=== PATIENT | male | born 1965 | race Caucasian/White ===

== ENCOUNTER → 2019-01-28 | Outpatient (CLI) | payer BC ==
--- NOTE | 2019-01-28 17:38 | FL ---
Fluoroscopy INDICATION: Pain FINDINGS: Fluoroscopy time: 44 seconds. Images obtained: 1. Diaphragms are symmetrical. Real-time observation there is symmetrical movement with quiet breathing. With rapid sniff motions diaphragms distend symmetrically. No peritonsillar motion is identified. IMPRESSIONS: 1. Normal bilateral diaphragms.
== END | disposition home or self-care (01) ==
LOC: RADFLMAIN 12:38
PROVIDERS: ATTEND Internal Medicine
DX: J98.6 Disorders of diaphragm (principal)
CPT/HCPCS: 76000

== ENCOUNTER 2019-02-17 15:26 | Inpatient (IN) | payer BC ==
[2019-02-17 20:14] VITALS: BMI 27.7
[2019-02-17 20:34] LABS: Glucose,Whole Blood 204 mg/dL (75-99)
[2019-02-17] MEDS ORDERED: INSULIN ASPART (NovoLOG) 100 UNIT/ML VIAL SQ PRN (20:35)
[2019-02-17] MEDS ORDERED: ONDANSETRON 4 MG/2 ML VIAL IVP PRN (20:43)
[2019-02-17] MEDS ORDERED: IPRATROPIUM-ALBUTEROL 3 ML NEB INHALATION PRN (20:45)
[2019-02-17] MEDS: guaiFENesin 600 MG TABLET.ER PO SCH (21:20)
[2019-02-17] MEDS: GABAPENTIN 100 MG CAP PO SCH (21:27)
[2019-02-17] MEDS: AZITHROMYCIN 500 MG TAB PO SCH (21:27)
[2019-02-17] MEDS: APIXABAN 5 MG TAB PO SCH (21:27)
--- NOTE | 2019-02-17 21:50 | P.HPIM ---
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 While [place] the patient was treated with systemic steroids IV Solu-Medrol and empiric IV antibiotics with Rocephin and azithromycin, apparently the patient initially showed some improvement but then deteriorated becoming increasingly more dyspneic with ambulation and having persistent wheezes and shortness of breath. He was transferred here to see pulmonology is followed in clinic by Dr. Goldstein. Review of records indicates the patient has had a leukocytosis of 16 after presenting with a white count of around 10, recent serum bicarb today was 33. The patient apparently had a chest x-ray that showed no infiltrates suggestive of any acute infectious process. Review of Systems Pertinent positives per HPI all other review of systems otherwise negative Past Medical History Past Medical History: No Reported History, Hypertension, Pneumonia, Pulmonary Embolus (PE), Respiratory Disorder Smoking Status: Never smoker Past Alcohol Use History: Rare Past Drug Use History: None Reported - Past Family History Mother History Unknown: Yes (pancreatic cancer) Medications and Allergies Home Medications Medication Instructions Recorded Confirmed Type Albuterol Nebulized [Ventolin 2.5 mg INHALATION RT-Q6H PRN 02/17/19 02/17/19 History Nebulized] Albuterol Sulfate [Proair Hfa] 2 puff INHALATION RT-Q6H PRN 02/17/19 02/17/19 History Apixaban [Eliquis] 5 mg PO BID 02/17/19 02/17/19 History Bisoprolol-Hctz 10-6.25 mg [Ziac 10 gm PO DAILY 02/17/19 02/17/19 History 10-6.25 MG] Escitalopram [Lexapro] 20 mg PO HS 02/17/19 02/17/19 History Gabapentin [Neurontin] 100 mg PO BID 02/17/19 02/17/19 History Allergies Allergy/AdvReac Type Severity Reaction Status Date / Time meclizine [From Antivert] Allergy Unknown Unknown Verified 02/17/19 21:21 amlodipine [From Norvasc] Allergy Unknown Verified 02/17/19 21:21 lisinopril [From Zestril] Allergy Unknown Verified 02/17/19 21:21 NSAIDS (Non-Steroidal Allergy Unknown Verified 02/17/19 21:21 Anti-Inflamma omeprazole Allergy Unknown Verified 02/17/19 21:21 Physical Exam Vitals: Vital Signs Temp Pulse Resp BP Pulse Ox 02/17/19 18:25 98.1 F 78 18 162/76 96 02/17/19 18:18 98.1 F 80 20 150/70 95 Intake and Output 02/17/19 02/17/19 02/17/19 06:59 14:59 22:59 Other: Weight 66.6 kg Constitutional: Mild to moderate respiratory distress, conversant, pleasant Eyes: Anicteric sclerae, moist conjunctiva, no lid-lag, PERRLA ENMT: NC/AT,Oropharynx clear, no erythema, exudates Neck:Supple, FROM, no masses, or JVD, No carotid bruits; No thyromegaly Lungs: Coarse adventitious sounds with noted wheezes, speaking in incomplete sentences noted mild to moderate distress Cardiovascular: Heart regular in rate and rhythm, No murmurs, gallops, or rubs no peripheral edema Abdominal: Soft Nontender, nom distended, no guarding, no rebound or rigidity, Normoactive bowel sounds No hepatomegaly, No splenomegaly, No palpable mass No abdominal wall hernia noted Skin: Normal temperature, tone, texture, turgor, No induration No subcutaneous nodules, No rash, lesions, No ulcers Extremities:No digital cyanosis No clubbing, Pedal pulses intact and symmetrical Radial pulses intact and symmetrical Normal gait and station, No calf tenderness Psychiatric: Alert and oriented to person, place and time, Appropriate affect Intact judgement Neuro: Muscles Strength 5/5 in all 4 extremities, Sensation to light touch grossly present throughout, Cranial nerves II-XII grossly intact. No focal sensory deficits Assessment and Plan (1) Severe persistent asthma with acute exacerbation Current Visit: Yes Status: Acute Code(s): J45.51 - SEVERE PERSISTENT ASTHMA WITH (ACUTE) EXACERBATION SNOMED Code(s): 631792363 (2) Essential hypertension Current Visit: Yes Status: Acute Code(s): I10 - ESSENTIAL (PRIMARY) HYPERTEN ROSMERY SNOMED Code(s): 80831174 (3) History of pulmonary embolism Current Visit: Yes Status: Acute Code(s): Z86.711 - PERSONAL HISTORY OF PULMONARY EMBOLISM SNOMED Code(s): 257294317 (4) Restrictive lung disease Current Visit: Yes Status: Acute Code(s): J98.4 - OTHER DISORDERS OF LUNG SNOMED Code(s): 96962371 Plan: The patient is admitted anticipated greater than 2 midnight stay with severe persistent asthma exacerbation versus possible status asthmaticus after being transferred here from [place] with plans for pulmonary consultation. Dr. Goldstein has been consulted. We'll continue treatment with systemic steroids Solu-Medrol 60 mg IV QID, azithromycin orally, scheduled and Prn DUOneb b ronchodilator breathing treatments, Perforomist and Symbicort. We'll continue his home hypertensive regimen, resume anticoagulation for his previous PE. Implement correctional scale coverage for hyperglycemia since he is on steroids and continue Protonix for GI prophylaxis CODE STATUS: Full code Anticipated discharge 3-5 days Discussed plan of care with the patient
[2019-02-17] MEDS: methylPREDNISolone SOD SUCCI 125 MG/2 ML VIAL IV SCH (23:39)
[2019-02-18] MEDS: methylPREDNISolone SOD SUCCI 125 MG/2 ML VIAL IV SCH ×4 (05:21→23:45)
[2019-02-18 05:56] LABS: Glucose,Whole Blood 137 mg/dL (75-99)
[2019-02-18 07:05] LABS: Basophils % (A) 0 %; Eosinophils # (A) 0.1 k/uL (0-0.7); Eosinophils % (A) 1 %; HCT 45.3 % (39.0-53.0); HGB 14.4 gm/dL (13.0-17.5); Lymphocytes # (A) 0.6 k/uL (1.0-4.8); Lymphocytes % (A) 3 %; MCH 30.1 pg (25.0-35.0); MCHC 31.8 g/dL (31.0-37.0); MCV 94.6 fL (80.0-100.0); Mean Platelet Volume 6.3; Monocytes # (A) 0.8 k/uL (0-1.0); Monocytes % (A) 5 %; Neutrophils # (A) 15.6 k/uL (1.3-7.7); Neutrophils % (A) 91 %; Platelet Count 192 k/uL (150-450); RBC 4.79 m/uL (4.30-5.90); RDW 13.8 % (11.5-15.5); WBC 17.2 k/uL (3.8-10.6)
[2019-02-18 07:22] LABS: ALT 76 U/L (21-72); AST 42 U/L (17-59); Albumin 3.4 g/dL (3.5-5.0); Alkaline Phosphatase 75 U/L (38-126); Anion Gap 4 mmol/L; Blood Urea Nitrogen 29 mg/dL (9-20); Carbon Dioxide 34 mmol/L (22-30); Chloride 100 mmol/L (98-107); Glucose 134 mg/dL (74-99); Sodium 138 mmol/L (137-145); Total Bilirubin 0.9 mg/dL (0.2-1.3); Total Protein 5.8 g/dL (6.3-8.2)
[2019-02-18] MEDS: IPRATROPIUM-ALBUTEROL 3 ML NEB INHALATION SCH ×4 (07:42→20:18)
[2019-02-18] MEDS: FORMOTEROL FUMARATE 20 MCG/2 ML NEBU INHALATION SCH ×2 (07:42→20:18)
[2019-02-18] MEDS: SYMBICORT 160-4.5 MCG INHALER INHALATION SCH ×2 (07:44→20:18)
[2019-02-18] MEDS ORDERED: SYMBICORT 80-4.5 MCG INHALER INHALATION SCH (08:00)
--- NOTE | 2019-02-18 08:16 | XR ---
EXAMINATION TYPE: XR chest 2V DATE OF EXAM: 02/18/2019 COMPARISON: Prior chest x-ray 01/28/2019 HISTORY: Asthma exacerbation TECHNIQUE: Frontal and lateral views of the chest are obtained. FINDINGS: There is no focal air space opacity, pleural effusion, or pneumothorax seen. The cardiac silhouette size is stable accounting for rotation. Pulmonary artery appears prominently. There is an underlying scoliosis. There are cardiac leads. The left ribs show stable congenital appearance. IMPRESSION: No acute cardiopulmonary process. Prominence of the pulmonary artery could be indicative of underlying pulmonary artery hypertension. Scoliosis.
[2019-02-18] MEDS: FAMOTIDINE 20 MG TAB PO SCH (08:35)
[2019-02-18] MEDS: APIXABAN 5 MG TAB PO SCH ×2 (08:35→20:46)
[2019-02-18] MEDS: BISOPROLOL-HCTZ 10-6.25 MG 1 EACH TAB PO SCH (08:35)
[2019-02-18] MEDS: GABAPENTIN 100 MG CAP PO SCH ×2 (08:35→20:46)
[2019-02-18] MEDS: ESCITALOPRAM 20 MG TAB PO SCH (08:35)
[2019-02-18] MEDS: guaiFENesin 600 MG TABLET.ER PO SCH ×2 (08:35→20:46)
[2019-02-18 11:35] LABS: Glucose,Whole Blood 95 mg/dL (75-99)
--- NOTE | 2019-02-18 14:46 | P.PN ---
Subjective Progress Note Date: 02/18/19 Patient was seen and examined at the bedside. The patient notes that he continues to have wheezing, though now also reports sore throat with swollen glands in the neck since last night. He otherwise denied dysphagia, shortness of breath, chest pain, fever, chills, nausea, vomiting, or voice changes. Objective - Vital Signs Vital signs: Vital Signs Temp 97.0 F L 02/18/19 07:45 Pulse 88 02/18/19 12:16 Resp 18 02/18/19 07:45 BP 147/78 02/18/19 07:45 Pulse Ox 99 02/18/19 07:45 Intake & Output 02/17/19 02/18/19 02/18/19 18:59 06:59 18:59 Intake Total 720 Balance 720 Weight 66.6 kg 66.7 kg Intake: Oral 720 Other: # Voids 1 1 - Exam General: Non-toxic, in no acute distress, appears stated age, normal weight HEENT: NC/AT, anicteric sclerae, moist conjunctiva, no lid-lag, PERRLA, no pharyngeal erythema, no tonsillar exudates, submandibular bilateral adenopathy appreciated, mildly tender to palpation Cardiovascular: S1/S2 wnl, no murmurs, rubs, or gallops Lungs: Diffuse wheezing appreciated, normal respiratory effort, no accessory muscle use Abdominal: Soft, non-tender, non-distended, no guarding, rebound, or rigidity Skin: Warm, dry Extremities: No edema or contractures Psychiatric: Alert and oriented to person, place and time, appropriate affect Neuro: CN II-XII grossly intact, Strength 5/5 in all 4 extremities, Speech intact, Sensation to light touch grossly intact throughout - Labs CBC & Chem 7: 02/18/19 06:33 02/18/19 06:33 Labs: Abnormal Lab Results - Last 24 Hours (Table) 02/17/19 02/18/19 02/18/19 Range/Units 20:31 05:54 06:33 WBC 17.2 H (3.8-10.6) k/uL Neutrophils # 15.6 H (1.3-7.7) k/uL Lymphocytes # 0.6 L (1.0-4.8) k/uL Carbon Dioxide (22-30) mmol/L BUN (9-20) mg/dL Creatinine (0.66-1.25) mg/dL Glucose (74-99) mg/dL POC Glucose (mg/dL) 204 H 137 H (75-99) mg/dL ALT (21-72) U/L Total Protein (6.3-8.2) g/dL Albumin (3.5-5.0) g/dL 02/18/19 Range/Units 06:33 WBC (3.8-10.6) k/uL Neutrophils # (1.3-7.7) k/uL Lymphocytes # (1.0-4.8) k/uL Carbon Dioxide 34 H (22-30) mmol/L BUN 29 H (9-20) mg/dL Creatinine 0.51 L (0.66-1.25) mg/dL Glucose 134 H (74-99) mg/dL POC Glucose (mg/dL) (75-99) mg/dL ALT 76 H (21-72) U/L Total Protein 5.8 L (6.3-8.2) g/dL Albumin 3.4 L (3.5-5.0) g/dL Assessment and Plan Plan: Acute asthma exacerbation -Continue with Solu-Medrol -Continue with DuoNeb's -Pulmonary consult pending Bilateral submandibular lymphadenopathy, no pharyngeal erythema or exudates -Will test for strep, EBV, and mumps -ID consult History of PE's -Continue with Eliquis Hypertension -Continue with home medications DM -CHRISSY with FS DVT//GI prophylaxis -Eliquis -Pepcid Anticipated discharge date: 02/20/[address]: Home A total of 35 minutes was spent on the care of this complex patient more than 50% of the time was spent in counseling and care coordination.
[2019-02-18] MEDS: ACETAMINOPHEN TAB 325 MG TAB PO PRN ×2 (15:10→23:44)
[2019-02-18] MEDS ORDERED: RX INFO: IV CONTRAST WAS GIVEN 1 EACH MISC MISCELLANE PRN (15:19)
--- NOTE | 2019-02-18 16:37 | CT ---
EXAMINATION TYPE: CT neck chest w con DATE OF EXAM: 02/18/2019 COMPARISON: None HISTORY: Neck swelling and shortness of breath CT DLP: 511.1 mGycm CONTRAST: CT scan of the neck is performed with IV Contrast, patient injected with 100 mL of Isovue 300. Contrast enhanced CT of the neck was performed from the skull base through the lung apices. AIRWAY: The supraglottic, glottic, and subglottic portions of the airway appear patent and free of mass. SALIVARY GLANDS: There is fullness of the bilateral submandibular glands wo intraglandular lesion. Co rrelate for possible bilateral sialoadenitis. Parotid glands are symmetric and unremarkable. THYROID GLAND: No nodules or masses seen. LYMPH NODES: No adenopathy seen greater than 1cm. LUNG APICES: No nodule or mass is seen. OTHER: Vascular structures are patent. No significant degenerative change of the cervical spine. N o abscess seen. IMPRESSION: 1.There is fullness of the bilateral submandibular glands wo intraglandular lesion. Correlate for pos sible bilateral sialoadenitis. EXAMINATION TYPE: CT neck chest w con DATE OF EXAM: 02/18/2019 COMPARISON: None HISTORY: Neck swelling and shortness of breath CT DLP: 511.1 mGycm Automated exposure control for dose reduction was used. CONTRAST: CT scan of the chest is performed with IV Contrast, patient injected with 100 mL of Isovue 300. FINDINGS: LUNGS: The lungs are grossly clear, there is no concerning parenchymal mass or nodule identified. T here is no pleural effusion or pneumothorax seen. The tracheobronchial tree is patent. MEDIASTINUM: There are no greater than 1 cm hilar or mediastinal lymph nodes. No pericardial effusi on is seen. Thoracic aorta is of normal caliber. The heart is not enlarged. UPPER ABDOMEN: Splenic cyst or hemangioma. OTHER: Scoliosis of thoracic spine convex to the right. IMPRESSION: No significant abnormality to account for the patient's symptoms.
[2019-02-18 16:43] LABS: Glucose,Whole Blood 140 mg/dL (75-99)
--- NOTE | 2019-02-18 17:31 | P.CNPUL ---
History of Present Illness Consult date: 02/18/19 Reason for consult: dyspnea, asthma History of present illness: This is a 53-year-old male patient, born premature, works in a [employer] y, has history of congenital heart disease and the patient has undergone cardiac surgery for patent ductus arteriosus and chronic patient of the wart at the age of 4. The patient also has history of bronchial asthma and chronic pulmonary insufficiency with a component of restrictive lung disease due to his severe scoliosis of thoracic spine. He also has previous history of pulmonary embolism. The patient was in a good state of health. He was diagnosed having a acute bronchitis/asthma exacerbation which was hospitalized in the hospital for almost a week. During this time the patient was given a combination of bronchodilators and steroids and antibiotics. Based on the absent improvement the patient got transferred to [facility]. During this time, the patient developed also enlargement of the submandibular glands/lymph nodes without having any difficulties with stridor, swallowing or airway compromise. He is still short of breath, dyspnea, cough and wheezing and his chest remains tired. I reviewed the chest x-ray there is no acute abnormalities. There is some scattered changes along the left side chest wall probably to the previous cardiac surgery. No fever. No chills. No abnormalities in LFTs. No skin rashes. No travel history. He is hemodynamically stable at this point in time. No reported sore throat. No difficulty in swallowing. No odynophagia.the p atient is afebrile. Pulse ox 96% on room air.she was a screening that was done and the [facility] was negative. Rapid strep screen was also negative. Review of Systems Constitutional: Reports fatigue, Reports weakness Eyes: denies as per HPI, denies blurred vision, denies bulging eye, denies decreased vision, denies diplopia, denies discharge, denies dry eye, denies irritation, denies itching, denies pain, denies photophobia, denies loss of peripheral vision, denies loss of vision, denies tunnel vision/blind spots Ears: deny: decreased hearing, ear discharge, earache, tinnitus Ears, nose, mouth and throat: Reports neck fullness/pressure, Reports neck lump, Reports swelling in throat Cardiovascular: Reports decreased exercise tolerance, Reports dyspnea on exertion, Reports shortness of breath Respiratory: Reports cough, Reports dyspnea, Reports snoring, Reports wheezing Gastrointestinal: Denies abdominal pain, Denies diarrhea, Denies nausea, Denies vomiting Genitourinary: Reports as per HPI Musculoskeletal: Reports as per HPI Musculoskeletal: absent: ankle pain, ankle stiffness, ankle swelling, as per HPI, elbow pain, elbow stiffness, elbow swelling, foot pain, foot stiffness, foot swelling, hand pain, hand stiffness, hand swelling, hip pain, hip stiffness, hip swelling, knee pain, knee stiffness, knee swelling, shoulder pain, shoulder stiffness, shoulder swelling, wrist pain, wrist stiffness, wrist swelling Integumentary: Reports as per HPI Neurological: Reports as per HPI Psychiatric: Reports as per HPI Endocrine: Reports as per HPI Hematologic/Lymphatic: Reports as per HPI Allergic/Immunologic: Reports as per HPI Past Medical History Past Medical History: No Reported History, Hypertension, Pneumonia, Pulmonary Embolus (PE), Respiratory Disorder Additional Past Medical History / Comment(s): multiple pneumothorax left lung, colon polyps removed 2018, congenital heart disease, asthma, restrictive heart disease, pulmonary embolism and HTN History of Any Multi-Drug Resistant Organisms: None Reported Past Surgical History: Back Surgery, Cholecystectomy, Coronary Bypass/CABG, Hernia Repair, Prostate Surgery Additional Past Surgical History / Comment(s): B/L carpal tunnel release,open heart at age 4, B/L inguinal hernia repair, TURP, Orchiectomy of Left testicle. EDG and colonoscopy in 2018. Past Anesthesia/Blood Transfusion Reactions: No Reported Reaction Smoking Status: Never smoker Past Alcohol Use History: Rare Past Drug Use History: None Reported - Past Family History Mother History Unknown: Yes (pancreatic cancer) Medications and Allergies Home Medications Medication Instructions Recorded Confirmed Type Albuterol Nebulized [Ventolin 2.5 mg INHALATION RT-Q6H PRN 02/17/19 02/17/19 H istory Nebulized] Albuterol Sulfate [Proair Hfa] 2 puff INHALATION RT-Q6H PRN 02/17/19 02/17/19 History Apixaban [Eliquis] 5 mg PO BID 02/17/19 02/17/19 History Bisoprolol-Hctz 10-6.25 mg [Ziac 10 gm PO DAILY 02/17/19 02/17/19 History 10-6.25 MG] Escitalopram [Lexapro] 20 mg PO HS 02/17/19 02/17/19 History Gabapentin [Neurontin] 100 mg PO BID 02/17/19 02/17/19 History Allergies Allergy/AdvReac Type Severity Reaction Status Date / Time meclizine [From Antivert] Allergy Unknown Unknown Verified 02/17/19 21:21 amlodipine [From Norvasc] Allergy Unknown Verified 02/17/19 21:21 lisinopril [From Zestril] Allergy Unknown Verified 02/17/19 21:21 NSAIDS (Non-Steroidal Allergy Unknown Verified 02/17/19 21:21 Anti-Inflamma omeprazole Allergy Unknown Verified 02/17/19 21:21 Physical Exam Vitals: Vital Signs Temp Pulse Pulse Resp BP Pulse Ox 02/18/19 12:16 88 02/18/19 12:07 84 02/18/19 11:20 97.7 F 62 18 147/83 96 02/18/19 08:08 84 02/18/19 07:56 80 02/18/19 07:55 80 02/18/19 07:45 97.0 F L 79 18 147/78 99 02/18/19 07:44 80 02/18/19 04:42 76 02/18/19 04:28 84 02/18/19 04:00 97.8 F 88 21 150/80 95 02/18/19 00:00 98.4 F 81 19 145/74 94 L 02/17/19 20:00 78 20 02/17/19 18:25 98.1 F 78 18 162/76 96 02/17/19 18:18 98.1 F 80 20 150/70 95 Intake and Output 02/18/19 02/18/19 02/18/19 06:59 14:59 22:59 Intake Total 720 Balance 720 Intake: Oral 720 Other: # Voids 1 1 Weight 66.7 kg Gen. appearance the patient is a short statured currently was not an acute respiratory distress. His communicating and nontoxic looking. His own acute respiratory distress. Head exam was generally normal. There was no scleral icterus or corneal arcus. Mucous membranes were moist. Neck was supple and without jugular venous distension, thyromegaly, or carotid bruits. Carotids were easily palpable bilaterally. There was reason adenopathy bilaterally in the submandibular area and the lymph nodes are quite rubbery enlarged. Nonpainful. No stridor. Posterior oropharynx is essentially clear and the patient has a bifid uvula. Lungs sounds are diminished bilaterally and the patient has diffuse expiratory wheezes throughout the lung melchor and prolongation of expiratory phase of breat chasity. Cardiac exam revealed the PMI to be normally situated and sized. The rhythm was regular and no extrasystoles were noted during several minutes of auscultation. The first and second heart sounds were normal and physiologic splitting of the second heart sound was noted. There were no murmurs, rubs, clicks, or gallops.scar of previous cardiac surgery is present over the left back posteriorly along the scapula. Abdominal exam revealed normal bowel sounds. The abdomen was soft, non-tender, and without masses, organomegaly, or appreciable enlargement of the abdominal aorta. Examination of the extremities revealed easily palpable radial, femoral and pedal pulses. There was no cyanosis, clubbing or edema. Examination of the skin revealed no evidence of significant rashes, suspicious appearing nevi or other concerning lesions. Neurologically awake and alert and there is no focal neurology deficits. Results - Laboratory Findings CBC and BMP: 02/18/19 06:33 02/18/19 06:33 Abnormal lab findings: Abnormal Labs 02/17/19 02/18/19 02/18/19 20:31 05:54 06:33 WBC 17.2 H Neutrophils # 15.6 H Lymphocytes # 0.6 L Carbon Dioxide BUN Creatinine Glucose POC Glucose (mg/dL) 204 H 137 H ALT Total Protein Albumin 02/18/19 06:33 WBC Neutrophils # Lymphocytes # Carbon Dioxide 34 H BUN 29 H Creatinine 0.51 L Glucose 134 H POC Glucose (mg/dL) ALT 76 H Total Protein 5.8 L Albumin 3.4 L - Diagnostic Findings Chest x-ray: image reviewed Assessment and Plan Plan: assessment 1 acute asthma exacerbation 2 shortness of breath secondary to above 3 bilateral submandibular lymphadenopathy versus sialadenitis. Rule out infection with EBV, CMV, toxoplasma. Less likely possibilities are syphilis/acute HIV. unlikely to be related to any form of malignancy such as lymphoma or any other connective tissue disease related problem. This is a rapid onset enlargement of the submandibular glands/lymph nodes is most likely postinfectious/inflammatory in nature. Further investigation with a CAT scan of the neck and the chest will be needed 4 history of congenital heart disease with previous history of surgery for c oarctation of the aorta and patent ductus arteriosus 5 previous history of pulmonary embolism currently on Eliquis 6 hypertension 7 diabetes mellitus 8 premature and the patient has short stature Plan Will proceed with an ID consult. Check titers for EBV, CMV, toxoplasma and VDRL. influenza screen was negative. Rapid strep screen was negative. Check CAT scan of the neck and the chest. Proceed with a combination of bronchodilators and systemic steroids.dhis continue the Symbicortt and put the patient on a combination of Pulmicort and Perforomist the last 2 minutes twice a day. We'll continue to follow.
[2019-02-18 20:31] LABS: EBV-VCA (IgG) >8.0 AI
[2019-02-18 20:44] LABS: Glucose,Whole Blood 168 mg/dL (75-99)
[2019-02-18] MEDS: AZITHROMYCIN 500 MG TAB PO SCH (20:46)
[2019-02-18] MEDS: INSULIN ASPART (NovoLOG) 100 UNIT/ML VIAL SQ SCH (20:57)
[2019-02-19 05:56] LABS: Glucose,Whole Blood 151 mg/dL (75-99)
[2019-02-19] MEDS: INSULIN ASPART (NovoLOG) 100 UNIT/ML VIAL SQ SCH ×4 (06:20→21:29)
[2019-02-19] MEDS: methylPREDNISolone SOD SUCCI 125 MG/2 ML VIAL IV SCH ×4 (06:20→23:39)
[2019-02-19] MEDS: IPRATROPIUM-ALBUTEROL 3 ML NEB INHALATION SCH ×4 (08:41→19:50)
[2019-02-19] MEDS: FORMOTEROL FUMARATE 20 MCG/2 ML NEBU INHALATION SCH ×2 (08:41→19:50)
[2019-02-19] MEDS: SYMBICORT 160-4.5 MCG INHALER INHALATION SCH ×2 (08:41→19:50)
[2019-02-19] MEDS: ESCITALOPRAM 20 MG TAB PO SCH (09:15)
[2019-02-19] MEDS: FAMOTIDINE 20 MG TAB PO SCH (09:15)
[2019-02-19] MEDS: guaiFENesin 600 MG TABLET.ER PO SCH ×2 (09:15→19:52)
[2019-02-19] MEDS: APIXABAN 5 MG TAB PO SCH ×2 (09:15→19:52)
[2019-02-19] MEDS: GABAPENTIN 100 MG CAP PO SCH ×2 (09:15→19:52)
[2019-02-19] MEDS: BISOPROLOL-HCTZ 10-6.25 MG 1 EACH TAB PO SCH (09:16)
[2019-02-19 11:16] LABS: Glucose,Whole Blood 137 mg/dL (75-99)
--- NOTE | 2019-02-19 13:57 | P.PN ---
Subjective Progress Note Date: 02/19/19 Principal diagnosis: Acute exacerbation of chronic bronchial asthma. 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 The patient also has history of bronchial asthma and chronic p ulmonary insufficiency with a component of restrictive lung disease due to his severe scoliosis of thoracic spine. He also has previous history of pulmonary embolism. The patient was in a good state of health. He was diagnosed having a acute bronchitis/asthma exacerbation which was hospitalized in the hospital for almost a week. During this time the patient was given a combination of bronchodilators and steroids and antibiotics. Based on the absent improvement the patient got transferred to [facility]. During this time, the patient developed also enlargement of the submandibular glands/lymph nodes without having any difficulties with stridor, swallowing or airway compromise. He is still short of breath, dyspnea, cough and wheezing and his chest remains tired. I reviewed the chest x-ray there is no acute abnormalities. There is some scattered changes along the left side chest wall probably to the previous cardiac surgery. No fever. No chills. No abnormalities in LFTs. No skin rashes. No travel history. He is hemodynamically stable at this point in time. No reported sore throat. No difficulty in swallowing. No odynophagia.the patient is afebrile. Pulse ox 96% on room air.she was a screening that was done and the [facility] was negative. Rapid strep screen was also negative. Patient is seen today 02/19/2018 in follow-up on the selective care unit. He remains awake and alert in no acute distress. He is breathing a bit better today as compared to yesterday. Not quite back to his baseline. Still wheezing. Still has some submandibular pain of the salivary glands. Computed tomography scan of the neck revealed noted fullness in the bilateral submandibular glands without intraoperative glandular lesion. Possible bilateral sialoadenitis. Strep throat culture pending. Treponema pallidum antibodies were nonreactive. CMV nonreactive. White count 17.2. Hemoglobin 14.4. Creatinine 0.51. He remains on azithromycin Objective - Vital Signs Vital signs: Vital Signs Temp 97.8 F 03/23/19 08:00 Pulse 84 02/19/19 12:43 Resp 20 02/19/19 11:09 BP 142/70 02/19/19 08:00 Pulse Ox 95 02/19/19 08:00 Intake & Output 02/18/19 02/19/19 02/19/19 18:59 06:59 18:59 Intake Total 1080 30 260 Output Total 100 Balance 1080 -70 260 Weight 66.5 kg Intake: IV 30 20 Invasive Line 1 30 20 Oral 1080 240 Output: Urine 100 Other: Voiding Method Toilet Toilet # Voids 1 1 2 - Exam Gen. appearance the patient is a short statured currently was not in any acute respiratory distress. On room air. Head exam was generally normal. There was no scleral icterus or corneal arcus. Mucous membranes were moist. Neck was supple and without jugular venous distension, thyromegaly, or carotid bruits. Carotids were easily palpable bilaterally. There was reason adenopathy bilaterally in the submandibular area and the lymph nodes are quite rubbery enlarged. Nonpainful. No stridor. Posterior oropharynx is essentially clear and the patient has a bifid uvula. Lungs sounds are diminished bilaterally and the patient has diffuse expiratory wheezes throughout the lung melchor and prolongation of expiratory phase of breathing. Cardiac exam revealed the PMI to be normally situated and sized. The rhythm was regular and no extrasystoles were noted during several minutes of auscultation. The first and second heart sounds were normal and physiologic splitting of the second heart sound was noted. There were no murmurs, rubs, clicks, or gallops.scar of previous cardiac surgery is present over the left back posteriorly along the scapula. Abdominal exam revealed normal bowel sounds. The abdomen was soft, non-tender, and without masses, organomegaly, or appreciable enlargement of the abdominal aorta. Examination of the extremities revealed easily palpable radial, femoral and pedal pulses. There was no cyanosis, clubbing or edema. Examination of the skin revealed no evidence of significant rashes, suspicious appearing nevi or other concerning lesions. Neurologically awake and alert and there is no focal neurology deficits. - Labs CBC & Chem 7: 02/18/19 06:33 02/18/19 06:33 Labs: Abnormal Lab Results - Last 24 Hours (Table) 02/18/19 02/18/19 02/18/19 Range/Units 06:33 16:40 20:43 POC Glucose (mg/dL) 140 H 168 H (75-99) mg/dL EBV Capsid Ag IgG Intrp POSITIVE H (NEGATIVE) EBV Nuc Ag IgG Interp POSITIVE H (NEGATIVE) 02/19/19 02/19/19 Range/Units 05:55 11:15 POC Glucose (mg/dL) 151 H 137 H (75-99) mg/dL EBV Capsid Ag IgG Intrp (NEGATIVE) EBV Nuc Ag IgG Interp (NEGATIVE) Microbiology - Last 24 Hours (Table) 02/18/19 15:20 Group A Strep Throat Culture - Preliminary Throat Assessment and Plan Assessment: Impression: 1 acute asthma exacerbation 2 shortness of breath secondary to above 3 bilateral submandibular lymphadenopathy versus sialadenitis. Rule out infection with EBV, CMV, toxoplasma. Less likely possibilities are syphilis/acute HIV. unlikely to be related to any form of malignancy such as lymphoma or any other connective tissue disease related problem. This is a rapid onset enlargement of the submandibular glands/lymph nodes is most likely postinfectious/inflammatory in nature. Computed tomography scan of the neck suggests possible sialoadenitis bilaterally 4 history of congenital heart disease with previous history of surgery for coarctation of the aorta and patent ductus arteriosus 5 previous history of pulmonary embolism currently on Eliquis 6 hypertension 7 diabetes mellitus 8 premature and the patient has short stature Plan The patient was seen and evaluated by Dr. Wilson. CT so were reviewed. Pro bable bilateral sialoadenitis. Titers are negative thus far. He remains on azithromycin. He is improved today as compared to yesterday. We'll continue with the Symbicort and DuoNeb inhalations. He remains on IV Solu-Medrol. We will continue to follow and make further recommendations based on his clinical status. I, the cosigning physician, performed a history & physical examination of the patient. Lungs sounds bilateral wheezing, few scattered rhonchi Maintaining good O2 saturations in the 90s on room air. I discussed the assessment and plan of care with my nurse practitioner, Ella Murphy. I attest to the above note as dictated by her.
--- NOTE | 2019-02-19 15:13 | P.PN ---
Subjective Progress Note Date: 02/19/19 The patient is a 53-year-old male with a PMH of congenital heart disease (underwent cardiac surgery for PDA and coarctation of the aorta), asthma, history of PE (on Eliquis) and restrictive lung disease in the setting of severe scoliosis and thoracic spine was transferred to [facility] where he was admitted for nearly a week for acute asthma exacerbation. During the prior hospitalization, the patient received IV steroids along with bronchodilators and antibiotics. He however showed minimal improvement and was subsequently transferred. On 02/18/2009, the patient reported noticing swelling of his neck bilaterally with swollen glands along with sore throat and odynophagia. Pulmonary medicine was consulted and recommended a CT of chest and neck to evaluate the submandibular lymphadenopathy. The CAT scan revealed fullness of the bilateral submandibular glands without intraglandular lesions and raised the possibility of bilateral sialoadenitis. The patient was seen and examined at the bedside on 02/19/2019. The patient notes that his breathing is improved somewhat though he continues to have wheezing. He also reported improvement in his neck swelling and denied any difficulty swallowing. He further denied fever, chills, chest pain, nausea, vo miting, or abdominal pain. Objective - Vital Signs Vital signs: Vital Signs Temp 97.8 F 02/19/19 08:00 Pulse 84 02/19/19 12:43 Resp 20 02/19/19 11:09 BP 142/70 02/19/19 08:00 Pulse Ox 95 02/19/19 08:00 Intake & Output 02/18/19 02/19/19 02/19/19 18:59 06:59 18:59 Intake Total 1080 30 520 Output Total 100 Balance 1080 -70 520 Weight 66.5 kg Intake: IV 30 20 Invasive Line 1 30 20 Oral 1080 500 Output: Urine 100 Other: Voiding Method Toilet Toilet # Voids 1 1 2 - Exam General: Non-toxic, in no acute distress, appears stated age, normal weight HEENT: NC/AT, anicteric sclerae, moist conjunctiva, no lid-lag, PERRLA, no pharyngeal erythema, no tonsillar exudates, submandibular bilateral adenopathy appreciated, mildly tender to palpation, improved Cardiovascular: S1/S2 wnl, no murmurs, rubs, or gallops Lungs: Expiratory wheezing appreciated, normal respiratory effort, no accessory muscle use Abdominal: Soft, non-tender, non-distended, no guarding, rebound, or rigidity Skin: Warm, dry Extremities: No edema or contractures Psychiatric: Alert and oriented to person, place and time, appropriate affect Neuro: CN II-XII grossly intact, Strength 5/5 in all 4 extremities, Speech inta ct, Sensation to light touch grossly intact throughout - Labs CBC & Chem 7: 02/18/19 06:33 02/18/19 06:33 Labs: Abnormal Lab Results - Last 24 Hours (Table) 02/18/19 02/18/19 02/18/19 Range/Units 06:33 16:40 20:43 POC Glucose (mg/dL) 140 H 168 H (75-99) mg/dL EBV Capsid Ag IgG Intrp POSITIVE H (NEGATIVE) EBV Nuc Ag IgG Interp POSITIVE H (NEGATIVE) 02/19/19 02/19/19 Range/Units 05:55 11:15 POC Glucose (mg/dL) 151 H 137 H (75-99) mg/dL EBV Capsid Ag IgG Intrp (NEGATIVE) EBV Nuc Ag IgG Interp (NEGATIVE) Microbiology - Last 24 Hours (Table) 02/18/19 15:20 Group A Strep Throat Culture - Preliminary Throat Assessment and Plan Plan: Acute asthma exacerbation -Continue with Solu-Medrol -Continue with DuoNeb's -Pulmonary recommendations appreciated Bilateral submandibular lymphadenopathy, no pharyngeal erythema or exudates -CMV and toxoplasma pending, Mumps titers pending -ID consult pending -Strep and EBV negative -C/w Azithromycin for now Leukocytosis -Likely reactive -Will monitor History of PE's -Continue with Eliquis Hypertension -Continue with home medications DM -CHRISSY with FS DVT//GI prophylaxis -Eliquis -Pepcid Anticipated discharge date: 02/22/[address]: Home A total of 35 minutes was spent on the care of this complex patient more than 50% of the time was spent in counseling and care coordination.
[2019-02-19 16:31] LABS: Glucose,Whole Blood 232 mg/dL (75-99)
[2019-02-19] MEDS: AZITHROMYCIN 500 MG TAB PO SCH (19:52)
[2019-02-19 20:32] LABS: Glucose,Whole Blood 139 mg/dL (75-99)
[2019-02-19] MEDS: ACETAMINOPHEN TAB 325 MG TAB PO PRN (23:39)
[2019-02-19] MEDS: AMPICILLIN-SULBACTAM 3 GM in SODIUM CHLORIDE 0.9% 100 ML IVPB SCH (23:40)
[2019-02-20 06:16] LABS: Glucose,Whole Blood 141 mg/dL (75-99)
[2019-02-20] MEDS: methylPREDNISolone SOD SUCCI 125 MG/2 ML VIAL IV SCH ×4 (06:27→23:32)
[2019-02-20] MEDS: AMPICILLIN-SULBACTAM 3 GM in SODIUM CHLORIDE 0.9% 100 ML IVPB SCH ×4 (06:27→23:37)
[2019-02-20] MEDS: INSULIN ASPART (NovoLOG) 100 UNIT/ML VIAL SQ SCH ×4 (06:27→21:33)
[2019-02-20 06:46] LABS: HCT 47.5 % (39.0-53.0); HGB 15.1 gm/dL (13.0-17.5); MCH 29.8 pg (25.0-35.0); MCHC 31.7 g/dL (31.0-37.0); Mean Platelet Volume 6.7; Platelet Count 196 k/uL (150-450); RBC 5.05 m/uL (4.30-5.90); RDW 13.8 % (11.5-15.5)
[2019-02-20 07:18] LABS: Anion Gap 5 mmol/L; Blood Urea Nitrogen 28 mg/dL (9-20); Calcium 8.9 mg/dL (8.4-10.2); Carbon Dioxide 31 mmol/L (22-30); Chloride 100 mmol/L (98-107); Glucose 151 mg/dL (74-99); Potassium 4.2 mmol/L (3.5-5.1); Sodium 136 mmol/L (137-145)
[2019-02-20] MEDS: SYMBICORT 160-4.5 MCG INHALER INHALATION SCH ×2 (07:34→20:25)
[2019-02-20] MEDS: IPRATROPIUM-ALBUTEROL 3 ML NEB INHALATION SCH ×4 (07:34→20:24)
[2019-02-20] MEDS: FORMOTEROL FUMARATE 20 MCG/2 ML NEBU INHALATION SCH ×2 (07:34→20:25)
--- NOTE | 2019-02-20 08:06 | CONS ---
CONSULTATION DATE OF SERVICE: 02/19/2019. REASON FOR CONSULTATION: Submandibular gland enlargement infection. HISTORY OF PRESENT ILLNESS: The patient is a 53-year-old male who initially presented to the off site facility with increasing shortness of breath and cough which the patient was treated at that facility for almost a week with antibiotics and steroids. However, the patient did not have any improvement. Subsequently the patient has been transferred to the [facility] on 02/17/2019 for persistent symptoms and nonimprovement. On presentation, the patient did have a chest x-ray reported negative for any acute cardiopulmonary process. The patient did not have any fever on presentation and his white count was elevated at 17.2. However, the patient facility. The patient has been evaluated by Pulmonary service with the patient being started on Zithromax, Symbicort, Solu-Medrol and bronchodilator. The patient also noticed to have a bilateral submandibular gland enlargement on the right side. The patient has been complaining of some dull aching pain on the right side, intensity 3 to 4 out of 10. Did have some difficulty swallowing, but no nausea, no vomiting. No abdominal pain or any diarrhea. The patient did have a CT of the chest and neck completed yesterday which did show evidence of fullness of bilateral submandibular glands with , for possible bilateral sialoadenitis. Infectious disease was consulted for further recommendations of antibiotic therapy. No mention of any parotid swelling or any lymph nodes in any part of the body. REVIEW OF SYSTEMS: Positive points have been mentioned in HPI. Rest of the review of systems are negative. PAST MEDICAL HISTORY: Hypertension, pneumonia, pulmonary embolism, pneumothorax, colon polyps, congenital heart disease. History of lung disease. PAST SURGICAL HISTORY: Back surgery, cholecystectomy, coronary artery bypass grafting, surgery, inguinal hernia repair. SOCIAL HISTORY: No history of smoking, occasionally drinks. No drug use. FAMILY HISTORY: Mother with history of pancreatic cancer. ALLERGIES: TO MECLIZINE, . MEDICATION: The patient is currently on Tylenol, DuoNeb, Eliquis, Zithromax, Ziac; Symbicort, Lexapro, Pepcid, Neurontin, Mucinex, NovoLog, Solu-Medrol, Zofran. PHYSICAL EXAMINATION: Blood pressure 149/77, pulse of 57, temperature 98.8. He is 95% on room air. General description is a middle-aged male up in the room in no distress. No tachypnea or accessory muscles of respiration use. HEENT: Shows no pallor or scleral icterus. Oral mucosal membranes are moist. The patient did have poor dentition, especially no significant inflammation was noted. Neck did have a right submandibular gland enlargement more prominent than the left side with no evidence of any parotid swelling. Lungs unlabored breathing. With decreased intensity of breath sounds bilaterally, wheeze. Heart S1, S2. Regular rate and rhythm. ABDOMEN: Soft, no tenderness. EXTREMITIES: No edema of the feet. Skin examination: No rash or mass palpable. NEUROLOGICAL: The patient is awake, alert, oriented x3. Mood and affect normal. LABS: Hemoglobin is 14.4, white count 17.2. BUN of 29, creatinine 0.51. Electrolytes have been normal. Liver enzymes normal. CME Serology was negative. HPV was positive. Group B strep negative. nonreactive. DIAGNOSTIC IMPRESSION: 1. The patient with bilateral submandibular gland enlargement mostly marked on the right side with evidence of bilateral cellulitis. Clinically doubt mumps which typically involves the parotid gland in this patient whose lacking other symptoms that have been responsible for the disease with the submandibular lymph gland enlargement more likely related to infection of his oral cavity to be the likely etiology as the patient did have evidence of bad dentition, I will need to cover for the oral georgina. 2. The patient with symptoms of difficulty breathing more likely related to with tracheobronchitis. No evidence of any pneumonia. PLAN: 1. We will start the patient on Unasyn 3 g every 6 hours. 2. IV fluids. 3. Await serology. 4. We will follow on his clinical condition and further adjust medication if needed. Thank you for this consultation. Will follow this patient along with you. MMODL / IJN: [id number] /
[2019-02-20] MEDS: ESCITALOPRAM 20 MG TAB PO SCH (08:37)
[2019-02-20] MEDS: FAMOTIDINE 20 MG TAB PO SCH (08:37)
[2019-02-20] MEDS: GABAPENTIN 100 MG CAP PO SCH ×2 (08:37→21:34)
[2019-02-20] MEDS: BISOPROLOL-HCTZ 10-6.25 MG 1 EACH TAB PO SCH (08:37)
[2019-02-20] MEDS: guaiFENesin 600 MG TABLET.ER PO SCH ×2 (08:37→21:34)
[2019-02-20] MEDS: APIXABAN 5 MG TAB PO SCH ×2 (08:37→21:34)
[2019-02-20 10:53] LABS: Glucose,Whole Blood 171 mg/dL (75-99)
--- NOTE | 2019-02-20 12:03 | P.PN ---
Subjective Progress Note Date: 02/20/19 The patient is a 53-year-old male with a PMH of congenital heart disease (underwent cardiac surgery for PDA and coarctation of the aorta), asthma, history of PE (on Eliquis) and restrictive lung disease in the setting of severe scoliosis and thoracic spine was transferred to [facility] where he was admitted for nearly a week for acute asthma exacerbation. During the prior hospitalization, the patient received IV steroids along with bronchodilators and antibiotics. He however showed minimal improvement and was subsequently transferred. On 02/18/2009, the patient reported noticing swelling of his neck bilaterally with swollen glands along with sore throat and odynophagia. Pulmonary medicine was consulted and recommended a CT of chest and neck to evaluate the submandibular lymphadenopathy. The CAT scan revealed fullness of the bilateral submandibular glands without intraglandular lesions and raised the possibility of bilateral sialoadenitis. Infectious disease was consulted and the patient was started on IV Unasyn for suspected oral pathogen as a cause of the lymphadenopathy. The patient was seen and examined at the bedside on 02/20/2019. The patient's breathing continues to improve and he notes significantly decreased swelling of the neck. He has had no episodes of fever, chills, chest pain, nausea, or vomiting. Objective - Vital Signs Vital signs: Vital Signs Temp 97.6 F 02/20/19 08:00 Pulse 81 02/20/19 08:00 Resp 16 02/20/19 08:00 BP 147/78 02/20/19 08:00 Pulse Ox 96 02/20/19 08:00 Intake & Output 02/19/19 02/20/19 02/20/19 18:59 06:59 18:59 Intake Total 790 130 470 Output Total 1000 Balance -210 130 470 Weight 66.6 kg Intake: IV 30 130 10 Ampicillin-Sulbactam 3 gm 100 In Sodium Chloride 0.9% 100 ml @ 200 mls/hr IVPB Q6HR [facility] Rx#:[id number] Invasive Line 1 30 30 10 Oral [id number] Output: Urine 1000 Other: Voiding Method Toilet Toilet Toilet # Voids 2 2 - Exam General: Non-toxic, in no acute distress, appears stated age, normal weight HEENT: NC/AT, anicteric sclerae, moist conjunctiva, no lid-lag, PERRLA, no pharyngeal erythema, no tonsillar exudates, submandibular bilateral adenopathy appreciated, non-tender to palpation, improved Cardiovascular: S1/S2 wnl, no murmurs, rubs, or gallops Lungs: Clear to auscultation, normal respiratory effort, no accessory muscle use Abdominal: Soft, non-tender, non-distended, no guarding, rebound, or rigidity Skin: Warm, dry Extremities: No edema or contractures Psychiatric: Alert and oriented to person, place and time, appropriate affect Neuro: CN II-XII grossly intact, Strength 5/5 in all 4 extremities, Speech intact, Sensation to light touch grossly intact throughout - Labs CBC & Chem 7: 02/20/19 06:10 02/20/19 06:10 Labs: Abnormal Lab Results - Last 24 Hours (Table) 02/19/19 02/19/19 02/20/19 Range/Units 16:30 20:30 06:10 WBC 14.0 H (3.8-10.6) k/uL Sodium (137-145) mmol/L Carbon Dioxide (22-30) mmol/L BUN (9-20) mg/dL Creatinine (0.66-1.25) mg/dL Glucose (74-99) mg/dL POC Glucose (mg/dL) 232 H 139 H (75-99) mg/dL 02/20/19 02/20/19 02/20/19 Range/Units 06:10 06:16 10:52 WBC (3.8-10.6) k/uL Sodium 136 L (137-145) mmol/L Carbon Dioxide 31 H (22-30) mmol/L BUN 28 H (9-20) mg/dL Creatinine 0.55 L (0.66-1.25) mg/dL Glucose 151 H (74-99) mg/dL POC Glucose (mg/dL) 141 H 171 H (75-99) mg/dL Assessment and Plan Plan: Acute asthma exacerbation -Continue with Solu-Medrol -Continue with DuoNeb's -Pulmonary recommendations appreciated Bilateral submandibular lymphadenopathy, no pharyngeal erythema or exudates -CMV negative, toxoplasma and mumps titers pending -ID consult appreciated -Strep and EBV negative -C/w Azithromycin for now -Started on Unasyn by ID Leukocytosis -Likely reactive -Will monitor History of PE's -Continue with Eliquis Hypertension -Continue with home medications DM -CHRISSY with FS DVT//GI prophylaxis -Eliquis -Pepcid Anticipated discharge date: 02/22/[address]: Home A total of 35 minutes was spent on the care of this complex patient more than 5 0% of the time was spent in counseling and care coordination.
--- NOTE | 2019-02-20 14:30 | P.PN ---
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 The patient also has history of bronchial asthma and chronic pulmonary insufficiency with a component of restrictive lung disease due to his severe scoliosis of thoracic spine. He also has previous history of pulmonary embolism. The patient was in a good state of health. He was diagnosed having a acute bronchitis/asthma exacerbation which was hospitalized in the hospital for almost a week. During this time the patient was given a combination of bro nchodilators and steroids and antibiotics. Based on the absent improvement the patient got transferred to [facility]. During this time, the patient developed also enlargement of the submandibular glands/lymph nodes without having any difficulties with stridor, swallowing or airway compromise. He is still short of breath, dyspnea, cough and wheezing and his chest remains tired. I reviewed the chest x-ray there is no acute abnormalities. There is some scattered changes along the left side chest wall probably to the previous cardiac surgery. No fever. No chills. No abnormalities in LFTs. No skin rashes. No travel history. He is hemodynamically stable at this point in time. No reported sore throat. No difficulty in swallowing. No odynophagia.the patient is afebrile. Pulse ox 96% on room air.she was a screening that was done and the [facility] was negative. Rapid strep screen was also negative. Patient is seen today 02/19/2018 in follow-up on the selective care unit. He remains awake and alert in no acute distress. He is breathing a bit better today as compared to yesterday. Not quite back to his baseline. Still wheezing. Still has some submandibular pain of the salivary glands. Computed tomography scan of the neck revealed noted fullness in the bilateral submandibular glands without intraoperative glandular lesion. Possible bilateral sialoadenitis. Strep throat culture pending. Treponema pallidum antibodies were nonreactive. CMV nonreactive. White count 17.2. Hemoglobin 14.4. Creatinine 0.51. He remains on azithromycin On today's evaluation of 02/20/2019 I'm seeing this patient for a follow-up. Much improved compared to yesterday. The submandibular glands have dropped in size and the patient has no pain in the submandibular area. He is also less short of breath is ambulating. Last bronchus spastic and wheezy compared to yesterday. No cough sputum production. No chest pain. No fever or chills. No other complaints otherwise for now. He remains on systemic steroids. The workup has been essentially negative for now Objective - Vital Signs Vital signs: Vital Signs Temp 97.8 F 02/20/19 12:00 Pulse 69 02/20/19 12:00 Resp 16 02/20/19 12:00 BP 136/77 02/20/19 12:00 Pulse Ox 95 02/20/19 12:00 Intake & Output 02/19/19 02/20/19 02/20/19 18:59 06:59 18:59 Intake Total 702 661 3621 Output Total 1000 Balance -851 863 2762 Weight 66.6 kg Intake: IV 30 130 20 Ampicillin-Sulbactam 3 gm 100 In Sodium Chloride 0.9% 100 ml @ 200 mls/hr IVPB Q6HR [facility] Rx#:[id number] Invasive Line 1 30 30 20 Oral 760 1060 Output: Urine 1000 Other: Voiding Method Toilet Toilet Toilet # Voids 2 2 - Exam Gen. appearance the patient is a short statured currently was not in any acute respiratory distress. On room air. Head exam was generally normal. There was no scleral icterus or corneal arcus. Mucous membranes were moist. Neck was supple and without jugular venous distension, thyromegaly, or carotid bruits. Carotids were easily palpable bilaterally. There was reason adenopathy bilaterally in the submandibular area and the lymph nodes are quite rubbery enlarged. Nonpainful. The submandibular glands are dropped in size significantly compared to yesterday. No stridor. Posterior oropharynx is essentially clear and the patient has a bifid uvula. Lungs sounds are diminished bilaterally and the patient has diffuse expiratory wheezes throughout the lung melchor and prolongation of expiratory phase of breathing. The overall bronchospasm wheezing is also improved compared to yesterday. Cardiac exam revealed the PMI to be normally situated and sized. The rhythm was regular and no extrasystoles were noted during several minutes of auscultation. The first and second heart sounds were normal and physiologic splitting of the second heart sound was noted. There were no murmurs, rubs, clicks, or gallops.scar of previous cardiac surgery is present over the left back posteriorly along the scapula. Abdominal exam revealed normal bowel sounds. The abdomen was soft, non-tender, and without masses, organomegaly, or appreciable enlargement of the abdominal aorta. Examination of the extremities revealed easily palpable radial, femoral and pedal pulses. There was no cyanosis, clubbing or edema. Examination of the skin revealed no evidence of significant rashes, suspicious appearing nevi or other concerning lesions. Neurologically awake and alert and there is no focal neurology deficits. - Labs CBC & Chem 7: 02/20/19 06:10 02/20/19 06:10 Labs: Abnormal Lab Results - Last 24 Hours (Table) 02/19/19 02/19/19 02/20/19 Range/Units 16:30 20:30 06:10 WBC 14.0 H (3.8-10.6) k/uL Sodium (137-145) mmol/L Carbon Dioxide (22-30) mmol/L BUN (9-20) mg/dL Creatinine (0.66-1.25) mg/dL Glucose (74-99) mg/dL POC Glucose (mg/dL) 232 H 139 H (75-99) mg/dL 02/20/19 02/20/19 02/20/19 Range/Units 06:10 06:16 10:52 WBC (3.8-10.6) k/uL Sodium 136 L (137-145) mmol/L Carbon Dioxide 31 H (22-30) mmol/L BUN 28 H (9-20) mg/dL Creatinine 0.55 L (0.66-1.25) mg/dL Glucose 151 H (74-99) mg/dL POC Glucose (mg/dL) 141 H 171 H (75-99) mg/dL Microbiology - Last 24 Hours (Table) 02/18/19 15:20 Group A Strep Throat Culture - Final Throat Assessment and Plan Plan: assessment 1 acute asthma exacerbation 2 shortness of breath secondary to above 3 bilateral submandibular lymphadenopathy versus sialadenitis. Rule out infection with EBV, CMV, toxoplasma. Less likely possibilities are syphilis/acute HIV. unlikely to be related to any form of malignancy such as lymphoma or any other connective tissue disease related problem. This is a rapid onset enlargement of the submandibular glands/lymph nodes is most likely postinfectious/inflammatory in nature. 4 history of congenital heart disease with previous history of surgery for coarctation of the aorta and patent ductus arteriosus 5 previous history of pulmonary embolism currently on Eliquis 6 hypertension 7 diabetes mellitus 8 premature and the patient has short stature Plan The workup is negative. The patient is improving. The submandibular glands have shrunk in size compared to yesterday. Less short of breath is emanating on room air oxygen. CAT scan of the neck and the chest was noted. All of the blood work is negative. Possible discharge in next 24-48 hours depending on his overall progress.
[2019-02-20 16:58] LABS: Glucose,Whole Blood 220 mg/dL (75-99)
[2019-02-20] MEDS: ACETAMINOPHEN TAB 325 MG TAB PO PRN ×2 (17:10→23:33)
[2019-02-20 20:49] LABS: Glucose,Whole Blood 187 mg/dL (75-99)
[2019-02-20] MEDS: AZITHROMYCIN 500 MG TAB PO SCH (21:34)
--- NOTE | 2019-02-20 22:31 | PN ---
PROGRESS NOTE DATE OF SERVICE: 02/20/2019. REASON FOR FOLLOWUP: Submandibular gland enlargement with bilateral cellulitis. INTERVAL HISTORY: The patient is currently afebrile. The patient's neck area swelling has improved. The patient denies having any difficulty swallowing. Breathing has improved as well. Continues to have some cough ( ) sputum. No nausea, no vomiting and no diarrhea. PHYSICAL EXAMINATION: Blood pressure 146/79 with a pulse of 81, temperature 98.2. He is 96% on room air. General description is a middle-aged male up in the room in no distress. HEENT examination: Neck area swelling has decreased. Lungs: Unlabored breathing with bilateral expiratory wheeze. Heart: S1, S2. Regular rate and rhythm. LABS: Hemoglobin is 15.1, white count 14,000, BUN of 28, creatinine 0.55. DIAGNOSTIC IMPRESSION AND PLAN: Patient with bilateral submandibular gland enlargement, most marked on the right side with evidence of bilateral cellulitis, more likely due to oral infection. The patient responded to Unasyn, to continue for now. If the patient continues to improve can change to therapy with Augmentin with close outpatient followup. Continue supportive care. MMODL / IJN: [id number] /
[2019-02-21] MEDS: AMPICILLIN-SULBACTAM 3 GM in SODIUM CHLORIDE 0.9% 100 ML IVPB SCH ×3 (05:44→17:30)
[2019-02-21] MEDS: methylPREDNISolone SOD SUCCI 125 MG/2 ML VIAL IV SCH ×3 (05:44→17:30)
[2019-02-21 06:02] LABS: Glucose,Whole Blood 141 mg/dL (75-99)
[2019-02-21] MEDS: INSULIN ASPART (NovoLOG) 100 UNIT/ML VIAL SQ SCH ×4 (06:25→21:13)
[2019-02-21 06:52] LABS: HCT 46.6 % (39.0-53.0); HGB 14.8 gm/dL (13.0-17.5); MCH 30.3 pg (25.0-35.0); MCHC 31.9 g/dL (31.0-37.0); MCV 94.9 fL (80.0-100.0); Mean Platelet Volume 6.9; Platelet Count 188 k/uL (150-450); RDW 13.7 % (11.5-15.5); WBC 14.1 k/uL (3.8-10.6)
[2019-02-21 06:59] LABS: Anion Gap 7 mmol/L; Blood Urea Nitrogen 23 mg/dL (9-20); Calcium 8.7 mg/dL (8.4-10.2); Carbon Dioxide 31 mmol/L (22-30); Chloride 99 mmol/L (98-107); Glucose 155 mg/dL (74-99); Potassium 3.8 mmol/L (3.5-5.1); Sodium 137 mmol/L (137-145)
[2019-02-21] MEDS: IPRATROPIUM-ALBUTEROL 3 ML NEB INHALATION SCH ×4 (07:41→20:28)
[2019-02-21] MEDS: SYMBICORT 160-4.5 MCG INHALER INHALATION SCH ×2 (07:41→20:27)
[2019-02-21] MEDS: FORMOTEROL FUMARATE 20 MCG/2 ML NEBU INHALATION SCH ×2 (07:41→20:28)
[2019-02-21] MEDS: guaiFENesin 600 MG TABLET.ER PO SCH ×2 (09:42→21:12)
[2019-02-21] MEDS: GABAPENTIN 100 MG CAP PO SCH ×2 (09:42→21:12)
[2019-02-21] MEDS: ESCITALOPRAM 20 MG TAB PO SCH (09:43)
[2019-02-21] MEDS: APIXABAN 5 MG TAB PO SCH ×2 (09:43→21:12)
[2019-02-21] MEDS: FAMOTIDINE 20 MG TAB PO SCH (09:43)
[2019-02-21] MEDS: BISOPROLOL-HCTZ 10-6.25 MG 1 EACH TAB PO SCH (09:43)
[2019-02-21 11:56] LABS: Glucose,Whole Blood 170 mg/dL (75-99)
--- NOTE | 2019-02-21 13:17 | P.PN ---
Subjective Progress Note Date: 02/21/19 Principal diagnosis: Acute exacerbation of chronic bronchial asthma. 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 The patient also has history of bronchial asthma and chronic p ulmonary insufficiency with a component of restrictive lung disease due to his severe scoliosis of thoracic spine. He also has previous history of pulmonary embolism. The patient was in a good state of health. He was diagnosed having a acute bronchitis/asthma exacerbation which was hospitalized in the hospital for almost a week. During this time the patient was given a combination of bronchodilators and steroids and antibiotics. Based on the absent improvement the patient got transferred to [facility]. During this time, the patient developed also enlargement of the submandibular glands/lymph nodes without having any difficulties with stridor, swallowing or airway compromise. He is still short of breath, dyspnea, cough and wheezing and his chest remains tired. I reviewed the chest x-ray there is no acute abnormalities. There is some scattered changes along the left side chest wall probably to the previous cardiac surgery. No fever. No chills. No abnormalities in LFTs. No skin rashes. No travel history. He is hemodynamically stable at this point in time. No reported sore throat. No difficulty in swallowing. No odynophagia.the patient is afebrile. Pulse ox 96% on room air.she was a screening that was done and the [facility] was negative. Rapid strep screen was also negative. Patient is seen today 02/19/2019 in follow-up on the selective care unit. He remains awake and alert in no acute distress. He is breathing a bit better today as compared to yesterday. Not quite back to his baseline. Still wheezing. Still has some submandibular pain of the salivary glands. Computed tomography scan of the neck revealed noted fullness in the bilateral submandibular glands without intraoperative glandular lesion. Possible bilateral sialoadenitis. Strep throat culture pending. Treponema pallidum antibodies were nonreactive. CMV nonreactive. White count 17.2. Hemoglobin 14.4. Creatinine 0.51. He remains on azithromycin. On today's evaluation of 02/20/2019 I'm seeing this patient for a follow-up. Much improved compared to yesterday. The submandibular glands have dropped in size and the patient has no pain in the submandibular area. He is also less short of breath is ambulating. Last bronchus spastic and wheezy compared to yesterday. No cough sputum production. No chest pain. No fever or chills. No other complaints otherwise for now. He remains on systemic steroids. The workup has been essentially negative for now The patient is seen today 02/21/2019 in follow-up on the regular medical floor. He is currently awake and alert in no acute distress. His sore throat has improved. His submandibular tenderness is improved as well as swelling has improved. He is currently maintaining good O2 saturations in the 90s on room air. Afebrile. Hemodynamically stable. White count 14.1. Hemoglobin 14.8. Creatinine 0.49. Remains on Unasyn and azithromycin. Objective - Vital Signs Vital signs: Vital Signs Temp 97.0 F L 02/21/19 11:46 Pulse 80 02/21/19 12:10 Resp 16 02/21/19 11:46 BP 145/72 02/21/19 11:46 Pulse Ox 94 L 02/21/19 11:46 Intake & Output 02/20/19 02/21/19 02/21/19 18:59 06:59 18:59 Intake Total 1534 30 250 Output Total 1000 600 550 Balance 534 -570 -300 Weight 67 kg Intake: IV 30 30 10 Invasive Line 1 30 30 10 Oral 1504 240 Output: Urine 1000 600 550 Other: Voiding Method Toilet Toilet # Voids 2 - Exam Gen. appearance the patient is a short statured currently was not in any acute respiratory distress. On room air. Head exam was generally normal. There was no scleral icterus or corneal arcus. Mucous membranes were moist. Neck was supple and without jugular venous distension, thyromegaly, or carotid bruits. Carotids were easily palpable bilaterally. There was reason adenopathy bilaterally in the submandibular area and the lymph nodes are quite rubbery enlarged. Nonpainful. No stridor. Posterior oropharynx is essentially clear and the patient has a bifid uvula. Lungs sounds are diminished bilaterally and the patient has diffuse expiratory wheezes throughout the lung melchor and prolongation of expiratory phase of breathing. Cardiac exam revealed the PMI to be normally situated and sized. The rhythm was regular and no extrasystoles were noted during several minutes of auscultation. The first and second heart sounds were normal and physiologic splitting of the second heart sound was noted. There were no murmurs, rubs, clicks, or gallops.scar of previous cardiac surgery is present over the left back posteriorly along the scapula. Abdominal exam revealed normal bowel sounds. The abdomen was soft, non-tender, and without masses, organomegaly, or appreciable enlargement of the abdominal aorta. Examination of the extremities revealed easily palpable radial, femoral and pedal pulses. There was no cyanosis, clubbing or edema. Examination of the skin revealed no evidence of significant rashes, suspicious appearing nevi or other concerning lesions. Neurologically awake and alert and there is no focal neurology deficits. - Labs CBC & Chem 7: 02/21/19 05:46 02/21/19 05:46 Labs: Abnormal Lab Results - Last 24 Hours (Table) 02/20/19 02/20/19 02/21/19 Range/Units 16:57 20:47 05:46 WBC 14.1 H (3.8-10.6) k/uL Carbon Dioxide (22-30) mmol/L BUN (9-20) mg/dL Creatinine (0.66-1.25) mg/dL Glucose (74-99) mg/dL POC Glucose (mg/dL) 220 H 187 H (75-99) mg/dL 02/21/19 02/21/19 02/21/19 Range/Units 05:46 06:00 11:54 WBC (3.8-10.6) k/uL Carbon Dioxide 31 H (22-30) mmol/L BUN 23 H (9-20) mg/dL Creatinine 0.49 L (0.66-1.25) mg/dL Glucose 155 H (74-99) mg/dL POC Glucose (mg/dL) 141 H 170 H (75-99) mg/dL Microbiology - Last 24 Hours (Table) 02/18/19 15:20 Group A Strep Throat Culture - Final Throat Assessment and Plan Assessment: Impression: 1 acute asthma exacerbation 2 shortness of breath secondary to above 3 bilateral submandibular lymphadenopathy versus sialadenitis. Rule out infection with EBV, CMV, toxoplasma. Less likely possibilities are syphilis/acute HIV. unlikely to be related to any form of malignancy such as lymphoma or any other connective tissue disease related problem. This is a rapid onset enlargement of the submandibular glands/lymph nodes is most likely postinfectious/inflammatory in nature. Computed tomography scan of the neck suggests possible sialoadenitis bilaterally 4 history of congenital heart disease with previous history of surgery for coarctation of the aorta and patent ductus arteriosus 5 previous history of pulmonary embolism currently on Eliquis 6 hypertension 7 diabetes mellitus 8 premature and the patient has short stature Plan The patient was seen and evaluated by Dr. Goldstein. He is improved today but still somewhat bronchospastic and wheezy. We'll continue with his current treatment plan. We will increase his activity as tolerated. We'll continue to follow. I, the cosigning physician, performed a history & physical examination of the patient. Lungs sounds bilateral wheezing, few scattered rhonchi Maintaining good O2 saturations in the 90s on room air. I discussed the assessment and plan of care with my nurse practitioner, Ella Murphy. I attest to the above note as dictated by her.
[2019-02-21 17:03] LABS: Glucose,Whole Blood 230 mg/dL (75-99)
--- NOTE | 2019-02-21 17:21 | P.PN ---
Subjective Progress Note Date: 02/21/19 The patient is a 53-year-old male with a PMH of congenital heart disease (underwent cardiac surgery for PDA and coarctation of the aorta), asthma, history of PE (on Eliquis) and restrictive lung disease in the setting of severe scoliosis and thoracic spine was transferred to [facility] where he was admitted for nearly a week for acute asthma exacerbation. During the prior hospitalization, the patient received IV steroids along with bronchodilators and antibiotics. He however showed minimal improvement and was subsequently transferred. On 02/18/2009, the patient reported noticing swelling of his neck bilaterally with swollen glands along with sore throat and odynophagia. Pulmonary medicine was consulted and recommended a CT of chest and neck to evaluate the submandibular lymphadenopathy. The CAT scan revealed fullness of the bilateral submandibular glands without intraglandular lesions and raised the possibility of bilateral sialoadenitis. Infectious disease was consulted and the patient was started on IV Unasyn for suspected oral pathogen as a cause of the lymphadenopathy. The patient was seen and examined at the bedside on 02/21/2019. The patient reports that his breathing had improved though he continues to have wheezing. He otherwise denied chest pain, fever, chills, nausea, vomiting, or abdominal pain. Objective - Vital Signs Vital signs: Vital Signs Temp 97.8 F 02/21/19 15:26 Pulse 72 02/21/19 16:16 Resp 16 02/21/19 15:26 BP 147/81 02/21/19 15:26 Pulse Ox 92 L 02/21/19 15:26 Intake & Output 02/20/19 02/21/19 02/21/19 18:59 06:59 18:59 Intake Total 1534 30 250 Output Total 1000 600 550 Balance 534 -570 -300 Weight 67 kg Intake: IV 30 30 10 Invasive Line 1 30 30 10 Oral 1504 240 Output: Urine 1000 600 550 Other: Voiding Method Toilet Toilet # Voids 2 - Exam General: Non-toxic, in no acute distress, appears stated age, normal weight HEENT: NC/AT, anicteric sclerae, moist conjunctiva, no lid-lag, PERRLA, no pharyngeal erythema, no tonsillar exudates, submandibular bilateral adenopathy appreciated, non-tender to palpation, improved Cardiovascular: S1/S2 wnl, no murmurs, rubs, or gallops Lungs: Bilateral expiratory wheezing, normal respiratory effort, no accessory muscle use Abdominal: Soft, non-tender, non-distended, no guarding, rebound, or rigidity Skin: Warm, dry Extremities: No edema or contractures Psychiatric: Alert and oriented to person, place and time, appropriate affect Neuro: CN II-XII grossly intact, Strength 5/5 in all 4 extremities, Speech intact, Sensation to light touch grossly intact throughout - Labs CBC & Chem 7: 02/21/19 05:46 02/21/19 05:46 Labs: Abnormal Lab Results - Last 24 Hours (Table) 02/20/19 02/21/19 02/21/19 Range/Units 20:47 05:46 05:46 WBC 14.1 H (3.8-10.6) k/uL Carbon Dioxide 31 H (22-30) mmol/L BUN 23 H (9-20) mg/dL Creatinine 0.49 L (0.66-1.25) mg/dL Glucose 155 H (74-99) mg/dL POC Glucose (mg/dL) 187 H (75-99) mg/dL 02/21/19 02/21/19 02/21/19 Range/Units 06:00 11:54 17:01 WBC (3.8-10.6) k/uL Carbon Dioxide (22-30) mmol/L BUN (9-20) mg/dL Creatinine (0.66-1.25) mg/dL Glucose (74-99) mg/dL POC Glucose (mg/dL) 141 H 170 H 230 H (75-99) mg/dL Microbiology - Last 24 Hours (Table) 02/18/19 15:20 Group A Strep Throat Culture - Final Throat Assessment and Plan Plan: Acute asthma exacerbation -Continue with Solu-Medrol -Continue with DuoNeb's -Pulmonary recommendations appreciated Bilateral submandibular lymphadenopathy, no pharyngeal erythema or exudates -CMV negative, toxoplasma and mumps titers pending -ID consult appreciated -Strep and EBV negative -Discontinue azithromycin -Continue with Unasyn for now, plan to switch to Augmentin on discharge Leukocytosis -Likely reactive -Will monitor History of PE's -Continue with Eliquis Hypertension -Continue with home medications DM -CHRISSY with FS DVT//GI prophylaxis -Eliquis -Pepcid Anticipated discharge date: 3/26/[address]: Home A total of 35 minutes was spent on the care of this complex patient more than 50% of the time was spent in counseling and care coordination.
[2019-02-21 20:56] LABS: Glucose,Whole Blood 196 mg/dL (75-99)
[2019-02-22] MEDS: AMPICILLIN-SULBACTAM 3 GM in SODIUM CHLORIDE 0.9% 100 ML IVPB SCH ×3 (00:12→11:36)
[2019-02-22] MEDS: methylPREDNISolone SOD SUCCI 125 MG/2 ML VIAL IV SCH ×3 (00:12→11:36)
--- NOTE | 2019-02-22 00:28 | PN ---
PROGRESS NOTE DATE OF SERVICE: 02/21/2019. REASON FOR FOLLOW UP: Bilateral swelling and redness. INTERVAL HISTORY: The patient is currently afebrile. The patient neck swelling has much improved. Denies significant swelling still from cough. No nausea, no vomiting. No abdominal pain. No diarrhea. PHYSICAL EXAMINATION: Blood pressure 166/87 with a pulse of 96, temperature 97.1. He is 98% on room air. General description is a middle aged male up in the room in no distress. HEENT examination right neck swelling has significantly decreased. LUNGS: Unlabored breathing. Occasional wheeze. Heart S1, S2. Regular rate and rhythm. Abdomen soft, no tenderness. LABS: No new labs have been obtained today. DIAGNOSTIC IMPRESSION AND PLAN: Patient with some mild nausea and pain with , more likely due to oral georgina. Clinically doubt mumps. The patient responded to Unasyn, finishing therapy with a 7 day course of oral Augmentin. Continue supportive care. MMODL / IJN: [id number] /
[2019-02-22 05:58] VITALS: BP 147/72; RESP 16; TEMP 97.7
[2019-02-22] MEDS: FORMOTEROL FUMARATE 20 MCG/2 ML NEBU INHALATION SCH (07:09)
[2019-02-22] MEDS: IPRATROPIUM-ALBUTEROL 3 ML NEB INHALATION SCH ×2 (07:09→11:22)
[2019-02-22] MEDS: SYMBICORT 160-4.5 MCG INHALER INHALATION SCH (07:09)
[2019-02-22 07:26] LABS: Glucose,Whole Blood 159 mg/dL (75-99)
[2019-02-22] MEDS: INSULIN ASPART (NovoLOG) 100 UNIT/ML VIAL SQ SCH ×2 (07:28→11:36)
[2019-02-22] MEDS: GABAPENTIN 100 MG CAP PO SCH (07:29)
[2019-02-22] MEDS: BISOPROLOL-HCTZ 10-6.25 MG 1 EACH TAB PO SCH (07:29)
[2019-02-22] MEDS: guaiFENesin 600 MG TABLET.ER PO SCH (07:29)
[2019-02-22] MEDS: FAMOTIDINE 20 MG TAB PO SCH (07:29)
[2019-02-22] MEDS: ESCITALOPRAM 20 MG TAB PO SCH (07:29)
[2019-02-22] MEDS: APIXABAN 5 MG TAB PO SCH (07:29)
[2019-02-22 11:23] LABS: Glucose,Whole Blood 129 mg/dL (75-99)
[2019-02-22 11:35] VITALS: PULSE 65
--- NOTE | 2019-02-22 11:45 | P.PN ---
Subjective Progress Note Date: 02/22/19 Principal diagnosis: Acute exacerbation of chronic bronchial asthma. 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 The patient also has history of bronchial asthma and chronic p ulmonary insufficiency with a component of restrictive lung disease due to his severe scoliosis of thoracic spine. He also has previous history of pulmonary embolism. The patient was in a good state of health. He was diagnosed having a acute bronchitis/asthma exacerbation which was hospitalized in the hospital for almost a week. During this time the patient was given a combination of bronchodilators and steroids and antibiotics. Based on the absent improvement the patient got transferred to [facility]. During this time, the patient developed also enlargement of the submandibular glands/lymph nodes without having any difficulties with stridor, swallowing or airway compromise. He is still short of breath, dyspnea, cough and wheezing and his chest remains tired. I reviewed the chest x-ray there is no acute abnormalities. There is some scattered changes along the left side chest wall probably to the previous cardiac surgery. No fever. No chills. No abnormalities in LFTs. No skin rashes. No travel history. He is hemodynamically stable at this point in time. No reported sore throat. No difficulty in swallowing. No odynophagia.the patient is afebrile. Pulse ox 96% on room air.she was a screening that was done and the [facility] was negative. Rapid strep screen was also negative. Patient is seen today 02/19/2019 in follow-up on the selective care unit. He remains awake and alert in no acute distress. He is breathing a bit better today as compared to yesterday. Not quite back to his baseline. Still wheezing. Still has some submandibular pain of the salivary glands. Computed tomography scan of the neck revealed noted fullness in the bilateral submandibular glands without intraoperative glandular lesion. Possible bilateral sialoadenitis. Strep throat culture pending. Treponema pallidum antibodies were nonreactive. CMV nonreactive. White count 17.2. Hemoglobin 14.4. Creatinine 0.51. He remains on azithromycin. On today's evaluation of 02/20/2019 I'm seeing this patient for a follow-up. Much improved compared to yesterday. The submandibular glands have dropped in size and the patient has no pain in the submandibular area. He is also less short of breath is ambulating. Last bronchus spastic and wheezy compared to yesterday. No cough sputum production. No chest pain. No fever or chills. No other complaints otherwise for now. He remains on systemic steroids. The workup has been essentially negative for now The patient is seen today 02/21/2019 in follow-up on the regular medical floor. He is currently awake and alert in no acute distress. His sore throat has improved. His submandibular tenderness is improved as well as swelling has improved. He is currently maintaining good O2 saturations in the 90s on room air. Afebrile. Hemodynamically stable. White count 14.1. Hemoglobin 14.8. Creatinine 0.49. Remains on Unasyn and azithromycin. The patient is seen today 02/22/2018 in follow-up on the regular medical floor. He's been up ambulating in the room. Awake and alert in no acute distress. His breathing is much better today and back to his baseline. Less bronchospastic and wheezing. He is maintaining good O2 saturations in the upper 90s on room air. He's afebrile. Hemodynamically stable. He is anxious to go home. Objective - Vital Signs Vital signs: Vital Signs Temp 97.7 F 02/22/19 05:40 Pulse 65 02/22/19 11:35 Resp 16 02/22/19 05:40 BP 147/72 02/22/19 05:40 Pulse Ox 97 02/22/19 05:40 Intake & Output 02/21/19 02/22/19 02/22/19 18:59 06:59 18:59 Intake Total 250 Output Total 550 Balance -300 Weight 66 kg Intake: IV 10 Invasive Line 1 10 Oral 240 Output: Urine 550 Other: # Voids 2 3 - Exam Gen. appearance the patient is a short statured currently was not in any acute respiratory distress. On room air. Head exam was generally normal. There was no scleral icterus or corneal arcus. Mucous membranes were moist. Neck was supple and without jugular venous distension, thyromegaly, or carotid bruits. Carotids were easily palpable bilaterally. There was reason adenopathy bilaterally in the submandibular area and the lymph nodes are quite rubbery enlarged. Nonpainful. No stridor. Posterior oropharynx is essentially clear and the patient has a bifid uvula. Lungs sounds are diminished bilaterally, faint end expiratory wheeze. Cardiac exam revealed the PMI to be normally situated and sized. The rhythm was regular and no extrasystoles were noted during several minutes of auscultation. The first and second heart sounds were normal and physiologic splitting of the second heart sound was noted. There were no murmurs, rubs, clicks, or gallops.scar of previous cardiac surgery is present over the left back posteriorly along the scapula. Abdominal exam revealed normal bowel sounds. The abdomen was soft, non-tender, and without masses, organomegaly, or appreciable enlargement of the abdominal aorta. Examination of the extremities revealed easily palpable radial, femoral and pedal pulses. There was no cyanosis, clubbing or edema. Examination of the skin revealed no evidence of significant rashes, suspicious appearing nevi or other concerning lesions. Neurologically awake and alert and there is no focal neurology deficits. - Labs CBC & Chem 7: 02/21/19 05:46 02/21/19 05:46 Labs: Abnormal Lab Results - Last 24 Hours (Table) 02/21/19 02/21/19 02/21/19 Range/Units 11:54 17:01 20:46 POC Glucose (mg/dL) 170 H 230 H 196 H (75-99) mg/dL 02/22/19 02/22/19 Range/Units 07:14 11:22 POC Glucose (mg/dL) 159 H 129 H (75-99) mg/dL Assessment and Plan Assessment: Impression: 1 acute asthma exacerbation and recovered 2 shortness of breath secondary to above 3 bilateral submandibular lymphadenopathy versus sialadenitis. Rule out infection with EBV, CMV, toxoplasma. Less likely possibilities are syphilis/acute HIV. unlikely to be related to any form of malignancy such as lymphoma or any other connective tissue disease related problem. This is a rapid onset enlargement of the submandibular glands/lymph nodes is most likely postinfectious/inflammatory in nature. Computed tomography scan of the neck suggests possible sialoadenitis bilaterally 4 history of congenital heart disease with previous history of surgery for coarctation of the aorta and patent ductus arteriosus 5 previous history of pulmonary embolism currently on Eliquis 6 hypertension 7 diabetes mellitus 8 premature and the patient has short stature Plan The patient was seen and evaluated by Dr. Goldstein. He is back to his baseline. On room air. He'll be discharged home today. Complete her course of antibiotics. Complete a prednisone burst and taper starting at 40 mg for 4 days. Keep his appointment with Dr. Goldstein in our office next week. He and his father are both encouraged to call sooner with any recurrence of symptoms or o ther questions or concerns. I, the cosigning physician, performed a history & physical examination of the patient. Lungs sounds with faint end expiratory wheeze. Maintaining good O2 saturations in the 90s on room air. I discussed the assessment and plan of care with my nurse practitioner, Ella Murphy. I attest to the above note as dictated by her.
--- NOTE | 2019-02-22 15:41 | PN ---
PROGRESS NOTE DATE OF SERVICE: 02/22/2019 REASON FOR FOLLOWUP: Some minimal lymph node gland enlargement with bilateral cellulitis. INTERVAL HISTORY: The patient was seen on the rounds this morning. The patient has been afebrile. The right side minimal swelling has improved. The patient denies having any chest pain or shortness, no breath,.cough. No abdominal pain no diarrhea. PHYSICAL EXAMINATION: Blood pressure 147/72 with a pulse of 7, temperature 97.7 he is 97% we description is a middle-aged male lying in bed in no distress HEENT examination right some minimal swelling no masses lungs unlabored breathing occasional wheeze. Heart S1, S2. Regular rate. Abdomen. LABS: No new labs have been obtained today. DIAGNOSTIC IMPRESSION AND PLAN: Patient with some minimal gland enlragement with evidence of bilateral cellulitis likely due to oral georgina. The patient has shown overall clinical improvement to finish therapy with oral Augmentin. Continue with supportive care. MMODL / IJN: [id number] /
--- NOTE | 2019-02-22 17:57 | P.DS ---
Providers Date of admission: 02/17/19 18:08 Expected date of discharge: 02/22/19 Attending physician: Georgina Faulkner MD Consults: 02/17/19 20:35 Consult Physician Routine Consulting Provider: Nigel Goldstein Consult Reason/Comments: Asthma exacerbation Do you want consulting provider notified?: Yes Placement Type Exists?: Yes 02/18/19 14:39 Consult Physician Urgent Consulting Provider: Brina Pineda Consult Reason/Comments: Submandibular LAD w/ sore throat and cough Do you want consulting provider notified?: Yes Primary care physician: [facility] Course: The patient is a 53-year-old male with a PMH of congenital heart disease (underwent cardiac surgery for PDA and coarctation of the aorta), asthma, history of PE (on Eliquis) and restrictive lung disease in the setting of severe scoliosis and thoracic spine was transferred to [facility], from [facility] where he was admitted for nearly a week for acute asthma exacerbation. During the prior hospitalization, the patient received IV steroids along with bronchodilators and antibiotics. He however showed minimal improvement and was subsequently transferred. On 02/18/2009, the patient reported noticing swelling of his neck bilaterally with swollen glands along with sore throat and odynophagia. Pulmonary medicine was consulted and recommended a CT of chest and neck to evaluate the submandibular lymphadenopathy. The patient was also continued on his IV steroids along with bronchodilators. The CAT scan revealed fullness of the bilateral submandibular glands without intraglandular lesions and raised the possibility of bilateral sialoadenitis. Infectious disease was consulted and the patient was started on IV Unasyn for suspected oral pathogen as a cause of the lymphadenopathy. The patient's asthma gradually improved and he was cleared by pulmonary. The patient is cleared for discharge and will complete a 7 day course or oral augmentin. Physical Examination General: Non-toxic, in no acute distress, appears stated age, normal weight HEENT: NC/AT, anicteric sclerae, moist conjunctiva, no lid-lag, PERRLA, submandibular bilateral adenopathy, improved, non-tender Cardiovascular: S1/S2 wnl, no murmurs, rubs, or gallops Lungs: Clear to auscultation, normal respiratory effort, no accessory muscle use Abdominal: Soft, non-tender, non-distended, no guarding, rebound, or rigidity Skin: Warm, dry Extremities: No edema or contractures Psychiatric: Alert and oriented to person, place and time, appropriate affect Neuro: CN II-XII grossly intact, Strength 5/5 in all 4 extremities, Speech intact, Sensation to light touch grossly intact throughout Discharge diagnosis: Acute asthma exacerbation, Bilateral submandibular LAD, leukocytosis, history of PEs, HTN, DM A total of 35 minutes of time were spent preparing this complex discharge summary. Patient Condition at Discharge: Stable Plan - Discharge Summary Discharge Rx Participant: No New Discharge Prescriptions: New Amoxic-Pot Clav 875-125Mg [Augmentin 875-125] 1 tab PO Q12HR #14 tablet predniSONE 0 mg PO DIRECTED #30 tab Budesonide-Formot 160-4.5 Mcg [Symbicort 160-4.5 Mcg Inhaler] 2 puff INHALATION RT-BID #1 inhaler Continue Gabapentin [Neurontin] 100 mg PO BID Escitalopram [Lexapro] 20 mg PO HS Apixaban [Eliquis] 5 mg PO BID Bisoprolol-Hctz 10-6.25 mg [Ziac 10-6.25 MG] 10 gm PO DAILY Albuterol Sulfate [Proair Hfa] 2 puff INHALATION RT-Q6H PRN PRN Reason: Shortness Of Breath Albuterol Nebulized [Ventolin Nebulized] 2.5 mg INHALATION RT-Q6H PRN PRN Reason: Shortness Of Breath Discharge Medication List Albuterol Nebulized [Ventolin Nebulized] 2.5 mg INHALATION RT-Q6H PRN 02/17/19 [History] Albuterol Sulfate [Proair Hfa] 2 puff INHALATION RT-Q6H PRN 02/17/19 [History] Apixaban [Eliquis] 5 mg PO BID 02/17/19 [History] Bisoprolol-Hctz 10-6.25 mg [Ziac 10-6.25 MG] 10 gm PO DAILY 02/17/19 [History] Escitalopram [Lexapro] 20 mg PO HS 02/17/19 [History] Gabapentin [Neurontin] 100 mg PO BID 02/17/19 [History] Amoxic-Pot Clav 875-125Mg [Augmentin 875-125] 1 tab PO Q12HR #14 tablet 02/22/19 [Rx] Budesonide-Formot 160-4.5 Mcg [Symbicort 160-4.5 Mcg Inhaler] 2 puff INHALATION RT-BID #1 inhaler 02/22/19 [Rx] predniSONE 0 mg PO DIRECTED #30 tab 02/22/19 [Rx] Follow up Appointment(s)/Referral(s): Nigel Goldstein MD [STAFF PHYSICIAN] - 1 Week (please call office to schedule appointment) Jim Dutta MD [Primary Care Provider] - 03/01/19 11:15 am (Thursday) Brina Pineda MD [STAFF PHYSICIAN] - 02/28/19 9:30 am (Thursday) Patient Instructions/Handouts: Asthma (DC) Discharge Disposition: HOME SELF-CARE
== END 2019-02-22 13:37 | disposition home or self-care (01) | DRG 202 ==
LOC: 3SCARD 18:08 → 4MS4W 02-21 11:34
PROVIDERS: ADMIT Family Medicine; ATTEND Family Medicine
DX: J45.51 Severe persistent asthma with (acute) exacerbation (principal); K12.2 Cellulitis and abscess of mouth; J20.9 Acute bronchitis, unspecified; E11.9 Type 2 diabetes mellitus without complications; I10 Essential (primary) hypertension; J98.4 Other disorders of lung; M41.9 Scoliosis, unspecified; R11.0 Nausea; R59.1 Generalized enlarged lymph nodes; R62.52 Short stature (child); Z79.01 Long term (current) use of anticoagulants; Z79.899 Other long term (current) drug therapy; Z86.711 Personal history of pulmonary embolism; Z86.010 Personal history of colon polyps; Z90.49 Acquired absence of other specified parts of digestive tract; Z87.01 Personal history of pneumonia (recurrent); Z88.6 Allergy status to analgesic agent; Z88.8 Allergy status to other drugs, medicaments and biological substances; Z80.0 Family history of malignant neoplasm of digestive organs
CPT/HCPCS: 70491; 71046; 71260; 80048; 80053; 85025; 85027; 86645; 86663; 86664; 86665; 86735; 86778; 86780; 87081; 87430; 94640

== ENCOUNTER 2019-03-02 12:03 | Inpatient (IN) | payer BC ==
[2019-03-02] MEDS ORDERED: methylPREDNISolone SOD SUCCI 125 MG/2 ML VIAL IV STA (12:15)
[2019-03-02] MEDS ORDERED: IPRATROPIUM-ALBUTEROL 3 ML NEB INHALATION STA (12:15)
--- NOTE | 2019-03-02 12:31 | ED ---
SOB HPI <Bhavin Red - Last Filed: 03/02/19 14:03> - General Source: patient Mode of arrival: ambulatory Limitations: no limitations <AlLorna rosales - Last Filed: 03/02/19 15:17> - General Chief Complaint: Shortness of Breath Stated Complaint: SOB Time Seen by Provider: 03/02/19 12:15 - History of Present Illness Initial Comments: 53-year-old male with past medical history of COPD/emphysema, hypertension, previous PE on eliquis compliant presents today as sent for admission by Dr. Conde, nnp. Patient states that he was just discharged from the hospital one week prior, he states he had an 11 day admission for COPD exacerbation. Patient states he had his first follow-up yesterday with primary care provider who stated his lungs did not sound good. He states that he presented for evaluation today with follow-up at pulmonology where he was told he needed to come to the emergency department for COPD exacerbation admission. He was told he may have a bronchoscopy. Patient denies any fever, increased phlegm, he states he has been short of breath but not as severe as when he was admitted one week prior. Patient states he performed a chest x-ray and office she states that this did not show any significant findings according to patient. Patient denies swelling of lower extremities, calf pain, chest pain, back pain, nausea or vomiting, abdominal pain. Patient does admit to dyspnea on exertion however states he is short of breath at all times. Remaining review of systems negative. Upon arrival patient is a blading and talking without difficulty. Respirations are nonlabored. Patient appears well. Patient saturating well on room air. Heart rate within normal limits. (Lorna Bolton) - Related Data Home Medications Medication Instructions Recorded Confirmed Albuterol Nebulized [Ventolin 2.5 mg INHALATION RT-Q6H PRN 02/17/19 03/02/19 Nebulized] Albuterol Sulfate [Proair Hfa] 2 puff INHALATION RT-Q6H PRN 02/17/19 03/02/19 Apixaban [Eliquis] 5 mg PO BID 02/17/19 03/02/19 Bisoprolol-Hctz 10-6.25 mg [Ziac 10 gm PO DAILY 02/17/19 03/02/19 10-6.25 MG] Escitalopram [Lexapro] 20 mg PO HS 02/17/19 03/02/19 Gabapentin [Neurontin] 100 mg PO BID 02/17/19 03/02/19 Previous Rx's Medication Instructions Recorded Budesonide-Formot 160-4.5 Mcg 2 puff INHALATION RT-BID #1 inhaler 02/22/19 [Symbicort 160-4.5 Mcg Inhaler] predniSONE 0 mg PO DIRECTED #30 tab 02/22/19 Allergies Allergy/AdvReac Type Severity Reaction Status Date / Time meclizine [From Antivert] Allergy Unknown Unknown Verified 03/02/19 13:16 amlodipine [From Norvasc] Allergy Unknown Verified 03/02/19 13:16 lisinopril [From Zestril] Allergy Unknown Verified 03/02/19 13:16 NSAIDS (Non-Steroidal Allergy Unknown Verified 03/02/19 13:16 Anti-Inflamma omeprazole Allergy Unknown Verified 03/02/19 13:16 Review of Systems ROS Other: All systems not noted in ROS Statement are negative. <Bhavin Red - Last Filed: 03/02/19 14:03> ROS Other: All systems not noted in ROS Statement are negative. <Lorna Bolton - Last Filed: 03/02/19 15:17> ROS Statement: Those systems with pertinent positive or pertinent negative responses have been documented in the HPI. Past Medical History Past Medical History: COPD, Hypertension, Pneumonia, Pulmonary Embolus (PE), Respiratory Disorder Additional Past Medical History / Comment(s): multiple pneumothorax left lung, colon polyps removed 2018, congenital heart disease, asthma, restrictive heart disease, pulmonary embolism and HTN History of Any Multi-Drug Resistant Organisms: None Reported Past Surgical History: Back Surgery, Cholecystectomy, Coronary Bypass/CABG, Hernia Repair, Prostate Surgery Additional Past Surgical History / Comment(s): B/L carpal tunnel release,open heart at age 4, B/L inguinal hernia repair, TURP, Orchiectomy of Left testicle. EDG and colonoscopy in 2018. Past Anesthesia/Blood Transfusion Reactions: No Reported Reaction Smoking Status: Never smoker Past Alcohol Use History: Rare Past Drug Use History: None Reported - Past Family History Mother History Unknown: Yes (pancreatic cancer) <Lorna Bolton - Last Filed: 03/02/19 15:17> General Exam Limitations: no limitations <Lorna Bolton - Last Filed: 03/02/19 15:17> - General Exam Comments Initial Comments: General: The patient is awake and alert, in no distress, and does not appear acutely ill. Eye: +3 mm pupils are equal, round and reactive to light, extra-ocular movements are intact. No nystagmus. There is normal conjunctiva bilaterally. No signs of icterus. Ears, nose, mouth and throat: There are moist mucous membranes and no oral lesions. Neck: The neck is supple, there is no tenderness or JVD. Cardiovascular: There is a regular rate and rhythm. No murmur, rub or gallop is appreciated. Respiratory: Respirations are non-labored, breath sounds are equal. No wheeze. No stridor. There is significant diffuse rales and rhonchi. Gastrointestinal: Soft, non-distended, non-tender abdomen without masses or organomegaly noted. There is no rebound or guarding present. No CVA tenderness. Bowel sounds are unremarkable. Musculoskeletal: Normal ROM, no tenderness. Strength 5/5. Sensation intact. Pulses equal bilaterally 2+. Neurological: A&O x 3. CN II-XII intact, There are no obvious motor or sensory deficits. Coordination appears grossly intact. Speech is normal. Skin: Skin is warm and dry and no rashes or lesions are noted. Negative Homans. No pain O patient of the calfs or deep venous system of the lower extremities bilaterally. No lower extremity edema. Psychiatric: Cooperative, appropriate mood & affect, normal judgment. (Lorna Bolton) Course <Bhavin Red - Last Filed: 03/02/19 14:03> Vital Signs 03/02/19 03/02/19 03/02/19 12:11 12:30 12:44 Temperature 97.6 F Pulse Rate 82 81 77 Respiratory 18 Rate Blood Pressure 139/68 O2 Sat by Pulse 97 Oximetry 03/02/19 12:49 Temperature Pulse Rate Respiratory 23 Rate Blood Pressure O2 Sat by Pulse Oximetry - Reevaluation(s) Reevaluation #1: 03/02/19 14:03 PA supervision: I proceeded a [id number] evaluation the patient he presents from Dr. Goldstein's office with complaints of shortness of breath and feeling ou tpatient treatment. Patient does demonstrate evidence of markedly diminished breath sounds with diffuse wheezing. He is very refractory to outpatient therapy he will be admitted for inpatient treatment. I did discuss the case with Dr. Hardin. I do agree with the assessment and plan. (Bhavin Red) Medical Decision Making - Lab Data Result diagrams: 03/02/19 12:45 03/02/19 12:45 <Bhavin Red - Last Filed: 03/02/19 14:03> - Lab Data Result diagrams: 03/02/19 12:45 03/02/19 12:45 <Lorna Bolton - Last Filed: 03/02/19 15:17> - Medical Decision Making 53-year-old male presenting today for admission for COPD exacerbation sent by nnp Dr. Goldstein. Chest x-ray revealed congenital anomalies. No acute process defined. Patient's have significant crackles and rhonchi on lung examination. Patient given DuoNeb treatment. Patient had steroids provided at the pulmonology office. Will hold until next dose tomorrow morning. Patient was started on azithromycin. Troponin negative. EKG no ST elevation depression or findings consistent with acute coronary syndrome. Patient denies chest pain. I discussed the case with attending provider Dr. Red at this time we'll admit patient under medicine with Dr. Goldstein on consult. Patient is agreeable to admission at this time. When necessary DuoNeb orders in place as well as scheduled steroid, and oxygen therapy. Patient is saturating well on 2 L oxygen, vital signs have remained stable. Patient does not appear in acute distress. Influenza testing negative. Patient be transferred to floor for further evaluation and treatment by pulmonology and internal medicine. (Lorna Bolton) - Lab Data Lab Results 03/02/19 03/02/19 03/02/19 Range/Units 12:45 12:45 12:45 WBC 13.4 H (3.8-10.6) k/uL RBC 5.45 (4.30-5.90) m/uL Hgb 16.5 (13.0-17.5) gm/dL Hct 50.3 (39.0-53.0) % MCV 92.3 (80.0-100.0) fL MCH 30.3 (25.0-35.0) pg MCHC 32.8 (31.0-37.0) g/dL RDW 14.8 (11.5-15.5) % Plt Count 183 (150-450) k/uL Neutrophils % 85 % Lymphocytes % 9 % Monocytes % 5 % Eosinophils % 1 % Basophils % 0 % Neutrophils # 11.4 H (1.3-7.7) k/uL Lymphocytes # 1.2 (1.0-4.8) k/uL Monocytes # 0.6 (0-1.0) k/uL Eosinophils # 0.1 (0-0.7) k/uL Basophils # 0.0 (0-0.2) k/uL PT 10.2 (9.0-12.0) sec INR 0.9 (<1.2) APTT 22.0 (22.0-30.0) sec Sodium 139 (137-145) mmol/L Potassium 4.1 (3.5-5.1) mmol/L Chloride 100 (98-107) mmol/L Carbon Dioxide 32 H (22-30) mmol/L Anion Gap 7 mmol/L BUN 22 H (9-20) mg/dL Creatinine 0.70 (0.66-1.25) mg/dL Est GFR (CKD-EPI)AfAm >90 (>60 ml/min/1.73 sqM) Est GFR (CKD-EPI)NonAf >90 (>60 ml/min/1.73 sqM) Glucose 124 H (74-99) mg/dL Calcium 9.6 (8.4-10.2) mg/dL Total Bilirubin 1.2 (0.2-1.3) mg/dL AST 32 (17-59) U/L ALT 113 H (21-72) U/L Alkaline Phosphatase 74 (38-126) U/L Troponin I (0.000-0.034) ng/mL Total Protein 6.8 (6.3-8.2) g/dL Albumin 4.1 (3.5-5.0) g/dL Influenza Type A RNA (Not Detectd) Influenza Type B (PCR) (Not Detectd) 03/02/19 03/02/19 Range/Units 12:45 14:21 WBC (3.8-10.6) k/uL RBC (4.30-5.90) m/uL Hgb (13.0-17.5) gm/dL Hct (39.0-53.0) % MCV (80.0-100.0) fL MCH (25.0-35.0) pg MCHC (31.0-37.0) g/dL RDW (11.5-15.5) % Plt Count (150-450) k/uL Neutrophils % % Lymphocytes % % Monocytes % % Eosinophils % % Basophils % % Neutrophils # (1.3-7.7) k/uL Lymphocytes # (1.0-4.8) k/uL Monocytes # (0-1.0) k/uL Eosinophils # (0-0.7) k/uL Basophils # (0-0.2) k/uL PT (9.0-12.0) sec INR (<1.2) APTT (22.0-30.0) sec Sodium (137-145) mmol/L Potassium (3.5-5.1) mmol/L Chloride (98-107) mmol/L Carbon Dioxide (22-30) mmol/L Anion Gap mmol/L BUN (9-20) mg/dL Creatinine (0.66-1.25) mg/dL Est GFR (CKD-EPI)AfAm (>60 ml/min/1.73 sqM) Est GFR (CKD-EPI)NonAf (>60 ml/min/1.73 sqM) Glucose (74-99) mg/dL Calcium (8.4-10.2) mg/dL Total Bilirubin (0.2-1.3) mg/dL AST (17-59) U/L ALT (21-72) U/L Alkaline Phosphatase (38-126) U/L Troponin I <0.012 (0.000-0.034) ng/mL Total Protein (6.3-8.2) g/dL Albumin (3.5-5.0) g/dL Influenza Type A RNA Not Detected (Not Detectd) Influenza Type B (PCR) Not Detected (Not Detectd) - EKG Data EKG Comments: Ventricular rate 74 bpm, HI interval 182 ms, QRS or administration 90 ms, QT/QTC 382/420 formal seconds. Normal sinus rhythm, evidence of biatrial enlargement. No ST elevation or depression. No T-wave inversion. CT interpreted by myself as well as attending provider Dr. Bhavin Red. (Lorna Bolton) Disposition <Bhavin Red - Last Filed: 03/02/19 14:03> Time of Disposition: 13:56 Decision to Admit Reason: Admit from EC Decision Date: 03/02/19 Decision Time: 13:56 <Lorna Bolton - Last Filed: 03/02/19 15:17> Clinical Impression: Dyspnea, COPD exacerbation Disposition: ADMITTED IP TO THIS [facility] Condition: Stable Referrals: Jim Dutta MD [Primary Care Provider] - 1-2 days
[2019-03-02 12:57] LABS: Basophils % (A) 0 %; Eosinophils # (A) 0.1 k/uL (0-0.7); Eosinophils % (A) 1 %; HCT 50.3 % (39.0-53.0); HGB 16.5 gm/dL (13.0-17.5); Lymphocytes # (A) 1.2 k/uL (1.0-4.8); Lymphocytes % (A) 9 %; MCH 30.3 pg (25.0-35.0); MCHC 32.8 g/dL (31.0-37.0); MCV 92.3 fL (80.0-100.0); Mean Platelet Volume 6.9; Monocytes # (A) 0.6 k/uL (0-1.0); Monocytes % (A) 5 %; Neutrophils # (A) 11.4 k/uL (1.3-7.7); Neutrophils % (A) 85 %; Platelet Count 183 k/uL (150-450); RBC 5.45 m/uL (4.30-5.90); RDW 14.8 % (11.5-15.5); WBC 13.4 k/uL (3.8-10.6)
[2019-03-02 13:05] LABS: ALT 113 U/L (21-72); AST 32 U/L (17-59); Albumin 4.1 g/dL (3.5-5.0); Alkaline Phosphatase 74 U/L (38-126); Anion Gap 7 mmol/L; Blood Urea Nitrogen 22 mg/dL (9-20); Calcium 9.6 mg/dL (8.4-10.2); Carbon Dioxide 32 mmol/L (22-30); Chloride 100 mmol/L (98-107); Glucose 124 mg/dL (74-99); Potassium 4.1 mmol/L (3.5-5.1); Sodium 139 mmol/L (137-145); Total Bilirubin 1.2 mg/dL (0.2-1.3); Total Protein 6.8 g/dL (6.3-8.2)
[2019-03-02 13:11] LABS: INR 0.9 (<1.2); Prothrombin Time 10.2 sec (9.0-12.0)
--- NOTE | 2019-03-02 13:42 | XR ---
EXAMINATION TYPE: XR chest 2V DATE OF EXAM: 03/02/2019 COMPARISON: Prior chest x-ray 02/18/2019, 03/02/[address] 02/18/2019 HISTORY: Shortness of breath TECHNIQUE: Frontal and lateral views of the chest are obtained. FINDINGS: There is no focal air space opacity, pleural effusion, or pneumothorax seen. The cardiac silhouette size is within normal limits. The osseous structures are stable, congenital anomalies as sociated with the left ribs, there is a spinal curvature as on prior. 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 IMPRESSION: Possible congenital anomalies as described.
[2019-03-02] MEDS ORDERED: IPRATROPIUM-ALBUTEROL 3 ML NEB INHALATION PRN (13:53)
[2019-03-02] MEDS ORDERED: AZITHROMYCIN 500 MG in SODIUM CHLORIDE 0.9% 250 ML IVPB STA (13:57)
[2019-03-02] MEDS ORDERED: TEMAZEPAM 15 MG CAP PO PRN (18:32)
[2019-03-02] MEDS ORDERED: ALPRAZolam 0.25 MG TAB PO PRN (18:32)
[2019-03-02] MEDS ORDERED: VANCOMYCIN IV PER PHARMACY 1 EACH MISC MISCELLANE PRN (18:33)
[2019-03-02] MEDS ORDERED: VANCOMYCIN IVPB ONE (18:33)
[2019-03-02] MEDS ORDERED: SODIUM CHLORIDE 0.9% IVPB ONE (18:33)
[2019-03-02] MEDS: VANCOMYCIN 1,250 MG in SODIUM CHLORIDE 0.9% 250 ML IVPB SCH (20:27)
--- NOTE | 2019-03-02 20:38 | HP ---
HISTORY AND PHYSICAL DATE OF SERVICE: 03/02/2019 CHIEF COMPLAINT: Shortness of breath. HISTORY OF PRESENT ILLNESS: This 53-year-old gentleman with a past medical history of COPD, hypertension, pulmonary embolism, history of multiple pneumothoraces in the left lung, colon polyps, history of surgery for coarctation of aorta and PDA in childhood, being followed by Dr. Jim Dutta in the outpatient setting, was recently admitted with acute asthma exacerbation and multiple other complications. Patient was seen by Dr. Wilson. Patient improved significantly apparently. Patient went home. Subsequently his father, who is living with the patient, reported that the patient was having persistent wheezing, and because of increased symptoms, the patient went to Dr. Dutta and was subsequently evaluated by Dr. Goldstein. The patient was asked to come to [facility] Emergency Room. He was admitted for further evaluation and treatment. There is no history of any fever, rigor or chills. No history of headache, loss of consciousness, seizures. No history of chest pain or palpitations at this time. PAST MEDICAL HISTORY: 1. History of COPD. 2. Hypertension. 3. Pulmonary embolism. 4. History of multiple pneumothoraces. 5. History of congenital heart disease. HOME MEDICATIONS: 1. Lexapro 20 mg at bedtime. 2. Symbicort 160/4.5 two puffs b.i.d. 3. Ziac 10 mg p.o. daily. 4. Prednisone 10 mg daily. 5. Neurontin 100 mg p.o. b.i.d. 6. Eliquis 5 mg p.o. b.i.d. 7. ProAir 2 puffs q.6 p.r.n. 8. Albuterol 2.5 q.6 p.r.n. ALLERGIES: 1. ANTIVERT. 2. NORVASC. 3. ZESTRIL. 4. OMEPRAZOLE. 5. NSAIDS. FAMILY HISTORY: History of cancer, pancreatic cancer in the family. SOCIAL HISTORY: No history of smoking. No history of alcohol intake. REVIEW OF SYSTEMS: ENT: No diminished hearing. No diminished vision. CARDIOVASCULAR SYSTEM: As mentioned earlier. RESPIRATORY SYSTEM: As mentioned earlier. GI: No nausea, vomiting. : No dysuria or retention. NERVOUS SYSTEM: No numbness, weakness. ALLERGY/IMMUNOLOGY: No asthma, hayfever. MUSCULOSKELETAL: As mentioned earlier. HEMATOLOGY/ONCOLOGY: No history of anemia. ENDOCRINE: No history of diabetes, hypothyroidism. CONSTITUTIONAL: As mentioned earlier. DERMATOLOGY: Negative. RHEUMATOLOGY: Negative. PSYCHIATRY: As mentioned earlier. PHYSICAL EXAMINATION: Patient is alert, oriented x3. Pulse is 72, blood pressure 126/75, respirations 16, temperature 98.1, pulse ox 99% on 2 L. HEENT: Conjunctivae normal. NECK: No jugular venous distention. CARDIOVASCULAR SYSTEM: S1, S2 muffled. RESPIRATORY SYSTEM: Breath sounds diminished at the bases. Bilateral scattered rhonchi and crackles. ABDOMEN: Soft, obese, non-tender. No mass palpable. LEGS: No edema. No swelling. NERVOUS SYSTEM: Higher functions as mentioned earlier. Moves all 4 limbs. No focal motor or sensory deficit. LYMPHATICS: No lymph node palpable in neck, axillae or groin. SKIN: No ulcer, rash, bleeding. JOINTS: No active deforming arthropathy. LABS: WBC 13.2, hemoglobin 16.5. Sodium 139, potassium 4.1, glucose 124. ASSESSMENT: 1. Acute bronchial asthma, acute exacerbation with acute purulent tracheobronchitis. Rule out bibasilar pneumonia with failure of outpatient treatment. 2. History of submandibular lymphadenopathy. 3. History of congenital heart disease, surgery for coarctation of aorta as well as patent ductus arteriosus. 4. History of pulmonary embolism, on Eliquis. 5. Increased white count. 6. Hypertension. 7. History of chronic obstructive pulmonary disease. 8. History of multiple pneumothoraces in the left lung. 9. Colonic polyps. 10.Restrictive heart disease. 11.History of prostate surgery. 12.History of carpal tunnel syndrome. 13.History of bilateral inguinal hernia repair. 14.Congenital abnormalities of the left ribs in the chest x-ray. RECOMMENDATIONS AND DISCUSSION: In this 53-year-old gentleman who presented with multiple complex medical issues, we will monitor the patient closely, continue the current management, continue with symptomatic treatment. Will initiate intensive bronchodilator treatment, broad-spectrum IV antibiotics to cover for the hospital-acquired pneumonia as well because of the recent hospital admission. Otherwise, I would recommend consulting Dr. Morrison. Steroids. Guarded prognosis because of multiple complex medical issues. Further recommendations to follow. A copy of this dictation is being forwarded to Dr. Dutta, who is the primary physician. MMODL / IJN: [id number] /
[2019-03-02] MEDS: FORMOTEROL FUMARATE 20 MCG/2 ML NEBU INHALATION SCH (20:44)
[2019-03-02] MEDS: BUDESONIDE 1 MG/2 ML NEBU INHALATION SCH (20:44)
[2019-03-02] MEDS: IPRATROPIUM-ALBUTEROL 3 ML NEB INHALATION SCH (20:44)
[2019-03-02] MEDS: APIXABAN 5 MG TAB PO SCH (22:36)
[2019-03-02] MEDS: GABAPENTIN 100 MG CAP PO SCH (22:36)
[2019-03-02] MEDS: MONTELUKAST 10 MG TAB PO SCH (22:36)
[2019-03-02] MEDS: ESCITALOPRAM 20 MG TAB PO SCH (22:36)
[2019-03-02 22:46] LABS: Glucose,Whole Blood 177 mg/dL (75-99)
[2019-03-02] MEDS: PIPERACILLIN-TAZOBACTAM 3.375 GM in SODIUM CHLORIDE 0.9% 100 ML IVPB SCH (23:32)
[2019-03-02] MEDS: INSULIN ASPART (NovoLOG) 100 UNIT/ML VIAL SQ SCH (23:33)
[2019-03-03] MEDS: methylPREDNISolone SOD SUCCI 125 MG/2 ML VIAL IV SCH ×5 (00:46→23:23)
[2019-03-03] MEDS: PIPERACILLIN-TAZOBACTAM 3.375 GM in SODIUM CHLORIDE 0.9% 100 ML IVPB SCH ×4 (00:47→23:22)
[2019-03-03] MEDS: VANCOMYCIN 1,250 MG in SODIUM CHLORIDE 0.9% 250 ML IVPB SCH ×2 (06:23→21:01)
[2019-03-03] MEDS: BUDESONIDE 1 MG/2 ML NEBU INHALATION SCH ×2 (06:59→19:19)
[2019-03-03] MEDS: FORMOTEROL FUMARATE 20 MCG/2 ML NEBU INHALATION SCH ×2 (06:59→19:19)
[2019-03-03] MEDS: IPRATROPIUM-ALBUTEROL 3 ML NEB INHALATION SCH ×4 (06:59→19:19)
[2019-03-03 07:30] LABS: Glucose,Whole Blood 162 mg/dL (75-99)
[2019-03-03] MEDS: GABAPENTIN 100 MG CAP PO SCH ×2 (08:37→21:01)
[2019-03-03] MEDS: APIXABAN 5 MG TAB PO SCH ×2 (08:37→21:01)
[2019-03-03] MEDS: INSULIN ASPART (NovoLOG) 100 UNIT/ML VIAL SQ SCH ×4 (08:38→21:10)
[2019-03-03] MEDS: BISOPROLOL-HCTZ 10-6.25 MG 1 EACH TAB PO SCH (08:42)
[2019-03-03] MEDS ORDERED: predniSONE 20 MG TAB PO SCH (09:00)
[2019-03-03 10:27] LABS: Basophils % (A) 0 %; Eosinophils % (A) 0 %; HCT 46.9 % (39.0-53.0); HGB 15.3 gm/dL (13.0-17.5); Lymphocytes # (A) 0.2 k/uL (1.0-4.8); Lymphocytes % (A) 2 %; MCH 30.9 pg (25.0-35.0); MCHC 32.7 g/dL (31.0-37.0); MCV 94.6 fL (80.0-100.0); Mean Platelet Volume 7.3; Monocytes # (A) 0.2 k/uL (0-1.0); Monocytes % (A) 1 %; Neutrophils # (A) 11.3 k/uL (1.3-7.7); Neutrophils % (A) 97 %; Platelet Count 161 k/uL (150-450); RBC 4.96 m/uL (4.30-5.90); RDW 14.2 % (11.5-15.5); WBC 11.8 k/uL (3.8-10.6)
[2019-03-03 11:01] LABS: Anion Gap 7 mmol/L; Blood Urea Nitrogen 19 mg/dL (9-20); Calcium 8.8 mg/dL (8.4-10.2); Carbon Dioxide 30 mmol/L (22-30); Chloride 101 mmol/L (98-107); Glucose 264 mg/dL (74-99); Potassium 4.7 mmol/L (3.5-5.1); Sodium 138 mmol/L (137-145)
[2019-03-03] MEDS: MULTIVITAMINS, THERA 1 EACH TAB PO SCH (12:47)
[2019-03-03 12:57] LABS: Glucose,Whole Blood 175 mg/dL (75-99)
--- NOTE | 2019-03-03 13:52 | P.CNPUL ---
History of Present Illness Consult date: 03/03/19 Requesting physician: Latha Gallardo Reason for consult: dyspnea, cough, COPD Chief complaint: Cough, wheezing, dyspnea History of present illness: This 53-year-old white male patient with recent history of hospitalization for acute asthma exacerbation with bronchitis, discharged home a week ago. During previous visit patient presented with significant submandibular pain and swelling of the salivary glands. Computed tomography scan of the neck revealed noted fullness in the bilateral submandibular glands without intraoperative glandular lesion. Possibility of sialoadenitis was considered, workup for CMV was non-reactive, Treponema pallidum antibodies were nonreactive. Group A strep throat culture was negative. Toxoplasma IgM AB was negative. Patient was treated with empiric antibiotics, clinically improved, and swelling of bilateral salivary glands had improved. Patient was discharged home, and was seen in follow-up by Dr. Gallardo in the office yesterday however he was still si gnificantly bronchospastic, was coughing however not clearing any phlegm. Denied any fever or chills denied any worsening swelling of his salivary glands. Chest x-ray was completed and showed no focal airspace opacity, no pleural effusion or pneumothorax. Lab work was reviewed, and showed white blood cell count of 13.4, hemoglobin of 16.5, sodium is 139, potassium is 4.1, chloride was 100, CO2 is 32, BUN is 22 creatinine 0.70. Troponin was negative. In view of significant broncho-spasticity, dyspnea, chest congestion patient was sent to the hospital for inpatient admission. Antibiotic coverage in the form of Zosyn and vancomycin, IV steroids, nebulized bronchodilators were started, influenza screen was negative. Patient is on chronic anticoagulation for history of pulmonary embolism. Other medical history includes congenital heart disease with previous history of surgery for coarctation of the aorta and patent ductus arteriosus at an early age, premature , hypertension, diabetes mellitus, and a component of restrictive lung disorder is suspected related to patient's history of scoliosis. Review of Systems All systems: negative Constitutional: Denies chills, Denies fever Eyes: denies blurred vision, denies pain Ears, nose, mouth and throat: Denies headache, Denies sore throat Cardiovascular: Denies chest pain, Denies shortness of breath Respiratory: Reports dyspnea, Reports respiratory infections, Reports wheezing, Denies cough Gastrointestinal: Denies abdominal pain, Denies diarrhea, Denies nausea, Denies vomiting Musculoskeletal: Denies myalgias Integumentary: Denies pruritus, Denies rash Neurological: Denies numbness, Denies weakness Psychiatric: Denies anxiety, Denies depression Endocrine: Denies fatigue, Denies weight change Past Medical History Past Medical History: COPD, Hypertension, Pneumonia, Pulmonary Embolus (PE), Respiratory Disorder Additional Past Medical History / Comment(s): multiple pneumothorax left lung, colon polyps removed 2018, congenital heart disease, asthma, restrictive heart disease, pulmonary embolism and HTN History of Any Multi-Drug Resistant Organisms: None Reported Past Surgical History: Back Surgery, Cholecystectomy, Coronary Bypass/CABG, Hernia Repair, Prostate Surgery Additional Past Surgical History / Comment(s): B/L carpal tunnel release,open heart at age 4, B/L inguinal hernia repair, TURP, Orchiectomy of Left testicle. EDG and colonoscopy in 2018. Past Anesthesia/Blood Transfusion Reactions: No Reported Reaction Past Psychological History: No Psychological Hx Reported Smoking Status: Never smoker Past Alcohol Use History: Rare Past Drug Use History: None Reported - Past Family History Mother History Unknown: Yes (pancreatic cancer) Family Medical History: Cancer Additional Family Medical History / Comment(s): from Pancreatic cancer Medications and Allergies Home Medications Medication Instructions Recorded Confirmed Type Albuterol Nebulized [Ventolin 2.5 mg INHALATION RT-Q6H PRN 02/17/19 03/02/19 History Nebulized] Albuterol Sulfate [Proair Hfa] 2 puff INHALATION RT-Q6H PRN 02/17/19 03/02/19 History Apixaban [Eliquis] 5 mg PO BID 02/17/19 03/02/19 History Bisoprolol-Hctz 10-6.25 mg [Ziac 10 gm PO DAILY 02/17/19 03/02/19 History 10-6.25 MG] Escitalopram [Lexapro] 20 mg PO HS 02/17/19 03/02/19 History Gabapentin [Neurontin] 100 mg PO BID 02/17/19 03/02/19 History Budesonide-Formot 160-4.5 Mcg 2 puff INHALATION RT-BID #1 inhaler 02/22/19 03/02/19 Rx [Symbicort 160-4.5 Mcg Inhaler] predniSONE 0 mg PO DIRECTED #30 tab 02/22/19 03/02/19 Rx Allergies Allergy/AdvReac Type Severity Reaction Status Date / Time meclizine [From Antivert] Allergy Unknown Unknown Verified 03/02/19 13:16 amlodipine [From Norvasc] Allergy Unknown Verified 03/02/19 13:16 lisinopril [From Zestril] Allergy Unknown Verified 03/02/19 13:16 NSAIDS (Non-Steroidal Allergy Unknown Verified 03/02/19 13:16 Anti-Inflamma omeprazole Allergy Unknown Verified 03/02/19 13:16 Physical Exam Vitals: Vital Signs Temp Pulse Pulse Resp BP BP Pulse Ox 03/03/19 11:41 80 03/03/19 11:31 84 03/03/19 08:00 16 03/03/19 07:21 80 03/03/19 07:10 78 03/03/19 07:00 96.9 F L 67 16 134/80 97 03/03/19 06:59 74 03/02/19 22:28 97.9 F 78 22 135/66 97 03/02/19 21:07 80 03/02/19 20:56 84 03/02/19 20:46 84 99 03/02/19 16:07 98.1 F 72 16 126/75 99 03/02/19 16:00 18 03/02/19 15:26 97.9 F 03/02/19 15:00 76 18 143/68 98 03/02/19 14:30 72 21 126/77 98 03/02/19 14:00 75 16 148/61 99 Intake and Output 03/02/19 03/03/19 03/03/19 22:59 06:59 14:59 Intake Total 25 200 Balance 25 200 Intake: Amount of Fluid Infused ( 25 ml) Oral 200 Other: Voiding Method Toilet Toilet # Voids 2 2 GENERAL EXAM: Alert, pleasant, short statured 53-year-old white male comfortable in no apparent distress. HEAD: Normocephalic/atraumatic. EYES: Normal reaction of pupils, equal size. Conjunctiva pink, sclera white. NOSE: Clear with pink turbinates. THROAT: No erythema or exudates. NECK: No masses, no JVD, no thyroid enlargement, no adenopathy. CHEST: No chest wall deformity. Symmetrical expansion. LUNGS: Equal air entry with diffuse wheezes and rhonchi CVS: Regular rate and rhythm, normal S1 and S2, no gallops, no murmurs, no rubs ABDOMEN: Soft, nontender. No hepatosplenomegaly, normal bowel sounds, no guarding or rigidity. EXTREMITIES: No clubbing, no edema, no cyanosis, 2+ pulses and upper and lower extremities. MUSCULOSKELETAL: Muscle strength and tone normal. SPINE: No scoliosis or deformity SKIN: No rashes CENTRAL NERVOUS SYSTEM: Alert and oriented -3. No focal deficits, tone is normal in all 4 extremities. PSYCHIATRIC: Alert and oriented -3. Appropriate affect. Intact judgment and insight. Results - Laboratory Findings CBC and BMP: 03/03/19 09:43 03/03/19 09:43 PT/INR, D-dimer PT 10.2 sec (9.0-12.0) 03/02/19 12:45 INR 0.9 (<1.2) 03/02/19 12:45 Abnormal lab findings: Abnormal Labs 03/02/19 03/02/19 03/02/19 12:45 12:45 22:45 WBC 13.4 H Neutrophils # 11.4 H Lymphocytes # Carbon Dioxide 32 H BUN 22 H Creatinine Glucose 124 H POC Glucose (mg/dL) 177 H ALT 113 H 03/03/19 03/03/19 03/03/19 07:19 09:43 09:43 WBC 11.8 H Neutrophils # 11.3 H Lymphocytes # 0.2 L Carbon Dioxide BUN Creatinine 0.61 L Glucose 264 H POC Glucose (mg/dL) 162 H ALT 03/03/19 12:32 WBC Neutrophils # Lymphocytes # Carbon Dioxide BUN Creatinine Glucose POC Glucose (mg/dL) 175 H ALT - Diagnostic Findings Chest x-ray: report reviewed, image reviewed Assessment and Plan Plan: Assessment: #1. Acute exacerbation of chronic bronchial asthma, with purulent trache obronchitis. #2. Recent hospitalization for the same, patient had enlargement of the bilateral submandibular glands likely related to sialadenitis. Infection with EBV, CMV, toxoplasma were ruled out. Syphilis was ruled out. It is likely related to infectious/inflammatory etiology. Strep A throat culture was negative #3. History of congenital heart disease with previous history of surgery for quantitation of the aorta with patent ductus arteriosus #4. Previous history of pulmonary embolism currently on Eliquis #5. Hypertension #6. Diabetes mellitus #7. Suspected restrictive lung disease related to history of scoliosis #8. Premature history Plan: Continue current antibiotic treatment, patient is significantly congested and bronchospastic, not able to clear any secretions, we will board to patient for bronchoscopy with BAL tomorrow on 03/04/2019. Nothing by mouth after midnight, continue IV steroids nebulized bronchodilators, Singulair, Pulmicort and Perforomist. We'll continue to follow I performed a history & physical examination of the patient and discussed their management with my nurse practitioner, Luz Maria Maria. I reviewed the nurse practitioner's note and agree with the documented findings and plan of care. Lung sounds are positive for diffuse wheezes throughout the lung melchor. The findings and the impression was discussed with the patient. I attest to the documentation by the nurse practitioner. Time with Patient: Greater than 30
[2019-03-03 17:38] LABS: Glucose,Whole Blood 172 mg/dL (75-99)
--- NOTE | 2019-03-03 20:38 | PN ---
PROGRESS NOTE DATE OF SERVICE: 03/03/2019 This 53-year-old gentleman who was admitted with COPD, acute exacerbation, as well as acute bronchial asthma, acute exacerbation, is being closely monitored at this time. The patient was evaluated by Dr. Morrison. The patient was sent from Dr. Goldstein's office for possible bronchoscopy. The patient had also submandibular lymphadenopathy, possibly secondary to sialadenitis. Bronchoscopy is planned for tomorrow by Dr. Morrison. Past medical reviewed. PHYSICAL EXAMINATION: Patient is alert, oriented x3. Pulse is 90, blood pressure 141/76, respirations 16, temperature 97 degrees, pulse ox 94% on room air. HEENT: Conjunctivae normal. NECK: No jugular venous distention. CARDIOVASCULAR SYSTEM: S1, S2 muffled. RESPIRATORY SYSTEM: Breath sounds diminished at the bases. Scattered rhonchi and crackles. Expiratory wheezing also present. ABDOMEN: Soft, non-tender. LEGS: No edema. No swelling. NERVOUS SYSTEM: No focal deficit. LABS: WBC 11.8, hemoglobin 15.3, sodium 138, potassium 4.0. Flu is negative. ASSESSMENT: 1. Acute bronchial asthma, acute exacerbation, with acute purulent tracheobronchitis with failure of outpatient treatment. Rule out bibasilar pneumonia, possibly gram- negative. 2. History of submandibular lymphadenopathy, possibly secondary to sialadenitis. 3. 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 4. History of pulmonary embolism, on Eliquis. 5. Increased white count. 6. Hypertension. 7. History of chronic obstructive pulmonary disease. 8. History of multiple pneumothoraces in the left lung. 9. History of colonic polyps. 10.Restrictive heart disease. 11.History of prostate surgery. 12.History of carpal tunnel syndrome. 13.History of bilateral inguinal hernia repair. 14.Congenital abnormalities of the left ribs in the chest x-ray. RECOMMENDATIONS AND DISCUSSION: I recommend to continue current medications, continue with the monitoring, symptomatic treatment. Otherwise at this time bronchodilators, empiric antibiotics. Bronchoscopy by Dr. Morrison. Guarded prognosis because of multiple complex medical issues. Further recommendations to follow. Patient is improving at this time. Await bronchoscopy by Dr. Morrison. MMODL / IJN: [id number] /
[2019-03-03] MEDS: ESCITALOPRAM 20 MG TAB PO SCH (21:01)
[2019-03-03] MEDS: MONTELUKAST 10 MG TAB PO SCH (21:01)
[2019-03-03 21:08] LABS: Glucose,Whole Blood 227 mg/dL (75-99)
[2019-03-04] MEDS ORDERED: VANCOMYCIN TROUGH DUE 1 EACH MISC MISCELLANE ONE (06:00)
[2019-03-04] MEDS: VANCOMYCIN 1,250 MG in SODIUM CHLORIDE 0.9% 250 ML IVPB SCH (06:24)
[2019-03-04] MEDS: methylPREDNISolone SOD SUCCI 125 MG/2 ML VIAL IV SCH ×3 (06:24→17:25)
[2019-03-04 06:31] LABS: Basophils % (A) 0 %; Eosinophils # (A) 0.2 k/uL (0-0.7); Eosinophils % (A) 1 %; HCT 45.6 % (39.0-53.0); HGB 14.8 gm/dL (13.0-17.5); Lymphocytes # (A) 0.3 k/uL (1.0-4.8); Lymphocytes % (A) 2 %; MCH 30.1 pg (25.0-35.0); MCHC 32.5 g/dL (31.0-37.0); MCV 92.7 fL (80.0-100.0); Mean Platelet Volume 8.2; Monocytes # (A) 0.3 k/uL (0-1.0); Monocytes % (A) 2 %; Neutrophils # (A) 14.7 k/uL (1.3-7.7); Neutrophils % (A) 95 %; Platelet Count 141 k/uL (150-450); RBC 4.93 m/uL (4.30-5.90); RDW 14.8 % (11.5-15.5); WBC 15.5 k/uL (3.8-10.6)
[2019-03-04] MEDS: FORMOTEROL FUMARATE 20 MCG/2 ML NEBU INHALATION SCH ×2 (06:49→19:40)
[2019-03-04] MEDS: BUDESONIDE 1 MG/2 ML NEBU INHALATION SCH ×2 (06:49→19:40)
[2019-03-04] MEDS: IPRATROPIUM-ALBUTEROL 3 ML NEB INHALATION SCH ×4 (06:49→19:40)
[2019-03-04 07:01] LABS: Glucose,Whole Blood 187 mg/dL (75-99)
[2019-03-04 07:25] LABS: Anion Gap 6 mmol/L; Blood Urea Nitrogen 21 mg/dL (9-20); Calcium 8.9 mg/dL (8.4-10.2); Carbon Dioxide 30 mmol/L (22-30); Chloride 102 mmol/L (98-107); Glucose 194 mg/dL (74-99); Potassium 4.4 mmol/L (3.5-5.1); Sodium 138 mmol/L (137-145)
[2019-03-04] MEDS: PIPERACILLIN-TAZOBACTAM 3.375 GM in SODIUM CHLORIDE 0.9% 100 ML IVPB SCH ×2 (08:22→15:10)
[2019-03-04] MEDS: INSULIN ASPART (NovoLOG) 100 UNIT/ML VIAL SQ SCH ×4 (08:22→22:17)
[2019-03-04] MEDS: MULTIVITAMINS, THERA 1 EACH TAB PO SCH (08:22)
[2019-03-04] MEDS: APIXABAN 5 MG TAB PO SCH ×2 (08:23→22:02)
[2019-03-04] MEDS: BISOPROLOL-HCTZ 10-6.25 MG 1 EACH TAB PO SCH (08:23)
[2019-03-04] MEDS: GABAPENTIN 100 MG CAP PO SCH ×2 (08:23→22:02)
[2019-03-04] MEDS ORDERED: IV FLUID CONTINUATION 800 ML IV ONE (11:01)
[2019-03-04] MEDS ORDERED: PROPOFOL 10 MG/ML 20 ML VIAL IV ONE (11:01)
[2019-03-04] MEDS ORDERED: MIDAZOLAM 2 MG/2 ML VIAL ONE (11:01)
[2019-03-04] MEDS ORDERED: fentaNYL (PF) 50 MCG/ML 2 ML AMP ONE (11:01)
--- NOTE | 2019-03-04 11:26 | P.PN ---
Subjective Progress Note Date: 03/04/19 Principal diagnosis: Acute exacerbation of chronic bronchial asthma, with purulent tracheobronchitis This 53-year-old white male patient with recent history of hospitalization for acute asthma exacerbation with bronchitis, discharged home a week ago. During previous visit patient presented with significant submandibular pain and swelling of the salivary glands. Computed tomography scan of the neck revealed noted fullness in the bilateral submandibular glands without intraoperative glandular lesion. Possibility of sialoadenitis was considered, workup for CMV was non-reactive, Treponema pallidum antibodies were nonreactive. Group A strep throat culture was negative. Toxoplasma IgM AB was negative. Patient was treated with empiric antibiotics, clinically improved, and swelling of bilateral salivary glands had improved. Patient was discharged home, and was seen in follow-up by Dr. Gallardo in the office yesterday however he was still significantly bronchospastic, was coughing however not clearing any phlegm. Denied any fever or chills denied any worsening swelling of his salivary glands. Chest x-ray was completed and showed no focal airspace opacity, no pleural effusion or pneumothorax. Lab work was reviewed, and showed white blood cell count of 13.4, hemoglobin of 16.5, sodium is 139, potassium is 4.1, chloride was 100, CO2 is 32, BUN is 22 creatinine 0.70. Troponin was negative. In view of significant broncho-spasticity, dyspnea, chest congestion patient was sent to the hospital for inpatient admission. Antibiotic coverage in the form of Zosyn and vancomycin, IV steroids, nebulized bronchodilators were started, influenza screen was negative. Patient is on chronic anticoagulation for history of pulmonary embolism. Other medical history includes congenital heart disease with previous history of surgery for coarctation of the aorta and patent ductus arteriosus at an early age, premature , hypertension, diabetes mellitus, and a component of restrictive lung disorder is suspected related to patient's history of scoliosis. On 03/04/2019 patient seen in follow-up on medical surgical floor. Remains quite bronchospastic and congested, not able to bring up much phlegm. He sits up in the chair, no worsening dyspnea, chest pain, room air pulse ox is 98%, afebrile, hemodynamically stable, lung sounds reveal diffuse rhonchi and wheez es. Patient is scheduled for bronchoscopy and BAL today. Patient is on IV steroids, nebulized with evidence, Pulmicort and Perforomist and empiric antibiotics. Objective - Vital Signs Vital signs: Vital Signs Temp 97.4 F L 03/04/19 10:11 Pulse 78 03/04/19 10:11 Resp 17 03/04/19 10:11 BP 151/81 03/04/19 10:11 Pulse Ox 98 03/04/19 10:11 Intake & Output 03/03/19 03/04/19 03/04/19 18:59 06:59 18:59 Intake Total 440 Balance 440 Intake: Oral 440 Other: Voiding Method Toilet Toilet # Voids 3 1 - Exam GENERAL EXAM: Alert, pleasant, short statured 53-year-old white male comfortable in no apparent distress. HEAD: Normocephalic/atraumatic. EYES: Normal reaction of pupils, equal size. Conjunctiva pink, sclera white. NOSE: Clear with pink turbinates. THROAT: No erythema or exudates. NECK: No masses, no JVD, no thyroid enlargement, no adenopathy. CHEST: No chest wall deformity. Symmetrical expansion. LUNGS: Equal air entry with diffuse wheezes and rhonchi CVS: Regular rate and rhythm, normal S1 and S2, no gallops, no murmurs, no rubs ABDOMEN: Soft, nontender. No hepatosplenomegaly, normal bowel sounds, no guarding or rigidity. EXTREMITIES: No clubbing, no edema, no cyanosis, 2+ pulses and upper and lower extremities. MUSCULOSKELETAL: Muscle strength and tone normal. SPINE: No scoliosis or deformity SKIN: No rashes CENTRAL NERVOUS SYSTEM: Alert and oriented -3. No focal deficits, tone is normal in all 4 extremities. PSYCHIATRIC: Alert and oriented -3. Appropriate affect. Intact judgment and insight. - Labs CBC & Chem 7: 03/04/19 06:18 03/04/19 06:18 Labs: Abnormal Lab Results - Last 24 Hours (Table) 03/03/19 03/03/19 03/03/19 Range/Units 12:32 17:29 21:08 WBC (3.8-10.6) k/uL Plt Count (150-450) k/uL Neutrophils # (1.3-7.7) k/uL Lymphocytes # (1.0-4.8) k/uL BUN (9-20) mg/dL Glucose (74-99) mg/dL POC Glucose (mg/dL) 175 H 172 H 227 H (75-99) mg/dL 03/04/19 03/04/19 03/04/19 Range/Units 06:18 06:18 06:59 WBC 15.5 H (3.8-10.6) k/uL Plt Count 141 L (150-450) k/uL Neutrophils # 14.7 H (1.3-7.7) k/uL Lymphocytes # 0.3 L (1.0-4.8) k/uL BUN 21 H (9-20) mg/dL Glucose 194 H (74-99) mg/dL POC Glucose (mg/dL) 187 H (75-99) mg/dL Microbiology - Last 24 Hours (Table) 03/02/19 19:19 Blood Culture - Preliminary Blood No Growth after 24 hours 03/03/19 08:53 Urine Culture - Preliminary Urine,Voided Assessment and Plan Plan: Assessment: #1. Acute exacerbation of chronic bronchial asthma, with purulent tracheobronchitis. #2. Recent hospitalization for the same, patient had enlargement of the bilateral submandibular glands likely related to sialadenitis. Infection with EBV, CMV, toxoplasma were ruled out. Syphilis was ruled out. It is likely related to infectious/inflammatory etiology. Strep A throat culture was negative #3. History of congenital heart disease with previous history of surgery for quantitation of the aorta with patent ductus arteriosus #4. Previous history of pulmonary embolism currently on Eliquis #5. Hypertension #6. Diabetes mellitus #7. Suspected restrictive lung disease related to history of scoliosis #8. Premature history Plan: Continue current antibiotic coverage, IV steroids, nebulized bronchodilators, Pulmicort and Perforomist, we'll proceed with bronchoscopy with BAL today, continue to follow. I performed a history & physical examination of the patient and discussed their management with my nurse practitioner, Luz Maria Maria. I reviewed the nurse practitioner's note and agree with the documented findings and plan of care. Lung sounds are positive for diffuse wheezes throughout the lung melchor. The findings and the impression was discussed with the patient. I attest to the documentation by the nurse practitioner. Time with Patient: Less than 30
--- NOTE | 2019-03-04 11:49 | PCN ---
PROCEDURE NOTE PROCEDURE: Bronchoscopy, airway examination and lavage, BAL. The BAL was in the right middle lobe. PREOPERATIVE DIAGNOSIS: Severe bronchitis and COPD exacerbation with retained secretions. POSTOPERATIVE DIAGNOSIS: Severe bronchitis and COPD exacerbation with retained secretions. OPERATORS: Dr. Morrison and Dr. Murphy. The patient's procedure was done in the endoscopy area. There was informed consent and universal timeout. Dr. Rodriguez and Andrew Joseph, CESAR provided general anesthesia and unconscious sedation. After the patient was adequately sedated and being fully monitored, the bronchoscope was inserted without difficulty through the right nostril. It passed through the right nasopharynx into the oropharynx. The hypopharynx was identified and topicalized. The hypopharyngeal structures including anterior commissure, true cords, false cords, arytenoids, piriform sinuses, right and left vallecula. Everything appeared normal. After topicalization, the bronchoscope was pushed through the glottic opening into the trachea. Trachea appeared normal. Tracheal steffi was sharp. There was a thorough inspection of both lungs including the right upper lobe and its 3 segments, right middle lobe and its 2 segments, right lower lobe and its 5 segments. On the left side, we really could not evaluate the lungs adequately because there was significant obstruction in the mid to distal left mainstem. This is probably extrinsic in nature. We did brush this area. The mucosa looked relatively normal although it was mildly inflamed. Throughout the lung, though, the mucosa was erythematous and hyperemic. There was some secretions noted. There were not particularly purulent. There was no dominant mass or lesion other than the obstruction that we saw in the left mainstem. There was no bleeding. The bronchoscope was wedged into the right middle lobe. The BAL took place. The patient tolerated the procedure well and the bronchoscope was withdrawn. Pictures were taken of the mid to distal left mainstem. The patient will be recovered. He will have follow up in the office after discharge. MMODL / IJN: [id number] /
[2019-03-04 12:04] LABS: Glucose,Whole Blood 122 mg/dL (75-99)
[2019-03-04 16:50] LABS: Glucose,Whole Blood 180 mg/dL (75-99)
[2019-03-04] MEDS: VANCOMYCIN 1,500 MG in SODIUM CHLORIDE 0.9% 250 ML IVPB SCH (17:25)
[2019-03-04 20:34] LABS: Appearance,BF Bloody; Nucleated Cells, Body Fluid 67 /uL; RBC, Body Fluid 22500 /uL
[2019-03-04 20:38] LABS: Mononuclear WBC,Body Fluid 91 %; Polynuclear WBC,Body Fluid 9 %; Total Cells Counted,Body Fluid 100
[2019-03-04 20:56] LABS: Glucose,Whole Blood 296 mg/dL (75-99)
[2019-03-04] MEDS: ESCITALOPRAM 20 MG TAB PO SCH (22:02)
[2019-03-04] MEDS: MONTELUKAST 10 MG TAB PO SCH (22:03)
[2019-03-05] MEDS: methylPREDNISolone SOD SUCCI 125 MG/2 ML VIAL IV SCH ×5 (00:16→23:29)
[2019-03-05] MEDS: PIPERACILLIN-TAZOBACTAM 3.375 GM in SODIUM CHLORIDE 0.9% 100 ML IVPB SCH ×4 (00:16→23:29)
[2019-03-05] MEDS: ACETAMINOPHEN TAB 500 MG TAB PO PRN ×3 (00:19→23:34)
[2019-03-05] MEDS: VANCOMYCIN 1,500 MG in SODIUM CHLORIDE 0.9% 250 ML IVPB SCH ×2 (05:23→19:05)
[2019-03-05 07:38] LABS: Glucose,Whole Blood 159 mg/dL (75-99)
[2019-03-05] MEDS: BUDESONIDE 1 MG/2 ML NEBU INHALATION SCH ×2 (07:58→21:23)
[2019-03-05] MEDS: FORMOTEROL FUMARATE 20 MCG/2 ML NEBU INHALATION SCH ×2 (07:58→21:23)
[2019-03-05] MEDS: IPRATROPIUM-ALBUTEROL 3 ML NEB INHALATION SCH ×4 (07:58→21:23)
[2019-03-05] MEDS: GABAPENTIN 100 MG CAP PO SCH ×2 (08:29→21:02)
[2019-03-05] MEDS: INSULIN ASPART (NovoLOG) 100 UNIT/ML VIAL SQ SCH ×4 (08:29→21:02)
[2019-03-05] MEDS: MULTIVITAMINS, THERA 1 EACH TAB PO SCH (08:31)
[2019-03-05] MEDS: BISOPROLOL-HCTZ 10-6.25 MG 1 EACH TAB PO SCH (08:31)
[2019-03-05] MEDS: APIXABAN 5 MG TAB PO SCH ×2 (08:31→21:02)
--- NOTE | 2019-03-05 08:41 | PN ---
PROGRESS NOTE DATE OF SERVICE: 03/05/2019 This 53-year-old gentleman who was admitted with significant bronchial asthma acute exacerbation, underwent bronchoscopy today by Dr. Morrison. The patient underwent significant observation of the mid and left mainstem was noted and brushings were done. The patient is being closely monitored at this time. PAST MEDICAL HISTORY: Reviewed. PHYSICAL EXAM: Patient is alert, oriented x3. Pulse is 91, blood pressure 140/56, respiration 18, temperature 97.2, pulse ox 94% on room air. HEENT: Conjunctivae normal. Oral mucosa moist. NECK: No jugular venous distention. No lymph node enlargement. CARDIOVASCULAR: S1, S2. RESPIRATORY: Diminished breath sounds at the bases. Bilateral scattered rhonchi and crackles. ABDOMEN: Soft, nontender. LEGS: No swelling. NERVOUS SYSTEM: No focal deficits. LABS: WBC 15.4, platelets 141. Other labs are noted. ASSESSMENT: 1. Acute bronchial asthma, acute exacerbation. Acute purulent tracheobronchitis with failure of outpatient treatment. Rule out bibasilar pneumonia or bronchopneumonia, possibly gram-negative. 2. History of submandibular lymphadenopathy, possibly secondary to peritonitis. 3. 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 4. History of pulmonary embolism on Eliquis. 5. Increased WBC. 6. Hypertension. 7. History of chronic obstructive pulmonary disease. 8. History of multiple pneumothoraces of the left lung. 9. History of colonic polyps. 10.History of restrictive heart disease. 11.History of prostate surgery. 12.History of carpal tunnel syndrome. 13.History of bilateral inguinal hernia repair. 14.Congenital abnormalities the left ribs on the chest x-ray. RECOMMENDATIONS AND DISCUSSION: Recommend to continue current management, continue to monitor, continue symptomatic treatment. Continue the antibiotics. Continue the rest of the medications. The patient had a CT scan last month which showed no significant abnormalities. The patient most likely had multiple after the heart disease. The prognosis guarded. Further recommendations to follow. MMODL / IJN: [id number] / MTDD
[2019-03-05 12:02] LABS: Basophils % (A) 0 %; Eosinophils # (A) 0.1 k/uL (0-0.7); Eosinophils % (A) 0 %; HCT 43.8 % (39.0-53.0); HGB 14.5 gm/dL (13.0-17.5); Lymphocytes # (A) 0.2 k/uL (1.0-4.8); Lymphocytes % (A) 1 %; MCHC 33.2 g/dL (31.0-37.0); MCV 93.2 fL (80.0-100.0); Mean Platelet Volume 6.9; Monocytes # (A) 0.5 k/uL (0-1.0); Monocytes % (A) 3 %; Neutrophils # (A) 17.9 k/uL (1.3-7.7); Neutrophils % (A) 96 %; Platelet Count 157 k/uL (150-450); RDW 14.6 % (11.5-15.5); WBC 18.7 k/uL (3.8-10.6)
[2019-03-05 12:14] LABS: Glucose,Whole Blood 141 mg/dL (75-99)
[2019-03-05 12:21] LABS: Anion Gap 10 mmol/L; Blood Urea Nitrogen 21 mg/dL (9-20); Calcium 9.1 mg/dL (8.4-10.2); Carbon Dioxide 28 mmol/L (22-30); Chloride 102 mmol/L (98-107); Glucose 182 mg/dL (74-99); Potassium 3.8 mmol/L (3.5-5.1); Sodium 140 mmol/L (137-145)
--- NOTE | 2019-03-05 14:12 | P.PN ---
Subjective Progress Note Date: 03/05/19 Principal diagnosis: Acute exacerbation of moderate persistent chronic bronchial asthma, CAD) tracheobronchitis. Now found to have influenza A infection This 53-year-old white male patient with recent history of hospitalization for acute asthma exacerbation with bronchitis, discharged home a week ago. During previous visit patient presented with significant submandibular pain and swelling of the salivary glands. Computed tomography scan of the neck revealed noted fullness in the bilateral submandibular glands without intraoperative glandular lesion. Possibility of sialoadenitis was considered, workup for CMV was non-reactive, Treponema pallidum antibodies were nonreactive. Group A strep throat culture was negative. Toxoplasma IgM AB was negative. Patient was tony ated with empiric antibiotics, clinically improved, and swelling of bilateral salivary glands had improved. Patient was discharged home, and was seen in follow-up by Dr. Gallardo in the office yesterday however he was still significantly bronchospastic, was coughing however not clearing any phlegm. Denied any fever or chills denied any worsening swelling of his salivary glands. Chest x-ray was completed and showed no focal airspace opacity, no pleural effusion or pneumothorax. Lab work was reviewed, and showed white blood cell count of 13.4, hemoglobin of 16.5, sodium is 139, potassium is 4.1, chloride was 100, CO2 is 32, BUN is 22 creatinine 0.70. Troponin was negative. In view of significant broncho-spasticity, dyspnea, chest congestion patient was sent to the hospital for inpatient admission. Antibiotic coverage in the form of Zosyn and vancomycin, IV steroids, nebulized bronchodilators were started, influenza screen was negative. Patient is on chronic anticoagulation for history of pulmonary embolism. Other medical history includes congenital heart disease with previous history of surgery for coarctation of the aorta and patent ductus arteriosus at an early age, premature , hypertension, diabetes mellitus, and a component of restrictive lung disorder is suspected related to patient's history of scoliosis. On 03/04/2019 patient seen in follow-up on medical surgical floor. Remains quite bronchospastic and congested, not able to bring up much phlegm. He sits u p in the chair, no worsening dyspnea, chest pain, room air pulse ox is 98%, afebrile, hemodynamically stable, lung sounds reveal diffuse rhonchi and wheezes. Patient is scheduled for bronchoscopy and BAL today. Patient is on IV steroids, nebulized with evidence, Pulmicort and Perforomist and empiric antibiotics. The patient is seen today 03/05/2019 in follow-up on the regular medical floor. He is currently sitting up at the bedside. Awake and alert in no acute distress. He is maintaining good O2 saturations in the 90s on room air. She's afebrile. Hemodynamically stable. Bronchial wash findings thus far show influenza A. This was not detected by PCR. We will contact isolation and start Tamiflu. White count 18.7. Hemoglobin 14.5. Creatinine 0.64. He remains on DuoNeb inhalations, Pulmicort and Perforomist inhalations, IV Solu-Medrol. Objective - Vital Signs Vital signs: Vital Signs Temp 97.9 F 03/05/19 05:30 Pulse 72 03/05/19 12:12 Resp 18 03/05/19 05:30 BP 162/79 03/05/19 05:30 Pulse Ox 96 03/05/19 05:30 Intake & Output 03/04/19 03/05/19 03/05/19 18:59 06:59 18:59 Intake Total 200 825 Balance 200 825 Intake: IV 200 Oral 825 Other: Voiding Method Toilet Toilet # Voids 2 2 # Bowel Movements 0 - Exam GENERAL EXAM: Alert, active 3-year-old gentleman, comfortable in no apparent distress. On room air. HEAD: Normocephalic. EYES: Normal reaction of pupils, equal size. NOSE: Clear with pink turbinates. THROAT: No erythema or exudates. NECK: No masses, no JVD. CHEST: No chest wall deformity. LUNGS: Equal air entry with bilateral rhonchi left greater than right. CVS: S1 and S2 normal with no audible murmur, regular rhythm. ABDOMEN: No hepatosplenomegaly, normal bowel sounds, no guarding or rigidity. SPINE: No scoliosis or deformity SKIN: No rashes CENTRAL NERVOUS SYSTEM: No focal deficits, tone is normal in all 4 extremities. EXTREMITIES: There is no peripheral edema. No clubbing, no cyanosis. Peripheral pulses are intact. - Labs CBC & Chem 7: 03/05/19 11:03 03/05/19 11:03 Labs: Abnormal Lab Results - Last 24 Hours (Table) 03/04/19 03/04/19 03/04/19 Range/Units 11:00 16:46 20:53 WBC (3.8-10.6) k/uL Neutrophils # (1.3-7.7) k/uL Lymphocytes # (1.0-4.8) k/uL BUN (9-20) mg/dL Creatinine (0.66-1.25) mg/dL Glucose (74-99) mg/dL POC Glucose (mg/dL) 180 H 296 H (75-99) mg/dL Viral Test See Below H 03/05/19 03/05/19 03/05/19 Range/Units 07:26 11:03 11:03 WBC 18.7 H (3.8-10.6) k/uL Neutrophils # 17.9 H (1.3-7.7) k/uL Lymphocytes # 0.2 L (1.0-4.8) k/uL BUN 21 H (9-20) mg/dL Creatinine 0.64 L (0.66-1.25) mg/dL Glucose 182 H (74-99) mg/dL POC Glucose (mg/dL) 159 H (75-99) mg/dL Viral Test 03/05/19 Range/Units 12:03 WBC (3.8-10.6) k/uL Neutrophils # (1.3-7.7) k/uL Lymphocytes # (1.0-4.8) k/uL BUN (9-20) mg/dL Creatinine (0.66-1.25) mg/dL Glucose (74-99) mg/dL POC Glucose (mg/dL) 141 H (75-99) mg/dL Viral Test Microbiology - Last 24 Hours (Table) 03/04/19 15:50 Gram Stain - Preliminary Sputum Sputum Culture - Preliminary 03/04/19 11:00 Gram Stain - Preliminary Bronchoalviolar Lavage - Left Bronchial Washings Culture - Preliminary 03/04/19 11:00 Acid Fast Bacilli Culture - Preliminary Bronchial Washings - Left 03/04/19 11:00 Fungal Culture - Preliminary Bronchial Washings - Left 03/02/19 19:19 Blood Culture - Preliminary Blood No Growth after 48 hours 03/03/19 08:53 Urine Culture - Final Urine,Voided Assessment and Plan Assessment: Impression: #1. Acute exacerbation of chronic bronchial asthma, with purulent tracheobronchitis. Status post bronchoscopy with BAL. Influenza A positive thus far. Initiated on Tamiflu. #2. Recent hospitalization for the same, patient had enlargement of the bilateral submandibular glands likely related to sialadenitis. Infection with EBV, CMV, toxoplasma were ruled out. Syphilis was ruled out. It is likely related to infectious/inflammatory etiology. Strep A throat culture was negative #3. History of congenital heart disease with previous history of surgery for quantitation of the aorta with patent ductus arteriosus #4. Previous history of pulmonary embolism currently on Eliquis #5. Hypertension #6. Diabetes mellitus #7. Suspected restrictive lung disease related to history of scoliosis #8. Premature history Plan: The patient was seen and evaluated by Dr. Morrison. He is improved today compared to yesterday. Bronchial wash does detect influenza A. We will move the patient to isolation. We will initiate Tamiflu. Bronchoscopy did reveal a very narrowed left main stem bronchus with suspected retained secretions. May need to be considered for stent in the future. Tinnitus his current pulmonary medications. We will continue to follow make further recommendations based on his clinical status. I, the cosigning physician, performed a history & physical examination of the patient. Lungs sounds bilateral scattered rhonchi left greater than right. Maintaining good O2 saturations in the 90s on room air. I discussed the assessment and plan of care with my nurse practitioner, Ella Murphy. I attest to the above note as dictated by her.
[2019-03-05 17:16] LABS: Glucose,Whole Blood 256 mg/dL (75-99)
[2019-03-05 20:16] LABS: Glucose,Whole Blood 243 mg/dL (75-99)
[2019-03-05] MEDS: MONTELUKAST 10 MG TAB PO SCH (21:02)
[2019-03-05] MEDS: ESCITALOPRAM 20 MG TAB PO SCH (21:02)
[2019-03-05] MEDS: OSELTAMIVIR 75 MG CAP PO SCH (21:10)
[2019-03-06] MEDS: VANCOMYCIN 1,500 MG in SODIUM CHLORIDE 0.9% 250 ML IVPB SCH ×2 (05:08→17:17)
[2019-03-06] MEDS: methylPREDNISolone SOD SUCCI 125 MG/2 ML VIAL IV SCH ×4 (05:11→23:24)
[2019-03-06 07:30] LABS: Glucose,Whole Blood 194 mg/dL (75-99)
--- NOTE | 2019-03-06 07:36 | PN ---
PROGRESS NOTE DATE OF SERVICE: 03/05/2019 This 53-year-old gentleman who was admitted with acute bronchial asthma acute exacerbation had bronchoscopy. Influenza is also being diagnosed. No chest pain, no palpitation, no fever. EXAM: Alert and oriented x3. Pulse is 78, blood pressure 143/69, respirations 26, temperature 98, pulse ox 94% on room air. HEENT: Conjunctivae normal. Oral mucosa moist. NECK: No jugular venous distention. No lymph node enlargement. CARDIOVASCULAR: S1, S2. RESPIRATORY: Diminished breath sounds at the bases. Scattered rhonchi and crackles. ABDOMEN: Soft, nontender. LEGS: No swelling. NERVOUS SYSTEM: No focal deficits. LABS: WBC 18.7. Otherwise, glucose noted and influenza is positive. ASSESSMENT: 1. Acute bronchial asthma acute exacerbation with acute purulent tracheobronchitis with failure of outpatient treatment, possibly bibasilar pneumonia or bronchopneumonia, possibly gram-negative. 2. Status post bronchoscopy influenza A. 3. History of submental lymphadenopathy, possibly secondary to sialadenitis previously. 4. History of congestive heart disease secondary to coarctation of the aorta as well as patent ductus arteriosus surgery. 5. History of pulmonary embolism on Eliquis. 6. Increased WBC. 7. Hypertension. 8. History of chronic obstructive pulmonary disease. 9. History of multiple pneumothoraces on the left lung. 10.History of colon polyps. 11.History of restrictive heart disease. 12.History of prostate surgery. 13.History of carpal tunnel syndrome. 14.History of bilateral inguinal hernia repair. 15.Congenital abnormalities of the left ribs on the chest x-ray. RECOMMENDATIONS AND DISCUSSION: Recommend to continue current medications, continue to monitor, continue symptomatic treatment. At this time I would recommend continue with the antibiotics and bronchodilators, closely for antivirals. Closely follow with pulmonary. Guarded prognosis. Further recommendations to follow. MMODL / IJN: [id number] /
[2019-03-06] MEDS: OSELTAMIVIR 75 MG CAP PO SCH ×2 (07:43→20:56)
[2019-03-06] MEDS: INSULIN ASPART (NovoLOG) 100 UNIT/ML VIAL SQ SCH ×4 (07:43→21:00)
[2019-03-06] MEDS: MULTIVITAMINS, THERA 1 EACH TAB PO SCH (07:43)
[2019-03-06] MEDS: APIXABAN 5 MG TAB PO SCH ×2 (07:43→20:56)
[2019-03-06] MEDS: GABAPENTIN 100 MG CAP PO SCH ×2 (07:43→20:56)
[2019-03-06] MEDS: BISOPROLOL-HCTZ 10-6.25 MG 1 EACH TAB PO SCH (07:43)
[2019-03-06] MEDS: PIPERACILLIN-TAZOBACTAM 3.375 GM in SODIUM CHLORIDE 0.9% 100 ML IVPB SCH ×3 (07:44→23:24)
[2019-03-06] MEDS: IPRATROPIUM-ALBUTEROL 3 ML NEB INHALATION SCH ×4 (08:39→20:19)
[2019-03-06] MEDS: BUDESONIDE 1 MG/2 ML NEBU INHALATION SCH ×2 (08:39→20:19)
[2019-03-06] MEDS: FORMOTEROL FUMARATE 20 MCG/2 ML NEBU INHALATION SCH ×2 (08:39→20:19)
[2019-03-06] MEDS: HYDROcodone/APAP 5-325MG 1 EACH TAB PO PRN (09:06)
[2019-03-06 11:47] LABS: Basophils % (A) 0 %; Eosinophils # (A) 0.2 k/uL (0-0.7); Eosinophils % (A) 2 %; HGB 13.4 gm/dL (13.0-17.5); Lymphocytes # (A) 0.2 k/uL (1.0-4.8); Lymphocytes % (A) 1 %; MCH 29.8 pg (25.0-35.0); MCHC 31.9 g/dL (31.0-37.0); MCV 93.3 fL (80.0-100.0); Mean Platelet Volume 6.8; Monocytes # (A) 0.7 k/uL (0-1.0); Monocytes % (A) 5 %; Neutrophils # (A) 12.9 k/uL (1.3-7.7); Neutrophils % (A) 93 %; Platelet Count 146 k/uL (150-450); RBC 4.51 m/uL (4.30-5.90); RDW 14.5 % (11.5-15.5); WBC 13.9 k/uL (3.8-10.6)
--- NOTE | 2019-03-06 11:51 | P.PN ---
Subjective Progress Note Date: 03/06/19 Principal diagnosis: Acute exacerbation of chronic bronchial asthma, with purulent tracheobronchitis This 53-year-old white male patient with recent history of hospitalization for acute asthma exacerbation with bronchitis, discharged home a week ago. During previous visit patient presented with significant submandibular pain and swelling of the salivary glands. Computed tomography scan of the neck revealed noted fullness in the bilateral submandibular glands without intraoperative glandular lesion. Possibility of sialoadenitis was considered, workup for CMV was non-reactive, Treponema pallidum antibodies were nonreactive. Group A strep throat culture was negative. Toxoplasma IgM AB was negative. Patient was treated with empiric antibiotics, clinically improved, and swelling of bilateral salivary glands had improved. Patient was discharged home, and was seen in follow-up by Dr. Gallardo in the office yesterday however he was still significantly bronchospastic, was coughing however not clearing any phlegm. Denied any fever or chills denied any worsening swelling of his salivary glands. Chest x-ray was completed and showed no focal airspace opacity, no pleural effusion or pneumothorax. Lab work was reviewed, and showed white blood cell count of 13.4, hemoglobin of 16.5, sodium is 139, potassium is 4.1, chloride was 100, CO2 is 32, BUN is 22 creatinine 0.70. Troponin was negative. In view of significant broncho-spasticity, dyspnea, chest congestion patient was sent to the hospital for inpatient admission. Antibiotic coverage in the form of Zosyn and vancomycin, IV steroids, nebulized bronchodilators were started, influenza screen was negative. Patient is on chronic anticoagulation for history of pulmonary embolism. Other medical history includes congenital heart disease with previous history of surgery for coarctation of the aorta and patent ductus arteriosus at an early age, premature , hypertension, diabetes mellitus, and a component of restrictive lung disorder is suspected related to patient's history of scoliosis. On 03/04/2019 patient seen in follow-up on medical surgical floor. Remains quite bronchospastic and congested, not able to bring up much phlegm. He sits up in the chair, no worsening dyspnea, chest pain, room air pulse ox is 98%, afebrile, hemodynamically stable, lung sounds reveal diffuse rhonchi and wheez es. Patient is scheduled for bronchoscopy and BAL today. Patient is on IV steroids, nebulized with evidence, Pulmicort and Perforomist and empiric antibiotics. On 03/06/2019 patient seen in follow-up on medical surgical floor. Doing better, breathing easier, still has some scattered wheezes, but overall left bronchospastic and congested. Room air pulse ox is 96%, no fever or chills, vital signs are stable. Bronchial wash cultures were positive for influenza A, patient was started on Tamiflu, he remains on Zosyn and vancomycin. Nebulized bronchodilators, Pulmicort performance, and IV steroids Objective - Vital Signs Vital signs: Vital Signs Temp 97.7 F 03/06/19 05:32 Pulse 80 03/06/19 08:59 Resp 20 03/06/19 05:32 BP 154/77 03/06/19 05:32 Pulse Ox 96 03/06/19 08:39 Intake & Output 03/05/19 03/06/19 03/06/19 18:59 06:59 18:59 Intake Total 200 1000 200 Balance 200 1000 200 Intake: Oral 200 1000 200 Other: Voiding Method Toilet Toilet # Voids 2 2 3 - Exam GENERAL EXAM: Alert, pleasant, short statured 53-year-old white male comfortable in no apparent distress. HEAD: Normocephalic/atraumatic. EYES: Normal reaction of pupils, equal size. Conjunctiva pink, sclera white. NOSE: Clear with pink turbinates. THROAT: No erythema or exudates. NECK: No masses, no JVD, no thyroid enlargement, no adenopathy. CHEST: No chest wall deformity. Symmetrical expansion. LUNGS: Equal air entry with diffuse wheezes CVS: Regular rate and rhythm, normal S1 and S2, no gallops, no murmurs, no rubs ABDOMEN: Soft, nontender. No hepatosplenomegaly, normal bowel sounds, no guarding or rigidity. EXTREMITIES: No clubbing, no edema, no cyanosis, 2+ pulses and upper and lower extremities. MUSCULOSKELETAL: Muscle strength and tone normal. SPINE: No scoliosis or deformity SKIN: No rashes CENTRAL NERVOUS SYSTEM: Alert and oriented -3. No focal deficits, tone is normal in all 4 extremities. PSYCHIATRIC: Alert and oriented -3. Appropriate affect. Intact judgment and insight. - Labs CBC & Chem 7: 03/05/19 11:03 03/05/19 11:03 Labs: Abnormal Lab Results - Last 24 Hours (Table) 03/05/19 03/05/19 03/05/19 Range/Units 11:03 11:03 12:03 WBC 18.7 H (3.8-10.6) k/uL Neutrophils # 17.9 H (1.3-7.7) k/uL Lymphocytes # 0.2 L (1.0-4.8) k/uL BUN 21 H (9-20) mg/dL Creatinine 0.64 L (0.66-1.25) mg/dL Glucose 182 H (74-99) mg/dL POC Glucose (mg/dL) 141 H (75-99) mg/dL 03/05/19 03/05/19 03/06/19 Range/Units 17:10 20:12 07:16 WBC (3.8-10.6) k/uL Neutrophils # (1.3-7.7) k/uL Lymphocytes # (1.0-4.8) k/uL BUN (9-20) mg/dL Creatinine (0.66-1.25) mg/dL Glucose (74-99) mg/dL POC Glucose (mg/dL) 256 H 243 H 194 H (75-99) mg/dL Microbiology - Last 24 Hours (Table) 03/04/19 15:50 Gram Stain - Final Sputum Sputum Culture - Final 03/04/19 11:00 Gram Stain - Final Bronchoalviolar Lavage - Left Bronchial Washings Culture - Final 03/02/19 19:19 Blood Culture - Preliminary Blood No Growth after 72 hours 03/04/19 11:00 Acid Fast Bacilli Smear - Final Bronchial Washings - Left Acid Fast Bacilli Culture - Preliminary Assessment and Plan Plan: Assessment: #1. Acute exacerbation of chronic bronchial asthma, with purulent tracheobronchitis, related to influenza A infection. Bronch cultures were positive for influenza A #2. 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 Recent hospitalization for the same, patient had enlargement of the bilateral submandibular glands likely related to sialadenitis. Infection with EBV, CMV, toxoplasma were ruled out. Syphilis was ruled out. It is likely related to infectious/inflammatory etiology. Strep A throat culture was negative #4. History of congenital heart disease with previous history of surgery for quantitation of the aorta with patent ductus arteriosus #5. Previous history of pulmonary embolism currently on Eliquis #6. Hypertension #7. Diabetes mellitus #8. Suspected restrictive lung disease related to history of scoliosis #9. Premature history Plan: Continue current medical treatment, current dose IV steroids, nebulized bronchodilators, Pulmicort, Perforomist, patient is in the combination of Tamiflu, Zosyn and vancomycin, still dyspneic and bronchospastic, although i mproving. No fever or chills. Not quite ready for discharge. Patient benefit from his placement of a endobronchial stent for mid and distal left mainstem bronchus obstruction from extrinsic sources. We will leave it up to Dr. Wilson to decide who will be taking over tomorrow. I performed a history & physical examination of the patient and discussed their management with my nurse practitioner, Luz Maria Maria. I reviewed the nurse practitioner's note and agree with the documented findings and plan of care. Lung sounds are positive for diffuse wheezes throughout the lung melchor. The fi ndings and the impression was discussed with the patient. I attest to the documentation by the nurse practitioner. Time with Patient: Less than 30
[2019-03-06 11:59] LABS: Anion Gap 7 mmol/L; Blood Urea Nitrogen 21 mg/dL (9-20); Carbon Dioxide 31 mmol/L (22-30); Chloride 101 mmol/L (98-107); Glucose 246 mg/dL (74-99); Potassium 3.7 mmol/L (3.5-5.1); Sodium 139 mmol/L (137-145)
[2019-03-06 12:16] LABS: Glucose,Whole Blood 216 mg/dL (75-99)
[2019-03-06] MEDS: ACETAMINOPHEN TAB 500 MG TAB PO PRN (16:38)
[2019-03-06] MEDS ORDERED: VANCOMYCIN TROUGH DUE 1 EACH MISC MISCELLANE ONE (17:00)
[2019-03-06 17:36] LABS: Glucose,Whole Blood 202 mg/dL (75-99)
--- NOTE | 2019-03-06 19:00 | PN ---
PROGRESS NOTE DATE OF SERVICE: 03/06/2019 This 53-year-old gentleman who was admitted with acute bronchial asthma acute exacerbation with acute purulent tracheobronchitis with failure of outpatient treatment, also had influenza. The patient also has significant cardiac surgery with possibly defects and fibrotic changes on the left lung. No chest pain. No palpitations. Dr. Morrison is following the patient closely. EXAM: Alert and oriented x3. Pulse is 80, blood pressure 160/72, respirations 16, temperature 98.2, pulse ox 94% on room air. HEENT: Conjunctivae normal. NECK: No jugular venous distention. CARDIOVASCULAR: S1, S2. RESPIRATORY: Breath sounds diminished in the bases. A few scattered rhonchi and crackles. Expiratory wheezing also heard. ABDOMEN: Soft, nontender. NERVOUS SYSTEM: No focal deficits. LABS: WBC 13, hemoglobin 6.4, sodium 130, potassium 3.7. Accu-Cheks noted. ASSESSMENT: 1. Acute bronchial asthma acute exacerbation with acute purulent tracheobronchitis with failure of outpatient treatment, possibly bibasilar pneumonia or bronchopneumonia possibly gram-negative. 2. Status post bronchoscopy showing influenza A. 3. History of submental lymphadenopathy, possibly secondary to previously. 4. History of congestive heart failure. 5. History of congenital heart disease secondary to coaptation of the aorta as well as patent ductus arteriosus and surgery during childhood. 6. History of pulmonary embolism, on Eliquis. 7. Increased WBC. 8. Hypertension. 9. History of chronic obstructive pulmonary disease. 10.History of multiple pneumothoraces in the left lung. 11.History of colon polyps. 12.History of restrictive lung disease. 13.History of prostate disease. 14.History of carpal tunnel syndrome. 15.History of bilateral indirect inguinal hernia repair. 16.Congenital abnormalities of the left ribs on the chest x-ray. RECOMMENDATIONS AND DISCUSSION: Continue current medications, continue monitoring and symptomatic treatment. Continue the bronchodilators, antibiotics and steroids. Guarded prognosis because of multiple complex medical issues. Continue the antibiotics. Further recommendations to follow. MMODL / KARINN: [id number] / MTDD
[2019-03-06 20:56] LABS: Glucose,Whole Blood 269 mg/dL (75-99)
[2019-03-06] MEDS: ESCITALOPRAM 20 MG TAB PO SCH (20:56)
[2019-03-06] MEDS: MONTELUKAST 10 MG TAB PO SCH (20:56)
[2019-03-07] MEDS: VANCOMYCIN 1,500 MG in SODIUM CHLORIDE 0.9% 250 ML IVPB SCH ×3 (01:52→17:01)
[2019-03-07] MEDS: ACETAMINOPHEN TAB 500 MG TAB PO PRN (01:55)
[2019-03-07] MEDS: methylPREDNISolone SOD SUCCI 125 MG/2 ML VIAL IV SCH ×4 (05:13→23:27)
[2019-03-07] MEDS: IPRATROPIUM-ALBUTEROL 3 ML NEB INHALATION SCH ×4 (06:58→20:08)
[2019-03-07] MEDS: BUDESONIDE 1 MG/2 ML NEBU INHALATION SCH ×2 (06:58→20:08)
[2019-03-07] MEDS: FORMOTEROL FUMARATE 20 MCG/2 ML NEBU INHALATION SCH ×2 (06:58→20:08)
[2019-03-07 07:20] LABS: Glucose,Whole Blood 201 mg/dL (75-99)
[2019-03-07] MEDS: GABAPENTIN 100 MG CAP PO SCH ×2 (07:38→21:31)
[2019-03-07] MEDS: PIPERACILLIN-TAZOBACTAM 3.375 GM in SODIUM CHLORIDE 0.9% 100 ML IVPB SCH ×3 (07:38→23:28)
[2019-03-07] MEDS: OSELTAMIVIR 75 MG CAP PO SCH ×2 (07:38→21:31)
[2019-03-07] MEDS: APIXABAN 5 MG TAB PO SCH ×2 (07:38→21:31)
[2019-03-07] MEDS: MULTIVITAMINS, THERA 1 EACH TAB PO SCH (07:38)
[2019-03-07] MEDS: BISOPROLOL-HCTZ 10-6.25 MG 1 EACH TAB PO SCH (07:38)
[2019-03-07] MEDS: INSULIN ASPART (NovoLOG) 100 UNIT/ML VIAL SQ SCH ×4 (07:39→21:31)
[2019-03-07 09:01] LABS: Basophils % (A) 0 %; Eosinophils % (A) 0 %; HCT 42.6 % (39.0-53.0); HGB 13.5 gm/dL (13.0-17.5); Lymphocytes # (A) 0.1 k/uL (1.0-4.8); Lymphocytes % (A) 1 %; MCHC 31.7 g/dL (31.0-37.0); MCV 94.5 fL (80.0-100.0); Mean Platelet Volume 6.6; Monocytes # (A) 0.3 k/uL (0-1.0); Monocytes % (A) 3 %; Neutrophils # (A) 8.5 k/uL (1.3-7.7); Neutrophils % (A) 95 %; Platelet Count 107 k/uL (150-450); RBC 4.51 m/uL (4.30-5.90); WBC 8.9 k/uL (3.8-10.6)
[2019-03-07 09:18] LABS: Anion Gap 9 mmol/L; Blood Urea Nitrogen 19 mg/dL (9-20); Calcium 8.8 mg/dL (8.4-10.2); Carbon Dioxide 29 mmol/L (22-30); Chloride 101 mmol/L (98-107); Glucose 241 mg/dL (74-99); Potassium 3.7 mmol/L (3.5-5.1); Sodium 139 mmol/L (137-145)
[2019-03-07] MEDS: HYDROcodone/APAP 5-325MG 1 EACH TAB PO PRN (11:11)
[2019-03-07 11:57] LABS: Glucose,Whole Blood 114 mg/dL (75-99)
--- NOTE | 2019-03-07 14:43 | P.PN ---
Subjective Progress Note Date: 03/07/19 Principal diagnosis: Acute exacerbation of chronic bronchial asthma, with purulent tracheobronchitis This 53-year-old white male patient with recent history of hospitalization for acute asthma exacerbation with bronchitis, discharged home a week ago. During previous visit patient presented with significant submandibular pain and swelling of the salivary glands. Computed tomography scan of the neck revealed noted fullness in the bilateral submandibular glands without intraoperative glandular lesion. Possibility of sialoadenitis was considered, workup for CMV was non-reactive, Treponema pallidum antibodies were nonreactive. Group A strep throat culture was negative. Toxoplasma IgM AB was negative. Patient was treated with empiric antibiotics, clinically improved, and swelling of bilateral salivary glands had improved. Patient was discharged home, and was seen in follow-up by Dr. Gallardo in the office yesterday however he was still significantly bronchospastic, was coughing however not clearing any phlegm. Denied any fever or chills denied any worsening swelling of his salivary glands. Chest x-ray was completed and showed no focal airspace opacity, no pleural effusion or pneumothorax. Lab work was reviewed, and showed white blood cell count of 13.4, hemoglobin of 16.5, sodium is 139, potassium is 4.1, chloride was 100, CO2 is 32, BUN is 22 creatinine 0.70. Troponin was negative. In view of significant broncho-spasticity, dyspnea, chest congestion patient was sent to the hospital for inpatient admission. Antibiotic coverage in the form of Zosyn and vancomycin, IV steroids, nebulized bronchodilators were started, influenza screen was negative. Patient is on chronic anticoagulation for history of pulmonary embolism. Other medical history includes congenital heart disease with previous history of surgery for coarctation of the aorta and patent ductus arteriosus at an early age, premature , hypertension, diabetes mellitus, and a component of restrictive lung disorder is suspected related to patient's history of scoliosis. On 03/04/2019 patient seen in follow-up on medical surgical floor. Remains quite bronchospastic and congested, not able to bring up much phlegm. He sits up in the chair, no worsening dyspnea, chest pain, room air pulse ox is 98%, afebrile, hemodynamically stable, lung sounds reveal diffuse rhonchi and wheez es. Patient is scheduled for bronchoscopy and BAL today. Patient is on IV steroids, nebulized with evidence, Pulmicort and Perforomist and empiric antibiotics. On 03/06/2019 patient seen in follow-up on medical surgical floor. Doing better, breathing easier, still has some scattered wheezes, but overall left bronchospastic and congested. Room air pulse ox is 96%, no fever or chills, vital signs are stable. Bronchial wash cultures were positive for influenza A, patient was started on Tamiflu, he remains on Zosyn and vancomycin. Nebulized bronchodilators, Pulmicort performance, and IV steroids On 03/07/2090 patient seen in follow-up on medical surgical floor. He sitting up in the chair, per nursing report patient is a more wheezy compared to yesterday. Physical exam reveals diffuse wheezes, the patient is in no acute distress, she is on room air, maintaining good oxygenation and the pulse ox of 93%, no fever no chills, today's labs have been reviewed, white blood cell, is 8.9, hemoglobin is 13.5, electrolytes and renal profile are unremarkable. Patient was found to have influenza A bronchial wash viral cultures, no other growth was noted. Patient is on combination of Tamiflu, Zosyn and vancomycin. She is stable, although he is still bronchospastic, no comparative chest pain. On appropriate medications, he is on IV Solu-Medrol, nebulized bronchodilators, Pulmicort and Perforomist. Objective - Vital Signs Vital signs: Vital Signs Temp 97.0 F L 03/07/19 13:49 Pulse 78 03/07/19 13:49 Resp 16 03/07/19 13:49 BP 136/69 03/07/19 13:49 Pulse Ox 93 L 03/07/19 13:49 Intake & Output 03/06/19 03/07/19 03/07/19 18:59 06:59 18:59 Intake Total 200 Balance 200 Intake: Oral 200 Other: Voiding Method Toilet Toilet # Voids 3 2 2 - Exam GENERAL EXAM: Alert, pleasant, short statured 53-year-old white male comfortable in no apparent distress. HEAD: Normocephalic/atraumatic. EYES: Normal reaction of pupils, equal size. Conjunctiva pink, sclera white. NOSE: Clear with pink turbinates. THROAT: No erythema or exudates. NECK: No masses, no JVD, no thyroid enlargement, no adenopathy. CHEST: No chest wall deformity. Symmetrical expansion. LUNGS: Equal air entry with diffuse wheezes CVS: Regular rate and rhythm, normal S1 and S2, no gallops, no murmurs, no rubs ABDOMEN: Soft, nontender. No hepatosplenomegaly, normal bowel sounds, no guarding or rigidity. EXTREMITIES: No clubbing, no edema, no cyanosis, 2+ pulses and upper and lower extremities. MUSCULOSKELETAL: Muscle strength and tone normal. SPINE: No scoliosis or deformity SKIN: No rashes CENTRAL NERVOUS SYSTEM: Alert and oriented -3. No focal deficits, tone is normal in all 4 extremities. PSYCHIATRIC: Alert and oriented -3. Appropriate affect. Intact judgment and insight. - Labs CBC & Chem 7: 03/07/19 08:08 03/07/19 08:08 Labs: Abnormal Lab Results - Last 24 Hours (Table) 03/06/19 03/06/19 03/07/19 Range/Units 17:12 20:55 07:15 Plt Count (150-450) k/uL Neutrophils # (1.3-7.7) k/uL Lymphocytes # (1.0-4.8) k/uL Creatinine (0.66-1.25) mg/dL Glucose (74-99) mg/dL POC Glucose (mg/dL) 202 H 269 H 201 H (75-99) mg/dL 03/07/19 03/07/19 03/07/19 Range/Units 08:08 08:08 11:53 Plt Count 107 L (150-450) k/uL Neutrophils # 8.5 H (1.3-7.7) k/uL Lymphocytes # 0.1 L (1.0-4.8) k/uL Creatinine 0.50 L (0.66-1.25) mg/dL Glucose 241 H (74-99) mg/dL POC Glucose (mg/dL) 114 H (75-99) mg/dL 03/07/19 03/07/19 03/07/19 Range/Units 11:53 11:53 11:53 Plt Count (150-450) k/uL Neutrophils # (1.3-7.7) k/uL Lymphocytes # (1.0-4.8) k/uL Creatinine (0.66-1.25) mg/dL Glucose (74-99) mg/dL POC Glucose (mg/dL) 114 H 114 H 114 H (75-99) mg/dL Microbiology - Last 24 Hours (Table) 03/02/19 19:19 Blood Culture - Preliminary Blood No Growth after 96 hours Assessment and Plan Plan: Assessment: #1. Acute exacerbation of chronic bronchial asthma, with purulent tracheobronchitis, related to influenza A infection. Bronch cultures were positive for influenza A #2. 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 Recent hospitalization for the same, patient had enlargement of the bilateral submandibular glands likely related to sialadenitis. Infection with EBV, CMV, toxoplasma were ruled out. Syphilis was ruled out. It is likely related to infectious/inflammatory etiology. Strep A throat culture was negative #4. History of congenital heart disease with previous history of surgery for quantitation of the aorta with patent ductus arteriosus #5. Previous history of pulmonary embolism currently on Eliquis #6. Hypertension #7. Diabetes mellitus #8. Suspected restrictive lung disease related to history of scoliosis #9. Premature history Plan: Continue current medical treatment, current abiotic coverage, Tamiflu, IV steroids, nebulized bronchodilators, patient is stable, although remains quite bronchospastic, no complaints of chest pain, no fever or chills. he was evaluated by Dr. Wilson, and no plans for endobronchial stent placement at this time in the view of active infection. Continue current medical treatment. I performed a history & physical examination of the patient and discussed their management with my nurse practitioner, Luz Maria Maria. I reviewed the nurse practitioner's note and agree with the documented findings and plan of care. Lung sounds are positive for diffuse wheezes throughout the lung melchor. The findings and the impression was discussed with the patient. I attest to the documentation by the nurse practitioner. Time with Patient: Less than 30
[2019-03-07 17:03] LABS: Glucose,Whole Blood 267 mg/dL (75-99)
[2019-03-07 20:44] LABS: Glucose,Whole Blood 166 mg/dL (75-99)
--- NOTE | 2019-03-07 21:16 | PN ---
PROGRESS NOTE DATE OF SERVICE: 03/07/2019 This 53-year-old gentleman who was admitted with acute bronchial asthma, acute exacerbation, acute purulent tracheobronchitis. The patient also had influenza A from the bronchoscopy. The patient also had some significant respiratory obstruction at this time. Pulmonary Dr. Wilson is evaluating the patient for possibility of stenting because of active infection, the stenting is being withheld at this time otherwise. PAST MEDICAL HISTORY: Reviewed. REVIEW OF SYSTEMS: CARDIOVASCULAR: No angina or palpitations. RESPIRATION: As mentioned earlier. GI no nausea or vomiting. : No dysuria. CENTRAL NERVOUS SYSTEM: No numbness, weakness. MEDICATIONS: Reviewed and include 1. Tylenol p.r.n. 2. [place] 5 mg. 3. DuoNeb q.i.d. and p.r.n. 4. Eliquis 5 mg p.o. b.i.d. 6. Pulmicort b.i.d. 7. Perforomist b.i.d. 8. Neurontin 100 mg p.o. b.i.d. 9. NovoLog scale. 10.Solu-Medrol 60 IV q.6h. 11.Vancomycin. 12.Multivitamins. 13.Tamiflu. PHYSICAL EXAM: Patient is alert, oriented times three. Pulse 90. Blood pressure 120/63. Respiratory rate 16, temperature 97 degrees. Pulse ox 92% on room air. HEENT: Conjunctivae normal. NECK: No jugular venous distention. CARDIOVASCULAR: S1, S2 muffled. RESPIRATORY: Breath sounds diminished in the bases. Bilateral scattered rhonchi and crackles. Expiratory wheezing and crackles. ABDOMEN: Soft, nontender. No mass palpable. Legs no edema. No swelling. NERVOUS SYSTEM: Higher functions as mentioned earlier. Moves all four extremities. No focal deficits. Lymphatics: No lymph nodes palpable in the neck, axillae or groin. Skin: No ulcer. No rash. No bleeding. JOINTS: No active deforming arthropathy. LABS: At this time shows WBC 8.2, hemoglobin 13.5. Sodium 139, potassium 3.7. Accu- Cheks 114/267. ASSESSMENT: 1. Acute bronchial asthma acute exacerbation with acute purulent tracheobronchitis with failure of outpatient treatment, possible bibasilar pneumonia or bronchopneumonia, possibly gram-negative. 2. Status post bronchoscopy showing influenza A. 3. History of the lymphadenopathy, possibly secondary to sialadenitis previously. 4. History of congestive heart failure. 5. History of congenital heart disease secondary to coaptation of the aorta as well as patent artery since surgery during childhood. 6. History of pulmonary embolism on Eliquis. 7. Increased WBC. 8. Hypertension. 9. History of chronic obstructive pulmonary disease. 10.History of multiple pneumothoraces on the left lung. 11.History of colon polyps. 12.History of restrictive lung disease. 13.History of prostate disorder. 14.History of carpal tunnel syndrome. 15.History of bilateral indirect inguinal hernia repair. 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 RECOMMENDATIONS AND DISCUSSION: Recommend to continue current medications. Continue symptomatic treatment. Otherwise, at this time, I would recommend continue antibiotics and continue steroids. Currently the patient is not a candidate for stenting because of active infection per Dr. Wilson. Guarded prognosis because of multiple complex medical issues. Further recommendations to follow. MMODL / IJN: [id number] / MELISSA
[2019-03-07] MEDS: ESCITALOPRAM 20 MG TAB PO SCH (21:31)
[2019-03-07] MEDS: MONTELUKAST 10 MG TAB PO SCH (21:31)
[2019-03-08] MEDS: VANCOMYCIN 1,500 MG in SODIUM CHLORIDE 0.9% 250 ML IVPB SCH ×3 (02:21→18:34)
[2019-03-08] MEDS: methylPREDNISolone SOD SUCCI 125 MG/2 ML VIAL IV SCH ×4 (05:57→23:38)
[2019-03-08 07:12] LABS: Glucose,Whole Blood 201 mg/dL (75-99)
[2019-03-08] MEDS: FORMOTEROL FUMARATE 20 MCG/2 ML NEBU INHALATION SCH ×2 (07:25→20:23)
[2019-03-08] MEDS: BUDESONIDE 1 MG/2 ML NEBU INHALATION SCH ×2 (07:25→20:23)
[2019-03-08] MEDS: IPRATROPIUM-ALBUTEROL 3 ML NEB INHALATION SCH ×4 (07:25→20:23)
[2019-03-08] MEDS ORDERED: VANCOMYCIN TROUGH DUE 1 EACH MISC MISCELLANE ONE (09:00)
[2019-03-08] MEDS: INSULIN ASPART (NovoLOG) 100 UNIT/ML VIAL SQ SCH ×4 (10:33→23:45)
[2019-03-08] MEDS: BISOPROLOL-HCTZ 10-6.25 MG 1 EACH TAB PO SCH (10:34)
[2019-03-08] MEDS: PIPERACILLIN-TAZOBACTAM 3.375 GM in SODIUM CHLORIDE 0.9% 100 ML IVPB SCH ×3 (10:34→23:41)
[2019-03-08] MEDS: OSELTAMIVIR 75 MG CAP PO SCH ×2 (10:34→23:37)
[2019-03-08] MEDS: APIXABAN 5 MG TAB PO SCH ×2 (10:34→23:38)
[2019-03-08] MEDS: GABAPENTIN 100 MG CAP PO SCH ×2 (10:45→23:38)
[2019-03-08 11:42] LABS: Glucose,Whole Blood 117 mg/dL (75-99)
--- NOTE | 2019-03-08 13:34 | P.PN ---
Subjective Progress Note Date: 03/08/19 Principal diagnosis: Acute exacerbation of chronic bronchial asthma, with purulent tracheobronchitis This 53-year-old white male patient with recent history of hospitalization for acute asthma exacerbation with bronchitis, discharged home a week ago. During previous visit patient presented with significant submandibular pain and swelling of the salivary glands. Computed tomography scan of the neck revealed noted fullness in the bilateral submandibular glands without intraoperative glandular lesion. Possibility of sialoadenitis was considered, workup for CMV was non-reactive, Treponema pallidum antibodies were nonreactive. Group A strep throat culture was negative. Toxoplasma IgM AB was negative. Patient was treated with empiric antibiotics, clinically improved, and swelling of bilateral salivary glands had improved. Patient was discharged home, and was seen in follow-up by Dr. Gallardo in the office yesterday however he was still significantly bronchospastic, was coughing however not clearing any phlegm. Denied any fever or chills denied any worsening swelling of his salivary glands. Chest x-ray was completed and showed no focal airspace opacity, no pleural effusion or pneumothorax. Lab work was reviewed, and showed white blood cell count of 13.4, hemoglobin of 16.5, sodium is 139, potassium is 4.1, chloride was 100, CO2 is 32, BUN is 22 creatinine 0.70. Troponin was negative. In view of significant broncho-spasticity, dyspnea, chest congestion patient was sent to the hospital for inpatient admission. Antibiotic coverage in the form of Zosyn and vancomycin, IV steroids, nebulized bronchodilators were started, influenza screen was negative. Patient is on chronic anticoagulation for history of pulmonary embolism. Other medical history includes congenital heart disease with previous history of surgery for coarctation of the aorta and patent ductus arteriosus at an early age, premature , hypertension, diabetes mellitus, and a component of restrictive lung disorder is suspected related to patient's history of scoliosis. On 03/04/2019 patient seen in follow-up on medical surgical floor. Remains quite bronchospastic and congested, not able to bring up much phlegm. He sits up in the chair, no worsening dyspnea, chest pain, room air pulse ox is 98%, afebrile, hemodynamically stable, lung sounds reveal diffuse rhonchi and wheez es. Patient is scheduled for bronchoscopy and BAL today. Patient is on IV steroids, nebulized with evidence, Pulmicort and Perforomist and empiric antibiotics. On 03/06/2019 patient seen in follow-up on medical surgical floor. Doing better, breathing easier, still has some scattered wheezes, but overall left bronchospastic and congested. Room air pulse ox is 96%, no fever or chills, vital signs are stable. Bronchial wash cultures were positive for influenza A, patient was started on Tamiflu, he remains on Zosyn and vancomycin. Nebulized bronchodilators, Pulmicort performance, and IV steroids On 03/07/2090 patient seen in follow-up on medical surgical floor. He sitting up in the chair, per nursing report patient is a more wheezy compared to yesterday. Physical exam reveals diffuse wheezes, the patient is in no acute distress, she is on room air, maintaining good oxygenation and the pulse ox of 93%, no fever no chills, today's labs have been reviewed, white blood cell, is 8.9, hemoglobin is 13.5, electrolytes and renal profile are unremarkable. Patient was found to have influenza A bronchial wash viral cultures, no other growth was noted. Patient is on combination of Tamiflu, Zosyn and vancomycin. She is stable, although he is still bronchospastic, no comparative chest pain. On appropriate medications, he is on IV Solu-Medrol, nebulized bronchodilators, Pulmicort and Perforomist. On 03/08/2019 patient seen in follow-up, on medical surgical floor. He is awake and alert, he is accompanied the chair, his lung sounds are markedly improved on today's exam, hardly any wheezing, no congestion, room air pulse ox is 94%, afebrile, hemodynamically stable, bronchial wash cultures revealed no growth so far, viral culture showed influenza A, patient continues on Tamiflu, Zosyn and vancomycin. Clinically significantly improved, he is ambulating in the room, he was able to get up and take a shower today. Objective - Vital Signs Vital signs: Vital Signs Temp 96.5 F L 03/08/19 05:00 Pulse 86 03/08/19 13:10 Resp 18 03/08/19 05:00 BP 143/73 03/08/19 05:00 Pulse Ox 94 L 03/08/19 05:00 Intake & Output 03/07/19 03/08/19 03/08/19 18:59 06:59 18:59 Intake Total 600 Balance 600 Intake: Oral 600 Other: Voiding Method Toilet # Voids 3 2 - Exam GENERAL EXAM: Alert, pleasant, short statured 53-year-old white male comfortable in no apparent distress. HEAD: Normocephalic/atraumatic. EYES: Normal reaction of pupils, equal size. Conjunctiva pink, sclera white. NOSE: Clear with pink turbinates. THROAT: No erythema or exudates. NECK: No masses, no JVD, no thyroid enlargement, no adenopathy. CHEST: No chest wall deformity. Symmetrical expansion. LUNGS: Equal air entry with hardly any wheezes, significantly improved in the last 24 hours CVS: Regular rate and rhythm, normal S1 and S2, no gallops, no murmurs, no rubs ABDOMEN: Soft, nontender. No hepatosplenomegaly, normal bowel sounds, no guarding or rigidity. EXTREMITIES: No clubbing, no edema, no cyanosis, 2+ pulses and upper and lower extremities. MUSCULOSKELETAL: Muscle strength and tone normal. SPINE: No scoliosis or deformity SKIN: No rashes CENTRAL NERVOUS SYSTEM: Alert and oriented -3. No focal deficits, tone is normal in all 4 extremities. PSYCHIATRIC: Alert and oriented -3. Appropriate affect. Intact judgment and insight. - Labs CBC & Chem 7: 03/07/19 08:08 03/07/19 08:08 Labs: Abnormal Lab Results - Last 24 Hours (Table) 03/07/19 03/07/19 03/08/19 Range/Units 16:50 20:43 07:02 POC Glucose (mg/dL) 267 H 166 H 201 H (75-99) mg/dL 03/08/19 Range/Units 11:39 POC Glucose (mg/dL) 117 H (75-99) mg/dL Microbiology - Last 24 Hours (Table) 03/02/19 19:19 Blood Culture - Preliminary Blood No Growth after 120 hours Assessment and Plan Plan: Assessment: #1. Acute exacerbation of chronic bronchial asthma, with purulent tracheobronchitis, related to influenza A infection. Bronch cultures were positive for influenza A #2. 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 Recent hospitalization for the same, patient had enlargement of the bilateral submandibular glands likely related to sialadenitis. Infection with EBV, CMV, toxoplasma were ruled out. Syphilis was ruled out. It is likely related to infectious/inflammatory etiology. Strep A throat culture was negative #4. History of congenital heart disease with previous history of surgery for quantitation of the aorta with patent ductus arteriosus #5. Previous history of pulmonary embolism currently on Eliquis #6. Hypertension #7. Diabetes mellitus #8. Suspected restrictive lung disease related to history of scoliosis #9. Premature history Plan: Continue current medical treatment antibiotics, and Tamiflu. Continue IV steroids, patient has made significant improvements in the last 24 hours, hardly any wheezing, he is up ambulating in the room, he was able to shower. Not quite ready for discharge, possible discharge in next 24 hours if patient continues to improve. I performed a history & physical examination of the patient and discussed their management with my nurse practitioner, Luz Maria Maria. I reviewed the nurse practitioner's note and agree with the documented findings and plan of care. Lung sounds are positive for diffuse wheezes throughout the lung melchor. The findings and the impression was discussed with the patient. I attest to the documentation by the nurse practitioner. Time with Patient: Less than 30
[2019-03-08] MEDS: MULTIVITAMINS, THERA 1 EACH TAB PO SCH (16:24)
[2019-03-08 17:17] LABS: Glucose,Whole Blood 196 mg/dL (75-99)
--- NOTE | 2019-03-08 19:07 | PN ---
PROGRESS NOTE DATE OF SERVICE: 03/08/2019 This 53-year-old gentleman who was admitted with acute bronchial asthma, acute exacerbation, also had influenza A positive. The patient also has congenital abnormalities. Patient is still short of breath. No chest pain. No palpitations. No fever. On exam, alert and oriented x3. Pulse 67, blood pressure 140/74, respiration 16, temperature 97.3, pulse ox 94% on room air. HEENT: Conjunctivae normal. NECK: No jugular venous distention. CARDIOVASCULAR SYSTEM: S1, S2 muffled. RESPIRATORY SYSTEM: Breath sounds diminished at the bases. Scattered rhonchi and crackles. ABDOMEN: Soft. NERVOUS SYSTEM: No focal deficit. LABS: WBC 8.9, hemoglobin 13.5. ASSESSMENT: 1. Acute bronchial asthma, acute exacerbation, with acute purulent tracheobronchitis with failure of outpatient treatment with possible bibasilar pneumonia or bronchopneumonia, possibly gram-negative. 2. Status post bronchoscopy showing influenza A. 3. History of cervical lymphadenopathy, possibly secondary to sialadenitis previously. 4. History of congestive heart failure. 5. History of congenital heart disease secondary to coarctation of aorta as well as patent ductus arteriosus, status post surgery during childhood. 6. History of pulmonary embolism, on Eliquis. 7. Increased white count. 8. Hypertension. 9. History of chronic obstructive pulmonary disease. 10.History of multiple pneumothoraces in the left lung. 11.History of colon polyps. 12.History of restrictive lung disease. 13.History of prostate disorder. 14.History of carpal tunnel syndrome. 15.History of bilateral indirect inguinal hernia repair. 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 RECOMMENDATIONS AND DISCUSSION: I recommend to continue current medications, continue with the monitoring, symptomatic treatment. Continue bronchodilators. Continue steroids. Continue Continue with antibiotics. Closely follow with Dr. Wilson. The patient is not a candidate for stent at this time. The patient is still per Dr. Wilson because of infection. Further recommendations to follow. MMODL / IJN: [id number] / MTDD
[2019-03-08 20:17] LABS: Glucose,Whole Blood 158 mg/dL (75-99)
[2019-03-08] MEDS: ESCITALOPRAM 20 MG TAB PO SCH (23:37)
[2019-03-08] MEDS: MONTELUKAST 10 MG TAB PO SCH (23:37)
[2019-03-09] MEDS: VANCOMYCIN 1,500 MG in SODIUM CHLORIDE 0.9% 250 ML IVPB SCH ×2 (03:17→10:48)
[2019-03-09] MEDS: methylPREDNISolone SOD SUCCI 125 MG/2 ML VIAL IV SCH (05:37)
[2019-03-09 07:12] LABS: Glucose,Whole Blood 187 mg/dL (75-99)
[2019-03-09] MEDS: APIXABAN 5 MG TAB PO SCH ×2 (08:24→20:30)
[2019-03-09] MEDS: GABAPENTIN 100 MG CAP PO SCH ×2 (08:24→20:30)
[2019-03-09] MEDS: BISOPROLOL-HCTZ 10-6.25 MG 1 EACH TAB PO SCH (08:24)
[2019-03-09] MEDS: MULTIVITAMINS, THERA 1 EACH TAB PO SCH (08:24)
[2019-03-09] MEDS: OSELTAMIVIR 75 MG CAP PO SCH ×2 (08:24→20:30)
[2019-03-09] MEDS: INSULIN ASPART (NovoLOG) 100 UNIT/ML VIAL SQ SCH ×4 (08:24→21:57)
[2019-03-09] MEDS: PIPERACILLIN-TAZOBACTAM 3.375 GM in SODIUM CHLORIDE 0.9% 100 ML IVPB SCH (08:25)
[2019-03-09] MEDS: BUDESONIDE 1 MG/2 ML NEBU INHALATION SCH ×2 (09:00→22:42)
[2019-03-09] MEDS: FORMOTEROL FUMARATE 20 MCG/2 ML NEBU INHALATION SCH ×2 (09:00→22:42)
[2019-03-09] MEDS: IPRATROPIUM-ALBUTEROL 3 ML NEB INHALATION SCH ×4 (09:00→22:42)
[2019-03-09 12:46] LABS: Glucose,Whole Blood 238 mg/dL (75-99)
--- NOTE | 2019-03-09 14:40 | P.PN ---
Subjective Progress Note Date: 03/09/19 Principal diagnosis: Acute exacerbation of chronic bronchial asthma, with purulent tracheobronchitis This 53-year-old white male patient with recent history of hospitalization for acute asthma exacerbation with bronchitis, discharged home a week ago. During previous visit patient presented with significant submandibular pain and swelling of the salivary glands. Computed tomography scan of the neck revealed noted fullness in the bilateral submandibular glands without intraoperative glandular lesion. Possibility of sialoadenitis was considered, workup for CMV was non-reactive, Treponema pallidum antibodies were nonreactive. Group A strep throat culture was negative. Toxoplasma IgM AB was negative. Patient was treated with empiric antibiotics, clinically improved, and swelling of bilateral salivary glands had improved. Patient was discharged home, and was seen in follow-up by Dr. Gallardo in the office yesterday however he was still significantly bronchospastic, was coughing however not clearing any phlegm. Denied any fever or chills denied any worsening swelling of his salivary glands. Chest x-ray was completed and showed no focal airspace opacity, no pleural effusion or pneumothorax. Lab work was reviewed, and showed white blood cell count of 13.4, hemoglobin of 16.5, sodium is 139, potassium is 4.1, chloride was 100, CO2 is 32, BUN is 22 creatinine 0.70. Troponin was negative. In view of significant broncho-spasticity, dyspnea, chest congestion patient was sent to the hospital for inpatient admission. Antibiotic coverage in the form of Zosyn and vancomycin, IV steroids, nebulized bronchodilators were started, influenza screen was negative. Patient is on chronic anticoagulation for history of pulmonary embolism. Other medical history includes congenital heart disease with previous history of surgery for coarctation of the aorta and patent ductus arteriosus at an early age, premature , hypertension, diabetes mellitus, and a component of restrictive lung disorder is suspected related to patient's history of scoliosis. On 03/04/2019 patient seen in follow-up on medical surgical floor. Remains quite bronchospastic and congested, not able to bring up much phlegm. He sits up in the chair, no worsening dyspnea, chest pain, room air pulse ox is 98%, afebrile, hemodynamically stable, lung sounds reveal diffuse rhonchi and wheez es. Patient is scheduled for bronchoscopy and BAL today. Patient is on IV steroids, nebulized with evidence, Pulmicort and Perforomist and empiric antibiotics. On 03/06/2019 patient seen in follow-up on medical surgical floor. Doing better, breathing easier, still has some scattered wheezes, but overall left bronchospastic and congested. Room air pulse ox is 96%, no fever or chills, vital signs are stable. Bronchial wash cultures were positive for influenza A, patient was started on Tamiflu, he remains on Zosyn and vancomycin. Nebulized bronchodilators, Pulmicort performance, and IV steroids On 03/07/2090 patient seen in follow-up on medical surgical floor. He sitting up in the chair, per nursing report patient is a more wheezy compared to yesterday. Physical exam reveals diffuse wheezes, the patient is in no acute distress, she is on room air, maintaining good oxygenation and the pulse ox of 93%, no fever no chills, today's labs have been reviewed, white blood cell, is 8.9, hemoglobin is 13.5, electrolytes and renal profile are unremarkable. Patient was found to have influenza A bronchial wash viral cultures, no other growth was noted. Patient is on combination of Tamiflu, Zosyn and vancomycin. She is stable, although he is still bronchospastic, no comparative chest pain. On appropriate medications, he is on IV Solu-Medrol, nebulized bronchodilators, Pulmicort and Perforomist. On 03/08/2019 patient seen in follow-up, on medical surgical floor. He is awake and alert, he is accompanied the chair, his lung sounds are markedly improved on today's exam, hardly any wheezing, no congestion, room air pulse ox is 94%, afebrile, hemodynamically stable, bronchial wash cultures revealed no growth so far, viral culture showed influenza A, patient continues on Tamiflu, Zosyn and vancomycin. Clinically significantly improved, he is ambulating in the room, he was able to get up and take a shower today. On 03/09/2019 patient seen in follow-up on medical surgical floor. Lung Sounds reveal given wheezes, not significantly worsened since yesterday, room air pulse ox is 96%, patient is afebrile, hemodynamically stable. Patient is being treated for influenza for evidence of influenza A in his bronchial wash cultures. No other growth on the bronchial wash cultures. Fever or chills, patient has received several doses of Zosyn and vancomycin. Patient has been ambulating in the room, tolerating activity fairly well, he remains on Pulmicort and Perforomist, nebulized dilators, and IV steroids at 60 mg every 6 hours, we'll decrease the dose of IV steroids, we'll discontinue Zosyn and vancomycin, he will need another 24 hours of inpatient treatment. Objective - Vital Signs Vital signs: Vital Signs Temp 97.2 F L 03/09/19 12:45 Pulse 84 03/09/19 13:08 Resp 18 03/09/19 12:45 BP 142/75 03/09/19 12:45 Pulse Ox 96 03/09/19 12:45 Intake & Output 03/08/19 03/09/19 03/09/19 18:59 06:59 18:59 Intake Total 125 1180 240 Balance 125 1180 240 Intake: Intake, IV Titration 125 Amount Vancomycin 1,500 mg In 125 Sodium Chloride 0.9% 250 ml @ 125 mls/hr IVPB Q8H [facility] Rx#:[id number] Oral 1180 240 Other: Voiding Method Toilet # Voids 1 2 - Exam GENERAL EXAM: Alert, pleasant, short statured 53-year-old white male comfortable in no apparent distress. HEAD: Normocephalic/atraumatic. EYES: Normal reaction of pupils, equal size. Conjunctiva pink, sclera white. NOSE: Clear with pink turbinates. THROAT: No erythema or exudates. NECK: No masses, no JVD, no thyroid enlargement, no adenopathy. CHEST: No chest wall deformity. Symmetrical expansion. LUNGS: Equal air entry with hardly any wheezes, significantly improved in the last 24 hours CVS: Regular rate and rhythm, normal S1 and S2, no gallops, no murmurs, no rubs ABDOMEN: Soft, nontender. No hepatosplenomegaly, normal bowel sounds, no guarding or rigidity. EXTREMITIES: No clubbing, no edema, no cyanosis, 2+ pulses and upper and lower extremities. MUSCULOSKELETAL: Muscle strength and tone normal. SPINE: No scoliosis or deformity SKIN: No rashes CENTRAL NERVOUS SYSTEM: Alert and oriented -3. No focal deficits, tone is normal in all 4 extremities. PSYCHIATRIC: Alert and oriented -3. Appropriate affect. Intact judgment and insight. - Labs CBC & Chem 7: 04/08/19 08:08 03/07/19 08:08 Labs: Abnormal Lab Results - Last 24 Hours (Table) 03/08/19 03/08/19 03/09/19 Range/Units 17:11 20:15 07:03 POC Glucose (mg/dL) 196 H 158 H 187 H (75-99) mg/dL 03/09/19 Range/Units 12:42 POC Glucose (mg/dL) 238 H (75-99) mg/dL Microbiology - Last 24 Hours (Table) 03/02/19 19:19 Blood Culture - Final Blood No Growth after 144 hours Assessment and Plan Plan: Assessment: #1. Acute exacerbation of chronic bronchial asthma, with purulent tracheobronchitis, related to influenza A infection. Bronch cultures were positive for influenza A #2. 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 Recent hospitalization for the same, patient had enlargement of the bilateral submandibular glands likely related to sialadenitis. Infection with EBV, CMV, toxoplasma were ruled out. Syphilis was ruled out. It is likely related to infectious/inflammatory etiology. Strep A throat culture was negative #4. History of congenital heart disease with previous history of surgery for quantitation of the aorta with patent ductus arteriosus #5. Previous history of pulmonary embolism currently on Eliquis #6. Hypertension #7. Diabetes mellitus #8. Suspected restrictive lung disease related to history of scoliosis #9. Premature history Plan: We'll decrease the IV steroids to 40 mg every 8 hours, on a chair for worsening of his respiratory status, he remains stable, he is improving, will discontinue Zosyn and vancomycin, continue the Tamiflu. Continue nebulized dilators, Pulmicort and Perforomist, pneumonia and in 24 hours been patient treatment, and if he continues to improve possible discharge tomorrow I performed a history & physical examination of the patient and discussed their management with my nurse practitioner, Luz Maria Maria. I reviewed the nurse practitioner's note and agree with the documented findings and plan of care. Lung sounds are positive for diffuse wheezes throughout the lung melchor. The findings and the impression was discussed with the patient. I attest to the documentation by the nurse practitioner. Time with Patient: Less than 30
[2019-03-09] MEDS: methylPREDNISolone SOD SUCCI 40 MG/ML 1 ML VIAL IV SCH (15:55)
[2019-03-09 17:16] LABS: Glucose,Whole Blood 144 mg/dL (75-99)
--- NOTE | 2019-03-09 20:25 | PN ---
PROGRESS NOTE DATE OF SERVICE: 03/09/2019 This 53-year-old gentleman who was admitted with acute bronchial asthma, acute exacerbation, with acute purulent tracheobronchitis also has a history of influenza A which was revealed in the bronchoscopy. No chest pain. No palpitations. No fever. On exam, alert and oriented x3. Pulse is 60, blood pressure 142/74, respiration 18, temperature 97.2, pulse ox 96% on room air. HEENT: Conjunctivae normal. NECK: No jugular venous distention. CARDIOVASCULAR SYSTEM: S1, S2 muffled. RESPIRATORY SYSTEM: Breath sounds diminished at the bases. A few scattered rhonchi and crackles. ABDOMEN: Soft, non-tender. LEGS: No edema. No swelling. NERVOUS SYSTEM: No focal deficit. LABS: Accu-Cheks 166, 158, 144. ASSESSMENT: 1. Acute bronchial asthma, acute exacerbation, with acute purulent tracheobronchitis with failure of outpatient treatment with possible bibasilar pneumonia or bronchopneumonia, possibly gram-negative. 2. Status post bronchoscopy showing influenza A. 3. History of cervical lymphadenopathy, possibly secondary to sialadenitis previously. 4. History of congestive heart failure. 5. History of congenital heart disease secondary to coarctation of the aorta as well as patent ductus arteriosus, status post surgery during childhood. 6. History of pulmonary embolism, on Eliquis. 7. Increased white count. 8. Hypertension. 9. History of chronic obstructive pulmonary disease. 10.History of multiple pneumothoraces in the left lung. 11.History of colon polyps. 12.History of restrictive lung disease. 13.History of prostate disorder. 14.Carpal tunnel syndrome. 15.History of bilateral indirect inguinal hernia repair. 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 RECOMMENDATIONS AND DISCUSSION: I recommend to continue current medications, continue with the monitoring, symptomatic treatment. Otherwise at this time we will monitor the patient closely. Continue with the antibiotics. Guarded prognosis. Further recommendations to follow. MMODL / IJN: [id number] /
[2019-03-09] MEDS: MONTELUKAST 10 MG TAB PO SCH (20:30)
[2019-03-09] MEDS: ESCITALOPRAM 20 MG TAB PO SCH (20:30)
[2019-03-09 20:39] LABS: Glucose,Whole Blood 256 mg/dL (75-99)
[2019-03-10] MEDS: methylPREDNISolone SOD SUCCI 40 MG/ML 1 ML VIAL IV SCH ×2 (00:18→08:27)
[2019-03-10 07:10] LABS: Glucose,Whole Blood 154 mg/dL (75-99)
[2019-03-10] MEDS: FORMOTEROL FUMARATE 20 MCG/2 ML NEBU INHALATION SCH (08:10)
[2019-03-10] MEDS: BUDESONIDE 1 MG/2 ML NEBU INHALATION SCH (08:10)
[2019-03-10] MEDS: IPRATROPIUM-ALBUTEROL 3 ML NEB INHALATION SCH ×2 (08:10→11:51)
[2019-03-10] MEDS: INSULIN ASPART (NovoLOG) 100 UNIT/ML VIAL SQ SCH ×2 (08:27→12:54)
[2019-03-10] MEDS ORDERED: VANCOMYCIN TROUGH DUE 1 EACH MISC MISCELLANE ONE (09:00)
[2019-03-10] MEDS: APIXABAN 5 MG TAB PO SCH (09:49)
[2019-03-10] MEDS: OSELTAMIVIR 75 MG CAP PO SCH (09:50)
[2019-03-10] MEDS: BISOPROLOL-HCTZ 10-6.25 MG 1 EACH TAB PO SCH (09:50)
[2019-03-10] MEDS: GABAPENTIN 100 MG CAP PO SCH (09:51)
[2019-03-10] MEDS: MULTIVITAMINS, THERA 1 EACH TAB PO SCH (09:51)
[2019-03-10 12:39] LABS: Glucose,Whole Blood 126 mg/dL (75-99)
[2019-03-10 12:47] VITALS: BP 150/89; PULSE 60; RESP 20; TEMP 98.2
--- NOTE | 2019-03-10 13:40 | P.PN ---
Subjective Progress Note Date: 03/10/19 Principal diagnosis: Acute exacerbation of chronic bronchial asthma, with purulent tracheobronchitis This 53-year-old white male patient with recent history of hospitalization for acute asthma exacerbation with bronchitis, discharged home a week ago. During previous visit patient presented with significant submandibular pain and swelling of the salivary glands. Computed tomography scan of the neck revealed noted fullness in the bilateral submandibular glands without intraoperative glandular lesion. Possibility of sialoadenitis was considered, workup for CMV was non-reactive, Treponema pallidum antibodies were nonreactive. Group A strep throat culture was negative. Toxoplasma IgM AB was negative. Patient was treated with empiric antibiotics, clinically improved, and swelling of bilateral salivary glands had improved. Patient was discharged home, and was seen in follow-up by Dr. Gallardo in the office yesterday however he was still significantly bronchospastic, was coughing however not clearing any phlegm. Denied any fever or chills denied any worsening swelling of his salivary glands. Chest x-ray was completed and showed no focal airspace opacity, no pleural effusion or pneumothorax. Lab work was reviewed, and showed white blood cell count of 13.4, hemoglobin of 16.5, sodium is 139, potassium is 4.1, chloride was 100, CO2 is 32, BUN is 22 creatinine 0.70. Troponin was negative. In view of significant broncho-spasticity, dyspnea, chest congestion patient was sent to the hospital for inpatient admission. Antibiotic coverage in the form of Zosyn and vancomycin, IV steroids, nebulized bronchodilators were started, influenza screen was negative. Patient is on chronic anticoagulation for history of pulmonary embolism. Other medical history includes congenital heart disease with previous history of surgery for coarctation of the aorta and patent ductus arteriosus at an early age, premature , hypertension, diabetes mellitus, and a component of restrictive lung disorder is suspected related to patient's history of scoliosis. On 03/04/2019 patient seen in follow-up on medical surgical floor. Remains quite bronchospastic and congested, not able to bring up much phlegm. He sits up in the chair, no worsening dyspnea, chest pain, room air pulse ox is 98%, afebrile, hemodynamically stable, lung sounds reveal diffuse rhonchi and wheez es. Patient is scheduled for bronchoscopy and BAL today. Patient is on IV steroids, nebulized with evidence, Pulmicort and Perforomist and empiric antibiotics. On 03/06/2019 patient seen in follow-up on medical surgical floor. Doing better, breathing easier, still has some scattered wheezes, but overall left bronchospastic and congested. Room air pulse ox is 96%, no fever or chills, vital signs are stable. Bronchial wash cultures were positive for influenza A, patient was started on Tamiflu, he remains on Zosyn and vancomycin. Nebulized bronchodilators, Pulmicort performance, and IV steroids On 03/07/2090 patient seen in follow-up on medical surgical floor. He sitting up in the chair, per nursing report patient is a more wheezy compared to yesterday. Physical exam reveals diffuse wheezes, the patient is in no acute distress, she is on room air, maintaining good oxygenation and the pulse ox of 93%, no fever no chills, today's labs have been reviewed, white blood cell, is 8.9, hemoglobin is 13.5, electrolytes and renal profile are unremarkable. Patient was found to have influenza A bronchial wash viral cultures, no other growth was noted. Patient is on combination of Tamiflu, Zosyn and vancomycin. She is stable, although he is still bronchospastic, no comparative chest pain. On appropriate medications, he is on IV Solu-Medrol, nebulized bronchodilators, Pulmicort and Perforomist. On 03/08/2019 patient seen in follow-up, on medical surgical floor. He is awake and alert, he is accompanied the chair, his lung sounds are markedly improved on today's exam, hardly any wheezing, no congestion, room air pulse ox is 94%, afebrile, hemodynamically stable, bronchial wash cultures revealed no growth so far, viral culture showed influenza A, patient continues on Tamiflu, Zosyn and vancomycin. Clinically significantly improved, he is ambulating in the room, he was able to get up and take a shower today. On 03/09/2019 patient seen in follow-up on medical surgical floor. Lung Sounds reveal given wheezes, not significantly worsened since yesterday, room air pulse ox is 96%, patient is afebrile, hemodynamically stable. Patient is being treated for influenza for evidence of influenza A in his bronchial wash cultures. No other growth on the bronchial wash cultures. Fever or chills, patient has received several doses of Zosyn and vancomycin. Patient has been ambulating in the room, tolerating activity fairly well, he remains on Pulmicort and Perforomist, nebulized dilators, and IV steroids at 60 mg every 6 hours, we'll decrease the dose of IV steroids, we'll discontinue Zosyn and vancomycin, he will need another 24 hours of inpatient treatment. On 03/10/2019 patient seen in follow-up in medical surgical floor. Doing very well, continues to improve, almost back to baseline, room air pulse ox is 96%, afebrile, hemodynamically stable. Bronchial wash cultures have been reviewed, showed no growth other than influenza A infection in the viral cultures. Patient has been treated with the course of Zosyn and vancomycin, yesterday we discontinued the antibiotics, no fever or chills, patient has been ambulating tolerating activity well, no acute events overnight. Patient is stable for discharge home today from pulmonary perspective Objective - Vital Signs Vital signs: Vital Signs Temp 98.2 F 03/10/19 12:46 Pulse 60 03/10/19 12:46 Resp 20 03/10/19 12:46 BP 150/89 03/10/19 12:46 Pulse Ox 96 03/10/19 12:46 Intake & Output 03/09/19 03/10/19 03/10/19 18:59 06:59 18:59 Intake Total 240 1000 240 Balance 240 1000 240 Intake: Oral 240 1000 240 Other: Voiding Method Toilet # Voids 2 2 # Bowel Movements 0 - Exam GENERAL EXAM: Alert, pleasant, short statured 53-year-old white male comfortable in no apparent distress. HEAD: Normocephalic/atraumatic. EYES: Normal reaction of pupils, equal size. Conjunctiva pink, sclera white. NOSE: Clear with pink turbinates. THROAT: No erythema or exudates. NECK: No masses, no JVD, no thyroid enlargement, no adenopathy. CHEST: No chest wall deformity. Symmetrical expansion. LUNGS: Equal air entry with hardly any wheezes, significantly improved in the last 24 hours CVS: Regular rate and rhythm, normal S1 and S2, no gallops, no murmurs, no rubs ABDOMEN: Soft, nontender. No hepatosplenomegaly, normal bowel sounds, no guarding or rigidity. EXTREMITIES: No clubbing, no edema, no cyanosis, 2+ pulses and upper and lower extremities. MUSCULOSKELETAL: Muscle strength and tone normal. SPINE: No scoliosis or deformity SKIN: No rashes CENTRAL NERVOUS SYSTEM: Alert and oriented -3. No focal deficits, tone is normal in all 4 extremities. PSYCHIATRIC: Alert and oriented -3. Appropriate affect. Intact judgment and insight. - Labs CBC & Chem 7: 03/07/19 08:08 03/07/19 08:08 Labs: Abnormal Lab Results - Last 24 Hours (Table) 03/09/19 03/09/19 03/10/19 Range/Units 16:56 20:37 07:07 POC Glucose (mg/dL) 144 H 256 H 154 H (75-99) mg/dL 03/10/19 Range/Units 12:29 POC Glucose (mg/dL) 126 H (75-99) mg/dL Assessment and Plan Plan: Assessment: #1. Acute exacerbation of chronic bronchial asthma, with purulent tracheobronchitis, related to influenza A infection. Bronch cultures were positive for influenza A #2. Extrinsic obstruction of the mid to distal left mainstem bronchus seen durin g bronchoscopy, patient may benefit from a endobronchial stent placement #3. Recent hospitalization for the same, patient had enlargement of the bilateral submandibular glands likely related to sialadenitis. Infection with EBV, CMV, toxoplasma were ruled out. Syphilis was ruled out. It is likely related to infectious/inflammatory etiology. Strep A throat culture was negative #4. History of congenital heart disease with previous history of surgery for quantitation of the aorta with patent ductus arteriosus #5. Previous history of pulmonary embolism currently on Eliquis #6. Hypertension #7. Diabetes mellitus #8. Suspected restrictive lung disease related to history of scoliosis #9. Premature history Plan: Patient continues to improve, no events overnight, vital signs are stable, no fever chills, patient is stable for discharge home today from pulmonary perspective, yesterday we stopped antibiotics, patient is to complete a course of Tamiflu, he can go home on a prednisone taper, he has Symbicort at home, he can continue the Singulair, and nebulized treatments. We'll need follow-up with Dr. Wilson in the office in 7-10 days. I performed a history & physical examination of the patient and discussed their management with my nurse practitioner, Luz Maria Maria. I reviewed the nurse practitioner's note and agree with the documented findings and plan of care. Lung sounds are positive for diffuse wheezes throughout the lung melchor. The findings and the impression was discussed with the patient. I attest to the documentation by the nurse practitioner. Time with Patient: Less than 30
--- NOTE | 2019-03-10 22:34 | DS ---
DISCHARGE SUMMARY DATE OF SERVICE: 03/10/2019. FINAL DIAGNOSES: 1. Acute bronchial asthma acute exacerbation acute purulent tracheobronchitis with failure of outpatient treatment with possible bibasilar pneumonia or bronchopneumonia, possibly gram-negative. 2. Status post bronchoscopy showing influenza A. 3. History of cervical lymphadenopathy, possibly secondary to sialadenitis previously. 4. History of congestive heart failure. 5. History of coronary artery disease secondary to coaptation of aorta as well as patent ductus arteriosus, status post surgery during childhood. 6. History of pulmonary embolus on Eliquis. 7. Increased WBC. 8. Hypertension. 9. History of chronic obstructive pulmonary disease. 10.History of multiple pneumothoraces on the left lung. 11.History of chronic polyps. 12.History of disease. 13.History of prostate disorder. 14.Carpal tunnel syndrome. 15.History of bilateral inguinal hernia repair. 16.Congenital abnormalities left rib on chest x-ray. DISCHARGE DISPOSITION: The patient is being discharged in stable condition with guarded prognosis. HISTORY OF PRESENT ILLNESS: This 53-year-old gentleman with a past medical history of multiple medical problems admitted with acute bronchial asthma, acute exacerbation, multiple complex medical issues as mentioned earlier. Patient treated with antibiotics. The patient also had bronchoscopy. Influenza A was positive for the bronchoscopic specimen. The patient was treated with Tamiflu. The patient improved significantly. Dr. Wilson saw the patient and recommended outpatient followup and outpatient evaluation for possible stenting, but currently we will continue the antibiotics. On exam, vitals are stable. Cardiovascular System: S1, S2. Abdomen soft. Respiration: A few scattered rhonchi. Total time taken 35 minutes. Follow up with Dr. Nogueira in 2-3 days. Follow up with Dr. Goldstein as advised. DISCHARGE MEDICATIONS: 1. Eliquis 5 mg p.o. b.i.d. 2. Lexapro 20 mg q.h.s. 3. Neurontin 100 mg p.o. b.i.d. 4. Ziac 10 mg p.o. daily. 5. DuoNeb q.i.d. and p.r.n. 6. Multivitamins 1 p.o. daily. 7. Prednisone 40 mg daily for 3 days, 30 for 3 days, 20 for three days, 10 for 3 days. 8. Singular 10 mg q.h.s. 9. Symbicort 160/4.5 two puffs b.i.d. 10.Tylenol p.r.n.. Once again, the patient is being discharged in stable condition. Guarded prognosis. MMODL / IJN: [id number] / MTDD
== END 2019-03-10 13:21 | disposition home or self-care (01) | DRG 178 ==
LOC: EC 12:03 → 4MS4W 14:03 → OBSVTOIN 03-05 07:56 → 4MS4W 03-08 13:00
PROVIDERS: ADMIT Internal Medicine; ATTEND Internal Medicine
PROC: 0B9D8ZX Drainage of Right Middle Lung Lobe, Via Natural or Artificial Opening Endoscopic, Diagnostic (ICD-10-PCS; principal; 2019-03-04 11:00)
PROC: 0BD78ZX Extraction of Left Main Bronchus, Via Natural or Artificial Opening Endoscopic, Diagnostic (ICD-10-PCS; 2019-03-04 11:00)
DX: J10.08 Influenza due to other identified influenza virus with other specified pneumonia (principal); Q76.6 Other congenital malformations of ribs; J15.6 Pneumonia due to other Gram-negative bacteria; I50.9 Heart failure, unspecified; I11.0 Hypertensive heart disease with heart failure; J45.901 Unspecified asthma with (acute) exacerbation; J44.1 Chronic obstructive pulmonary disease with (acute) exacerbation; J44.0 Chronic obstructive pulmonary disease with (acute) lower respiratory infection; M41.9 Scoliosis, unspecified; J98.09 Other diseases of bronchus, not elsewhere classified; E11.9 Type 2 diabetes mellitus without complications; K11.20 Sialoadenitis, unspecified; J20.9 Acute bronchitis, unspecified; Z79.899 Other long term (current) drug therapy; Z79.51 Long term (current) use of inhaled steroids; Z79.01 Long term (current) use of anticoagulants; Z86.711 Personal history of pulmonary embolism; Z87.74 Personal history of (corrected) congenital malformations of heart and circulatory system; Z87.01 Personal history of pneumonia (recurrent); Z86.010 Personal history of colon polyps; Z95.1 Presence of aortocoronary bypass graft; Z90.49 Acquired absence of other specified parts of digestive tract; Z88.6 Allergy status to analgesic agent; Z88.8 Allergy status to other drugs, medicaments and biological substances; Z80.0 Family history of malignant neoplasm of digestive organs; I25.10 Atherosclerotic heart disease of native coronary artery without angina pectoris
CPT/HCPCS: 31623; 31624; 36415; 71046; 80048; 80053; 80202; 84484; 85025; 85610; 85730; 87040; 87070; 87086; 87102; 87116; 87205; 87206; 87252; 87496; 87498; 87502; 87529; 87634; 87798; 88104; 88108; 88305; 89050; 94640; 94760; 96365; 99285

== ENCOUNTER 2019-06-03 17:23 | Observation (INO) | payer BC ==
[2019-06-03] MEDS ORDERED: SODIUM CHLORIDE 0.9% 1,000 ML IV STA ×2 (17:37)
--- NOTE | 2019-06-03 18:06 | CT ---
EXAMINATION TYPE: CT brain wo con DATE OF EXAM: 06/03/2019 COMPARISON: None HISTORY: SYNCOPE CT DLP: 1052.4 mGycm Automated exposure control for dose reduction was used. FINDINGS: There is slight asymmetric enlargement frontal horn right lateral ventricle compared to the left that could relate to arachnoid cyst. This measures 12 x 6 mm. There is no evidence of cortical atrophy. T here is no sign of intracranial hemorrhage. The calvarium is intact. IMPRESSION: POSSIBLE ARACHNOID CYST IN THE FRONTAL HORN RIGHT LATERAL VENTRICLE. OTHERWISE NEGATIVE EXAM.
--- NOTE | 2019-06-03 18:08 | XR ---
EXAMINATION TYPE: XR chest 2V DATE OF EXAM: 06/03/2019 COMPARISON: 03/02/2019 HISTORY: TECHNIQUE: Frontal and lateral views of the chest are obtained. FINDINGS: There is thickening and rib deformity on the left side. Trachea is deviated slightly to th e left side consistent with some degree of volume loss in the left lung. The right lung is clear. The re is no pleural effusion. There is no heart failure. Heart size is normal. IMPRESSION: Multiple rib deformities could relate to old trauma. There is mild pleural thickening an d volume loss. This appears slightly more than old exam. No heart failure. No definite bronchopneumon ia.
--- NOTE | 2019-06-03 18:18 | ED ---
Syncope HPI - General Chief Complaint: Syncope Stated Complaint: Fall, hit head Time Seen by Provider: 06/03/19 17:37 Source: patient, RN notes reviewed, old records reviewed Mode of arrival: wheelchair Limitations: no limitations - History of Present Illness Initial Comments: This is a 33-year-old male the ER for evaluation patient resents today for ev aluation regards to syncopal event. Patient has recent history of head trauma with multiple CAT scan showing no acute disease patient is on blood thinners. Patient denies chest pain or shortness of breath. No recent travel history or sick contacts. No current chest pain shortness breath or abdominal pain. No recent change in medications denies drugs or alcohol MD Complaint: loss of consciousness, other (found down) -: minutes(s) (35) Prodromal Symptoms: headache (QUEEN times 3 weeks after fall) -: minutes(s) Witnessed: yes - by bystander (found by roommate) Injuries Sustained Associated with Event: None Current Symptoms: back to baseline History: previous syncopal episode Context: standing up Treatments Prior to Arrival: none - Related Data Home Medications Medication Instructions Recorded Confirmed Apixaban [Eliquis] 5 mg PO BID 02/17/19 06/03/19 Bisoprolol-Hctz 10-6.25 mg [Ziac 10 gm PO DAILY 02/17/19 06/03/19 10-6.25 MG] Escitalopram [Lexapro] 20 mg PO HS 02/17/19 06/03/19 Butalb/Asprin/Caff 50-325-40Mg 1 cap PO Q4HR PRN 06/03/19 06/03/19 [Fiorinal 50-325-40 MG] Multivitamins, Thera [Multivitamin 1 tab PO DAILY@1200 06/03/19 06/03/19 (formulary)] Previous Rx's Medication Instructions Recorded Budesonide-Formot 160-4.5 Mcg 2 puff INHALATION RT-BID #1 inhaler 02/22/19 [Symbicort 160-4.5 Mcg Inhaler] Acetaminophen Tab [Tylenol] 500 mg PO Q6HR PRN tab 03/10/19 Ipratropium-Albuterol Nebulize 3 ml INHALATION RT-QID #120 03/10/19 [Duoneb 0.5 mg-3 mg/3 ml Soln] ampul.neb Montelukast [Singulair] 10 mg PO HS #30 tab 03/10/19 Allergies Allergy/AdvReac Type Severity Reaction Status Date / Time meclizine [From Antivert] Allergy Unknown Unknown Verified 06/03/19 17:52 amlodipine [From Norvasc] Allergy Unknown Verified 06/03/19 17:52 lisinopril [From Zestril] Allergy Unknown Verified 06/03/19 17:52 NSAIDS (Non-Steroidal Allergy Unknown Verified 06/03/19 17:52 Anti-Inflamma omeprazole Allergy Unknown Verified 06/03/19 17:52 Review of Systems ROS Statement: Those systems with pertinent positive or pertinent negative responses have been documented in the HPI. ROS Other: All systems not noted in ROS Statement are negative. Past Medical History Past Medical History: COPD, Hypertension, Pneumonia, Pulmonary Embolus (PE), Respiratory Disorder Additional Past Medical History / Comment(s): multiple pneumothorax left lung, colon polyps removed 2018, congenital heart disease, asthma, restrictive heart disease, pulmonary embolism and HTN History of Any Multi-Drug Resistant Organisms: None Reported Past Surgical History: Back Surgery, Cholecystectomy, Coronary Bypass/CABG, Hernia Repair, Prostate Surgery Additional Past Surgical History / Comment(s): B/L carpal tunnel release,open heart at age 4, B/L inguinal hernia repair, TURP, Orchiectomy of Left testicle. EDG and colonoscopy in 2018. Past Anesthesia/Blood Transfusion Reactions: No Reported Reaction Past Psychological History: No Psychological Hx Reported Smoking Status: Never smoker Past Alcohol Use History: Rare Past Drug Use History: None Reported - Past Family History Mother History Unknown: Yes (pancreatic cancer) Family Medical History: Cancer Additional Family Medical History / Comment(s): from Pancreatic cancer General Exam Limitations: no limitations General appearance: alert, in no apparent distress Head exam: Present: atraumatic, normocephalic, normal inspection Eye exam: Present: normal appearance, PERRL, EOMI. Absent: scleral icterus, conjunctival injection, periorbital swelling ENT exam: Present: normal exam, mucous membranes moist Neck exam: Present: normal inspection. Absent: tenderness, meningismus, lymphadenopathy Respiratory exam: Present: normal lung sounds bilaterally. Absent: respiratory distress, wheezes, rales, rhonchi, stridor Cardiovascular Exam: Present: regular rate, normal rhythm, normal heart sounds. Absent: systolic murmur, diastolic murmur, rubs, gallop, clicks GI/Abdominal exam: Present: soft, normal bowel sounds. Absent: distended, tenderness, guarding, rebound, rigid Extremities exam: Present: normal inspection, full ROM, normal capillary refill. Absent: tenderness, pedal edema, joint swelling, calf tenderness Back exam: Present: normal inspection Neurological exam: Present: alert, oriented X3, CN II-XII intact Psychiatric exam: Present: normal affect, normal mood Skin exam: Present: warm, dry, intact, normal color. Absent: rash Course Vital Signs 06/03/19 06/03/19 06/03/19 17:32 18:13 18:30 Temperature 98.2 F Pulse Rate 62 72 Respiratory 18 31 H 18 Rate Blood Pressure 155/88 144/79 O2 Sat by Pulse 98 96 Oximetry 06/03/19 19:17 Temperature Pulse Rate 65 Respiratory 18 Rate Blood Pressure 145/82 O2 Sat by Pulse 97 Oximetry - Reevaluation(s) Reevaluation #1: 06/03/19 19:54 Clinical record is reviewed Reevaluation #2: 06/03/19 19:54 Patient has no recurrent syncope EKG Findings - EKG Comments: EKG Findings:: EKG shows sinus bradycardia rate of 58, OK 224, QRS 80, QTC 424 Medical Decision Making - Medical Decision Making 50 female the ER for evaluation of syncopal event patient was found down. Patient be admitted for observation, cardiac monitoring cause of syncope. Patient has no current chest pain shortness of breath or abdominal pain - Lab Data Result diagrams: 06/03/19 18:00 06/03/19 18:00 Lab Results 06/03/19 06/03/19 06/03/19 Range/Units 18:00 18:00 18:00 WBC 12.2 H (3.8-10.6) k/uL RBC 5.02 (4.30-5.90) m/uL Hgb 15.3 (13.0-17.5) gm/dL Hct 48.0 (39.0-53.0) % MCV 95.5 (80.0-100.0) fL MCH 30.5 (25.0-35.0) pg MCHC 32.0 (31.0-37.0) g/dL RDW 14.0 (11.5-15.5) % Plt Count 289 (150-450) k/uL Neutrophils % 65 % Lymphocytes % 24 % Monocytes % 7 % Eosinophils % 2 % Basophils % 1 % Neutrophils # 7.9 H (1.3-7.7) k/uL Lymphocytes # 2.9 (1.0-4.8) k/uL Monocytes # 0.9 (0-1.0) k/uL Eosinophils # 0.3 (0-0.7) k/uL Basophils # 0.1 (0-0.2) k/uL PT 10.1 (9.0-12.0) sec INR 0.9 (<1.2) APTT 20.8 L (22.0-30.0) sec D-Dimer 0.18 (<0.60) mg/L FEU Sodium 141 (137-145) mmol/L Potassium 4.8 (3.5-5.1) mmol/L Chloride 102 (98-107) mmol/L Carbon Dioxide 31 H (22-30) mmol/L Anion Gap 8 mmol/L BUN 20 (9-20) mg/dL Creatinine 0.76 (0.66-1.25) mg/dL Est GFR (CKD-EPI)AfAm >90 (>60 ml/min/1.73 sqM) Est GFR (CKD-EPI)NonAf >90 (>60 ml/min/1.73 sqM) Glucose 90 (74-99) mg/dL Calcium 9.7 (8.4-10.2) mg/dL Magnesium 1.9 (1.6-2.3) mg/dL Total Bilirubin 0.8 (0.2-1.3) mg/dL AST 48 (17-59) U/L ALT 35 (21-72) U/L Alkaline Phosphatase 85 (38-126) U/L Creatine Kinase 63 (55-170) U/L Troponin I (0.000-0.034) ng/mL Total Protein 7.5 (6.3-8.2) g/dL Albumin 4.7 (3.5-5.0) g/dL Urine Color Urine Appearance (Clear) Urine pH (5.0-8.0) Ur Specific [place] (1.001-1.035) Urine Protein (Negative) Urine Glucose (UA) (Negative) Urine Ketones (Negative) Urine Blood (Negative) Urine Nitrite (Negative) Urine Bilirubin (Negative) Urine Urobilinogen (<2.0) mg/dL Ur Leukocyte Esterase (Negative) 06/03/19 06/03/19 Range/Units 18:00 18:32 WBC (3.8-10.6) k/uL RBC (4.30-5.90) m/uL Hgb (13.0-17.5) gm/dL Hct (39.0-53.0) % MCV (80.0-100.0) fL MCH (25.0-35.0) pg MCHC (31.0-37.0) g/dL RDW (11.5-15.5) % Plt Count (150-450) k/uL Neutrophils % % Lymphocytes % % Monocytes % % Eosinophils % % Basophils % % Neutrophils # (1.3-7.7) k/uL Lymphocytes # (1.0-4.8) k/uL Monocytes # (0-1.0) k/uL Eosinophils # (0-0.7) k/uL Basophils # (0-0.2) k/uL PT (9.0-12.0) sec INR (<1.2) APTT (22.0-30.0) sec D-Dimer (<0.60) mg/L FEU Sodium (137-145) mmol/L Potassium (3.5-5.1) mmol/L Chloride (98-107) mmol/L Carbon Dioxide (22-30) mmol/L Anion Gap mmol/L BUN (9-20) mg/dL Creatinine (0.66-1.25) mg/dL Est GFR (CKD-EPI)AfAm (>60 ml/min/1.73 sqM) Est GFR (CKD-EPI)NonAf (>60 ml/min/1.73 sqM) Glucose (74-99) mg/dL Calcium (8.4-10.2) mg/dL Magnesium (1.6-2.3) mg/dL Total Bilirubin (0.2-1.3) mg/dL AST (17-59) U/L ALT (21-72) U/L Alkaline Phosphatase (38-126) U/L Creatine Kinase (55-170) U/L Troponin I <0.012 (0.000-0.034) ng/mL Total Protein (6.3-8.2) g/dL Albumin (3.5-5.0) g/dL Urine Color Yellow Urine Appearance Clear (Clear) Urine pH 6.0 (5.0-8.0) Ur Specific [place] 1.017 (1.001-1.035) Urine Protein Negative (Negative) Urine Glucose (UA) Negative (Negative) Urine Ketones Negative (Negative) Urine Blood Negative (Negative) Urine Nitrite Negative (Negative) Urine Bilirubin Negative (Negative) Urine Urobilinogen <2.0 (<2.0) mg/dL Ur Leukocyte Esterase Negative (Negative) - Radiology Data Radiology results: report reviewed (CT brain negative for acute disease chest x- rays negative for acute disease), image reviewed Disposition Clinical Impression: Syncope Disposition: ADMITTED IP TO THIS HOSP Condition: Fair Is patient prescribed a controlled substance at d/c from ED?: No Referrals: Jim Dutta MD [Primary Care Provider] - 1-2 days
[2019-06-03 18:34] LABS: Basophils # (A) 0.1 k/uL (0-0.2); Basophils % (A) 1 %; Eosinophils # (A) 0.3 k/uL (0-0.7); Eosinophils % (A) 2 %; HGB 15.3 gm/dL (13.0-17.5); Lymphocytes # (A) 2.9 k/uL (1.0-4.8); Lymphocytes % (A) 24 %; MCH 30.5 pg (25.0-35.0); MCV 95.5 fL (80.0-100.0); Mean Platelet Volume 6.5; Monocytes # (A) 0.9 k/uL (0-1.0); Monocytes % (A) 7 %; Neutrophils # (A) 7.9 k/uL (1.3-7.7); Neutrophils % (A) 65 %; Platelet Count 289 k/uL (150-450); RBC 5.02 m/uL (4.30-5.90); WBC 12.2 k/uL (3.8-10.6)
[2019-06-03 18:44] LABS: Appearance,Urine Clear (Clear); Bilirubin,Urine Negative (Negative); Blood,Urine Negative (Negative); Color,Urine Yellow; Glucose,Urine (UA) Negative (Negative); Ketones,Urine Negative (Negative); Leukocyte Esterase,Urine Negative (Negative); Nitrite,Urine Negative (Negative); Protein,Urine Negative (Negative); Specific Gravity,Urine 1.017 (1.001-1.035); Urobilinogen,Urine <2.0 mg/dL (<2.0)
[2019-06-03 18:45] LABS: ALT 35 U/L (21-72); AST 48 U/L (17-59); African American GFR (CKD) >90 (>60 ml/min/1.73 sqM); Albumin 4.7 g/dL (3.5-5.0); Alkaline Phosphatase 85 U/L (38-126); Anion Gap 8 mmol/L; Blood Urea Nitrogen 20 mg/dL (9-20); Calcium 9.7 mg/dL (8.4-10.2); Carbon Dioxide 31 mmol/L (22-30); Chloride 102 mmol/L (98-107); Creatine Kinase 63 U/L (55-170); Glucose 90 mg/dL (74-99); Magnesium 1.9 mg/dL (1.6-2.3); Potassium 4.8 mmol/L (3.5-5.1); Sodium 141 mmol/L (137-145); Total Bilirubin 0.8 mg/dL (0.2-1.3); Total Protein 7.5 g/dL (6.3-8.2)
[2019-06-03 18:58] LABS: D-Dimer 0.18 mg/L FEU (<0.60); INR 0.9 (<1.2); Prothrombin Time 10.1 sec (9.0-12.0)
[2019-06-03 19:01] LABS: Partial Thromboplastin Time 20.8 sec (22.0-30.0)
[2019-06-03] MEDS ORDERED: ASPIRIN 81 MG PO STA (19:55)
[2019-06-03] MEDS ORDERED: NITROGLYCERIN SL TABS 0.4 MG TAB SUBLINGUAL PRN (19:55)
[2019-06-03] MEDS ORDERED: SYMBICORT 160-4.5 MCG INHALER INHALATION PRN (22:46)
[2019-06-03] MEDS ORDERED: IPRATROPIUM-ALBUTEROL 3 ML NEB INHALATION PRN (22:46)
--- NOTE | 2019-06-03 22:50 | P.HPIM ---
History of Present Illness H&P Date: 06/03/19 Chief Complaint: syncope 53 year old male with history of congenital heart disease (PDA and coarctation of the aorta) patient presented after falling at home, in what he describes suspiciouis of a syncopal episode due to orthostatic hypotension. Patient reports that he was sitting at his chair , feeling fine, then got up to charge his phone, when he sat down he immediately remembered that he was planning on getting some water, thats when he quickly stood up again and immediately fell and passed out, he did not wake up until his father found him sleeping on the floor and starting nudging him about 30 min later. he denies any associated palpitation , chest pain , or SOB. but he does recall falling couple weeks ago when he was reaching to the ceiling fan to adjust it and had experienced similar event. he had multiple CT scans of the head over the past couple weeks due to (initial fall , then persistent headache and dizziness, then this fall today) he is on eliquis for pulmonary embolism that he was diagnosed with last year. He currently feeling fine except for his off / on left temporal headache. he reports ongoing headachde since his initial fall, sts frontal, occipital , or left temporal, he reports that it does not feel like his typical migraine heada ches. no radiation, no associated neuro deficits. currently pain 8-9/10 in severity, squeezing pain, no associated photophobia , no nausea or vomiting, no changes in his vision or hearing. patient is able to stand up and walk without any assistance but he does not feel steady on his feet today . otherwise, denies any fever, chillls, abd pain , changes in his urinary or bowel habits, denies any GI bleeding , denies any recent changes in his meds. at ED, CT of the head showed no acute process, vital signs were stable Review of Systems Pertinent positives as noted in HPI. All other systems were reviewed and are negative Past Medical History Past Medical History: COPD, Hypertension, Pneumonia, Pulmonary Embolus (PE), Re spiratory Disorder Additional Past Medical History / Comment(s): multiple pneumothorax left lung, colon polyps removed 2017, congenital heart disease, asthma, restrictive heart disease, pulmonary embolism and HTN History of Any Multi-Drug Resistant Organisms: None Reported Past Surgical History: Back Surgery, Cholecystectomy, Coronary Bypass/CABG, Hernia Repair, Prostate Surgery Additional Past Surgical History / Comment(s): B/L carpal tunnel release,open heart at age 4, B/L inguinal hernia repair, TURP, Orchiectomy of Left testicle. EDG and colonoscopy in 2018. Past Anesthesia/Blood Transfusion Reactions: No Reported Reaction Smoking Status: Never smoker - Past Family History Mother History Unknown: Yes (pancreatic cancer) Family Medical History: Cancer Additional Family Medical History / Comment(s): from Pancreatic cancer Medications and Allergies Home Medications Medication Instructions Recorded Confirmed Type Apixaban [Eliquis] 5 mg PO BID 02/17/19 06/03/19 History Bisoprolol-Hctz 10-6.25 mg [Ziac 10 gm PO DAILY 02/17/19 06/03/19 History 10-6.25 MG] Escitalopram [Lexapro] 20 mg PO HS 02/17/19 06/03/19 History Acetaminophen Tab [Tylenol] 500 mg PO Q6HR PRN tab 03/10/19 06/03/19 Rx Budesonide-Formot 160-4.5 Mcg 2 puff INHALATION RT-BID PRN 06/03/19 06/03/19 History [Symbicort 160-4.5 Mcg Inhaler] Butalb/Asprin/Caff 50-325-40Mg 1 cap PO Q4HR PRN 06/03/19 06/03/19 History [Fiorinal 50-325-40 MG] Ipratropium-Albuterol Nebulize 3 ml INHALATION RT-QID PRN 06/03/19 06/03/19 History [Duoneb 0.5 mg-3 mg/3 ml Soln] Multivitamins, Thera [Multivitamin 1 tab PO DAILY@1200 06/03/19 06/03/19 History (formulary)] Allergies Allergy/AdvReac Type Severity Reaction Status Date / Time meclizine [From Antivert] Allergy Unknown Unknown Verified 06/03/19 22:09 amlodipine [From Norvasc] Allergy Unknown Verified 06/03/19 22:09 lisinopril [From Zestril] Allergy Unknown Verified 06/03/19 22:09 NSAIDS (Non-Steroidal Allergy Unknown Verified 06/03/19 22:09 Anti-Inflamma omeprazole Allergy Unknown Verified 06/03/19 22:09 Physical Exam Vitals: Vital Signs Temp Pulse Pulse Resp BP BP Pulse Ox 06/03/19 21:27 97.4 F L 54 L 16 127/75 97 06/03/19 21:18 19 06/03/19 19:17 65 18 145/82 97 06/03/19 18:30 72 18 144/79 96 06/03/19 18:13 31 H 06/03/19 17:32 98.2 F 62 18 155/88 98 Intake and Output 06/03/19 06/03/19 06/03/19 06:59 14:59 22:59 Other: Weight 67.132 kg Constitutional: No acute distress, conversant, pleasant Eyes: Anicteric sclerae, moist conjunctiva, no lid-lag Pupils equal round reactive to light, no nystagmus ENMT: NC/AT Oropharynx clear, no erythema, exudates, bifurcated uveola Neck: Supple, FROM, no masses, or JVD No carotid bruits No thyromegaly Lungs: Clear to auscultation Clear to percussion Normal respiratory effort, no accessory muscle use Cardiovascular: Heart regular in rate and rhythm, No murmurs, gallops, or rubs No peripheral edema Abdominal: Soft Nontender, no guarding, rebound or rigidity Abdomen moving with respiration Normoactive bowel sounds No hepatomegaly, No splenomegaly No palpable mass No abdominal wall hernia noted Skin: Normal temperature, tone, texture, turgor No induration No subcutaneous nodules No rash, lesions No ulcers Extremities: No digital cyanosis No clubbing Pedal pulses intact and symmetrical Radial pulses intact and symmetrical No calf tenderness Psychiatric: Alert and oriented to person, place and time Appropriate affect fair judgment Neuro Muscles Strength 5/5 in all 4 extremities Sensation to light touch grossly present throughout Cranial nerves II-XII grossly intact No focal sensory deficits finger nose intact. patient was able to stand up on his own with no assistance . Lymphatics: no palpable cervical or supraclavicular , or inguinal lymph nodes Results CBC & Chem 7: 06/03/19 18:00 06/03/19 18:00 Labs: Abnormal Lab Results - Last 24 Hours (Table) 06/03/19 06/03/19 06/03/19 Range/Units 18:00 18:00 18:00 WBC 12.2 H (3.8-10.6) k/uL Neutrophils # 7.9 H (1.3-7.7) k/uL APTT 20.8 L (22.0-30.0) sec Carbon Dioxide 31 H (22-30) mmol/L Thrombosis Risk Factor Assmnt - Choose All That Apply Any of the Below Risk Factors Present?: Yes Each Factor Represents 1 point: Abnormal pulmonary function (COPD), Age 41-60 years, Obesity (BMI >25) Other Risk Factors: Yes Each Risk Factor Represents 3 Points: History of DVT/PE Other congenital or acquired thrombophilia - If yes, enter type in comment: No Thrombosis Risk Factor Assessment Total Risk Factor Score: 6 Thrombosis Risk Factor Assessment Level: High Risk Assessment and Plan Assessment: 53-year-old male with history of congenital heart disease, asthma and COPD, on Eliquis for recent PE last year. Admitted under observation with anticipated length of stay less than 48 hours f or syncopal episode. Patient has had his head with fall today CT of the head was negative. Patient is admitted for monitoring overnight along with cardiology and neuro evaluation Plan: syncope , possible vasovagal episode due to dehydration r/o cardiac arrhythmias fall precautions cardio eval nurse practitioner per diem IVF hydraiton headache, with history of migraine symptomatic control head CT , no acute process chronic conditions asthma copd, resume inhalers recent history of PE, on eliquis scoliosis history of congenital heart disease PT eval Surrogate decision-maker: patient father CODE STATUS:full code DVT prophylaxis: ON eliquis for recent VTE Discussed with: Patient, ER, RN Anticipated discharge: <[address]: home A total of 60 minutes was spent on the care of this complex patient more than 50% of the time was spent in counseling and care coordination.
[2019-06-03] MEDS: ACETAMINOPHEN TAB 500 MG TAB PO PRN (23:18)
[2019-06-03] MEDS: ESCITALOPRAM 20 MG TAB PO SCH (23:18)
[2019-06-03] MEDS: APIXABAN 5 MG TAB PO SCH (23:18)
[2019-06-04 06:31] LABS: Cholesterol 200 mg/dL (<200); HDL Cholesterol 52 mg/dL (40-60); LDL Cholesterol,Calculated 103 mg/dL (0-99); Triglycerides 223 mg/dL (<150)
--- NOTE | 2019-06-04 09:11 | P.CRDCN ---
History of Present Illness Consult date: 06/04/19 History of present illness: This is a 52-year-old gentleman with history of a premature breath and also evidence of coarctation of aorta and also patent ductus arteriosus for which he had surgery done at age 4. Patient also has chronic lung disease and asthma. Apparently a few weeks ago, patient had a fall at home while he was trying to turn on his plan and hit his head agonist the wall. Patient was admitted at the time for possible syncope. He had some soft tissue injury to the head. He has been feeling dizzy. Yesterday patient sat down in his chair after plugging is performed into the wall. Apparently got up to get some water to drink and the knee fell to the floor and hit his head on the side. Apparently he was on the floor for about 20-25 minutes until his father came home. Subsequently he was brought to the emergency room. He doesn't remember having any chest pain, shortness breath, palpitations prior to the incident. No tongue bite. No latesha dder or bowel incontinence. So far his cardiac enzymes have been negative. No documented arrhythmias. There is no documented postural hypotension. It appears that his syncope could be postural in nature because he passed out after getting up. We'll check his blood pressure for any postural changes. We'll increase his fluid and salt intake. We'll continue to monitor for any cardiac arrhythmias. However, I will also recommend a neurology evaluation because patient was apparently unconscious for a long time. If no definitive etiology is established for this episode, I will recommend event monitor for a month. The Review of Systems As per the chart Past Medical History Past Medical History: COPD, Hypertension, Pneumonia, Pulmonary Embolus (PE), Respiratory Disorder Additional Past Medical History / Comment(s): multiple pneumothorax left lung, colon polyps removed 2018, congenital heart disease, asthma, restrictive heart disease, pulmonary embolism and HTN History of Any Multi-Drug Resistant Organisms: None Reported Past Surgical History: Back Surgery, Cholecystectomy, Coronary Bypass/CABG, Hernia Repair, Prostate Surgery Additional Past Surgical History / Comment(s): B/L carpal tunnel release,open heart at age 4, B/L inguinal hernia repair, TURP, Orchiectomy of Left testicle. EDG and colonoscopy in 2018. Past Anesthesia/Blood Transfusion Reactions: No Reported Reaction Smoking Status: Never smoker - Past Family History Mother History Unknown: Yes (pancreatic cancer) Family Medical History: Cancer Additional Family Medical History / Comment(s): from Pancreatic cancer Medications and Allergies Home Medications Medication Instructions Recorded Confirmed Type Apixaban [Eliquis] 5 mg PO BID 02/17/19 06/03/19 History Bisoprolol-Hctz 10-6.25 mg [Ziac 10 gm PO DAILY 02/17/19 06/03/19 History 10-6.25 MG] Escitalopram [Lexapro] 20 mg PO HS 02/17/19 06/03/19 History Acetaminophen Tab [Tylenol] 500 mg PO Q6HR PRN tab 03/10/19 06/03/19 Rx Budesonide-Formot 160-4.5 Mcg 2 puff INHALATION RT-BID PRN 06/03/19 06/03/19 History [Symbicort 160-4.5 Mcg Inhaler] Butalb/Asprin/Caff 50-325-40Mg 1 cap PO Q4HR PRN 06/03/19 06/03/19 History [Fiorinal 50-325-40 MG] Ipratropium-Albuterol Nebulize 3 ml INHALATION RT-QID PRN 06/03/19 06/03/19 History [Duoneb 0.5 mg-3 mg/3 ml Soln] Multivitamins, Thera [Multivitamin 1 tab PO DAILY@1200 06/03/19 06/03/19 History (formulary)] Allergies Allergy/AdvReac Type Severity Reaction Status Date / Time meclizine [From Antivert] Allergy Unknown Unknown Verified 06/03/19 22:09 amlodipine [From Norvasc] Allergy Unknown Verified 06/03/19 22:09 lisinopril [From Zestril] Allergy Unknown Verified 06/03/19 22:09 NSAIDS (Non-Steroidal Allergy Unknown Verified 06/03/19 22:09 Anti-Inflamma omeprazole Allergy Unknown Verified 06/03/19 22:09 Physical Exam Vitals: Vital Signs Temp Pulse Pulse Resp BP BP Pulse Ox 06/04/19 08:00 61 16 06/04/19 04:00 97.6 F 61 16 125/75 95 06/03/19 23:32 97.8 F 63 16 119/65 96 06/03/19 21:27 97.4 F L 54 L 16 127/75 97 06/03/19 21:18 19 06/03/19 19:17 65 18 145/82 97 06/03/19 18:30 72 18 144/79 96 06/03/19 18:13 31 H 06/03/19 17:32 98.2 F 62 18 155/88 98 Intake and Output 06/03/19 06/04/19 06/04/19 22:59 06:59 14:59 Other: Voiding Method Toilet Toilet Toilet # Voids 2 Weight 67.132 kg GENERAL EXAM: Patient is alert and oriented and doesn't appear to be in any acute distress HEENT: Normocephalic. Normal reaction of pupils, equal size, normal range of extraocular motion. No erythema or exudates in the throat. NECK: No masses, no nuchal rigidity. CHEST: No chest wall deformity. LUNGS: Equal air entry with no crackles or wheeze. HEART: S1 and S2 normal with no audible mumurs or gallops. Regular rhythm, femorals equal on both sides.. ABDOMEN: No hepatosplenomegaly, normal bowel sounds, no guarding or rigidity. SKIN: No rashes CENTRAL NERVOUS SYSTEM: No focal deficits. EXTREMITIES: No cyanosis, clubbing or edema. Results 06/03/19 18:00 06/03/19 18:00 Cardiac Enzymes 06/03/19 06/03/19 06/03/19 Range/Units 18:00 18:00 23:58 AST 48 (17-59) U/L Troponin I <0.012 <0.012 (0.000-0.034) ng/mL 06/04/19 Range/Units 05:42 AST (17-59) U/L Troponin I <0.012 (0.000-0.034) ng/mL Coagulation 06/03/19 Range/Units 18:00 PT 10.1 (9.0-12.0) sec APTT 20.8 L (22.0-30.0) sec Lipids 06/04/19 Range/Units 05:42 Triglycerides 223 H (<150) mg/dL Cholesterol 200 H (<200) mg/dL HDL Cholesterol 52 (40-60) mg/dL CBC 06/03/19 Range/Units 18:00 WBC 12.2 H (3.8-10.6) k/uL RBC 5.02 (4.30-5.90) m/uL Hgb 15.3 (13.0-17.5) gm/dL Hct 48.0 (39.0-53.0) % Plt Count 289 (150-450) k/uL Comprehensive Metabolic Panel 06/03/19 Range/Units 18:00 Sodium 141 (137-145) mmol/L Potassium 4.8 (3.5-5.1) mmol/L Chloride 102 (98-107) mmol/L Carbon Dioxide 31 H (22-30) mmol/L BUN 20 (9-20) mg/dL Creatinine 0.76 (0.66-1.25) mg/dL Glucose 90 (74-99) mg/dL Calcium 9.7 (8.4-10.2) mg/dL AST 48 (17-59) U/L ALT 35 (21-72) U/L Alkaline Phosphatase 85 (38-126) U/L Total Protein 7.5 (6.3-8.2) g/dL Albumin 4.7 (3.5-5.0) g/dL Current Medications Generic Name Dose Route Start Last Admin Trade Name Freq PRN Reason Stop Dose Admin Acetaminophen 500 mg 06/03/19 22:46 06/03/19 23:18 Tylenol Tab PO 500 mg Q6HR PRN Administration Fever and/ or Pain Acetaminophen/Butalbital/Caffeine 1 each 06/03/19 22:46 Fioricet 50-325-40 PO Q4HR PRN Migraine Headache Albuterol/Ipratropium 3 ml 06/03/19 22:46 Duoneb 0.5 Mg-3 Mg/3 Ml Soln INHALATION RT-QID PRN Shortness Of Breath Apixaban 5 mg 06/03/19 23:00 06/03/19 23:18 Eliquis PO 5 mg BID ANAYA Administration Aspirin 325 mg 06/04/19 09:00 Aspirin PO DAILY ANAYA Atorvastatin Calcium 80 mg 06/04/19 09:00 Lipitor PO DAILY ANAYA Bisoprolol Fumarate 10 mg 06/04/19 09:00 Zebeta PO DAILY [facility] Budesonide/Formoterol Fumarate 2 puff 06/03/19 22:46 Symbicort 160-4.5 Mcg Inhaler INHALATION RT-BID PRN Shortness Of Breath Escitalopram Oxalate 20 mg 06/03/19 23:00 06/03/19 23:18 Lexapro PO 20 mg HS ANAYA Administration Nitroglycerin 0.4 mg 06/03/19 19:55 Nitrostat SUBLINGUAL Q5M PRN Chest Pain Intake and Output 06/03/19 06/04/19 06/04/19 22:59 06:59 14:59 Other: Voiding Method Toilet Toilet Toilet # Voids 2 Weight 67.132 kg 06/03/19 18:00 06/03/19 18:00 EKG Interpretations (text) Sinus rhythm with pulmonary disease pattern Assessment and Plan (1) Syncope Current Visit: Yes Status: Acute Code(s): R55 - SYNCOPE AND COLLAPSE SNOMED Code(s): 234071797 (2) Essential hypertension Current Visit: No Status: Acute Code(s): I10 - ESSENTIAL (PRIMARY) HYPERTENSION SNOMED Code(s): 35760406 (3) History of pulmonary embolism Current Visit: No Status: Acute Code(s): Z86.711 - PERSONAL HISTORY OF PUL MONARY EMBOLISM SNOMED Code(s): 947380584 (4) Restrictive lung disease Current Visit: No Status: Acute Code(s): J98.4 - OTHER DISORDERS OF LUNG SNOMED Code(s): 46109862 (5) History of coarctation of aorta Current Visit: Yes Status: Acute Code(s): Z87.74 - PERSONAL HISTORY OF CONGENITAL MALFORM OF HEART AND CIRC SYS SNOMED Code(s): 758136375 (6) History of pulmonary embolism Current Visit: Yes Status: Acute Code(s): Z86.711 - PERSONAL HISTORY OF PULMONARY EMBOLISM SNOMED Code(s): 464040617 Plan: Continue monitor for any cardiac arrhythmias. Check blood pressure for any postural changes. Check d-dimer value. If no definite etiology is established, we'll consider event monitor as an outpatient
[2019-06-04] MEDS: ATORVASTATIN 80 MG TAB PO SCH (09:49)
[2019-06-04] MEDS: ASPIRIN 325 MG TAB PO SCH (09:49)
[2019-06-04] MEDS: BUTALB/APAP/CAFF 50-325-40MG TAB PO PRN ×2 (09:53→20:23)
[2019-06-04] MEDS: APIXABAN 5 MG TAB PO SCH ×2 (09:53→20:23)
[2019-06-04] MEDS: BISOPROLOL 5 MG TAB PO SCH (09:53)
--- NOTE | 2019-06-04 15:18 | P.PN ---
Subjective Progress Note Date: 06/04/19 Principal diagnosis: Syncope Patient was seen and examined. No acute events overnight. Patient reports no current dizziness, chest pain, shortness of breath or palpitations. No nausea or vomiting. No fever or chills. He does report a headache that is left-sided, at the side of head trauma when he fell. Patient states that he was attempting to stand up to grab a glass of water when he passed out. States that his dad came home 20 minutes later to find him still passed out. He denies any prodrome of dizziness, nausea or vomiting, chest pain or shortness of breath or p alpitations. Patient reports some confusion after he regained consciousness. He denies any numbness, weakness/tingling of the extremities. Patient states 2 weeks ago he had a similar syncopal episode. Also reports that in the past he has had some tingling of the corner of his left mouth. Objective - Vital Signs Vital signs: Vital Signs Temp 97.5 F L 06/04/19 12:00 Pulse 65 06/04/19 12:00 Resp 18 06/04/19 12:00 BP 109/64 06/04/19 12:00 Pulse Ox 97 06/04/19 12:00 Intake & Output 06/03/19 06/04/19 06/04/19 18:59 06:59 18:59 Weight 67.132 kg Other: Voiding Method Toilet Toilet # Voids 2 - Exam General: [non toxic], [no distress], [appears at stated age] Derm: [warm], [dry] Head: [atraumatic], [normocephalic], [symmetric] Eyes: [EOMI], [no lid lag], [anicteric sclera] Mouth: [no lip lesion], [mucus membranes moist] Cardiovascular: [S1S2 reg], [no murmur], [positive posterior tibial pulse bilateral], Lungs: [CTA bilateral], [no rhonchi, no rales] , [no accessory muscle use] Abdominal: [soft], [ nontender to palpation], [no guarding], [no appreciable organomegaly] Ext: [no gross muscle atrophy], [no edema], [no contractures] Neuro: [no focal neuro deficits] Psych: [Alert], [oriented], [appropriate affect] - Labs CBC & Chem 7: 06/03/19 18:00 06/03/19 18:00 Labs: Abnormal Lab Results - Last 24 Hours (Table) 06/03/19 06/03/19 06/03/19 Range/Units 18:00 18:00 18:00 WBC 12.2 H (3.8-10.6) k/uL Neutrophils # 7.9 H (1.3-7.7) k/uL APTT 20.8 L (22.0-30.0) sec Carbon Dioxide 31 H (22-30) mmol/L Triglycerides (<150) mg/dL Cholesterol (<200) mg/dL LDL Cholesterol, Calc (0-99) mg/dL 06/04/19 Range/Units 05:42 WBC (3.8-10.6) k/uL Neutrophils # (1.3-7.7) k/uL APTT (22.0-30.0) sec Carbon Dioxide (22-30) mmol/L Triglycerides 223 H (<150) mg/dL Cholesterol 200 H (<200) mg/dL LDL Cholesterol, Calc 103 H (0-99) mg/dL Assessment and Plan Assessment: Assessment and Plan Syncopal episode Headache with history of migraines Hyperlipidemia Leukocytosis Chronic conditions: Asthma/COPD, history of PE, scoliosis, history of congenital heart disease Unknown etiology. Orthostats negative. Troponin less than 0.012, EKG showing sinus bradycardia with first-degree AV block. CT brain shows possible arachnoid cyst in the frontal horn of the right lateral ventricle. Plans: Fall and seizure precautions. Will obtain echocardiogram. Check EEG. Telemetry monitoring. Follow cardiology consultation. Follow neurology consultation. Plans: Pain control with Tylenol as needed. Lipid panel shows elevated total cholesterol and LDL. Plans: Continue Lipitor. Restart Symbicort and DuoNeb as needed for shortness of breath and wheezing. Resume Eliquis for history of PE. Follow PT recommendations. Syncope workup underway. Patient is not a safe discharge home at this time. He is pending neurology evaluation.
[2019-06-04] MEDS: ACETAMINOPHEN TAB 500 MG TAB PO PRN (18:42)
[2019-06-04] MEDS: ESCITALOPRAM 20 MG TAB PO SCH (20:23)
--- NOTE | 2019-06-05 06:36 | ECHOF ---
Referral Reason:Syncope MEASUREMENTS -------- HEIGHT: 154.9 cm WEIGHT: 67.1 kg BP: LAESV Index (A-L): 13.97 ml/m IVSd: 1.0 cm (0.6 - 1.1) LVIDd: 4.3 cm (3.9 - 5.3) LVPWd: 1.1 cm (0.6 - 1.1) IVSs: 1.5 cm LVIDs: 2.5 cm LVPWs: 1.7 cm EDV(Teich): 85 ml ESV(Teich): 22 ml EF(Teich): 75 % %FS: 43 % SV(Teich): 63 ml Ao Diam: 2.9 cm (2.0 - 3.7) AV Cusp: 1.7 cm (1.5 - 2.6) MV EXCURSION: 13.883 mm (> 18.000) MV EF SLOPE: 50 mm/s (70 - 150) EPSS: 0.8 cm MV E Deuce: 1.11 m/s MV DecT: 387 ms MV A Deuce: 1.24 m/s MV E/A Ratio: 0.90 FINDINGS -------- Sinus rhythm. This was a technically difficult study with suboptimal views. The left ventricular size is normal. Left ventricular wall thickness is normal. There is normal g lobal left ventricular contractility. Overall left ventricular systolic function is normal with, an EF between 55 - 60 %. The RV was not well visualized. Normal LA size by volume 22+/-6 ml/m2. The right atrium was not well visualized. xx ml of Lumason was utilized for enhancement of images. Interatrial and interventricular septum intact. The aortic valve is trileaflet, and appears structurally normal. No aortic stenosis or regurgitation. The mitral valve leaflets are moderately thickened. Mild mitral regurgitation is present. Trace tricuspid regurgitation present. There is no evidence of pulmonary hypertension. The right ventricular systolic pressure, as measured by Doppler, is {RVSP}. The pulmonic valve was not well visualized. There is no pulmonic regurgitation present. The aortic root size is normal. IVC Not well visulized. There is no pericardial effusion. CONCLUSIONS -------- 1. Sinus rhythm. 2. This was a technically difficult study with suboptimal views. 3. The left ventricular size is normal. 4. Left ventricular wall thickness is normal. 5. There is normal global left ventricular contractility. 6. Overall left ventricular systolic function is normal with, an EF between 55 - 60 %. 7. The RV was not well visualized. 8. Normal LA size by volume 22+/-6 ml/m2. 9. The right atrium was not well visualized. 10. xx ml of Lumason was utilized for enhancement of images. 11. The aortic valve is trileaflet, and appears structurally normal. No aortic stenosis or regurgitat ion. 12. The mitral valve leaflets are moderately thickened. 13. Mild mitral regurgitation is present. 14. Trace tricuspid regurgitation present. 15. There is no evidence of pulmonary hypertension. 16. The pulmonic valve was not well visualized. 17. There is no pulmonic regurgitation present. 18. The aortic root size is normal. 19. IVC Not well visulized. 20. There is no pericardial effusion. SUPERVISOR MIXING: Kimberley Kelly RDCS
[2019-06-05] MEDS: ASPIRIN 325 MG TAB PO SCH (08:00)
[2019-06-05] MEDS: ATORVASTATIN 80 MG TAB PO SCH (08:01)
[2019-06-05] MEDS: BUTALB/APAP/CAFF 50-325-40MG TAB PO PRN ×2 (08:13→20:06)
[2019-06-05] MEDS: APIXABAN 5 MG TAB PO SCH ×2 (08:13→20:07)
[2019-06-05] MEDS: BISOPROLOL 5 MG TAB PO SCH (08:13)
--- NOTE | 2019-06-05 08:16 | P.PN ---
Subjective Progress Note Date: 06/05/19 This is a 53-year-old gentleman who was admitted to the hospital with syncopal episode. Patient has been stable since admission. He was little unsteady in the bathroom yesterday. Complaints of mild pain in the head from the fall. Patient hasn't been seen by neurologist at. No chest pains. No arrhythmias noted. From Cardec standpoint, patient could be discharged home when cleared by neurologist. Echo Cardigan showed normal LV function without any segmental wall motion defects. I'll recommend outpatient event monitor. Follow-up as an outpatient Objective - Vital Signs Vital signs: Vital Signs Temp 97.7 F 06/05/19 08:00 Pulse 59 L 06/05/19 08:00 Resp 16 06/05/19 08:00 BP 129/75 06/05/19 08:00 Pulse Ox 98 06/05/19 08:00 Intake & Output 06/04/19 06/05/19 06/05/19 18:59 06:59 18:59 Other: Voiding Method Toilet Toilet # Voids 2 - Exam GENERAL EXAM: Patient is alert and oriented and doesn't appear to be in any acute distress HEENT: Normocephalic. Normal reaction of pupils, equal size, normal range of extraocular motion. No erythema or exudates in the throat. NECK: No masses, no nuchal rigidity. CHEST: No chest wall deformity. LUNGS: Equal air entry with no crackles or wheeze. HEART: S1 and S2 normal with no audible mumurs or gallops. Regular rhythm, femorals equal on both sides.. ABDOMEN: No hepatosplenomegaly, normal bowel sounds, no guarding or rigidity. SKIN: No rashes CENTRAL NERVOUS SYSTEM: No focal deficits. EXTREMITIES: No cyanosis, clubbing or edema. - Labs CBC & Chem 7: 06/03/19 18:00 06/03/19 18:00 Assessment and Plan (1) Syncope Current Visit: Yes Status: Acute Code(s): R55 - SYNCOPE AND COLLAPSE SNOMED Code(s): 207738106 (2) Essential hypertension Current Visit: No Status: Acute Code(s): I10 - ESSENTIAL (PRIMARY) HYPERTENSION SNOMED Code(s): 16311358 (3) History of pulmonary embolism Current Visit: No Status: Acute Code(s): Z86.711 - PERSONAL HISTORY OF PULMONARY EMBOLISM SNOMED Code(s): 963669753 (4) Restrictive lung disease Current Visit: No Status: Acute Code(s): J98.4 - OTHER DISORDERS OF LUNG SNOMED Code(s): 89779016 (5) History of coarctation of aorta Current Visit: Yes Status: Acute Code(s): Z87.74 - PERSONAL HISTORY OF CONGENITAL MALFORM OF HEART AND CIRC SYS SNOMED Code(s): 814513209 (6) History of pulmonary embolism Current Visit: Yes Status: Acute Code(s): Z86.711 - PERSONAL HISTORY OF PULMONARY EMBOLISM SNOMED Code(s): 098535127 Plan: Patient is clinically stable. No complaints of any chest pain or shortness of breath. No arrhythmias noted. Echo is normal. Patient could be discharged home when cleared by neurology. Outpatient event monitor
--- NOTE | 2019-06-05 13:05 | P.PN ---
Subjective Progress Note Date: 06/05/19 Principal diagnosis: Syncope Patient was seen and examined. No acute events overnight. Patient reports slipping on the bathroom floor last night, hit the side of his head with the precaution partner. He denies any loss of consciousness. Was able to catch himself before a fall. This morning he reports slight lightheadedness when walking with PT. He denies any chest pain, shortness of breath or palpitations. No nausea or vomiting. No fever or chills. Objective - Vital Signs Vital signs: Vital Signs Temp 98.0 F 06/05/19 12:00 Pulse 66 06/05/19 12:45 Resp 18 06/05/19 12:00 BP 146/79 06/05/19 12:45 Pulse Ox 95 06/05/19 12:00 Intake & Output 06/04/19 06/05/19 06/05/19 18:59 06:59 18:59 Other: Voiding Method Toilet Toilet Toilet # Voids 2 - Exam General: [non toxic], [no distress], [appears at stated age] Derm: [warm], [dry] Head: [atraumatic], [normocephalic], [symmetric] Eyes: [EOMI], [no lid lag], [anicteric sclera] Mouth: [no lip lesion], [mucus membranes moist] Cardiovascular: [S1S2 reg], [no murmur], [positive posterior tibial pulse bilateral], Lungs: [CTA bilateral], [no rhonchi, no rales] , [no accessory muscle use] Abdominal: [soft], [ nontender to palpation], [no guarding], [no appreciable organomegaly] Ext: [no gross muscle atrophy], [no edema], [no contractures] Neuro: [no focal neuro deficits] Psych: [Alert], [oriented], [appropriate affect] - Labs CBC & Chem 7: 06/03/19 18:00 06/03/19 18:00 Assessment and Plan Assessment: Assessment and Plan Syncopal episode Headache with history of migraines Hyperlipidemia Leukocytosis Chronic conditions: Asthma/COPD, history of PE, scoliosis, history of congenital heart disease Unknown etiology. Orthostats negative. Troponin less than 0.012, EKG showing sinus bradycardia with first-degree AV block. CT brain shows possible arachnoid cyst in the frontal horn of the right lateral ventricle. Echocardiogram shows EF 55-60% with no diastolic dysfunction or wall motion abnormalities. Patient is PT cleared. Plans: Fall and seizure precautions. Check EEG. Telemetry monitoring. Daily orthostats. Continue normal saline at 100 mL per hour. Follow cardiology consultation. Follow neurology consultation. Plans: Pain control with Tylenol as needed. Lipid panel shows elevated total cholesterol and LDL. Plans: Continue Lipitor. Restart Symbicort and DuoNeb as needed for shortness of breath and wheezing. Resume Eliquis for history of PE. Syncope workup underway. Patient is not a safe discharge home at this time. He is pending neurology evaluation. Likely DC tomorrow if cleared by neurology.
[2019-06-05] MEDS: ACETAMINOPHEN TAB 500 MG TAB PO PRN (18:45)
[2019-06-05] MEDS: ESCITALOPRAM 20 MG TAB PO SCH (20:07)
--- NOTE | 2019-06-06 08:50 | US ---
EXAMINATION TYPE: US carotid duplex BILAT DATE OF EXAM: 06/06/2019 COMPARISON: NONE CLINICAL HISTORY: syncope. EXAM MEASUREMENTS: RIGHT: Peak Systolic Velocity (PSV) cm/sec ----- Right CCA: 65.3 ----- Right ICA: 64.6 ----- Right ECA: 68.3 ICA/CCA ratio: 1.0 RIGHT: End Diastole cm/sec ----- Right CCA: 18.8 ----- Right ICA: 15.7 ----- Right ECA: 10.7 LEFT: Peak Systolic Velocity (PSV) cm/sec ----- Left CCA: 63.9 ----- Left ICA: 48.8 ----- Left ECA: 86.8 ICA/CCA ratio: 0.8 LEFT: End Diastole cm/sec ----- Left CCA: 10.7 ----- Left ICA: 12.5 ----- Left ECA: 12.1 VERTEBRALS (direction of flow): Right Vertebral: Antegrade Left Vertebral: Antegrade Rhythm: Arrhythmia No evident plaque, no significant velocity elevations. IMPRESSION: 1. No significant hemodynamic stenosis as visualized. 2. Correlate for cardiac dysrhythmia. Criteria for Assigning % of Stenosis / Diameter reduction (Estimation based on the indirect measurements of the internal carotid artery velocities (ICA PSV). 1. Normal (no stenosis)=ICA PSV < 125 cm/s: ratio < 2.0: ICA EDV<40 cm/s. 2. Less than 50% stenosis=ICA PSV < 125 cm/s: ratio < 2.0: ICA EDV<40 cm/s. 3. 50 to 69% stenosis=ICA PSV of 125 to 230 cm/s: ration 2.0 ? 4.0: ICA EDV 40-100 cm/s. 4. Greater than 70% stenosis to near occlusion= ICA PSV > 230 cm/s: ratio > 4.0: ICA EDV > 100 cm/s. 5. Near occlusion= ICA PSV velocities may be low or undetectable: variable ratio and ICA EDV. 6. Total occlusion=unable to detect flow.
[2019-06-06] MEDS: ACETAMINOPHEN TAB 500 MG TAB PO PRN (10:54)
[2019-06-06] MEDS: ASPIRIN 325 MG TAB PO SCH (10:54)
[2019-06-06] MEDS: BISOPROLOL 5 MG TAB PO SCH (10:56)
[2019-06-06] MEDS: APIXABAN 5 MG TAB PO SCH ×2 (10:56→20:22)
[2019-06-06] MEDS: ATORVASTATIN 80 MG TAB PO SCH (10:59)
--- NOTE | 2019-06-06 11:36 | P.PN ---
Subjective Progress Note Date: 06/06/19 This is a 53-year-old gentleman who was admitted to the hospital with syncopal episode. Patient has been stable since admission. He was little unsteady in the bathroom yesterday. Complaints of mild pain in the head from the fall. Patient hasn't been seen by neurologist at. No chest pains. No arrhythmias noted. From Cardec standpoint, patient could be discharged home when cleared by neurologist. Echo Cardigan showed normal LV function without any segmental wall motion defects. I'll recommend outpatient event monitor. Follow-up as an outpatient. This patient has been stable since yesterday. Doesn't complain of as much pain. Hasn't had any falls or syncopal episodes. No arrhythmias noted. No postural hypotension documented. Waiting for neurology evaluation. From Cardec standpoint, patient could be discharged home and be evaluated as an outpatient with event monitor Objective - Vital Signs Vital signs: Vital Signs Temp 98.1 F 06/06/19 07:54 Pulse 57 L 06/06/19 08:00 Resp 16 06/06/19 08:00 BP 135/79 06/06/19 07:54 Pulse Ox 98 06/06/19 07:54 Intake & Output 06/05/19 06/06/19 06/06/19 18:59 06:59 18:59 Other: Voiding Method Toilet Toilet Toilet # Voids 1 - Exam GENERAL EXAM: Patient is alert and oriented and doesn't appear to be in any acute distress HEENT: Normocephalic. Normal reaction of pupils, equal size, normal range of e xtraocular motion. No erythema or exudates in the throat. NECK: No masses, no nuchal rigidity. CHEST: No chest wall deformity. LUNGS: Equal air entry with no crackles or wheeze. HEART: S1 and S2 normal with no audible mumurs or gallops. Regular rhythm, femorals equal on both sides.. ABDOMEN: No hepatosplenomegaly, normal bowel sounds, no guarding or rigidity. SKIN: No rashes CENTRAL NERVOUS SYSTEM: No focal deficits. EXTREMITIES: No cyanosis, clubbing or edema. - Labs CBC & Chem 7: 06/03/19 18:00 06/03/19 18:00 Assessment and Plan (1) Syncope Current Visit: Yes Status: Acute Code(s): R55 - SYNCOPE AND COLLAPSE SNOMED Code(s): 771724927 (2) Essential hypertension Current Visit: No Status: Acute Code(s): I10 - ESSENTIAL (PRIMARY) HYPERTENSION SNOMED Code(s): 63649428 (3) History of pulmonary embolism Current Visit: No Status: Acute Code(s): Z86.711 - PERSONAL HISTORY OF PULMONARY EMBOLISM SNOMED Code(s): 942761456 (4) Restrictive lung disease Current Visit: No Status: Acute Code(s): J98.4 - OTHER DISORDERS OF LUNG SNOMED Code(s): 40562791 (5) History of coarctation of aorta Current Visit: Yes Status: Acute Code(s): Z87.74 - PERSONAL HISTORY OF CONGENITAL MALFORM OF HEART AND CIRC SYS SNOMED Code(s): 990206594 (6) History of pulmonary embolism Current Visit: Yes Status: Acute Code(s): Z86.711 - PERSONAL HISTORY OF PULMONARY EMBOLISM SNOMED Code(s): 515287896 Plan: Cardiac-cat stable. Could be discharged home with event monitor
--- NOTE | 2019-06-06 17:03 | P.PN ---
Subjective Progress Note Date: 06/06/19 Patient seen and examined, but mentions some unsteadiness of his gait and lightheadedness when walking, complain of headache after slipping in the bathroom 2 nights ago. No acute events overnight, carotid Doppler ordered earlier today Objective - Vital Signs Vital signs: Vital Signs Temp 98.2 F 06/06/19 15:31 Pulse 65 06/06/19 16:00 Resp 18 06/06/19 16:00 BP 121/66 06/06/19 15:31 Pulse Ox 96 06/06/19 15:31 Intake & Output 06/05/19 06/06/19 06/06/19 18:59 06:59 18:59 Intake Total 222 Balance 222 Intake: Oral 222 Other: Voiding Method Toilet Toilet Toilet # Voids 1 2 - Exam Constitutional: No acute distress, conversant, pleasant Eyes: Anicteric sclerae, moist conjunctiva, no lid-lag, PERRLA ENMT: NC/AT,Oropharynx clear, no erythema, exudates Neck:Supple, FROM, no masses, or JVD, No carotid bruits; No thyromegaly Lungs: Clear to auscultation, Clear to percussion, Normal respiratory effort, no accessory muscle use Cardiovascular: Heart regular in rate and rhythm, No murmurs, gallops, or rubs no peripheral edema Abdominal: Soft Nontender, nom distended, no guarding, no rebound or rigidity, Normoactive bowel sounds No hepatomegaly, No splenomegaly, No palpable mass No abdominal wall hernia noted Skin: Normal temperature, tone, texture, turgor, No induration No subcutaneous nodules, No rash, lesions, No ulcers Extremities:No digital cyanosis No clubbing, Pedal pulses intact and symmetrical Radial pulses intact and symmetrical Normal gait and station, No calf tenderness Psychiatric: Alert and oriented to person, place and time, Appropriate affect Intact judgement Neuro: Muscles Strength 5/5 in all 4 extremities, Sensation to light touch grossly present throughout, Cranial nerves II-XII grossly intact. No focal sensory deficits - Labs CBC & Chem 7: 06/03/19 18:00 06/03/19 18:00 Assessment and Plan (1) Syncope Narrative/Plan: * CT brain shows possible arachnoid cyst in the frontal horn of the right lateral ventricle * Echocardiogram shows EF 55-60% with no diastolic dysfunction or wall motion abnormalities. * Carotid Dopplers negative for any clinically significant stenosis * Patient to be seen by neurology today will likely need an MRI at some point Current Visit: Yes Status: Acute Code(s): R55 - SYNCOPE AND COLLAPSE SNOMED Code(s): 716611055 (2) Headache Narrative/Plan: * Continue Fioricet with Tylenol when necessary Current Visit: Yes Status: Acute Code(s): R51 - HEADACHE SNOMED Code(s): 30879035 (3) Hyperlipidemia Narrative/Plan: * Continue statin regimen Current Visit: Yes Status: Acute Code(s): E78.5 - HYPERLIPIDEMIA, UNSPECIFIED SNOMED Code(s): 94617044 (4) Leukocytosis Current Visit: Yes Status: Acute Code(s): D72.829 - ELEVATED WHITE BLOOD CELL COUNT, UNSPECIFIED SNOMED Code(s): 546353834 Plan: Disposition\ * Anticipated discharge tomorrow * Follow up neurology consultation recommendations and MRI
[2019-06-06] MEDS: BUTALB/APAP/CAFF 50-325-40MG TAB PO PRN (20:21)
[2019-06-06] MEDS: ESCITALOPRAM 20 MG TAB PO SCH (20:22)
--- NOTE | 2019-06-06 21:09 | MR ---
EXAMINATION TYPE: MR brain wo/w cspine wo DATE OF EXAM: 06/06/2019 COMPARISON: CT brain 06/03/2019 HISTORY: Concussion x 3 weeks ago, Fall on 06-03, Dizziness and Headache CONTRAST: Performed utilizing 7 mL intravenous Gadavist gadolinium contrast. TECHNIQUE: Multiplanar, multiecho imaging on a 3.0 Jenny magnet is performed through the brain. Stud y is performed within 24 hours of arrival to the hospital. The craniovertebral junction is normal. The pituitary is normal. Diffusion-weighted imaging is performed. No abnormal hyperintensity is present to suggest an acute i ntracranial infarct or acute ischemic change. There are multiple punctate subcortical white matter changes within the bilateral frontal lobes these are nonspecific but could include microvascular ischemic change, vasculitis, Lyme disease, multiple sclerosis. Location is atypical for diffuse axonal injury. Ventricles and sulci are appropriate for the patient age. There is asymmetry with slight prominence o f the right lateral ventricle in relation to the left. This appears to be developmental variation. A discrete arachnoid cyst within the right lateral ventricle is not identified. No abnormal enhancement is evident. IMPRESSIONS: 1. Multiple punctate deep white matter changes predominantly within the frontal lobes. Differential d iagnosis could include microvascular ischemic change, multiple sclerosis, vasculitis, Lyme disease. EXAMINATION TYPE: MR brain wo/w cspine wo DATE OF EXAM: 06/06/2019 COMPARISON: None HISTORY: Concussion x 3 weeks ago, Fall on 06-03, Dizziness and Headache CONTRAST: Performed utilizing 7 mL intravenous Gadavist gadolinium contrast. TECHNIQUE: Multiplanar multiecho imaging on a 3.0 Jenny magnet is performed through the cervical spin e. FINDINGS: The craniovertebral junction is normal. Vertebral body alignment is normal. C7-T1: No focal disc herniation or significant disc bulge is evident. No spinal canal stenosis or n eural foraminal stenosis is present. C6-7: No focal disc herniation or significant disc bulge is evident. No spinal canal stenosis or ninfa ral foraminal stenosis is present. C5-6: Mild disc bulge is present with anterior thecal sac contact. No cord contact is evident. No spi nal canal stenosis or neural foraminal stenosis is present. Disc height is preserved. C4-5: There is a large central disc herniation which is broad-based. This has a broad cord contact wi th cord compression. There is spinal canal stenosis with a 0.6 cm AP dimension. Cord signal appears p reserved. Moderate bilateral foraminal stenosis from uncovertebral joint hypertrophy is present. C3-4: No focal disc herniation or significant disc bulge is evident. No spinal canal stenosis or ninfa ral foraminal stenosis is present. C2-3: There is a moderate central disc herniation with moderate anterior thecal sac impression. This comes in close approximation with the spinal cord. No AP spinal canal stenosis present. Neural forame n are patent. IMPRESSIONS: 1. Large disc herniation C4-5 cord compression and spinal canal stenosis. 2. Uncovertebral joint hypertrophy with foraminal stenosis C4-5. 3. Central disc herniation C2-3 with moderate anterior thecal sac compression without cord contact or stenosis. 4. Mild disc bulge C5-6 without cord compression
--- NOTE | 2019-06-06 23:36 | CONS ---
CONSULTATION DATE OF SERVICE: 06/06/2019. REFERRING PHYSICIAN: Dr. Adams. HISTORY OF PRESENT ILLNESS: Thank you for allowing me to evaluate Alex Cadena who is a 53-year-old right-handed white male who presented to [facility] on 06/03/2019 following 2 falls over the past 3 weeks. The patient states that 3 weeks ago, he went to pull the cord on a ceiling fan, lost his balance and fell against the wall in a vigorous fashion where his father who was in another room, heard a "boom." The patient states he did not feel dizzy prior to losing his balance and did not lose consciousness when he impacted the wall, although did gently slide to the ground, became nauseated and had 2 episodes of emesis within 20-30 minutes of this incident. When he got up in the next morning, ate breakfast and through this up. He states he tried going to work, but almost fell, made a doctor's appointment and saw his primary care physician who sent him to the hospital for a CT scan of the brain, which was unrevealing. There was particular concern with the patient hitting his head as he is maintained on Eliquis. He was diagnosed with a concussion and the patient states that since that incident, he has felt "tipsy" on his feet, which he refers to as being off balance, but not consistently veering in 1 direction, has had a headache and been mildly nauseated since this initial fall 3 weeks ago. Due to persistent headaches, particularly in the posterior head region, which is unusual for him, he was seen in followup by his primary care physician and sent for an additional CT of the brain (both performed at [facility]) which was also unrevealing. On the day of this presentation (06/03/2019). The patient states that he plugged in his cellphone, sat down and quickly realized he forgot to get a drink, he stood up and states that he fell to the ground. The patient believes that he lost consciousness as a result of his head impacting the ground (on the left side) as he recollects the fall and has had "bouncing" on the ground. He was home alone at the time of this incident. He states he believes he was on the ground for about 20 minutes when his father came home, found him on the ground and states that he nudged him with his foot and the patient began to arouse and was mildly confused initially but quickly reoriented. They went on to have a 2-3 hour coherent discussion about whether to bring the patient to the hospital and ultimately decided to bring him to [facility]. When the patient was found by his father, there was no seizure activity. Urine stressful incontinence and the patient had not bit his tongue. Prior to falling, the patient denied lightheadedness, nausea, vomiting, states he was mildly diaphoretic, but there was no associated chest pain, shortness of breath, or palpitations. There was also no associated vertigo, diplopia, dysarthria, cognitive lesions/swallowing or focal venous systems in the extremities. The patient denies previous history of stroke or seizure. The patient does have a history of migraine, which has been present over the past 15-20 years, and typically has 1 per week. He states he takes "Vanquish" and over-the- counter combination of Tylenol/aspirin and lays down in a dark room and this will provide benefit. He states his typical migraines are a bifrontal pulsating sensation with occasional nausea/vomiting when severe, photophobia and associated disability. The patient states his current headache is in the bifrontal region as well as over the left side of the head (where he struck his head), but has not had photophobia or phonophobia. ALLERGIES: ANTIVERT, NORVASC, ZESTRIL, NONSTEROIDAL ANTI-INFLAMMATORY MEDICATIONS, AND OMEPRAZOLE. MEDICATIONS: Home medications: Tylenol, multivitamin, DuoNeb, Lexapro, Symbicort, Ziac, Eliquis, and vanquish OTC. PAST MEDICAL HISTORY: Coarctation of the aorta and patent ductus arteriosus as a child, surgically corrected; COPD, asthma, hypertension, pulmonary emboli, and multiple pneumothoraces. PAST SURGICAL HISTORY: Cardiac surgery at 4 months and 4 years of age for correction of cortical coarctation of the aorta and patent ductus arteriosus, hernia repair, bilateral carpal tunnel release, cholecystectomy, lumbar laminectomy x1, and myringotomy tubes. SOCIAL HISTORY: Patient denies tobacco or alcohol use. He is single without children and lives in a house with his father. He has not been using assistive devices to ambulate at home. He is employed in a [employer]. The patient was 2 months premature, according to his father. FAMILY HISTORY: The patient's mother and brother have a history of migraine. Mother of pancreatic carcinoma. REVIEW OF SYSTEMS: Fourteen systems are reviewed and no changes were identified. The review of systems documented in history and physical. EXAM: The patient is in the room in the observation unit. He was then sitting up at the bedside. Father was at the bedside. The patient was receptive to the examiner, and in affect is normal. PHYSICAL EXAMINATION: He is of short stature and appears of stated age. VITAL SIGNS are blood pressure is 130/83. With a pulse of 96, respirations 16, temperature 98.1. Weight is at 67.13 kg on a 5 foot 1 inch frame. According to nursing staff, the patient's orthostatics have been negative and the patient has demonstrated no arrhythmias. SKIN /extremities: Mild arthritic change and chronic changes are noted in the hands head, neck. The patient reports some mild tenderness over the left side of the head where he struck the head. Neck is supple without meningeal signs. Arteries are nontender and without bruits. Heart regular rhythm with a systolic ejection murmur. CORTICAL FUNCTION: Mental status patient was alert, oriented to self. He knew he was at [facility]. He knew he was in [place]. He knew the year, month, day of week and could name the current president. He was able to name repeat and read. There was no evidence of joint finger agnosia extinction two double simultaneous stimulation or . Cranial nerves II thru XII, pupils are equal and reactive to light symmetrically. . His melchor are intact to confrontation with each eye assessed individually. III, IV, XI, the patient has subtle left-sided ptosis, which the father states is longstanding. Extraocular movements were full. No nystagmus. V pinprick and light touch intact in all 3 of the 5. Motor intact: IIX: Facial asymmetry or weakness, acuity intact to finger and rub. HEART: Regular rate and rhythm. Respiratory rate in midline. Lungs: Lesion at 12 tongue protruded midline without fasciculation or atrophy. No tongue bite was noted. Motor examination there is no pronator drift. Normal bulk and tone. There is no major muscles with no nodules and upper strength is 5 in 5 throughout except at the interossei which are 4+ over 5 bilaterally. Sensory intact in light touch in all extremities. Reflexes right listed first, biceps 2/2, bradioradialis 2, triceps 2+/ 2+, patellae 2+ 2+, ankle 2+ 2+. Plantar responses flexor bilaterally. Dillard's is present bilaterally. Crossed adductors are noted bilaterally. Coordination: Ouvhaj-np-howa, dtev-hh-teyt wound are intact. Rapid movements are symmetric with finger tapping. Gait and station: Patient ambulates with a mildly broad-based gait with equal arm swing. He was able to heel and toe walk with Romberg testing, the patient on the side stepped to the left on two occasions. DIAGNOSTIC TESTING: The patient states he has had a total of 3 CT scans of the brain since his initial fall 3 weeks ago, 2 at [facility], which were unrevealing and 1 at [facility] on 06/03/2019, which demonstrated a possible right frontal horn arachnoid cyst but was otherwise unrevealing, in particular, no intracranial hemorrhage was identified. Carotid ultrasound demonstrated no significant stenosis on either side and antegrade flow in the vertebral arteries. Echocardiogram from 06/05/2019 demonstrated normal left atrial size with ejection fraction 55-60 percent. LAB WORK: Demonstrates a white blood cell count of 12.2 with hemoglobin 15.3, platelet count 289. Sodium 141, potassium 4.8, BUN 20, with a creatinine of 0.76, random glucose 90. INR 0.9. Urinalysis negative nitrates/leukoesterase off. Cholesterol 200 with an LDL of 103, HDL of 52, triglycerides 223. Troponin negative. CPK 63, calcium 9.7, ALT 35, AST of 48. IMPRESSION: 1. Fall 3 weeks ago when attempting to pull a cord on a ceiling fan, the patient lost balance and struck the right side of his head hard against the wall without loss of consciousness, the patient subsequently became nauseated, had 2 episodes of emesis and even vomited on breakfast the next morning, likely secondary to a concussion. 2. Since the incident described in #1 the patient has felt off balance on his feet and (without consistent veering in 1 direction), then mildly nauseated and had a headache, likely representing postconcussive syndrome. In the setting of this imbalance, the patient had an additional fall on 06/03/2019, struck his head on the ground with loss of consciousness, prompting this hospitalization. The patient denied associated prodrome and had no tongue biting, urine stressful incontinence or focal features to suggest seizure/transient ischemic attack. 3. Hyperreflexia, likely physiologic or secondary to history of prematurity; however, cervical myelopathy is difficult to exclude. 4. History of migraine headaches over the past 15-20 years, typically occurring once per week. 5. Medical problems including coarctation of the aorta/patent ductus arteriosus as a infant, status post surgery, chronic obstructive pulmonary disease/asthma, hypertension, pulmonary embolism, maintained on Eliquis and multiple pneumothoraces. RECOMMENDATION: 1. I discussed my impression and plan with the patient and his father and they expressed understanding. 2. For further evaluation, we will obtain MRI of the brain and cervical spine as well as a B12 level. To date, the patient has had 3 CT scans of the brain completed since the fall 3 weeks ago, which have been unrevealing for acute pathology. 3. Cardiac workup as felt clinically indicated per Cardiology who plan to pursue 30 day event monitor upon discharge. 4. According to nursing staff, the patient has manifested no arrhythmias on telemetry and has not been orthostatic. 5. Echocardiogram completed during this hospitalization demonstrated normal left atrial size and ejection fraction 55-60 percent, and carotid ultrasound from 06/06/2019 demonstrated no significant stenosis of either internal carotid artery or antegrade flow in the vertebral arteries. 6. Will follow with you. Thank you for allowing me to participate in the care of your patient. MMODL / IJN: [id number] /
[2019-06-07 00:07] VITALS: RESP 16
[2019-06-07] MEDS: ACETAMINOPHEN TAB 500 MG TAB PO PRN (08:06)
[2019-06-07] MEDS: ASPIRIN 325 MG TAB PO SCH (08:06)
[2019-06-07] MEDS: ATORVASTATIN 80 MG TAB PO SCH (08:06)
[2019-06-07] MEDS: BISOPROLOL 5 MG TAB PO SCH (08:07)
[2019-06-07] MEDS: APIXABAN 5 MG TAB PO SCH (08:07)
--- NOTE | 2019-06-07 08:43 | P.PN ---
Subjective Progress Note Date: 06/07/19 This is a 53-year-old gentleman who was admitted to the hospital with syncopal episode. Patient has been stable since admission. He was little unsteady in the bathroom yesterday. Complaints of mild pain in the head from the fall. Patient hasn't been seen by neurologist at. No chest pains. No arrhythmias noted. From Cardec standpoint, patient could be discharged home when cleared by neurologist. Echo Cardigan showed normal LV function without any segmental wall motion defects. I'll recommend outpatient event monitor. Follow-up as an outpatient. 06/06/2018: This patient has been stable since yesterday. Doesn't complain of as much pain. Hasn't had any falls or syncopal episodes. No arrhythmias noted. No postural hypotension documented. Waiting for neurology evaluation. From Cardec standpoint, patient could be discharged home and be evaluated as an outpatient with event monitor. 06/07/2018:. Patient seemed to be stable since yesterday. Mild dizziness intermittently. Seen by neurologist. It was felt that patient may have postconcussion syndrome. No arrhythmias are detected. Patient had an MRI scan. From cardiac standpoint. Patient seemed to be stable. When cleared by neurology, patient could be discharged home. Patient will have outpatient event monitor Objective - Vital Signs Vital signs: Vital Signs Temp 98.0 F 06/07/19 04:00 Pulse 57 L 06/07/19 04:00 Resp 16 06/07/19 04:00 BP 116/54 06/07/19 04:00 Pulse Ox 96 06/07/19 04:00 Intake & Output 06/06/19 06/07/19 06/07/19 18:59 06:59 18:59 Intake Total 222 Balance 222 Intake: Oral 222 Other: Voiding Method Toilet Toilet # Voids 2 1 - Exam GENERAL EXAM: Patient is alert and oriented and doesn't appear to be in any acute distress HEENT: Normocephalic. Normal reaction of pupils, equal size, normal range of extraocular motion. No erythema or exudates in the throat. NECK: No masses, no nuchal rigidity. CHEST: No chest wall deformity. LUNGS: Equal air entry with no crackles or wheeze. HEART: S1 and S2 normal with no audible mumurs or gallops. Regular rhythm, femorals equal on both sides.. ABDOMEN: No hepatosplenomegaly, normal bowel sounds, no guarding or rigidity. SKIN: No rashes CENTRAL NERVOUS SYSTEM: No focal deficits. EXTREMITIES: No cyanosis, clubbing or edema. - Labs CBC & Chem 7: 06/03/19 18:00 06/03/19 18:00 Assessment and Plan (1) Syncope Current Visit: Yes Status: Acute Code(s): R55 - SYNCOPE AND COLLAPSE SNOMED Code(s): 576760230 (2) Essential hypertension Current Visit: No Status: Acute Code(s): I10 - ESSENTIAL (PRIMARY) HYPERTENSION SNOMED Code(s): 31521617 (3) History of pulmonary embolism Current Visit: No Status: Acute Code(s): Z86.711 - PERSONAL HISTORY OF PULMONARY EMBOLISM SNOMED Code(s): 004648515 (4) Restrictive lung disease Current Visit: No Status: Acute Code(s): J98.4 - OTHER DISORDERS OF LUNG SNOMED Code(s): 23646217 (5) History of coarctation of aorta Current Visit: Yes Status: Acute Code(s): Z87.74 - PERSONAL HISTORY OF CONGENITAL MALFORM OF HEART AND CIRC SYS SNOMED Code(s): 714695877 (6) History of pulmonary embolism Current Visit: Yes Status: Acute Code(s): Z86.711 - PERSONAL HISTORY OF PULMONARY EMBOLISM SNOMED Code(s): 552613754 Plan: Awaiting neurology input. Patient had a MRI scan. From Cardec standpoint patient is stable and could be discharged home. Outpatient event monitor
[2019-06-07 08:46] VITALS: BP 131/60; PULSE 60; TEMP 97.8
--- NOTE | 2019-06-07 10:04 | PN ---
PROGRESS NOTE DATE OF SERVICE: 06/07/2019 I had the pleasure of re-evaluating Alex Cadena who is in the observation unit, sitting at the bedside and denies new complaints. He continues to have a headache but states this is slightly better than it was yesterday, he states the headache was provoked by the noise of MRI. He has not vomited, but continues to feel mildly off balance on his feet, not consistently veering in one direction. CURRENT MEDICATIONS: Tylenol, Fioricet, DuoNeb, Eliquis, aspirin on 325 mg q. day, Lipitor, Zebeta, Symbicort, Lexapro, and Nitrostat. PHYSICAL EXAMINATION: Upon arrival to the patient's room, he was sitting at the bedside, appears comfortable, there are no family members at the bedside. VITAL SIGNS: Blood pressure is 116/54 with pulse 87, respiratory 16, temperature 98. SKIN AND EXTREMITIES: Mild arthritic changes are noted in the hands. HEAD AND NECK: Neck is supple without meningeal signs. Arteries are nontender and without bruits. HEART: Regular rate and rhythm. HIGHER CORTICAL FUNCTION: MENTAL STATUS: Patient was alert, oriented to time, place, and person. There was no aphasia or dysarthria. CRANIAL NERVES: II through XII are intact with subtle left-sided ptosis, which his father told me yesterday was longstanding. MOTOR EXAMINATION: There is no pronator drift. Normal bulk and tone is noted in all major muscle groups with no involuntary movements noted. Strength is 5/5 throughout except at the interossei which are 4+ over 5 bilaterally. Sensory intact to pinprick and light touch in all extremities. Reflexes right side listed first biceps 2, 2; brachioradialis 2, 2; triceps 2+, 2+; patellae 2+, 2+ ; ankle 2+, 2+. Dillard's is present bilaterally. Crossed adductors are noted bilaterally. COORDINATION: [id number], qkrj-[id number] movements are intact. Rapid alternating movements are symmetric with finger tapping. DIAGNOSTIC TESTING: The patient had an MRI of the brain completed with and without contrast, which demonstrated multiple nonspecific, nonenhancing white matter hyperintensities, not consistent with diffuse axonal injury, there was no evidence of acute ischemia, intracranial hemorrhage or enhancing lesion. There was asymmetry of the lateral ventricles, slightly more pronounced on the right, likely representing a developmental variation as a discrete arachnoid cyst was not identified. MRI of the cervical spine demonstrated a large disc herniation at the C4-5 level with cord compression and spinal stenosis and AP dimension of the cervical canal at this level was 0.6 cm. There was no intrinsic cord signal abnormality at this level. IMPRESSION: 1. Fall 3 weeks ago with resultant concussion and the patient subsequently became nauseated and had episodes of emesis. Following this event, the patient developed a postconcussive syndrome with persistent nausea, gait imbalance and headache. He had an additional fall on 06/03/2019, where he again struck his head, prompting this hospitalization. 2. Large disc herniation at the C4-5 level with cord compression and narrowing of the canal 2.6 cm at this level, there was no intrinsic cord signal abnormality and neurologic examination demonstrates hyperreflexia with bilateral Dillard signs and crossed adductors. This issue may predispose the patient to gait imbalance/falls. 3. Nonspecific, nonenhancing white matter hyperintensities on MRI of the brain, likely secondary to microvascular ischemic change, migraine-related and/or related to history of prematurity. 4. History of migraine headaches over the past 15 to 20 years, typically occurring once per week. RECOMMENDATION: 1. Case was discussed with the patient, nursing staff and Spine Surgical Service who have been consulted regarding the cervical stenosis. 2. B12 level was normal at 426. 3. Will obtain lab work for etiologies of white matter hyperintensity on MRI of the brain. 4. Cardiac workup as felt indicated per Cardiology who plan to pursue a 30-day event monitor upon discharge. 5. Risk factor modification and the patient is currently maintained on Eliquis. 6. Upon discussion with the spine service, they plan to have the patient back next week for cervical decompression and in preparation bridge the patient from Eliquis and obtain medical clearance. 7. The patient may be discharged from a neurologic standpoint when medically stable. Thank you for allowing me to participate in the care of your patient. MMODL / IJN: [id number] /
--- NOTE | 2019-06-07 16:20 | P.DS ---
Providers Date of admission: 06/03/19 19:56 Expected date of discharge: 06/07/19 Attending physician: Chloé Adams MD Consults: 06/03/19 19:56 Consult Physician Urgent Consulting Provider: Christopher Kline Consult Reason/Comments: syncope Do you want consulting provider notified?: Yes 06/05/19 09:09 Consult Physician Routine Consulting Provider: Rishi Whitmore Consult Reason/Comments: syncopal episode Do you want consulting provider notified?: Yes 06/07/19 07:17 Consult Physician Urgent Consulting Provider: Ramakrishna Elizabeth Consult Reason/Comments: cervical disc herniation with cord compression Do you want consulting provider notified?: Yes Primary care physician: Jim Dutta - Discharge Diagnosis(es) (1) Syncope Status: Acute (2) Headache Status: Acute (3) Hyperlipidemia Status: Acute (4) Cervical myelopathy Status: Acute (5) Postconcussive syndrome Status: Acute (6) Leukocytosis Status: Acute Hospital Course: The patient is a 53-year-old male that was placed in observation for syncopal workup with a history of repeated falls with apparent head trauma and recent diagnosis of concussion with a history of migraine headaches. The patient had a total of 3 head CTs 2 done in [place] and one here at [facility] which demonstrated a possible right frontal horn arachnoid cyst but was otherwise unrevealing of any acute intracranial pathology. Carotid ultrasound was negative for any clinically significant carotid disease. Echocardiogram revealed a preserved LVEF of 55-60% and normal left atrial size. The patient was monitored on telemetry with no arrhythmias noted he was seen and cleared by cardiology with plans for outpatient event monitoring per cardiology. MRI of the head/neck was consistent with central disc herniation at C2-3 with moderate anterior thecal sac compression, large disc herniation from C4 to C5 cord compression and spinal canal stenosis mild disc bulge from C5 to C6 without cord compression. Patient is also noted to have multiple punctate deep white matter changes predominantly within the frontal lobes. Dr. Elizabeth was consulted for further recommendations regarding the patient's cervical myelopathy and severe cervical DDD and recommended follow up in clinic with plans to proceed with surgery within the next 2 weeks. The patient was subsequently discharged home in stable condition. This discharge process took approximately 35 minutes. Focused exam Patient Condition at Discharge: Fair Plan - Discharge Summary Discharge Rx Participant: No New Discharge Prescriptions: New Amitriptyline HCl [Elavil] 25 mg PO HS #30 tab Continue Escitalopram [Lexapro] 20 mg PO HS Apixaban [Eliquis] 5 mg PO BID Bisoprolol-Hctz 10-6.25 mg [Ziac 10-6.25 MG] 10 gm PO DAILY Acetaminophen Tab [Tylenol] 500 mg PO Q6HR PRN tab PRN Reason: Fever And/ Or Pain Multivitamins, Thera [Multivitamin (formulary)] 1 tab PO DAILY@1200 Butalb/Asprin/Caff 50-325-40Mg [Fiorinal 50-325-40 MG] 1 cap PO Q4HR PRN PRN Reason: Migraine Headache Ipratropium-Albuterol Nebulize [Duoneb 0.5 mg-3 mg/3 ml Soln] 3 ml INHALATION RT-QID PRN PRN Reason: Shortness Of Breath Budesonide-Formot 160-4.5 Mcg [Symbicort 160-4.5 Mcg Inhaler] 2 puff INHALATION RT-BID PRN PRN Reason: Shortness Of Breath Discharge Medication List Apixaban [Eliquis] 5 mg PO BID 02/17/19 [History] Bisoprolol-Hctz 10-6.25 mg [Ziac 10-6.25 MG] 10 gm PO DAILY 02/17/19 [History] Escitalopram [Lexapro] 20 mg PO HS 02/17/19 [History] Acetaminophen Tab [Tylenol] 500 mg PO Q6HR PRN tab 03/10/19 [Rx] Budesonide-Formot 160-4.5 Mcg [Symbicort 160-4.5 Mcg Inhaler] 2 puff INHALATION RT-BID PRN 06/03/19 [History] Butalb/Asprin/Caff 50-325-40Mg [Fiorinal 50-325-40 MG] 1 cap PO Q4HR PRN 06/03/19 [History] Ipratropium-Albuterol Nebulize [Duoneb 0.5 mg-3 mg/3 ml Soln] 3 ml INHALATION RT-QID PRN 06/03/19 [History] Multivitamins, Thera [Multivitamin (formulary)] 1 tab PO DAILY@1200 06/03/19 [History] Amitriptyline HCl [Elavil] 25 mg PO HS #30 tab 06/07/19 [Rx] Follow up Appointment(s)/Referral(s): Nigel Goldstein MD [STAFF PHYSICIAN] - 07/12/19 2:30 pm Ramakrishna Elizabeth DO [Doctor of Osteopathic Medicine] - 06/13/19 8:30 am Jim Dutta MD [Primary Care Provider] - 06/13/19 3:45 pm Discharge Disposition: HOME SELF-CARE
[2019-06-07 20:20] LABS: Rheumatoid Factor 12 IU/mL (0-15)
[2019-06-07] MEDS ORDERED: AMITRIPTYLINE HCL 25 MG TAB PO SCH (21:00)
--- NOTE | 2019-06-07 22:27 | P.CNOR ---
History of Present Illness - [facility] Consult date: 06/07/19 Requesting physician: Moi Simon Consult reason: neck pain, other (Cervical myelopathy, unsteady gait, and C4-5 herniated nucleus pulposus with canal stenosis) History of present illness: Patient is a very pleasant 53-year-old male who is seen and examined at the bedside for further evaluation of his cervical spine after he was found to have a C4-5 herniated nucleus pulposus with spinal canal stenosis. Patient states approximately 3 weeks ago he sustained a fall at home while turning the ceiling fan on when he fell forward hitting his head. He began to experience nausea and vomiting following his fall and also into the next day. He presented to [facility] at that time. He was experiencing postconcussive type symptoms at that time. He underwent multiple CT imaging of his brain without significant findings. He was discharged home. On 06/03/2019 he sustained another fall at home after getting up from a chair. He states his dad found him on the floor approximately half hour later. He does not remember actually falling to the floor and was unsure where he was at the time of his dad found him. He was brought to [facility] for further evaluation. During his admission he has been seen by medicine, cardiology, and neurology. He is being evaluated for syncopal episode due to orthostatic hypotension. Multiple brain imaging including CT and MRI did not show evidence of acute findings. After further evaluation by neurology, an MRI of the brain and cervical spine was performed. Cervical spine MRI results were interpreted and w e were consulted after those results. Patient does admit to changes in his ambulation over the past 3 weeks following his initial fall. He states he just to the left and feels unsteady falling to the left. He does have difficulty with opening jars with his hands. He is not currently experiencing any significant upper extremity radiculopathy symptoms bilaterally. He does have some cervical pain and headaches. Patient is eating and voiding without difficulty. 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 He states since that time he has had difficulty with his lungs. He was placed on Elquis approximately 1 years ago after he was found to have pulmonary embolism. He received his medications morning. Patient has been discussed in detail with neurology. Past Medical History Past Medical History: COPD, Hypertension, Pneumonia, Pulmonary Embolus (PE), Respiratory Disorder Additional Past Medical History / Comment(s): multiple pneumothorax left lung, colon polyps removed 2018, congenital heart disease, asthma, restrictive heart disease, pulmonary embolism and HTN History of Any Multi-Drug Resistant Organisms: None Reported Past Surgical History: Back Surgery, Cholecystectomy, Coronary Bypass/CABG, Hernia Repair, Prostate Surgery Additional Past Surgical History / Comment(s): B/L carpal tunnel release,open heart at age 4, B/L inguinal hernia repair, TURP, Orchiectomy of Left testicle. EDG and colonoscopy in 2018. Past Anesthesia/Blood Transfusion Reactions: No Reported Reaction Smoking Status: Never smoker - Past Family History Mother History Unknown: Yes (pancreatic cancer) Family Medical History: Cancer Additional Family Medical History / Comment(s): from Pancreatic cancer Medications and Allergies Home Medications Medication Instructions Recorded Confirmed Type Apixaban [Eliquis] 5 mg PO BID 02/17/19 06/03/19 History Bisoprolol-Hctz 10-6.25 mg [Ziac 10 gm PO DAILY 02/17/19 06/03/19 History 10-6.25 MG] Escitalopram [Lexapro] 20 mg PO HS 02/17/19 06/03/19 History Acetaminophen Tab [Tylenol] 500 mg PO Q6HR PRN tab 03/10/19 06/03/19 Rx Budesonide-Formot 160-4.5 Mcg 2 puff INHALATION RT-BID PRN 06/03/19 06/03/19 History [Symbicort 160-4.5 Mcg Inhaler] Butalb/Asprin/Caff 50-325-40Mg 1 cap PO Q4HR PRN 06/03/19 06/03/19 History [Fiorinal 50-325-40 MG] Ipratropium-Albuterol Nebulize 3 ml INHALATION RT-QID PRN 06/03/19 06/03/19 History [Duoneb 0.5 mg-3 mg/3 ml Soln] Multivitamins, Thera [Multivitamin 1 tab PO DAILY@1200 06/03/19 06/03/19 History (formulary)] Amitriptyline HCl [Elavil] 25 mg PO HS #30 tab 06/07/19 Rx Allergies Allergy/AdvReac Type Severity Reaction Status Date / Time meclizine [From Antivert] Allergy Unknown Unknown Verified 06/03/19 22:09 amlodipine [From Norvasc] Allergy Unknown Verified 06/03/19 22:09 lisinopril [From Zestril] Allergy Unknown Verified 06/03/19 22:09 NSAIDS (Non-Steroidal Allergy Unknown Verified 06/03/19 22:09 Anti-Inflamma omeprazole Allergy Unknown Verified 06/03/19 22:09 Physical Examination Physical exam: Patient is awake, alert, and oriented 3 Vital signs stable Good chest excursion with deep inspiration and expiration Examination of the cervical spine reveals skin is intact with no abrasions, lacerations, or bruises; no erythema, purulence or signs of infection No significant pain with palpation of the cervical spine Full range of motion of the cervical spine with adequate flexion, extension, and bilateral rotation Electronic Prepress Operator strength, thumb strength, interosseous strength, biceps strength, triceps strength, and shoulder strength positive sustained bilaterally Upper extremity strength 5/5 bilaterally except for bilateral shop girl strength 4/5 Biceps reflex 2+ bilaterally and Brachioradialis reflexes 2+ bilaterally Patellar reflex 3+/4 bilaterally No obvious upper extremity hyperreflexia bilaterally Positive Hoffmans sign upper extremity bilaterally Significant unsteady gait drifting to the left and falling to the left Results Pertinent studies: MRI of the cervical spine and brain taken on 06/06/2019: C2-3 moderate central disc herniation without central canal stenosis; C4-5 uncovertebral joint hypertrophy and large central herniated nucleus pulposus with cord compression and spinal canal stenosis with moderate bilateral neural foraminal stenosis; C5- 6 mild disc bulging; Multiple punctate deep white matter changes predominantly within the frontal lobes in which differential diagnosis would include microvascular ischemic change, multiple sclerosis, vasculitis, and Lyme disease - Labs Labs: H & H 06/03/19 Range/Units 18:00 Hgb 15.3 (13.0-17.5) gm/dL Hct 48.0 (39.0-53.0) % Coagulation 06/03/19 Range/Units 18:00 INR 0.9 (<1.2) Result Diagrams: 06/03/19 18:00 06/03/19 18:00 Assessment and Plan Assessment: Assessment: C4-5 herniated nucleus pulposus with spinal canal stenosis Cervical myelopathy Positive Rei sign bilaterally upper extremities Hyperreflexia Unsteady gait History of recent fall 3 weeks ago resulting in cervical extension after hitting forehead on all Postconcussive symptoms status post fall 3 weeks ago including nausea and vomiting History of recent fall 06/03/2019 Significant medical history including COPD, hypertension, pneumonia, pulmonary embolism and congenital heart disease Currently on anticoagulation with Eliquis Multiple punctate deep white matter changes predominantly within the frontal lobes (1) Herniated nucleus pulposus, C4-5 Status: Acute Code(s): M50.221 - OTHER CERVICAL DISC DISPLACEMENT AT C4-C5 LEVEL SNOMED Code(s): 98991015 (2) Cervical spinal stenosis Status: Acute Code(s): M48.02 - SPINAL STENOSIS, CERVICAL REGION SNOMED Code(s): 65810607 (3) Unsteady gait Status: Acute Code(s): R26.81 - UNSTEADINESS ON FEET SNOMED Code(s): 006860771 (4) History of fall within past 90 days Status: Acute Code(s): Z91.81 - HISTORY OF FALLING SNOMED Code(s): 933971311 (5) Multiple falls Status: Acute Code(s): R29.6 - REPEATED FALLS SNOMED Code(s): 559731213 (6) Cervical myelopathy Status: Acute Code(s): G95.9 - DISEASE OF SPINAL CORD, UNSPECIFIED SNOMED Code(s): 228342605 (7) Hypertension Status: Acute Code(s): I10 - ESSENTIAL (PRIMARY) HYPERTENSION SNOMED Code(s): 58033776 (8) COPD (chronic obstructive pulmonary disease) Status: Acute Code(s): J44.9 - CHRONIC OBSTRUCTIVE PULMONARY DISEASE, UNSPECIFIED SNOMED Code(s): 36353037 (9) Headache Status: Acute Code(s): R51 - HEADACHE SNOMED Code(s): 97268092 (10) History of coarctation of aorta Status: Acute Code(s): Z87.74 - PERSONAL HISTORY OF CONGENITAL MALFORM OF HEART AND CIRC SYS SNOMED Code(s): 388011087 (11) History of pulmonary embolism Status: Acute Code(s): Z86.711 - PERSONAL HISTORY OF PULMONARY EMBOLISM SNOMED Code(s): 634354447 Plan: Plan: 1. Patient has been discussed in detail with Dr. Mendel Elizabeth. After reviewing of imaging, physical examination the patient, and further discussion with the patient, the patient is a candidate for surgical intervention at his cervical spine. He does have evidence of a large herniated nucleus pulposus with spinal canal stenosis at C4-5. He has evidence of cervical myelopathy with positive Rei sign of the bilateral upper extremities, upper extremity weakness, and unstable gait. He also has history of recent fall with increased cervical extension due to fall. Patient does have a history of pulmonary embolism over the past year and is currently on Eliquis. 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 At this time, we discussed he will need a bridge anticoagulation medication prior to surgical intervention. We discussed we will plan to have him discharged from the hospital and we'll set up follow-up evaluations with his primary care provider and painting instructor. We will plan to have him follow up in the outpatient setting on 06/13/2019 for further evaluation. We will plan to schedule surgical intervention at that time pending clearance by other medical providers. This plan of care was discussed in detail with the patient who agrees this is a goof of care. We discussed surgical intervention in detail as well. The proposed surgical intervention will be an anterior cervical decompression and fusion at C4-5. At this time, patient will be cleared for discharge from orthopedic spine standpoint with plans to follow up next week to schedule surgical intervention. We will plan outpatient follow- up with Tanner Thurman or Dr. Mendel Elizabeth at [facility] at approximately 8:30 AM on 06/13/2019. I discussed these issues with the patient at length and I answered all of their questions to the best of my ability and the patient understands. I discussed the risk of surgical intervention and alternative treatment options. The risk of surgical intervention was explained to the patient in detail including but not limited to risk of bleeding, risk of infection, risk and need for further surgery, risk of decreased loss of motion of function, malunion, nonunion, hardware failure, nerve damage, paralysis, heart attack, , as well as the fact that surgery may not alleviate her symptoms. I answered all the patient's questions the best of my ability. The patient would like to proceed forward with surgical intervention when cleared by other medical providers and will sign informed consent. 2. Patient will continue to be seen by medicine, pulmonology, and neurology. Time with Patient: Greater than 30 (Including obtaining history, physical examination, reviewing of imaging, and dictation.)
[2019-06-10 12:18] LABS: Lyme IgG/IgM 0.02 Index
== END 2019-06-07 14:58 | disposition home or self-care (01) ==
LOC: EC 17:23 → 1SOBS 19:56
PROVIDERS: ADMIT Internal Medicine; ATTEND Internal Medicine
DX: R55 Syncope and collapse (principal); F07.81 Postconcussional syndrome; M50.021 Cervical disc disorder at C4-C5 level with myelopathy; M48.02 Spinal stenosis, cervical region; J44.9 Chronic obstructive pulmonary disease, unspecified; I10 Essential (primary) hypertension; G43.909 Migraine, unspecified, not intractable, without status migrainosus; M41.9 Scoliosis, unspecified; R20.2 Paresthesia of skin; E78.5 Hyperlipidemia, unspecified; D72.829 Elevated white blood cell count, unspecified; J98.4 Other disorders of lung; I44.0 Atrioventricular block, first degree; R00.1 Bradycardia, unspecified; E78.00 Pure hypercholesterolemia, unspecified; N39.3 Stress incontinence (female) (male); M50.21 Other cervical disc displacement, high cervical region; M50.30 Other cervical disc degeneration, unspecified cervical region; E66.9 Obesity, unspecified; Z68.28 Body mass index [BMI] 28.0-28.9, adult; Z79.01 Long term (current) use of anticoagulants; Z79.51 Long term (current) use of inhaled steroids; Z79.899 Other long term (current) drug therapy; Z86.711 Personal history of pulmonary embolism; R29.6 Repeated falls; W18.30XA Fall on same level, unspecified, initial encounter; Y92.009 Unspecified place in unspecified non-institutional (private) residence as the place of occurrence of the external cause; Z91.81 History of falling; Z87.01 Personal history of pneumonia (recurrent); Z87.74 Personal history of (corrected) congenital malformations of heart and circulatory system; Z86.010 Personal history of colon polyps; Z90.49 Acquired absence of other specified parts of digestive tract; Z87.09 Personal history of other diseases of the respiratory system; Z95.1 Presence of aortocoronary bypass graft; Z90.79 Acquired absence of other genital organ(s); Z80.0 Family history of malignant neoplasm of digestive organs
CPT/HCPCS: 96361 ×3; 96360; 99285; 36415; 93005; 93306; 97161; 85379; 80061; 80053; 85652; 82607; 82550; 82164; 83735; 84484 ×2; 85025; 85610; 85730; 86431; 81003; 86618; 86038; 71046; 93880; 70450; 70553; 72141; G0378 ×5; A9585; Q9950

== ENCOUNTER → 2019-06-17 | Outpatient (CLI) | payer BC ==
--- NOTE | 2019-06-17 11:51 | XR ---
EXAMINATION TYPE: XR chest 2V DATE OF EXAM: 06/17/2019 COMPARISON: 06/03/2019 TECHNIQUE: PA and lateral views submitted. HISTORY: Presurgical FINDINGS: There is a scoliosis. Chronic rib deformities on the left may be secondary to congenital fusion. The heart size is stable and prominent. No acute consolidation. Degenerative changes spine noted. IMPRESSION: 1. Scoliotic curvature with mild cardiomegaly. Rib cage deformities could be congenital or on the bas is of previous trauma.
[2019-06-17 11:55] LABS: Basophils # (A) 0.1 k/uL (0-0.2); Basophils % (A) 1 %; Eosinophils # (A) 0.1 k/uL (0-0.7); Eosinophils % (A) 1 %; HCT 48.3 % (39.0-53.0); HGB 15.1 gm/dL (13.0-17.5); Lymphocytes # (A) 1.5 k/uL (1.0-4.8); Lymphocytes % (A) 19 %; MCH 29.8 pg (25.0-35.0); MCHC 31.2 g/dL (31.0-37.0); MCV 95.5 fL (80.0-100.0); Mean Platelet Volume 6.9; Monocytes # (A) 0.7 k/uL (0-1.0); Monocytes % (A) 9 %; Neutrophils # (A) 5.6 k/uL (1.3-7.7); Neutrophils % (A) 69 %; Platelet Count 256 k/uL (150-450); RBC 5.05 m/uL (4.30-5.90); RDW 14.6 % (11.5-15.5); WBC 8.1 k/uL (3.8-10.6)
[2019-06-17 12:02] LABS: Partial Thromboplastin Time 26.7 sec (22.0-30.0); Prothrombin Time 10.6 sec (9.0-12.0)
[2019-06-17 12:09] LABS: African American GFR (CKD) >90 (>60 ml/min/1.73 sqM); Anion Gap 8 mmol/L; Blood Urea Nitrogen 17 mg/dL (9-20); Calcium 9.9 mg/dL (8.4-10.2); Carbon Dioxide 34 mmol/L (22-30); Chloride 100 mmol/L (98-107); Glucose 106 mg/dL (74-99); Potassium 4.1 mmol/L (3.5-5.1); Sodium 142 mmol/L (137-145)
[2019-06-17 12:11] LABS: Appearance,Urine Clear (Clear); Bilirubin,Urine Negative (Negative); Blood,Urine Negative (Negative); Color,Urine Light Yellow; Glucose,Urine (UA) Negative (Negative); Ketones,Urine Negative (Negative); Leukocyte Esterase,Urine Negative (Negative); Nitrite,Urine Negative (Negative); PH, Urine 5.5 (5.0-8.0); Protein,Urine Negative (Negative); Urobilinogen,Urine <2.0 mg/dL (<2.0)
== END | disposition home or self-care (01) ==
LOC: LABPAT 10:49
PROVIDERS: ATTEND Orthopaedic Surgery Orthopaedic Surgery of the Spine
DX: Z01.818 Encounter for other preprocedural examination (principal)
CPT/HCPCS: 36415; 71046; 80048; 81003; 85025; 85610; 85730; 93005

== ENCOUNTER 2019-06-29 07:16 | Day surgery (SDC) | payer BC ==
[~2019-06-29 07:16] MED LIST: BACITRACIN 50,000 UNIT, POLYMYXIN B 500,000 UNIT in SODIUM CHLORIDE 0.9% IRRIGATIO 1,00... IRRIGATION ONE; DEXAMETHASONE SOD PHOSPHATE 10 MG/ML 1 ML VIAL IV ONE; HYDROmorphone 0.5 MG/0.5 ML SYRINGE IVP PRN; LIDOCAINE 1% 20 ML VIAL (10MG/ML) FOR IV START INTRADERMA PRN; ONDANSETRON 4 MG/2 ML VIAL IVP ONE; ONDANSETRON 4 MG/2 ML VIAL IVP PRN
[2019-06-29] MEDS: LACTATED RINGERS 1,000 ML IV SCH (07:44)
[2019-06-29] MEDS ORDERED: MIDAZOLAM 2 MG/2 ML VIAL ONE (09:08)
[2019-06-29] MEDS ORDERED: LIDOCAINE 1% INJ 10MG/ML (20 ML MDV) ONE (09:08)
[2019-06-29] MEDS ORDERED: SUCCINYLCHOLINE CHLORIDE 100 MG/5 ML SYR IV ONE (09:08)
[2019-06-29] MEDS ORDERED: ROCURONIUM BROMIDE 10 MG/ML 10 ML VIAL IV ONE (09:08)
[2019-06-29] MEDS ORDERED: PROPOFOL 10 MG/ML 20 ML VIAL IV ONE (09:08)
[2019-06-29] MEDS ORDERED: GLYCOPYRROLATE 0.2 MG/ML 2 ML VIAL ONE (09:08)
[2019-06-29] MEDS ORDERED: PHYSOSTIGMINE SALICYLATE 1 MG/ML 2 ML AMP ONE (09:08)
[2019-06-29] MEDS ORDERED: fentaNYL (PF) 50 MCG/ML 2 ML AMP ONE (09:08)
[2019-06-29] MEDS ORDERED: FLUMAZENIL 0.1 MG/ML 5 ML VIAL IVP ONE (09:08)
[2019-06-29] MEDS ORDERED: NEOSTIGMINE 1 MG/ML 10 ML VIAL ONE (09:08)
[2019-06-29] MEDS ORDERED: THROMBIN (BOVINE) 5,000 UNIT VIAL TOPICAL ONE (09:40)
[2019-06-29] MEDS ORDERED: GELATIN SPONGE,ABSORB (LARGE) 1 EACH SPONGE TOPICAL ONE (09:40)
[2019-06-29] MEDS ORDERED: LIDOCAINE 0.5%-EPI 1:200,000 50 ML VIAL SQ ONE ×2 (09:40)
[2019-06-29] MEDS ORDERED: LACTATED RINGERS 1,000 ML IV ONE (11:11)
[2019-06-29] MEDS ORDERED: HYDROmorphone 0.5 MG/0.5 ML SYRINGE IVP PRN (11:21)
[2019-06-29] MEDS ORDERED: HYDROmorphone 1 MG/ML 1 ML SYRINGE IVP PRN (11:21)
[2019-06-29] MEDS ORDERED: ACETAMINOPHEN TAB 500 MG TAB PO PRN (11:22)
[2019-06-29] MEDS ORDERED: NON-FORMULARY DRUG (Butalb/Asprin/Caff 50-325-40mg 1 CAP) PO PRN (11:22)
[2019-06-29] MEDS ORDERED: SYMBICORT 160-4.5 MCG INHALER INHALATION PRN (11:22)
[2019-06-29] MEDS ORDERED: IPRATROPIUM-ALBUTEROL 3 ML NEB INHALATION PRN (11:22)
--- NOTE | 2019-06-29 11:28 | P.OP ---
Date of Procedure: 06/29/19 Preoperative Diagnosis: Severe cervical stenosis C4 5, cervical stenosis C5 6, cervical myelopathy, cervical radiculopathy, degenerative disc disease, neck pain, upper extremity pain Postoperative Diagnosis: Same Anesthesia: GETA Pathology: none sent Condition: stable Disposition: PACU Description of Procedure: BRIEF OPERATIVE NOTE Preoperative Diagnosis:Severe cervical stenosis C4 5, cervical stenosis C5 6, cervical myelopathy, cervical radiculopathy, degenerative disc disease, neck pain, upper extremity pain Postoperative Diagnosis:Severe cervical stenosis C4 5, cervical stenosis C5 6, cervical myelopathy, cervical radiculopathy, degenerative disc disease, neck pain, upper extremity pain Procedure: Anterior cervical decompression with discectomy and fusion C4 5 and C5 6 Placement of interbody graft C4 5 and C5 6 Application of anterior cervical plate C4 5 and 6 Surgeon: Dr. Elizabeth Cloth Dyeing Range Tender: Tanner Mello is present throughout the entire the case persistence during positioning, dissection, exposure, visualization, and all crucial elements of the case as well as closure. Anesthesia: General anesthesia per Dr. Garcia Estimated blood loss: Approximately 150 mL Complications: None apparent Components implanted: K2M [place] anterior cervical plate system with V Kos interbody allograft bone graft and 1 mL of DBX bone putty to supplement the bone graft Disposition: To recovery room in good stable condition. OPERATIVE INDICATIONS The patient has had long-standing issues in their neck and upper extremities. The patient was having difficulty with his pronation his fingers and some balance issues and demonstrated some evidence of early cervical myelopathy. Patient was found have severe cervical stenosis C4 5 and stenosis C5 6 which correlate with his neck and upper extremity symptoms. The patient has been through conservative treatment. He is not having any prolonged benefit despite aggressive conservative treatment. We discussed various treatment options including surgery, and the patient wishes to proceed with surgery We discussed the risk, patient's alternatives and benefits of surgery including but not limited to, risk of bleeding risk of infection, risk of need for further surgery, risk of decreased, loss of motion, muscle function, malunion nonunion, hardware failure, nerve damage, paralysis, heart attack, and . OPERATIVE SUMMARY After discussing all the risks, patient alternatives and benefits at length, the patient elected to proceed with surgical intervention, signed informed consent, and presented for their procedure. The patient was seen and examined in the preoperative holding area and the surgical site was marked. The patient was given antibiotics and brought to the operating room. The patient was positioned on the operating room table in a supine position being careful to pad any bony prominences and pressure points. The patient was sedated and intubated by anesthesia in standard fashion. Once the airway and C- spine were stabilized the patient's arms were padded and tucked at her side, with her shoulders gently taped. The head was placed in a donut pad with the neck in good neutral alignment and position. We were careful to maintain the patient's cervical spine and good neutral alignment and position throughout. The patient was prepped and draped in a normal standard fashion. An appropriate timeout and keystone protocol performed. We were able to proceed with the surgery. The local wound area was infiltrated with local anesthetic. An incision was made transversely approximately 2-1/2 cm over the appropriate levels at C5 on the right. Dissection was taken down subcutaneously to the level of the platysma which was split in line with its fibers. Dissection was taken with a carotid approach, with the trachea and esophagus medial and the carotid sheath laterally. We dissected down to the anterior surface of the vertebral bodies. Intraoperative x-ray was taken which showed a marker at the appropriate level at C4 5. With the appropriate level positively confirmed, we were able to proceed with discectomy at the appropriate levels starting at C4 5 and then moving C5 6. All of the operative levels were exposed appropriately. The patient had all their twitches back, and there was no evidence of recurrent laryngeal issue. The wound was copiously irrigated and suctioned dry as had been done periodically throughout the case. At the appropriate level/levels, strength C4 5 and then moving the C5 6. I established an annulotomy with an 11 blade scalpel. I also removed anterior osteophytes with a bur and a rongeur. A discectomy was performed with a combination of pituitary rongeurs, curettes, a high-speed bur, and Kerrison rongeurs. Note was made of significant disc protrusion and herniation with evidence of stenosis centrally and at the bilateral neural foramen. The posterior longitudinal ligament was taken down as were any posterior osteophytes. This gave good central and bilateral foraminal decompression. There is no evidence of any dural tear or leak. There was some bleeding particular at C4 5 which I was able to control with Gelfoam soaked in thrombin. I was able get good hemostasis. The endplates were prepared with a high-speed bur. With the endplates in good parallel position, I was able to size for the appropriate size interbody graft. The wound was irrigated and suctioned dry the graft was prepared and malleted into position. It had good alignment and position with the anterior surface flush with the anterior surface of the vertebral bodies. This was done similarly the appropriate levels at C4 5 and then at C5 6. With the grafts intact, I was able to measure and contour and appropriate sized plate. The plate was positioned at the midline over the appropriate levels at C4 5 and 6. Screw holes were established with a hand drill and drill guide. Screws were placed in good alignment and position with excellent bony purchase. They were seated under the locking device. The construct was checked and found to be stable. Intraoperative x-ray was taken which showed good alignment and position of the implants at the appropriate levels. There was no evidence of any dural tear or leak. Good hemostasis was maintained. The wound was copiously irrigated and suctioned dry as had been done periodically throughout the case. The platysma was closed with absorbable suture. The subcutaneous tissue was closed. The subcuticular tissue was closed with absorbable suture. The wound was cleaned and dried and dressed appropriately. A soft cervical collar was placed appropriately. The patient was woken up by anesthesia, extubated, transferred back gently to their hospital bed and brought to the recovery room in good stable condition. The patient will be admitted to the hospital for appropriate postoperative care, medical management and monitoring. We will continue to follow them closely about the postoperative course.
[2019-06-29 12:02] VITALS: BMI 28.5
[2019-06-29 12:30] LABS: Glucose,Whole Blood 141 mg/dL (75-99)
--- NOTE | 2019-06-29 14:05 | XR ---
Cervical spine HISTORY: Needle placement Single lateral cervical spine view submitted. Endotracheal tube is present. There is a needle present within the C4-5 intervertebral disc space. De generative disc changes are noted. There are overlying probes. IMPRESSION: Orthopedic localization.
--- NOTE | 2019-06-29 14:21 | XR ---
Cervical spine HISTORY: Status post anterior cervical fusion and discectomy Single lateral view of the cervical spine corresponding to the cervical spine same dated earlier time . Endotracheal tube is in place. There are overlying probes. Patient is status post anterior cervical f usion and discectomy at C4-C6. There are intervertebral spacing blocks. He is anatomic alignment. C7- T1 not seen. IMPRESSION: Orthopedic follow-up.
[2019-06-29] MEDS: SODIUM CHLORIDE 0.9% 1,000 ML IV SCH (14:42)
[2019-06-29] MEDS: MULTIVITAMINS, THERA 1 EACH TAB PO SCH (14:42)
[2019-06-29] MEDS: BENZOCAINE/MENTHOL LOZENG 1 EACH LOZENGE MUCOUS MEM PRN ×2 (15:01→21:17)
[2019-06-29] MEDS: HYDROcodone/APAP 5-325MG 1 EACH TAB PO PRN ×2 (16:10→21:17)
[2019-06-29] MEDS ORDERED: ESCITALOPRAM 20 MG TAB PO SCH (21:00)
[2019-06-29] MEDS ORDERED: AMITRIPTYLINE HCL 25 MG TAB PO SCH (21:00)
[2019-06-30] MEDS: SODIUM CHLORIDE 0.9% 1,000 ML IV SCH (02:30)
[2019-06-30] MEDS: LACTATED RINGERS 1,000 ML IV SCH (03:24)
[2019-06-30] MEDS: BENZOCAINE/MENTHOL LOZENG 1 EACH LOZENGE MUCOUS MEM PRN (06:00)
[2019-06-30] MEDS: HYDROcodone/APAP 5-325MG 1 EACH TAB PO PRN ×2 (06:00→10:26)
[2019-06-30 07:31] VITALS: BP 119/69; PULSE 84; RESP 15; TEMP 98.3
[2019-06-30] MEDS ORDERED: BISOPROLOL-HCTZ 10-6.25 MG 1 EACH TAB PO SCH (09:00)
[2019-06-30] MEDS ORDERED: SENNOSIDES-DOCUSATE SODIUM 1 EACH TAB PO SCH (09:00)
--- NOTE | 2019-06-30 10:32 | P.DS ---
Providers Date of admission: 06/29/19 Attending physician: Ramakrishna Elizabeth Primary care physician: Jim Grimes [facility] Course: The patient presented on the day of admission as per their operative note. He had severe cervical stenosis with early myelopathy and underwent anterior cervical compression with discectomy and fusion at C4 5 and C5 6. Postoperatively he is making some progress in his been able to mobilize in his room. He is having some trouble with his swallowing but has been able have some putting is not having nausea or vomiting. He feels his arms are doing well. Physical Exam The incision site is clean dry and intact. There is no erythema no drainage. There is no purulence no evidence of infection. His neck is soft and supple without any significant swelling. Abdomen soft and nontender. Chest has good excursion with deep inspiration and expiration. The patient has active and passive range of motion intact at the upper and lower extremities. There is no acute change in neurologic status. He has good sustained strength in his bilateral hands Hospital Course Postoperative day #1 status post anterior cervical decompression with discectomy and fusion C4 5 C5 6 for his cervical stenosis with disc herniation and cervical myelopathy with radiculopathy. Patient making progress appropriately thus far. The patient has been making good progress postoperatively. When he woke up from his surgery he was somewhat sluggish in recovering from his anesthesia and I think that is carrying over to some degree this morning. I think he should make good progress through the course the day and he is essentially stable and should be able to be discharged home today if he is able tolerate his diet somewhat better. They have completed the prophylactic antibiotics without any signs or symptoms of infection. The patient has been able to advance their diet, and is tolerating diet adequately. The pain was initially controlled with IV medications and is now controlled appropriately with oral medications. The patient has been able to increase their mobilization. The patient has progressed appropriately. I think they are in good stable condition for discharge today if he makes some improvement with his tolerance of his oral intake. They will be sent home with appropriate prescriptions. I answered their questions to the best of my ability in a language that they can understand and they are agreeable with the plan. They will follow up as directed in approximately 2 weeks or sooner if he is having problems. Patient Condition at Discharge: Good Plan - Discharge Summary Discharge Rx Participant: Yes New Discharge Prescriptions: New HYDROcodone/APAP 5-325MG [[place] 5] 1 each PO Q6HR PRN #12 tab PRN Reason: Pain No Action Escitalopram [Lexapro] 20 mg PO HS Apixaban [Eliquis] 5 mg PO BID Bisoprolol-Hctz 10-6.25 mg [Ziac 10-6.25 MG] 10 gm PO DAILY Acetaminophen Tab [Tylenol] 500 mg PO Q6HR PRN tab PRN Reason: Fever And/ Or Pain Multivitamins, Thera [Multivitamin (formulary)] 1 tab PO DAILY@1200 Butalb/Asprin/Caff 50-325-40Mg [Fiorinal 50-325-40 MG] 1 cap PO Q4HR PRN PRN Reason: Migraine Headache Ipratropium-Albuterol Nebulize [Duoneb 0.5 mg-3 mg/3 ml Soln] 3 ml INHALATION RT-QID PRN PRN Reason: Shortness Of Breath Budesonide-Formot 160-4.5 Mcg [Symbicort 160-4.5 Mcg Inhaler] 2 puff INHALATION RT-BID PRN PRN Reason: Shortness Of Breath Amitriptyline HCl [Elavil] 25 mg PO HS #30 tab Discharge Medication List Apixaban [Eliquis] 5 mg PO BID 02/17/19 [History] Bisoprolol-Hctz 10-6.25 mg [Ziac 10-6.25 MG] 10 gm PO DAILY 02/17/19 [History] Escitalopram [Lexapro] 20 mg PO HS 02/17/19 [History] Acetaminophen Tab [Tylenol] 500 mg PO Q6HR PRN tab 03/10/19 [Rx] Budesonide-Formot 160-4.5 Mcg [Symbicort 160-4.5 Mcg Inhaler] 2 puff INHALATION RT-BID PRN 06/03/19 [History] Butalb/Asprin/Caff 50-325-40Mg [Fiorinal 50-325-40 MG] 1 cap PO Q4HR PRN 06/03/19 [History] Ipratropium-Albuterol Nebulize [Duoneb 0.5 mg-3 mg/3 ml Soln] 3 ml INHALATION RT-QID PRN 06/03/19 [History] Multivitamins, Thera [Multivitamin (formulary)] 1 tab PO DAILY@1200 06/03/19 [History] Amitriptyline HCl [Elavil] 25 mg PO HS #30 tab 06/07/19 [Rx] HYDROcodone/APAP 5-325MG [[place] 5] 1 each PO Q6HR PRN #12 tab 06/30/19 [Rx] Follow up Appointment(s)/Referral(s): Ramakrishna Elizabeth DO [Doctor of Osteopathic Medicine] - 2 Weeks Activity/Diet/Wound Care/Special Instructions: Keep site clean. May shower with waterproof Tegaderm intact. Do not soak in a tub. After 72 hours postoperatively, patient May remove dressing and then may shower with area uncovered. Leave Steri-Strips intact and allow them to fray off on their own. May ambulate as tolerated. Avoid heavy or rigorous activity. No repetitive bending twisting or lifting. No overhead work. Ice to the area for up to 4 times a day for 20 minutes at a time Discharge Disposition: HOME SELF-CARE
[2019-06-30] MEDS: MULTIVITAMINS, THERA 1 EACH TAB PO SCH (11:30)
[2019-07-01] MEDS ORDERED: APIXABAN 5 MG TAB PO SCH (09:00)
== END 2019-06-30 15:30 | disposition home or self-care (01) ==
LOC: OR 07:16 → 4SSUR 11:24 → OR 06-30 15:30
PROVIDERS: ATTEND Orthopaedic Surgery Orthopaedic Surgery of the Spine
DX: M50.021 Cervical disc disorder at C4-C5 level with myelopathy (principal); M50.121 Cervical disc disorder at C4-C5 level with radiculopathy; M48.02 Spinal stenosis, cervical region; M25.78 Osteophyte, vertebrae; I10 Essential (primary) hypertension; J44.9 Chronic obstructive pulmonary disease, unspecified; E66.3 Overweight; Z68.27 Body mass index [BMI] 27.0-27.9, adult; Z90.49 Acquired absence of other specified parts of digestive tract; Z82.49 Family history of ischemic heart disease and other diseases of the circulatory system; Q24.9 Congenital malformation of heart, unspecified; J45.998 Other asthma; R91.1 Solitary pulmonary nodule; E55.9 Vitamin D deficiency, unspecified; N40.0 Benign prostatic hyperplasia without lower urinary tract symptoms; Z86.711 Personal history of pulmonary embolism; F41.9 Anxiety disorder, unspecified; I25.10 Atherosclerotic heart disease of native coronary artery without angina pectoris; E07.9 Disorder of thyroid, unspecified; F39 Unspecified mood [affective] disorder; Z95.1 Presence of aortocoronary bypass graft; M41.9 Scoliosis, unspecified; Z87.01 Personal history of pneumonia (recurrent); Z80.0 Family history of malignant neoplasm of digestive organs; Z97.3 Presence of spectacles and contact lenses; Z79.51 Long term (current) use of inhaled steroids; Z79.01 Long term (current) use of anticoagulants; Z79.899 Other long term (current) drug therapy; Z88.6 Allergy status to analgesic agent; Z88.8 Allergy status to other drugs, medicaments and biological substances
CPT/HCPCS: 72020; 22551; 22552; 22845; 20931; C1713 ×2; C1762; J2250; J2710; J0690 ×2; J2405; J2001; J3010; J0330; J2704; 86850; 86900; 86901

== ENCOUNTER 2019-08-11 09:15 | Day surgery (SDC) | payer BC ==
[2019-08-09 11:57] VITALS: BMI 26.4
[2019-08-11 09:49] VITALS: TEMP 97.6
[2019-08-11] MEDS ORDERED: LACTATED RINGERS 1,000 ML IV ONE (09:49)
[2019-08-11] MEDS ORDERED: LIDOCAINE 1% 20 ML VIAL (10MG/ML) FOR IV START INTRADERMA ONE (09:49)
[2019-08-11] MEDS ORDERED: PROPOFOL 10 MG/ML 20 ML VIAL IV ONE (10:38)
[2019-08-11] MEDS ORDERED: LIDOCAINE 1% INJ 10MG/ML (20 ML MDV) ONE (10:38)
--- NOTE | 2019-08-11 11:19 | P.PCN ---
Date of Procedure: 08/11/19 Description of Procedure: BRIEF HISTORY: Patient is a pleasant 4-year-old male who presents for outpatient upper endoscopy. The patient reports symptoms of dysphagia occurring since his cervical fusion 6 weeks ago. He has a sensation of food getting hung up in his food pipe. He previously had similar symptoms approximately 4 years ago at which time he underwent EGD but is unsure of the results of that time. PROCEDURE PERFORMED: Esophagogastroduodenoscopy with biopsy. PREOPERATIVE DIAGNOSIS: Esophageal dysphagia. ESTIMATED BLOOD LOSS: Minimal. IV sedation per anesthesia. PROCEDURE: After informed consent was obtained, the patient was brought into the endoscopy unit. IV sedation was administered by Anesthesia under continuous monitoring. Initially the Olympus GIF-190 video endoscope was inserted into the mouth. Esophagus intubated without any difficulty. It was gradually advanced into the stomach. The stomach was adequately insufflated with air, and upon careful examination, mucosa of the antrum, body, cardia and the fundus were significant for diffuse mild erythema in the antrum and body suggestive of mild gastritis which was biopsied. As well as deformity of the distal antrum and pylorus with inflammation and narrowing prohibiting passage of the gastroscope into the duodenum. The scope was then withdrawn into the esophagus. The GE junction was located at 38 cm from the incisors. The esophagus appeared grossly normal with no ulceration, erosions or irritation noted with mid esophageal biopsies taken. However there did appear to be some external compression in the proximal esophagus, however the esophagus remained widely patent and was not obstructed. The patient tolerated the procedure well. IMPRESSION: 1. Mild gastritis antrum and body, biopsied. 2. Deformity of the distal antrum and pylorus with narrowing of the pylorus prohibiting advancement of the gastroscope into the duodenum. 3. Normal-appearing esophagus, widely patent with possibility of some external pressure the proximal esophagus from recent surgery otherwise no obstruction or pathology to explain dysphagia. RECOMMENDATIONS: The findings of this examination were discussed with the patient. Okay to resume diet. Discussed dietary modifications including small bites of food, s itting upright during meals, and sips of water between swallows. Patient should avoid all NSAID medications. I have recommended the patient start a trial of Prilosec twice daily. If patient has any symptoms of gastric obstruction including but not limited to nausea vomiting, and abdominal ditension he can presents for repeat upper endoscopy at which time pyloric dilation can be performed.
[2019-08-11 11:53] VITALS: RESP 16
[2019-08-11 12:11] VITALS: BP 142/75; PULSE 75
== END 2019-08-11 12:44 | disposition home or self-care (01) ==
LOC: ORWHC2ENDO 09:15
PROVIDERS: ATTEND Internal Medicine
DX: K29.70 Gastritis, unspecified, without bleeding (principal); K31.1 Adult hypertrophic pyloric stenosis; R13.10 Dysphagia, unspecified; I10 Essential (primary) hypertension; Z98.1 Arthrodesis status; Z95.1 Presence of aortocoronary bypass graft; Z79.899 Other long term (current) drug therapy; Z88.8 Allergy status to other drugs, medicaments and biological substances; Z88.2 Allergy status to sulfonamides; Z90.49 Acquired absence of other specified parts of digestive tract; Z87.74 Personal history of (corrected) congenital malformations of heart and circulatory system; Z86.711 Personal history of pulmonary embolism; Z83.79 Family history of other diseases of the digestive system; Z80.0 Family history of malignant neoplasm of digestive organs
CPT/HCPCS: 88305; 43239; J2001; J2704

== ENCOUNTER 2019-10-02 10:05 | Inpatient (IN) | payer BC ==
[2019-10-02] MEDS ORDERED: IPRATROPIUM-ALBUTEROL 3 ML NEB INHALATION STA (10:20)
--- NOTE | 2019-10-02 10:29 | XR ---
EXAMINATION TYPE: XR chest 2V DATE OF EXAM: 10/02/2019 HISTORY: cough, ely. REFERENCE: Previous study dated 06/17/2019. FINDINGS: There is a mild dextroscoliosis. There are rib abnormalities on the left. Heart size upper limits of normal in size. The lungs are clear. Pleural spaces are clear. Incidental note is made of a previous ACDF in the lower cervical spine. IMPRESSION: 1. MILD CARDIOMEGALY. 2. NO DEFINITE ACUTE INTRATHORACIC ABNORMALITY.
[2019-10-02] MEDS ORDERED: methylPREDNISolone SOD SUCCI 125 MG/2 ML VIAL IV STA (10:55)
--- NOTE | 2019-10-02 10:58 | ED ---
URI HPI - General Chief Complaint: Upper Respiratory Infection Stated Complaint: MC Time Seen by Provider: 10/02/19 10:14 Source: patient, RN notes reviewed Mode of arrival: ambulatory Limitations: no limitations - History of Present Illness Initial Comments: 54-year-old male presents emergency Department chief complaint of dyspnea. Patient had increasing shortness but the last 4 days or so. Patient states he does not want feel well at the beginning of the week states that he had a flu shot has steady decline since. Patient does cause pulmonology for COPD. Patient states that his been admitted in the past for COPD exacerbations. Denies any chest pain states he has some tightness in a productive cough. No fevers or chills. - Related Data Home Medications Medication Instructions Recorded Confirmed Escitalopram [Lexapro] 20 mg PO HS 02/17/19 10/02/19 Bisoprolol/Hydrochlorothiazide 2 tab PO DAILY 10/02/19 10/02/19 [Bisoprolol-Hctz 5-6.25 mg Tab] Famotidine 20 mg PO DAILY 10/02/19 10/02/19 methylPREDNISolone [Medrol Dose See Taper PO DIRECTED 10/02/19 10/02/19 Pack] Allergies Allergy/AdvReac Type Severity Reaction Status Date / Time meclizine [From Antivert] Allergy Unknown Unknown Verified 10/02/19 10:38 amlodipine [From Norvasc] Allergy Unknown Verified 10/02/19 10:38 lisinopril [From Zestril] Allergy Unknown Verified 10/02/19 10:38 NSAIDS (Non-Steroidal Allergy Unknown Verified 10/02/19 10:38 Anti-Inflamma omeprazole Allergy Unknown Verified 10/02/19 10:38 Review of Systems ROS Statement: Those systems with pertinent positive or pertinent negative responses have been documented in the HPI. ROS Other: All systems not noted in ROS Statement are negative. 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 History of Any Multi-Drug Resistant Organisms: None Reported Past Surgical History: Back Surgery, Cholecystectomy, Coronary Bypass/CABG, Hernia Repair, Prostate Surgery Additional Past Surgical History / Comment(s): carpal tunnel release., open heart at age 4, inguinal hernia repair, TURP, Orchiectomy of Left testicle. Egd and colonoscopy . Past Anesthesia/Blood Transfusion Reactions: No Reported Reaction Past Psychological History: No Psychological Hx Reported Smoking Status: Never smoker Past Alcohol Use History: None Reported Past Drug Use History: None Reported - Past Family History Mother History Unknown: Yes Family Medical History: Cancer Additional Family Medical History / Comment(s): from Pancreatic cancer General Exam Limitations: no limitations General appearance: alert, in no apparent distress Head exam: Present: atraumatic, normocephalic, normal inspection Eye exam: Present: normal appearance, PERRL, EOMI. Absent: scleral icterus, conjunctival injection, periorbital swelling ENT exam: Present: normal exam, normal oropharynx, mucous membranes moist, TM's normal bilaterally, normal external ear exam Neck exam: Present: normal inspection, full ROM. Absent: tenderness, meningi smus, lymphadenopathy Respiratory exam: Present: respiratory distress (Mild), wheezes (Diffuse bilateral). Absent: normal lung sounds bilaterally, rales, rhonchi, stridor Cardiovascular Exam: Present: regular rate, normal rhythm, normal heart sounds. Absent: systolic murmur, diastolic murmur, rubs, gallop, clicks GI/Abdominal exam: Present: soft, normal bowel sounds. Absent: distended, tenderness, guarding, rebound, rigid Neurological exam: Present: alert, oriented X3 Skin exam: Present: warm, dry, intact, normal color. Absent: rash Course Vital Signs 10/02/19 10/02/19 10/02/19 10:08 10:15 10:40 Temperature 97.9 F Pulse Rate 89 88 Respiratory 20 21 Rate Blood Pressure 142/85 O2 Sat by Pulse 96 Oximetry 10/02/19 10/02/19 10/02/19 10:49 11:23 11:59 Temperature Pulse Rate 96 73 71 Respiratory 16 Rate Blood Pressure 145/75 O2 Sat by Pulse 95 Oximetry 10/02/19 12:05 Temperature Pulse Rate 67 Respiratory Rate Blood Pressure O2 Sat by Pulse Oximetry Medical Decision Making - Medical Decision Making X-ray shows chronic changes no acute findings. Patient said no improvement with treatment will be admitted for COPD exacerbation - Lab Data Result diagrams: 10/02/19 11:16 11 11:16 Lab Results 10/02/19 10/02/19 10/02/19 Range/Units 11:16 11:16 11:16 WBC 12.2 H (3.8-10.6) k/uL RBC 5.24 (4.30-5.90) m/uL Hgb 15.9 (13.0-17.5) gm/dL Hct 48.2 (39.0-53.0) % MCV 92.1 (80.0-100.0) fL MCH 30.4 (25.0-35.0) pg MCHC 33.1 (31.0-37.0) g/dL RDW 14.2 (11.5-15.5) % Plt Count 241 (150-450) k/uL Neutrophils % 76 % Lymphocytes % 8 % Monocytes % 10 % Eosinophils % 0 % Basophils % 4 % Neutrophils # 9.2 H (1.3-7.7) k/uL Lymphocytes # 0.9 L (1.0-4.8) k/uL Monocytes # 1.2 H (0-1.0) k/uL Eosinophils # 0.1 (0-0.7) k/uL Basophils # 0.5 H (0-0.2) k/uL Sodium 140 (137-145) mmol/L Potassium 3.9 (3.5-5.1) mmol/L Chloride 102 (98-107) mmol/L Carbon Dioxide 27 (22-30) mmol/L Anion Gap 11 mmol/L BUN 25 H (9-20) mg/dL Creatinine 0.63 L (0.66-1.25) mg/dL Est GFR (CKD-EPI)AfAm >90 (>60 ml/min/1.73 sqM) Est GFR (CKD-EPI)NonAf >90 (>60 ml/min/1.73 sqM) Glucose 99 (74-99) mg/dL Calcium 9.8 (8.4-10.2) mg/dL Magnesium 1.9 (1.6-2.3) mg/dL Total Bilirubin 0.6 (0.2-1.3) mg/dL AST 35 (17-59) U/L ALT 50 (21-72) U/L Alkaline Phosphatase 111 (38-126) U/L Troponin I <0.012 (0.000-0.034) ng/mL Total Protein 7.9 (6.3-8.2) g/dL Albumin 4.7 (3.5-5.0) g/dL - EKG Data -: EKG Interpreted by Me EKG Comments: EKG performed at 11:33 sinus rhythm with biatrial enlargement, rate of 69. O2 at 2 QRS 84 QT status QTC 412/444 Critical Care Time Critical Care Time: Yes Total Critical Care Time: 35 Critical Care Time: Total 35 minutes of critical care time were used initially evaluated the patient, or chest x-ray, breathing symptoms, labs, EKG. Patient was given 2 DuoNeb treatments with minimal improvement chest x-ray showed no acute findings to chronic changes. EKG is unremarkable labs show mild leukocytosis. Patient will be admitted on IV steroids, repeat treatment, antibiotics with consult to pulmonology Dr. Wan. Disposition Clinical Impression: Acute exacerbation of COPD with asthma Disposition: ADMITTED IP TO THIS HOSP Condition: Fair Referrals: Jim Dutta MD [Primary Care Provider] - 1-2 days
[2019-10-02 11:38] LABS: Basophils # (A) 0.5 k/uL (0-0.2); Basophils % (A) 4 %; Eosinophils # (A) 0.1 k/uL (0-0.7); Eosinophils % (A) 0 %; HCT 48.2 % (39.0-53.0); HGB 15.9 gm/dL (13.0-17.5); Lymphocytes # (A) 0.9 k/uL (1.0-4.8); Lymphocytes % (A) 8 %; MCH 30.4 pg (25.0-35.0); MCHC 33.1 g/dL (31.0-37.0); MCV 92.1 fL (80.0-100.0); Mean Platelet Volume 5.6; Monocytes # (A) 1.2 k/uL (0-1.0); Monocytes % (A) 10 %; Neutrophils # (A) 9.2 k/uL (1.3-7.7); Neutrophils % (A) 76 %; Platelet Count 241 k/uL (150-450); RBC 5.24 m/uL (4.30-5.90); RDW 14.2 % (11.5-15.5); WBC 12.2 k/uL (3.8-10.6)
[2019-10-02 11:47] LABS: ALT 50 U/L (21-72); AST 35 U/L (17-59); African American GFR (CKD) >90 (>60 ml/min/1.73 sqM); Albumin 4.7 g/dL (3.5-5.0); Alkaline Phosphatase 111 U/L (38-126); Anion Gap 11 mmol/L; Blood Urea Nitrogen 25 mg/dL (9-20); Calcium 9.8 mg/dL (8.4-10.2); Carbon Dioxide 27 mmol/L (22-30); Chloride 102 mmol/L (98-107); Glucose 99 mg/dL (74-99); Magnesium 1.9 mg/dL (1.6-2.3); Potassium 3.9 mmol/L (3.5-5.1); Sodium 140 mmol/L (137-145); Total Bilirubin 0.6 mg/dL (0.2-1.3); Total Protein 7.9 g/dL (6.3-8.2)
[2019-10-02] MEDS ORDERED: ALBUTEROL NEBULIZED 2.5 MG/3 ML INHALATION STA (11:51)
[2019-10-02] MEDS ORDERED: ALBUTEROL NEBULIZED 2.5 MG/3 ML INHALATION PRN (12:18)
--- NOTE | 2019-10-02 14:31 | HP ---
HISTORY AND PHYSICAL CHIEF COMPLAINT: Difficulty breathing. HISTORY OF PRESENT ILLNESS: This is another admission for this 54-year-old gentleman who has deficiencies. He was 7 weeks premature and has always had lung disease. He had open heart procedure on 2 different occasions, 1 for patent ductus arteriosus and the other for coarctation of the aorta. He follows with Dr. Goldstein normally. He and his father explained that he has about 36% of normal pulmonary function. Occasionally he gets more and more difficulty breathing and comes emergency room and this is the case this time. He has restrictive pulmonary disease on his studies. He has had no hemoptysis, chills, fever, sputum production, etc. REVIEW OF SYSTEMS: He has had no other complaints or problems. He is awake and alert. He has had no headaches, seizures, problems with vision or hearing, abdominal pain, vomiting, diarrhea, melena, diabetes, etc. Past medical history, family history and personal and social histories reveal that he does not smoke. Surgically he has had 2 cardiac procedures, herniated nucleus polyposis, cholecystectomy, carpal tunnel surgery and recently had a cervical fusion. He is not allergic to any medication. At home he is on bisoprolol/hydrochlorothiazide, Lexapro, and Pepcid. PHYSICAL EXAMINATION: Blood pressure 145/75, pulse 73, temperature 99, and respirations 16. In general he appeared to be well developed, well nourished, no acute distress. Skin color is normal. Skin is warm and dry. Lymph nodes not enlarged. Head, ears, eyes, nose, mouth, and throat were normal. Neck veins are not distended. Chest demonstrated extensive rales and rhonchi with inspiratory and expiratory wheezing and a prolonged expiratory phase. Cardiac exam is normal and the abdomen is soft and nontender without visceromegaly or masses. Extremities normal. Lower extremities were somewhat underdeveloped. Neurologically he seemed to be intact. IMPRESSION: 1. Exacerbate chronic obstructive pulmonary disease. 2. Congenital restrictive respiratory disease. 3. History of congenital heart disease, status post two procedures. PLAN: 1. Bed rest. 2. IV fluids. 3. Updrafts. 4. Antibiotics. 5. Consult pulmonology. MMODL / KARINN: [id number] /
[2019-10-02] MEDS ORDERED: methylPREDNISolone SOD SUCCI 40 MG/ML 1 ML VIAL IV SCH (16:00)
[2019-10-02] MEDS: IPRATROPIUM-ALBUTEROL 3 ML NEB INHALATION SCH ×2 (16:14→20:09)
[2019-10-02] MEDS: BISOPROLOL-HCTZ 5-6.25 MG 1 EACH TAB PO SCH (16:36)
[2019-10-02] MEDS: methylPREDNISolone SOD SUCCI 125 MG/2 ML VIAL IV SCH (17:30)
--- NOTE | 2019-10-02 17:43 | CONS ---
CONSULTATION This is a pulmonary/critical care consultation. DATE OF SERVICE: October 02, 2019 REASON FOR CONSULTATION: Shortness of breath, difficulty breathing. HISTORY OF PRESENT ILLNESS: This is a 54-year-old gentleman who has a history of chronic bronchial asthma. I actually saw him in consultation back in February of this year. At that time, he presented with cough, wheezing and shortness of breath. He typically sees Dr. Goldstein in the office. He has a history of chronic bronchial asthma, congenital heart disease with previous surgery for coarctation of the aorta and patent ductus arteriosus, previous history of pulmonary embolism, hypertension, diabetes, restrictive lung disease secondary to scoliosis and prematurity. Anyway, the patient presents to the hospital on October 02 with complaints of increasing shortness of breath. For the prior three months, he has been doing relatively well. He has not been feeling well since last Thursday when he received the flu shot. He blames everything on the flu shot and since that time, he has been steadily declining with increasing shortness of breath, chest tightness, wheezing, cough and some productive cough with yellow phlegm production. He denies any chest pain or chest discomfort. Denies any fever or chills. He is sitting in the bed taking a breathing treatment. His father is at the bedside. Since he was admitted, he is feeling just a bit better. His primary care doctor is Dr. Dutta in [place]. He sees Dr. Goldstein for his pulmonary issues. His last admission was in February. HOME MEDICATIONS: Include Lexapro, Bisoprolol-HCTZ, famotidine, and Medrol Dosepak. He also has an updraft machine at home with both albuterol and Atrovent. He only uses as needed. He does not use anything on a regular basis for his asthma. ALLERGIES: INCLUDE MECLIZINE, AMLODIPINE, LISINOPRIL, NSAID, AND OMEPRAZOLE. PAST MEDICAL HISTORY: As mentioned includes chronic bronchial asthma, hypertension, diabetes, pulmonary embolism, pneumonia, scoliosis, and congenital cardiac disease. He has also had multiple pneumothoraces of the left lung, as well as dysphagia and cervical disc disease. SURGICAL HISTORY: Includes hernia repair, cholecystectomy, back surgery, prostate surgery and repair of his coarctation of the aorta and patent ductus arteriosus. In addition, the patient has had carpal tunnel release, inguinal hernia repair, TURP, orchiectomy of the left testicle, EGD and colonoscopy. SOCIAL HISTORY: Is negative for tobacco use, illicit drug use or alcohol use. 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 REVIEW OF SYSTEMS: CONSTITUTIONAL negative. NEUROLOGIC negative. HEENT negative. CARDIOVASCULAR negative. PULMONARY: Shortness of breath, chest tightness, wheezing, cough and yellow phlegm production. GI negative. negative. RHEUMATOLOGIC negative. IMMUNOLOGIC negative. ENDOCRINOLOGIC negative. DERMATOLOGIC negative. PHYSICAL EXAMINATION: VITAL SIGNS: Current vital signs are reviewed. Temperature 97.8. Heart rate 72, respiratory rate 16, blood pressure 126/77, mean 93 and room air saturation 94%. GENERAL: He does not appear to be in a great deal of shortness of breath. There is no audible wheezing, use of accessory muscles or conversational dyspnea. Again on entrance into the room, he was just finishing off a breathing treatment. He does feel better since being admitted. HEENT examination is grossly unremarkable. Mucous membranes are moist. NECK: Supple. Full range of motion. No adenopathy. Neck veins are flat. CARDIOVASCULAR examination reveals regular rhythm and rate. S1, S2 normal. There is no S3, S4, or murmur. LUNGS: Reveal diffuse inspiratory and expiratory wheezes and rhonchi. His chest is rather noisy. There is prolongation on forced maneuver. Adventitious lung sounds are more prominent on forced maneuver. ABDOMEN: Soft. Bowel sounds are heard. EXTREMITIES are intact. No cyanosis, clubbing, or edema. SKIN: Without rash. NEUROLOGIC: Examination is brief but nonfocal. X-RAY: Most recent chest x-ray was done this morning in the emergency room and shows cardiomegaly but no active pulmonary disease. LABS: Reviewed. White count 12.2, hemoglobin 15.9, hematocrit 48.2, platelet count 241,000. Sodium, potassium normal and chloride normal. CO2 normal. Anion gap is 11. BUN and creatinine were 25 and 0.63. Troponin was less than 0.012. His current medications include albuterol updrafts, Zithromax orally, 1 dose of Rocephin and Solu-Medrol. ASSESSMENT: 1. Asthma exacerbation complicated by purulent tracheobronchitis, a bit improved since admission this morning. 2. History of recent admission in February of this year for similar episode of asthma exacerbation. 3. History of congenital heart disease, status post surgery for coarctation of aorta and patent ductus arteriosus. 4. Previous history of pulmonary embolism. 5. History of hypertension. 6. Diabetes mellitus. 7. Restrictive lung disease secondary to scoliosis. PLAN: The patient is on appropriate medications. We will continue to follow. No additional recommendations are made. Prognosis is guarded. He should respond to therapy. I will increase his Solu-Medrol up to 60 q.6 hours. I will also add some Symbicort to his regimen. MMODL / IJN: [id number] /
[2019-10-02] MEDS ORDERED: methylPREDNISolone SOD SUCCI 125 MG/2 ML VIAL IV SCH (18:00)
[2019-10-02] MEDS: SYMBICORT 160-4.5 MCG INHALER INHALATION SCH (20:09)
[2019-10-02] MEDS: ESCITALOPRAM 20 MG TAB PO SCH (21:40)
[2019-10-03] MEDS: methylPREDNISolone SOD SUCCI 125 MG/2 ML VIAL IV SCH ×2 (00:11→05:44)
[2019-10-03] MEDS: BISOPROLOL-HCTZ 5-6.25 MG 1 EACH TAB PO SCH (07:42)
[2019-10-03] MEDS: FAMOTIDINE 20 MG TAB PO SCH (07:42)
[2019-10-03] MEDS: AZITHROMYCIN 500 MG TAB PO SCH (07:42)
[2019-10-03] MEDS: IPRATROPIUM-ALBUTEROL 3 ML NEB INHALATION SCH ×4 (08:12→20:56)
[2019-10-03] MEDS: SYMBICORT 160-4.5 MCG INHALER INHALATION SCH ×2 (08:12→20:56)
[2019-10-03 12:06] LABS: Glucose,Whole Blood 153 mg/dL (75-99)
[2019-10-03] MEDS: INSULIN ASPART (NovoLOG) 100 UNIT/ML VIAL SQ SCH ×3 (12:29→21:11)
--- NOTE | 2019-10-03 14:56 | P.PN ---
Subjective Progress Note Date: 10/03/19 Principal diagnosis: Acute exacerbation of moderate persistent chronic bronchial asthma The patient is seen today 10/03/2019 in follow-up on the regular medical floor. He is currently sitting up at the bedside. Awake and alert in no acute distress. He is breathing easier today as compared to yesterday area and maintaining O2 saturations in the mid 90s on room air. He's afebrile. Hemodynamically stable. Blood culture reveals no growth. He's been maintained on Symbicort, DuoNeb inhalations, IV Solu-Medrol, azithromycin. Objective - Vital Signs Vital signs: Vital Signs Temp 97.5 F L 10/03/19 12:01 Pulse 69 10/03/19 12:23 Resp 17 10/03/19 12:01 BP 148/68 10/03/19 12:01 Pulse Ox 95 10/03/19 12:01 Intake & Output 10/02/19 10/03/19 10/03/19 18:59 06:59 18:59 Intake Total 120 1080 240 Balance 120 1080 240 Weight 65.771 kg Intake: Oral 120 1080 240 Other: Voiding Method Toilet Toilet # Voids 2 2 - Exam GENERAL EXAM: Alert, active, 54-year-old gentleman, on room air comfortable in no apparent distress. HEAD: Normocephalic. EYES: Normal reaction of pupils, equal size. NOSE: Clear with pink turbinates. THROAT: No erythema or exudates. NECK: No masses, no JVD. CHEST: No chest wall deformity. LUNGS: Equal air entry with faint end expiratory wheeze CVS: S1 and S2 normal with no audible murmur, regular rhythm. ABDOMEN: No hepatosplenomegaly, normal bowel sounds, no guarding or rigidity. SPINE: No scoliosis or deformity SKIN: No rashes CENTRAL NERVOUS SYSTEM: No focal deficits, tone is normal in all 4 extremities. EXTREMITIES: There is no peripheral edema. No clubbing, no cyanosis. Peripheral pulses are intact. - Labs CBC & Chem 7: 10/02/19 11:16 10/02/19 11:16 Labs: Abnormal Lab Results - Last 24 Hours (Table) 10/03/19 Range/Units 12:05 POC Glucose (mg/dL) 153 H (75-99) mg/dL Microbiology - Last 24 Hours (Table) 10/02/19 11:10 Blood Culture - Preliminary Blood No Growth after 24 hours Assessment and Plan Assessment: Impression: #1 Acute exacerbation of moderate persistent chronic bronchial asthma, complicated by purulent tracheobronchitis. #2 History of congenital heart disease, status post surgery for coarctation of aorta and patent ductus arteriosus. #3 Previous history of pulmonary embolism. #4 Hypertension. #5 Diabetes mellitus. #6 Restrictive lung disease secondary to scoliosis. Plan: The patient was seen and evaluated by Dr. Wilson. He is improved from the pulmonary standpoint. Probable discharge in the a.m. We'll continue to follow. Continue the current treatment plan. I, the cosigning physician, performed a history & physical examination of the patient. Lungs sounds with end expiratory wheeze. Maintaining good O2 saturations in the 90s on room air. I discussed the assessment and plan of care with my nurse practitioner, Ella Murphy. I attest to the above note as dictated by her.
[2019-10-03] MEDS: methylPREDNISolone SOD SUCCI 40 MG/ML 1 ML VIAL IV SCH ×2 (16:38→23:54)
[2019-10-03 17:07] LABS: Glucose,Whole Blood 108 mg/dL (75-99)
--- NOTE | 2019-10-03 19:30 | PN ---
PROGRESS NOTE CHIEF COMPLAINT: Exacerbation of COPD. HISTORY OF PRESENT ILLNESS: This gentleman is not any better. He is still very congested and wheezy. He has had no fever or chills. PHYSICAL EXAMINATION: Vital signs normal. He still has extensive rales and rhonchi bilaterally with expiratory and inspiratory wheezing. Cough is productive. Cardiac exam is normal. IMPRESSION: Exacerbation of chronic obstructive pulmonary disease. PLAN: Continue with current program. 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 MMODL / IJN: [id number] /
[2019-10-03 19:44] LABS: Hemoglobin A1C 6.1 % (4.0-6.0)
[2019-10-03 20:45] LABS: Glucose,Whole Blood 214 mg/dL (75-99)
[2019-10-03] MEDS: ESCITALOPRAM 20 MG TAB PO SCH (21:10)
[2019-10-03] MEDS: ACETAMINOPHEN TAB 325 MG TAB PO PRN (21:40)
[2019-10-04] MEDS: IPRATROPIUM-ALBUTEROL 3 ML NEB INHALATION SCH ×4 (07:06→19:23)
[2019-10-04] MEDS: SYMBICORT 160-4.5 MCG INHALER INHALATION SCH (07:06)
[2019-10-04 07:09] LABS: Glucose,Whole Blood 145 mg/dL (75-99)
[2019-10-04] MEDS: INSULIN ASPART (NovoLOG) 100 UNIT/ML VIAL SQ SCH ×4 (07:40→21:09)
[2019-10-04] MEDS: AZITHROMYCIN 500 MG TAB PO SCH (07:40)
[2019-10-04] MEDS: methylPREDNISolone SOD SUCCI 40 MG/ML 1 ML VIAL IV SCH ×3 (07:41→23:25)
[2019-10-04] MEDS: BISOPROLOL-HCTZ 5-6.25 MG 1 EACH TAB PO SCH (07:41)
[2019-10-04] MEDS: FAMOTIDINE 20 MG TAB PO SCH (07:41)
[2019-10-04] MEDS: ACETAMINOPHEN TAB 325 MG TAB PO PRN (07:43)
--- NOTE | 2019-10-04 10:37 | P.PN ---
Subjective Progress Note Date: 10/04/19 On today's evaluation of 10/04/2019 the patient shortness of breath spastic and wheezy without much improvement since yesterday. Unable to bring up much sputum. No chest pain. He is short of breath with limited amount of activity and sometimes even at rest. He is able to complete full sentences. No use of excessive muscle breathing. No other complaints otherwise for now. The patient on Symbicort. This will be switched to a combination of Perforomist and Pulmicort nebulized treatments on the clock. The patient remains on IV Solu- Medrol. Objective - Vital Signs Vital signs: Vital Signs Temp 97.7 F 10/04/19 04:51 Pulse 82 10/04/19 07:16 Resp 16 10/04/19 04:51 BP 155/82 10/04/19 04:51 Pulse Ox 96 10/04/19 04:51 Intake & Output 10/03/19 10/04/19 10/04/19 18:59 06:59 18:59 Intake Total 240 1190 240 Balance 240 1190 240 Intake: Oral 240 1190 240 Other: Voiding Method Toilet # Voids 3 2 - Exam GENERAL EXAM: Alert, active, 54-year-old gentleman, on room air comfortable in no apparent distress. HEAD: Normocephalic. EYES: Normal reaction of pupils, equal size. NOSE: Clear with pink turbinates. THROAT: No erythema or exudates. NECK: No masses, no JVD. CHEST: No chest wall deformity. LUNGS: Equal air entry with faint end expiratory wheeze CVS: S1 and S2 normal with no audible murmur, regular rhythm. ABDOMEN: No hepatosplenomegaly, normal bowel sounds, no guarding or rigidity. SPINE: No scoliosis or deformity SKIN: No rashes CENTRAL NERVOUS SYSTEM: No focal deficits, tone is normal in all 4 extremities. EXTREMITIES: There is no peripheral edema. No clubbing, no cyanosis. Peripheral pulses are intact. - Labs CBC & Chem 7: 10/02/19 11:16 10/02/19 11:16 Labs: Abnormal Lab Results - Last 24 Hours (Table) 10/02/19 10/03/19 10/03/19 Range/Units 11:16 12:05 17:06 POC Glucose (mg/dL) 153 H 108 H (75-99) mg/dL Hemoglobin A1c 6.1 H (4.0-6.0) % 10/03/19 10/04/19 Range/Units 20:44 07:08 POC Glucose (mg/dL) 214 H 145 H (75-99) mg/dL Hemoglobin A1c (4.0-6.0) % Microbiology - Last 24 Hours (Table) 10/02/19 11:10 Blood Culture - Preliminary Blood No Growth after 24 hours Assessment and Plan Plan: #1 Acute exacerbation of moderate persistent chronic bronchial asthma, complicated by purulent tracheobronchitis. #2 History of congenital heart disease, status post surgery for coarctation of aorta and patent ductus arteriosus. #3 Previous history of pulmonary embolism. #4 Hypertension. #5 Diabetes mellitus. #6 Restrictive lung disease secondary to scoliosis. PLAN Stop the Symbicort. With the patient a combination of Perforomist and Pulmicort. Continue IV Solu-Medrol. Keep nothing by mouth after midnight for possible bronchoscopy and bronchial lavage in a.m.
[2019-10-04 11:22] LABS: Glucose,Whole Blood 111 mg/dL (75-99)
[2019-10-04 16:49] LABS: Glucose,Whole Blood 153 mg/dL (75-99)
[2019-10-04] MEDS: FORMOTEROL FUMARATE 20 MCG/2 ML NEBU INHALATION SCH (19:23)
[2019-10-04] MEDS: BUDESONIDE 0.5 MG/2 ML NEBU INHALATION SCH (19:23)
[2019-10-04 20:25] LABS: Glucose,Whole Blood 125 mg/dL (75-99)
[2019-10-04] MEDS: ESCITALOPRAM 20 MG TAB PO SCH (20:38)
--- NOTE | 2019-10-04 23:03 | PN ---
PROGRESS NOTE DATE OF SERVICE: 10/04/2019 CHIEF COMPLAINT: Exacerbation of COPD and interstitial fibrosis. HISTORY OF PRESENT ILLNESS: This gentleman is stable and improved somewhat, but is still very congested and wheezy. PHYSICAL EXAMINATION: He still has extensive rhonchi, rales and inspiratory and expiratory wheezing. Cardiac exam is normal. He is afebrile. IMPRESSION: 1. Exacerbation of chronic obstructive pulmonary disease. 2. Interstitial fibrosis. PLAN: Continue with current program. He is improving slowly. MMODL / IJN: [id number] /
[2019-10-05 07:01] LABS: Glucose,Whole Blood 153 mg/dL (75-99)
[2019-10-05] MEDS: BUDESONIDE 0.5 MG/2 ML NEBU INHALATION SCH ×2 (07:53→20:01)
[2019-10-05] MEDS: FORMOTEROL FUMARATE 20 MCG/2 ML NEBU INHALATION SCH ×2 (07:53→20:01)
[2019-10-05] MEDS: IPRATROPIUM-ALBUTEROL 3 ML NEB INHALATION SCH ×4 (07:53→20:01)
[2019-10-05] MEDS: INSULIN ASPART (NovoLOG) 100 UNIT/ML VIAL SQ SCH ×4 (08:59→21:00)
[2019-10-05] MEDS: BISOPROLOL-HCTZ 5-6.25 MG 1 EACH TAB PO SCH (09:04)
[2019-10-05] MEDS: FAMOTIDINE 20 MG TAB PO SCH (09:04)
[2019-10-05] MEDS: AZITHROMYCIN 500 MG TAB PO SCH (09:04)
[2019-10-05] MEDS: methylPREDNISolone SOD SUCCI 40 MG/ML 1 ML VIAL IV SCH ×2 (09:05→17:16)
[2019-10-05 11:31] LABS: Glucose,Whole Blood 119 mg/dL (75-99)
[2019-10-05] MEDS ORDERED: IV FLUID CONTINUATION 1,000 ML IV ONE (15:19)
[2019-10-05] MEDS ORDERED: PROPOFOL 10 MG/ML 20 ML VIAL IV ONE (15:20)
[2019-10-05] MEDS ORDERED: LIDOCAINE 2% INJ 20 MG/ML INTRATRACH ONE (15:30)
--- NOTE | 2019-10-05 17:01 | P.PN ---
Subjective Progress Note Date: 10/05/19 Principal diagnosis: Acute exacerbation of moderately persistent chronic bronchial asthma On 10/05 2019 patient seen in follow-up on medical surgical floor, still quite bronchospastic, and dyspneic, able to cough up much sputum, remains on 2 L of oxygen with a pulse ox of 98%, so positive for diffuse wheezes, and patient has a congested cough, afebrile, on culture showed no growth. He is on IV Solu- Medrol at 30 mg every 8 hours, Zithromax, and nebulized bronchodilators. Objective - Vital Signs Vital signs: Vital Signs Temp 97.1 F L 10/05/19 11:25 Pulse 78 10/05/19 11:50 Resp 17 10/05/19 11:25 BP 158/71 10/05/19 11:25 Pulse Ox 98 10/05/19 16:23 Intake & Output 10/04/19 10/05/19 10/05/19 18:59 06:59 18:59 Intake Total 240 600 Balance 240 600 Intake: IV 600 Oral 240 Other: Voiding Method Toilet Toilet # Voids 3 2 2 - Exam GENERAL EXAM: Alert, pleasant, 50-year-old white male, comfortable in no mikey arent distress. HEAD: Normocephalic/atraumatic. EYES: Normal reaction of pupils, equal size. Conjunctiva pink, sclera white. NOSE: Clear with pink turbinates. THROAT: No erythema or exudates. NECK: No masses, no JVD, no thyroid enlargement, no adenopathy. CHEST: No chest wall deformity. Symmetrical expansion. LUNGS: Equal air entry with diffuse wheezes CVS: Regular rate and rhythm, normal S1 and S2, no gallops, no murmurs, no rubs ABDOMEN: Soft, nontender. No hepatosplenomegaly, normal bowel sounds, no guarding or rigidity. EXTREMITIES: No clubbing, no edema, no cyanosis, 2+ pulses and upper and lower extremities. MUSCULOSKELETAL: Muscle strength and tone normal. SPINE: No scoliosis or deformity SKIN: No rashes CENTRAL NERVOUS SYSTEM: Alert and oriented -3. No focal deficits, tone is normal in all 4 extremities. PSYCHIATRIC: Alert and oriented -3. Appropriate affect. Intact judgment and insight. - Labs CBC & Chem 7: 10/02/19 11:16 10/02/19 11:16 Labs: Abnormal Lab Results - Last 24 Hours (Table) 10/04/19 10/05/19 10/05/19 Range/Units 20:23 06:59 11:30 POC Glucose (mg/dL) 125 H 153 H 119 H (75-99) mg/dL Microbiology - Last 24 Hours (Table) 10/02/19 11:10 Blood Culture - Preliminary Blood No Growth after 72 hours Assessment and Plan Plan: #1 Acute exacerbation of moderate persistent chronic bronchial asthma, complicated by purulent tracheobronchitis. #2 History of congenital heart disease, status post surgery for coarctation of aorta and patent ductus arteriosus. #3 Previous history of pulmonary embolism. #4 Hypertension. #5 Diabetes mellitus. #6 Restrictive lung disease secondary to scoliosis. Plan: Patient underwent bronchoscopy with BAL today, and lavage cultures have been sent to the lab, will await the results of the cultures, continue with current medical treatment, continue within the IV steroids, bronchodilators and azithromycin. Continues to be quite dyspneic and wheezy, left upper lobe bronchus was narrowed, and it was not possible to pass the bronchoscope into the left upper lobe, patient had previously been noted to develop a narrowing of the left mainstem bronchus, however he recovered and subsequently did not require bronchial stent placement. Unclear whether this narrowing of the bronchial airways may be related to acute inflammation. We will continue to monitor the patient, and continue with medical treatment. I performed a history & physical examination of the patient and discussed their management with my nurse practitioner, Luz Maria Maria. I reviewed the nurse practitioner's note and agree with the documented findings and plan of care. Lung sounds are positive for diffuse wheezes throughout the lung melchor. The findings and the impression was discussed with the patient. I attest to the documentation by the nurse practitioner. Time with Patient: Less than 30
[2019-10-05 17:12] LABS: Glucose,Whole Blood 120 mg/dL (75-99)
[2019-10-05 20:03] LABS: Glucose,Whole Blood 133 mg/dL (75-99)
--- NOTE | 2019-10-05 20:17 | PN ---
PROGRESS NOTE CHIEF COMPLAINT: Continued shortness of breath and exacerbation of COPD. HISTORY OF PRESENT ILLNESS: This gentleman is still congested and wheezy and very short of breath. He is going down for bronchoscopy. Physical exam is deferred until after his bronchoscopy. IMPRESSION: 1. Exacerbation of chronic obstructive pulmonary disease. 2. Interstitial fibrosis. PLAN: Continue treatment. Await bronchoscopy results. MMNIKHILL / IJN: [id number] /
[2019-10-05] MEDS: ESCITALOPRAM 20 MG TAB PO SCH (21:00)
[2019-10-06] MEDS: methylPREDNISolone SOD SUCCI 40 MG/ML 1 ML VIAL IV SCH ×3 (00:06→16:40)
[2019-10-06] MEDS: ACETAMINOPHEN TAB 325 MG TAB PO PRN ×3 (01:26→20:26)
[2019-10-06 07:10] LABS: Glucose,Whole Blood 138 mg/dL (75-99)
[2019-10-06] MEDS: BISOPROLOL-HCTZ 5-6.25 MG 1 EACH TAB PO SCH (07:47)
[2019-10-06] MEDS: AZITHROMYCIN 500 MG TAB PO SCH (07:47)
[2019-10-06] MEDS: FAMOTIDINE 20 MG TAB PO SCH (07:48)
[2019-10-06] MEDS: INSULIN ASPART (NovoLOG) 100 UNIT/ML VIAL SQ SCH ×4 (07:48→21:35)
[2019-10-06] MEDS: BUDESONIDE 0.5 MG/2 ML NEBU INHALATION SCH ×2 (08:43→19:49)
[2019-10-06] MEDS: FORMOTEROL FUMARATE 20 MCG/2 ML NEBU INHALATION SCH ×2 (08:43→19:49)
[2019-10-06] MEDS: IPRATROPIUM-ALBUTEROL 3 ML NEB INHALATION SCH ×4 (08:43→19:50)
--- NOTE | 2019-10-06 08:54 | P.PCN ---
Date of Procedure: 10/05/19 Preoperative Diagnosis: Shortness of breath, acute bronchospasm wheezing, acute tracheal bronchitis Postoperative Diagnosis: 1 acute tracheal bronchitis 2 narrowing of the left mainstem bronchus with a lumen estimated to be less than 4 mm in size, unable to pass the bronchoscope to evaluate the left lung. Procedure(s) Performed: Flexible bronchoscopy, bronchoalveolar lavage Anesthesia: MAC Surgeon: Nate Wilson Estimated Blood Loss (ml): 0 Pathology: other Condition: stable Disposition: floor Description of Procedure: This procedure was done under conscious sedation. The purpose of the procedure was to do an Airway inspection and the bronchioloalveolar lavage as the patient was having significant symptoms of shortness of breath, tracheal bronchitis, cough, wheezing, shortness of breath. The patient was brought into the endoscopy suite. A timeout was done. A consent was signed. The procedure was done under conscious sedation After achieving adequate sedation the flexible bronchoscope was inserted to the right nostril was advanced into the upper airway. His initial posterior oropharynx, larynx, epiglottis, arytenoids and the vocal cords were all within normal limits. Vocal cord function was within normal. A total of 2 mL of 1% lidocaine was applied to the vocal cords and following that the bronchoscope was advanced into the upper trachea. Examination tracheal bronchial tree was done. There was some thick and purulent respiratory secretions scattered throughout the patient's trachea and right mainstem bronchus and proximal left mainstem bronchus. Therapeutic it was suctioning was done. Airway inspection was completed and the visualized airways into the trachea, right mainstem bronchus, right upper lobe bronchus regular lobe bronchus and right lower lobe bronchus. I was able to perform a bronchioloalveolar lavage of the right middle lobe with a total of 60 mL of fluid was infused and 25-30 mL was aspirated back without any complications. Following that, the bronchoscope was moved to the left side. At the proximal portion of the left mainstem bronchus, there was a area of tight stenosis with the lumen of the airway was estimated to be less than 4 mm in size. I was unable to pass the bronchoscope past this area. It utilized a bronchoscope with a small out of diameter that was 4.1 mm in size and following that for manipulations, I was still unable to pass this area. As such, this is a congenitally tortuous left mainstem bronchus which was encountered on a previous bronchoscopy and also seen on a previous CAT scan of the chest. Note that the underlying mucosa was normal. There was no endobronchial tumor or lesions. This was essentially a tortuous area without clear evidence of any extrinsic compression. Unable to pass the bronchoscope and as such unable to visualize the distal left mainstem bronchus and the left upper lobe and the lingula and the left lower lobe. After obtaining the bronchioloalveolar lavage from the right midlung, rhonchus scope was removed. The patient was recovered and the patient was transferred to recovery and back to his room in a stable condition. The bronchioloalveolar lavage will be sent for cultures.
[2019-10-06 11:51] LABS: Glucose,Whole Blood 108 mg/dL (75-99)
--- NOTE | 2019-10-06 14:17 | P.PN ---
Subjective Progress Note Date: 10/06/19 Principal diagnosis: Acute exacerbation of moderately persistent chronic bronchial asthma On 10/05/2019 patient seen in follow-up on medical surgical floor, still quite bronchospastic, and dyspneic, able to cough up much sputum, remains on 2 L of oxygen with a pulse ox of 98%, so positive for diffuse wheezes, and patient has a congested cough, afebrile, on culture showed no growth. He is on IV Solu- Medrol at 30 mg every 8 hours, Zithromax, and nebulized bronchodilators. On 10/06/2019 patient seen in follow-up on medical surgical floor. Breathing easier, a little less bronchospastic today, he is tolerating ambulation. Not coughing up much sputum, vital signs are stable, no fever chills, room air pulse ox is 96%, lung sounds are still positive for some scattered wheezes, sounding better compared to yesterday's exam, patient is status post bronchoscopy with BAL yesterday on 10/05/2019, bronchial lavage cultures are still pending, blood cultures are negative, antibiotic coverage is no form of Zithromax, IV Solu- Medrol, and nebulized bronchodilators. During the bronchoscopy patient was noted to have left main stem bronchus narrowing, and reviewing the results of the CT of the chest from all 02/18/2019, and is usualfrom the previous bronchoscopy from 03/04/2019 this left mainstem bronchus narrowing was also noted on previous CT chest and bronchoscopy, and likely congenital in nature. Please refer to the bronchoscopy procedural note done by Dr. Wilson. Otherwise clinically stable, breathing is stable, will continue with same medical treatment. Objective - Vital Signs Vital signs: Vital Signs Temp 98 F 10/06/19 13:00 Pulse 68 10/06/19 13:00 Resp 16 10/06/19 13:00 BP 160/77 10/06/19 13:00 Pulse Ox 96 10/06/19 13:00 Intake & Output 10/05/19 10/06/19 10/06/19 18:59 06:59 18:59 Intake Total 600 120 Balance 600 120 Intake: IV 600 Oral 120 Other: Voiding Method Toilet Toilet # Voids 2 1 - Exam GENERAL EXAM: Alert, pleasant, 50-year-old white male, comfortable in no apparent distress. HEAD: Normocephalic/atraumatic. EYES: Normal reaction of pupils, equal size. Conjunctiva pink, sclera white. NOSE: Clear with pink turbinates. THROAT: No erythema or exudates. NECK: No masses, no JVD, no thyroid enlargement, no adenopathy. CHEST: No chest wall deformity. Symmetrical expansion. LUNGS: Equal air entry with diffuse wheezes CVS: Regular rate and rhythm, normal S1 and S2, no gallops, no murmurs, no rubs ABDOMEN: Soft, nontender. No hepatosplenomegaly, normal bowel sounds, no guarding or rigidity. EXTREMITIES: No clubbing, no edema, no cyanosis, 2+ pulses and upper and lower extremities. MUSCULOSKELETAL: Muscle strength and tone normal. SPINE: No scoliosis or deformity SKIN: No rashes CENTRAL NERVOUS SYSTEM: Alert and oriented -3. No focal deficits, tone is normal in all 4 extremities. PSYCHIATRIC: Alert and oriented -3. Appropriate affect. Intact judgment and insight. - Labs CBC & Chem 7: 10/02/19 11:16 10/02/19 11:16 Labs: Abnormal Lab Results - Last 24 Hours (Table) 10/05/19 10/05/19 10/06/19 Range/Units 17:11 20:02 07:08 POC Glucose (mg/dL) 120 H 133 H 138 H (75-99) mg/dL 10/06/19 Range/Units 11:30 POC Glucose (mg/dL) 108 H (75-99) mg/dL Microbiology - Last 24 Hours (Table) 10/02/19 11:10 Blood Culture - Preliminary Blood No Growth after 72 hours Assessment and Plan Plan: #1 Acute exacerbation of moderate persistent chronic bronchial asthma, complicated by purulent tracheobronchitis. #2 History of congenital heart disease, status post surgery for coarctation of aorta and patent ductus arteriosus. #3 Previous history of pulmonary embolism. #4 Hypertension. #5 Diabetes mellitus. #6 Restrictive lung disease secondary to scoliosis. Plan: Patient is clinically stable, breathing is improving, and he is tolerating ambulation, no fever or chills, continue same antibiotics, will await the results of the final bronchial lavage cultures, CT of the chest from January 2019 and previous bronchoscopy performed in February by Dr. Morrison was reviewed by Dr. Wilson, the left mainstem bronchus narrowing was previously noted, and likely congenital in nature. Does not require stent placement, as the airway although narrowed but is patent. Continue with current medical treatment, encourage ambulation I performed a history & physical examination of the patient and discussed their management with my nurse practitioner, Luz Maria Maria. I reviewed the nurse eb spicer's note and agree with the documented findings and plan of care. Lung sounds are positive for diffuse wheezes throughout the lung melchor. The findings and the impression was discussed with the patient. I attest to the documentation by the nurse practitioner. Time with Patient: Less than 30
[2019-10-06 17:31] LABS: Glucose,Whole Blood 180 mg/dL (75-99)
--- NOTE | 2019-10-06 19:32 | PN ---
PROGRESS NOTE CHIEF COMPLAINT: Exacerbation of COPD. HISTORY OF PRESENT ILLNESS: This gentleman is actually feeling a little bit worse. He is more congested, wheezy and short of breath. Bronchoscopy was done yesterday and reports are pending. PHYSICAL EXAMINATION: He still has extensive rales, rhonchi and wheezing on both sides anteriorly and posteriorly. Cardiac exam is normal. He is afebrile. IMPRESSION: Exacerbation of chronic obstructive pulmonary disease with interstitial fibrosis. PLAN: Continue current program until he clears enough that he can be safely discharged. MMODL / IJN: [id number] /
[2019-10-06 20:02] LABS: Glucose,Whole Blood 93 mg/dL (75-99)
[2019-10-06] MEDS: ESCITALOPRAM 20 MG TAB PO SCH (20:24)
[2019-10-06 21:24] LABS: Appearance,BF Bloody; Color,BF Pink; Nucleated Cells, Body Fluid 575 /uL
[2019-10-06 21:25] LABS: RBC, Body Fluid 26775 /uL
[2019-10-06 21:35] LABS: Mononuclear WBC,Body Fluid 23 %; Polynuclear WBC,Body Fluid 77 %; Total Cells Counted,Body Fluid 100
[2019-10-07] MEDS: methylPREDNISolone SOD SUCCI 40 MG/ML 1 ML VIAL IV SCH ×2 (00:17→09:01)
[2019-10-07] MEDS: ACETAMINOPHEN TAB 325 MG TAB PO PRN ×2 (04:54→20:14)
[2019-10-07 07:01] LABS: Glucose,Whole Blood 150 mg/dL (75-99)
[2019-10-07] MEDS: FORMOTEROL FUMARATE 20 MCG/2 ML NEBU INHALATION SCH ×2 (07:11→22:29)
[2019-10-07] MEDS: BUDESONIDE 0.5 MG/2 ML NEBU INHALATION SCH ×2 (07:11→22:29)
[2019-10-07] MEDS: IPRATROPIUM-ALBUTEROL 3 ML NEB INHALATION SCH ×4 (07:11→22:29)
[2019-10-07] MEDS: AZITHROMYCIN 500 MG TAB PO SCH (09:00)
[2019-10-07] MEDS: FAMOTIDINE 20 MG TAB PO SCH (09:00)
[2019-10-07] MEDS: BISOPROLOL-HCTZ 5-6.25 MG 1 EACH TAB PO SCH (09:00)
[2019-10-07] MEDS: INSULIN ASPART (NovoLOG) 100 UNIT/ML VIAL SQ SCH ×4 (09:01→20:13)
[2019-10-07 11:21] LABS: Glucose,Whole Blood 78 mg/dL (75-99)
--- NOTE | 2019-10-07 14:34 | P.PN ---
Subjective Progress Note Date: 10/07/19 Principal diagnosis: Acute exacerbation of moderately persistent chronic bronchial asthma On 10/05/2019 patient seen in follow-up on medical surgical floor, still quite bronchospastic, and dyspneic, able to cough up much sputum, remains on 2 L of oxygen with a pulse ox of 98%, so positive for diffuse wheezes, and patient has a congested cough, afebrile, on culture showed no growth. He is on IV Solu- Medrol at 30 mg every 8 hours, Zithromax, and nebulized bronchodilators. On 10/06/2019 patient seen in follow-up on medical surgical floor. Breathing easier, a little less bronchospastic today, he is tolerating ambulation. Not coughing up much sputum, vital signs are stable, no fever chills, room air pulse ox is 96%, lung sounds are still positive for some scattered wheezes, sounding better compared to yesterday's exam, patient is status post bronchoscopy with BAL yesterday on 10/05/2019, bronchial lavage cultures are still pending, blood cultures are negative, antibiotic coverage is no form of Zithromax, IV Solu- Medrol, and nebulized bronchodilators. During the bronchoscopy patient was noted to have left main stem bronchus narrowing, and reviewing the results of the CT of the chest from all 02/18/2019, and is usualfrom the previous bronchoscopy from 03/04/2019 this left mainstem bronchus narrowing was also noted on previous CT chest and bronchoscopy, and likely congenital in nature. Please refer to the bronchoscopy procedural note done by Dr. Wilson. Otherwise clinically stable, breathing is stable, will continue with same medical treatment. On 10/07/2019 patient seen in follow-up on medical surgical floor. Still wheezy, occasional cough, not bringing up much sputum, vital signs have remained stable, room air pulse ox is 94%, afebrile, patient has been tolerating ambulation, Schuyler lavage cultures are still pending at this time, patient remai ns on Zithromax, IV Solu-Medrol, and nebulized bronchodilators. Objective - Vital Signs Vital signs: Vital Signs Temp 97.6 F 10/07/19 13:11 Pulse 72 10/07/19 13:11 Resp 18 10/07/19 13:11 BP 161/79 10/07/19 13:11 Pulse Ox 94 L 10/07/19 13:11 Intake & Output 10/06/19 10/07/19 10/07/19 18:59 06:59 18:59 Intake Total 120 Balance 120 Intake: Oral 120 Other: Voiding Method Toilet Toilet # Voids 3 1 - Exam GENERAL EXAM: Alert, pleasant, 50-year-old white male, comfortable in no apparent distress. HEAD: Normocephalic/atraumatic. EYES: Normal reaction of pupils, equal size. Conjunctiva pink, sclera white. NOSE: Clear with pink turbinates. THROAT: No erythema or exudates. NECK: No masses, no JVD, no thyroid enlargement, no adenopathy. CHEST: No chest wall deformity. Symmetrical expansion. LUNGS: Equal air entry with diffuse wheezes CVS: Regular rate and rhythm, normal S1 and S2, no gallops, no murmurs, no rubs ABDOMEN: Soft, nontender. No hepatosplenomegaly, normal bowel sounds, no guarding or rigidity. EXTREMITIES: No clubbing, no edema, no cyanosis, 2+ pulses and upper and lower extremities. MUSCULOSKELETAL: Muscle strength and tone normal. SPINE: No scoliosis or deformity SKIN: No rashes CENTRAL NERVOUS SYSTEM: Alert and oriented -3. No focal deficits, tone is normal in all 4 extremities. PSYCHIATRIC: Alert and oriented -3. Appropriate affect. Intact judgment and insight. - Labs CBC & Chem 7: 10/02/19 11:16 10/02/19 11:16 Labs: Abnormal Lab Results - Last 24 Hours (Table) 10/06/19 10/07/19 Range/Units 17:16 07:00 POC Glucose (mg/dL) 180 H 150 H (75-99) mg/dL Microbiology - Last 24 Hours (Table) 10/06/19 15:24 Acid Fast Bacilli Smear - Final Bronchoalviolar Lavage - Right Acid Fast Bacilli Culture - Preliminary 10/06/19 15:24 Gram Stain - Preliminary Bronchoalviolar Lavage - Right Bronchial Washings Culture - Preliminary 10/06/19 15:24 Fungal Culture - Preliminary Bronchoalviolar Lavage - Right 10/02/19 11:10 Blood Culture - Preliminary Blood No Growth after 96 hours Assessment and Plan Plan: #1 Acute exacerbation of moderate persistent chronic bronchial asthma, complicated by purulent tracheobronchitis. #2 History of congenital heart disease, status post surgery for coarctation of aorta and patent ductus arteriosus. #3 Previous history of pulmonary embolism. #4 Hypertension. #5 Diabetes mellitus. #6 Restrictive lung disease secondary to scoliosis. Plan: We'll continue with current antibiotic coverage, awaiting final report on the bra lavage cultures, no fever or chills, we'll increase the dose of IV Solu- Medrol to 60 mg every 8 hours, continue with nebulized bronchodilators, encourage ambulation. We'll continue to follow. I performed a history & physical examination of the patient and discussed their management with my nurse practitioner, Luz Maria Maria. I reviewed the nurse practitioner's note and agree with the documented findings and plan of care. Lung sounds are positive for diffuse wheezes throughout the lung melchor. The findings and the impression was discussed with the patient. I attest to the documentation by the nurse practitioner. Time with Patient: Less than 30
[2019-10-07] MEDS: methylPREDNISolone SOD SUCCI 125 MG/2 ML VIAL IV SCH ×2 (15:22→22:55)
[2019-10-07 17:38] LABS: Glucose,Whole Blood 119 mg/dL (75-99)
--- NOTE | 2019-10-07 17:59 | PN ---
PROGRESS NOTE CHIEF COMPLAINT: Difficulty breathing. HISTORY OF PRESENT ILLNESS: This gentleman is slightly improved. He is still short of breath. He still has a lot of wheezing and coughing. He has had no fever or shortness of breath. PHYSICAL EXAMINATION: He still has extensive rales and rhonchi with inspiratory and expiratory wheezing bilaterally, but it is improved today. Cardiac exam is normal. Abdomen is soft. IMPRESSION: Exacerbation of his chronic obstructive pulmonary disease along with interstitial fibrosis. PLAN: Continue with current treatments. He is improving, but slowly. MMODL / IJN: [id number] /
[2019-10-07 20:01] LABS: Glucose,Whole Blood 237 mg/dL (75-99)
[2019-10-07] MEDS: ESCITALOPRAM 20 MG TAB PO SCH (20:13)
[2019-10-08] MEDS: ACETAMINOPHEN TAB 325 MG TAB PO PRN ×3 (05:17→18:55)
[2019-10-08] MEDS: methylPREDNISolone SOD SUCCI 125 MG/2 ML VIAL IV SCH ×3 (05:18→21:34)
[2019-10-08 06:57] LABS: Glucose,Whole Blood 124 mg/dL (75-99)
[2019-10-08] MEDS: INSULIN ASPART (NovoLOG) 100 UNIT/ML VIAL SQ SCH ×5 (07:56→21:34)
[2019-10-08] MEDS: AZITHROMYCIN 500 MG TAB PO SCH (08:01)
[2019-10-08] MEDS: FAMOTIDINE 20 MG TAB PO SCH (08:01)
[2019-10-08] MEDS: BISOPROLOL-HCTZ 5-6.25 MG 1 EACH TAB PO SCH (08:01)
[2019-10-08] MEDS: BUDESONIDE 0.5 MG/2 ML NEBU INHALATION SCH ×2 (08:08→19:41)
[2019-10-08] MEDS: FORMOTEROL FUMARATE 20 MCG/2 ML NEBU INHALATION SCH ×2 (08:09→19:41)
[2019-10-08] MEDS: IPRATROPIUM-ALBUTEROL 3 ML NEB INHALATION SCH ×4 (08:09→19:41)
[2019-10-08 11:44] LABS: Glucose,Whole Blood 117 mg/dL (75-99)
--- NOTE | 2019-10-08 12:14 | P.PN ---
Subjective Progress Note Date: 10/08/19 On 10/08/2019 I'm seeing the patient for a follow-up. Gradually improving. No new complaints. Less bronchospastic and wheezy compared to yesterday. We decided to go with high-dose Solu-Medrol again along with the rhonchi dilators. The BAL is negative for any microbial growth. Objective - Vital Signs Vital signs: Vital Signs Temp 97.5 F L 10/08/19 10:47 Pulse 60 10/08/19 10:47 Resp 17 10/08/19 10:47 BP 144/65 10/08/19 10:47 Pulse Ox 96 10/08/19 10:47 Intake & Output 10/07/19 10/08/19 10/08/19 18:59 06:59 18:59 Intake Total 240 1080 Balance 240 1080 Intake: Oral 240 1080 Other: Voiding Method Toilet # Voids 4 1 - Exam GENERAL EXAM: Alert, active, 54-year-old gentleman, on room air comfortable in no apparent distress. HEAD: Normocephalic. EYES: Normal reaction of pupils, equal size. NOSE: Clear with pink turbinates. THROAT: No erythema or exudates. NECK: No masses, no JVD. CHEST: No chest wall deformity. LUNGS: Equal air entry with faint end expiratory wheeze CVS: S1 and S2 normal with no audible murmur, regular rhythm. ABDOMEN: No hepatosplenomegaly, normal bowel sounds, no guarding or rigidity. SPINE: No scoliosis or deformity SKIN: No rashes CENTRAL NERVOUS SYSTEM: No focal deficits, tone is normal in all 4 extremities. EXTREMITIES: There is no peripheral edema. No clubbing, no cyanosis. Peripheral pulses are intact. - Labs CBC & Chem 7: 10/02/19 11:16 10/02/19 11:16 Labs: Abnormal Lab Results - Last 24 Hours (Table) 10/07/19 10/07/19 10/08/19 Range/Units 17:37 19:59 06:54 POC Glucose (mg/dL) 119 H 237 H 124 H (75-99) mg/dL 10/08/19 Range/Units 11:42 POC Glucose (mg/dL) 117 H (75-99) mg/dL Microbiology - Last 24 Hours (Table) 10/02/19 11:10 Blood Culture - Preliminary Blood No Growth after 120 hours Assessment and Plan Plan: #1 Acute exacerbation of moderate persistent chronic bronchial asthma, complicated by purulent tracheobronchitis. The patient underwent a bronchioloalveolar lavage via bronchoscopy and the findings were negative for any microbial growth. #2 History of congenital heart disease, status post surgery for coarctation of aorta and patent ductus arteriosus. #3 Previous history of pulmonary embolism. #4 Hypertension. #5 Diabetes mellitus. #6 Restrictive lung disease secondary to scoliosis. #7 stenotic left mainstem bronchus unable to pass bronchoscope past the area of stenosis. PLAN The patient is gradually improving. Continue same treatment. We'll follow.
--- NOTE | 2019-10-08 13:47 | PN ---
PROGRESS NOTE CHIEF COMPLAINT: Exacerbation of COPD and interstitial fibrosis. HISTORY OF PRESENT ILLNESS: This gentleman is doing very slightly better each day, but he is still very congested and wheezy. He is walking about, but he is still short of breath. PHYSICAL EXAMINATION: Breath sounds continue to be obscured by copious rhonchi, rales, wheezing and a productive cough. Cardiac exam is normal. IMPRESSION: 1. Exacerbation of chronic obstructive pulmonary disease. 2. Bronchitis. 3. Interstitial fibrosis. PLAN: Continue with the program and probably home in several days depending on pulmonology's recommendations as well. MMODL / IJN: [id number] /
[2019-10-08 16:48] LABS: Glucose,Whole Blood 217 mg/dL (75-99)
[2019-10-08 21:23] LABS: Glucose,Whole Blood 186 mg/dL (75-99)
[2019-10-08] MEDS: ESCITALOPRAM 20 MG TAB PO SCH (21:34)
[2019-10-09] MEDS: ACETAMINOPHEN TAB 325 MG TAB PO PRN ×3 (02:18→18:22)
[2019-10-09] MEDS: methylPREDNISolone SOD SUCCI 125 MG/2 ML VIAL IV SCH ×3 (05:21→21:12)
[2019-10-09 07:13] LABS: Glucose,Whole Blood 137 mg/dL (75-99)
[2019-10-09] MEDS: AZITHROMYCIN 500 MG TAB PO SCH (07:24)
[2019-10-09] MEDS: BISOPROLOL-HCTZ 5-6.25 MG 1 EACH TAB PO SCH (07:24)
[2019-10-09] MEDS: FAMOTIDINE 20 MG TAB PO SCH (07:24)
[2019-10-09] MEDS: INSULIN ASPART (NovoLOG) 100 UNIT/ML VIAL SQ SCH ×4 (07:24→21:12)
[2019-10-09] MEDS: BUDESONIDE 0.5 MG/2 ML NEBU INHALATION SCH ×2 (08:50→20:59)
[2019-10-09] MEDS: IPRATROPIUM-ALBUTEROL 3 ML NEB INHALATION SCH ×4 (08:50→20:59)
[2019-10-09] MEDS: FORMOTEROL FUMARATE 20 MCG/2 ML NEBU INHALATION SCH ×2 (08:50→20:59)
[2019-10-09 11:39] LABS: Glucose,Whole Blood 164 mg/dL (75-99)
--- NOTE | 2019-10-09 15:37 | P.PN ---
Subjective Progress Note Date: 10/09/19 On 10/09/2019 the patient is ambulating. However is still bronchospastic and wheezy. All of the microbial cultures from his bronchioloalveolar lavage came back negative. This includes a negative viral culture. He is doing extremely well otherwise. He doesn't have any other issues than some shortness of breath and wheezing. He remains on the same bronchodilator regimen in addition to the high-dose Solu-Medrol. Objective - Vital Signs Vital signs: Vital Signs Temp 97.5 F L 10/09/19 07:28 Pulse 62 10/09/19 12:17 Resp 18 10/09/19 12:05 BP 132/68 10/09/19 07:28 Pulse Ox 96 10/09/19 08:50 Intake & Output 10/08/19 10/09/19 10/09/19 18:59 06:59 18:59 Intake Total 540 1080 1080 Balance 540 1080 1080 Intake: Oral 540 1080 1080 Other: # Voids 3 3 - Exam GENERAL EXAM: Alert, active, 54-year-old gentleman, on room air comfortable in no apparent distress. HEAD: Normocephalic. EYES: Normal reaction of pupils, equal size. NOSE: Clear with pink turbinates. THROAT: No erythema or exudates. NECK: No masses, no JVD. CHEST: No chest wall deformity. LUNGS: Equal air entry with faint end expiratory wheeze CVS: S1 and S2 normal with no audible murmur, regular rhythm. ABDOMEN: No hepatosplenomegaly, normal bowel sounds, no guarding or rigidity. SPINE: No scoliosis or deformity SKIN: No rashes CENTRAL NERVOUS SYSTEM: No focal deficits, tone is normal in all 4 extremities. EXTREMITIES: There is no peripheral edema. No clubbing, no cyanosis. Per ipheral pulses are intact. - Labs CBC & Chem 7: 10/02/19 11:16 10/02/19 11:16 Labs: Abnormal Lab Results - Last 24 Hours (Table) 10/08/19 10/08/19 10/09/19 Range/Units 16:45 21:22 07:11 POC Glucose (mg/dL) 217 H 186 H 137 H (75-99) mg/dL 10/09/19 Range/Units 11:36 POC Glucose (mg/dL) 164 H (75-99) mg/dL Microbiology - Last 24 Hours (Table) 10/02/19 11:10 Blood Culture - Final Blood No Growth after 144 hours 10/06/19 15:24 Gram Stain - Final Bronchoalviolar Lavage - Right Bronchial Washings Culture - Final Assessment and Plan Plan: #1 Acute exacerbation of moderate persistent chronic bronchial asthma, c omplicated by purulent tracheobronchitis. The patient underwent a bronchioloalveolar lavage via bronchoscopy and the findings were negative for any microbial growth. #2 History of congenital heart disease, status post surgery for coarctation of aorta and patent ductus arteriosus. #3 Previous history of pulmonary embolism. #4 Hypertension. #5 Diabetes mellitus. #6 Restrictive lung disease secondary to scoliosis. #7 stenotic left mainstem bronchus unable to pass bronchoscope past the area of stenosis. PLAN all of the cultures are negative. We'll continue the treatment. Increased leve l of activity as tolerated. Continue the high-dose Solu-Medrol.
[2019-10-09 16:42] LABS: Glucose,Whole Blood 189 mg/dL (75-99)
--- NOTE | 2019-10-09 21:00 | PN ---
PROGRESS NOTE CHIEF COMPLAINT: Exacerbation of COPD, bronchitis and interstitial fibrosis. HISTORY OF PRESENT ILLNESS: This gentleman continues to improve, it is very slow. He is able to ambulate the halls, but he becomes quite short of breath. PHYSICAL EXAMINATION: He still has extensive wheezes, rales and rhonchi throughout, but breath sounds are improving each day. Cardiac exam is normal. IMPRESSION: 1. Exacerbation of chronic obstructive pulmonary disease. 2. Interstitial fibrosis. PLAN: Continue with current treatment until he is clear enough to be discharged, which may be a few more days. MMODL / IJN: [id number] /
[2019-10-09 21:08] LABS: Glucose,Whole Blood 153 mg/dL (75-99)
[2019-10-09] MEDS: ESCITALOPRAM 20 MG TAB PO SCH (21:12)
[2019-10-10] MEDS: methylPREDNISolone SOD SUCCI 125 MG/2 ML VIAL IV SCH ×3 (05:00→20:15)
[2019-10-10 07:12] LABS: Glucose,Whole Blood 128 mg/dL (75-99)
[2019-10-10] MEDS: INSULIN ASPART (NovoLOG) 100 UNIT/ML VIAL SQ SCH ×4 (07:13→20:13)
[2019-10-10] MEDS: ACETAMINOPHEN TAB 325 MG TAB PO PRN ×3 (07:48→22:05)
[2019-10-10] MEDS: FAMOTIDINE 20 MG TAB PO SCH (07:49)
[2019-10-10] MEDS: AZITHROMYCIN 500 MG TAB PO SCH (07:49)
[2019-10-10] MEDS: BISOPROLOL-HCTZ 5-6.25 MG 1 EACH TAB PO SCH (07:49)
[2019-10-10] MEDS: IPRATROPIUM-ALBUTEROL 3 ML NEB INHALATION SCH ×4 (08:39→20:43)
[2019-10-10] MEDS: BUDESONIDE 0.5 MG/2 ML NEBU INHALATION SCH ×2 (08:39→20:43)
[2019-10-10] MEDS: FORMOTEROL FUMARATE 20 MCG/2 ML NEBU INHALATION SCH ×2 (08:39→20:43)
--- NOTE | 2019-10-10 09:13 | P.PN ---
Subjective Progress Note Date: 10/10/19 Principal diagnosis: Acute exacerbation of moderately persistent chronic bronchial asthma On 10/05/2019 patient seen in follow-up on medical surgical floor, still quite bronchospastic, and dyspneic, able to cough up much sputum, remains on 2 L of oxygen with a pulse ox of 98%, so positive for diffuse wheezes, and patient has a congested cough, afebrile, on culture showed no growth. He is on IV Solu- Medrol at 30 mg every 8 hours, Zithromax, and nebulized bronchodilators. On 10/06/2019 patient seen in follow-up on medical surgical floor. Breathing easier, a little less bronchospastic today, he is tolerating ambulation. Not coughing up much sputum, vital signs are stable, no fever chills, room air pulse ox is 96%, lung sounds are still positive for some scattered wheezes, sounding better compared to yesterday's exam, patient is status post bronchoscopy with BAL yesterday on 10/05/2019, bronchial lavage cultures are still pending, blood cultures are negative, antibiotic coverage is no form of Zithromax, IV Solu- Medrol, and nebulized bronchodilators. During the bronchoscopy patient was noted to have left main stem bronchus narrowing, and reviewing the results of the CT of the chest from all 02/18/2019, and is usualfrom the previous bronchoscopy from 03/04/2019 this left mainstem bronchus narrowing was also noted on previous CT chest and bronchoscopy, and likely congenital in nature. Please refer to the bronchoscopy procedural note done by Dr. Wilson. Otherwise clinically stable, breathing is stable, will continue with same medical treatment. On 10/07/2019 patient seen in follow-up on medical surgical floor. Still wheezy, occasional cough, not bringing up much sputum, vital signs have remained stable, room air pulse ox is 94%, afebrile, patient has been tolerating ambulation, Schuyler lavage cultures are still pending at this time, patient remai ns on Zithromax, IV Solu-Medrol, and nebulized bronchodilators. On 10/10/2019 patient seen in follow-up on medical surgical floor. He is awake and alert, still has a frequent congested cough, still wheezy and bronchospastic, denies any fever or chills, room air pulse ox is 97%, hemodynamically stable. He has been tolerating ambulation, lung sounds reveal diffuse wheezes, but good air entry noted bilaterally, occasionally patient is able to produce some greenish colored sputum, remains on Zithromax, so far bronchial lavage cultures are all negative, including the viral cultures. High- dose of steroids, he feels that he is improving slowly. Objective - Vital Signs Vital signs: Vital Signs Temp 97.6 F 10/10/19 07:46 Pulse 80 10/10/19 08:39 Resp 18 10/10/19 07:46 BP 150/71 10/10/19 07:46 Pulse Ox 97 10/10/19 08:39 Intake & Output 10/09/19 10/10/19 10/10/19 18:59 06:59 18:59 Intake Total 1080 1080 Balance 1080 1080 Intake: Oral 1080 1080 Other: # Voids 3 1 - Exam GENERAL EXAM: Alert, pleasant, 50-year-old white male, comfortable in no apparent distress. HEAD: Normocephalic/atraumatic. EYES: Normal reaction of pupils, equal size. Conjunctiva pink, sclera white. NOSE: Clear with pink turbinates. THROAT: No erythema or exudates. NECK: No masses, no JVD, no thyroid enlargement, no adenopathy. CHEST: No chest wall deformity. Symmetrical expansion. LUNGS: Equal air entry with diffuse wheezes CVS: Regular rate and rhythm, normal S1 and S2, no gallops, no murmurs, no rubs ABDOMEN: Soft, nontender. No hepatosplenomegaly, normal bowel sounds, no guarding or rigidity. EXTREMITIES: No clubbing, no edema, no cyanosis, 2+ pulses and upper and lower extremities. MUSCULOSKELETAL: Muscle strength and tone normal. SPINE: No scoliosis or deformity SKIN: No rashes CENTRAL NERVOUS SYSTEM: Alert and oriented -3. No focal deficits, tone is normal in all 4 extremities. PSYCHIATRIC: Alert and oriented -3. Appropriate affect. Intact judgment and insight. - Labs CBC & Chem 7: 10/02/19 11:16 10/02/19 11:16 Labs: Abnormal Lab Results - Last 24 Hours (Table) 10/09/19 10/09/19 10/09/19 Range/Units 11:36 16:41 21:06 POC Glucose (mg/dL) 164 H 189 H 153 H (75-99) mg/dL 10/10/19 Range/Units 07:10 POC Glucose (mg/dL) 128 H (75-99) mg/dL Microbiology - Last 24 Hours (Table) 10/06/19 15:24 Fungal Culture - Preliminary Bronchoalviolar Lavage - Right Penicillium species Assessment and Plan Plan: #1 Acute exacerbation of moderate persistent chronic bronchial asthma, complicated by purulent tracheobronchitis. #2 History of congenital heart disease, status post surgery for coarctation of aorta and patent ductus arteriosus. #3 Previous history of pulmonary embolism. #4 Hypertension. #5 Diabetes mellitus. #6 Restrictive lung disease secondary to scoliosis. Plan: Continue current antibiotic coverage, continue IV steroids, nebulized b ronchodilators, patient is slowly improving, but remains wheezy and congested, tolerating activity, no acute events overnight, if he remains stable we will consider discharge in next 24 hours I performed a history & physical examination of the patient and discussed their management with my nurse practitioner, Luz Maria Maria. I reviewed the nurse practitioner's note and agree with the documented findings and plan of care. Lung sounds are positive for diffuse wheezes throughout the lung melchor. The findings and the impression was discussed with the patient. I attest to the documentation by the nurse practitioner. Time with Patient: Less than 30
[2019-10-10 11:51] LABS: Glucose,Whole Blood 103 mg/dL (75-99)
[2019-10-10 17:11] LABS: Glucose,Whole Blood 193 mg/dL (75-99)
--- NOTE | 2019-10-10 17:56 | PN ---
PROGRESS NOTE CHIEF COMPLAINT: Exacerbation of COPD. HISTORY OF PRESENT ILLNESS: This gentleman continues to improve only very slowly day by day. He has had no fever, chills, shortness of breath, chest pain etc. PHYSICAL EXAMINATION: He still has extensive and copious rhonchi and rales bilaterally with some expiratory wheezing and a productive cough. Cardiac exam is normal. Color is good. IMPRESSION: 1. Exacerbation of chronic obstructive pulmonary disease. 2. Interstitial fibrosis. PLAN: No change in current program. He is slowly improving. He is being followed by Pulmonology. MMODL / IJN: [id number] /
[2019-10-10] MEDS: ESCITALOPRAM 20 MG TAB PO SCH (20:14)
[2019-10-10 20:21] LABS: Glucose,Whole Blood 133 mg/dL (75-99)
[2019-10-11] MEDS: methylPREDNISolone SOD SUCCI 125 MG/2 ML VIAL IV SCH ×3 (05:57→22:41)
[2019-10-11 07:02] LABS: Glucose,Whole Blood 131 mg/dL (75-99)
[2019-10-11] MEDS: INSULIN ASPART (NovoLOG) 100 UNIT/ML VIAL SQ SCH ×4 (07:11→20:08)
[2019-10-11] MEDS: FORMOTEROL FUMARATE 20 MCG/2 ML NEBU INHALATION SCH ×2 (07:56→20:02)
[2019-10-11] MEDS: BUDESONIDE 0.5 MG/2 ML NEBU INHALATION SCH (07:56)
[2019-10-11] MEDS: IPRATROPIUM-ALBUTEROL 3 ML NEB INHALATION SCH ×4 (07:56→20:02)
[2019-10-11] MEDS: FAMOTIDINE 20 MG TAB PO SCH (08:23)
[2019-10-11] MEDS: ACETAMINOPHEN TAB 325 MG TAB PO PRN ×2 (08:24→22:40)
[2019-10-11] MEDS: BISOPROLOL-HCTZ 5-6.25 MG 1 EACH TAB PO SCH (08:24)
[2019-10-11] MEDS: guaiFENesin 600 MG TABLET.ER PO SCH ×2 (09:11→19:59)
[2019-10-11 10:19] VITALS: BMI 27.3
[2019-10-11 11:46] LABS: Glucose,Whole Blood 112 mg/dL (75-99)
--- NOTE | 2019-10-11 12:17 | P.PN ---
Subjective Progress Note Date: 10/11/19 Principal diagnosis: Acute exacerbation of moderately persistent chronic bronchial asthma On 10/05/2019 patient seen in follow-up on medical surgical floor, still quite bronchospastic, and dyspneic, able to cough up much sputum, remains on 2 L of oxygen with a pulse ox of 98%, so positive for diffuse wheezes, and patient has a congested cough, afebrile, on culture showed no growth. He is on IV Solu- Medrol at 30 mg every 8 hours, Zithromax, and nebulized bronchodilators. On 10/06/2019 patient seen in follow-up on medical surgical floor. Breathing easier, a little less bronchospastic today, he is tolerating ambulation. Not coughing up much sputum, vital signs are stable, no fever chills, room air pulse ox is 96%, lung sounds are still positive for some scattered wheezes, sounding better compared to yesterday's exam, patient is status post bronchoscopy with BAL yesterday on 10/05/2019, bronchial lavage cultures are still pending, blood cultures are negative, antibiotic coverage is no form of Zithromax, IV Solu- Medrol, and nebulized bronchodilators. During the bronchoscopy patient was noted to have left main stem bronchus narrowing, and reviewing the results of the CT of the chest from all 02/18/2019, and is usualfrom the previous bronchoscopy from 03/04/2019 this left mainstem bronchus narrowing was also noted on previous CT chest and bronchoscopy, and likely congenital in nature. Please refer to the bronchoscopy procedural note done by Dr. Wilson. Otherwise clinically stable, breathing is stable, will continue with same medical treatment. On 10/07/2019 patient seen in follow-up on medical surgical floor. Still wheezy, occasional cough, not bringing up much sputum, vital signs have remained stable, room air pulse ox is 94%, afebrile, patient has been tolerating ambulation, Schuyler lavage cultures are still pending at this time, patient remai ns on Zithromax, IV Solu-Medrol, and nebulized bronchodilators. On 10/10/2019 patient seen in follow-up on medical surgical floor. He is awake and alert, still has a frequent congested cough, still wheezy and bronchospastic, denies any fever or chills, room air pulse ox is 97%, hemodynamically stable. He has been tolerating ambulation, lung sounds reveal diffuse wheezes, but good air entry noted bilaterally, occasionally patient is able to produce some greenish colored sputum, remains on Zithromax, so far bronchial lavage cultures are all negative, including the viral cultures. High- dose of steroids, he feels that he is improving slowly. On 10/11/2019 patient seen in follow-up on medical surgical floor. He sitting up in the recliner, sounding a little better on today's exam, however still bronchospastic, with some scattered rhonchi, but overall sounds a little better compared to yesterday's exam, he states at times he is able to bring up some sputum, but not bringing up much. He is on high-dose of steroids, he is status post bronchoscopy with bronchoalveolar lavage, and so far his cultures are negative except for the fungal culture which is showing Penicillium species, final fungal culture is pending. Otherwise patient has been stable, tolerating ambulation, he is on room air, and his had no fever or chills. Objective - Vital Signs Vital signs: Vital Signs Temp 98.0 F 10/11/19 07:00 Pulse 62 10/11/19 11:51 Resp 18 10/11/19 08:00 BP 154/65 10/11/19 07:00 Pulse Ox 98 10/11/19 07:57 Intake & Output 10/10/19 10/11/19 10/11/19 18:59 06:59 18:59 Intake Total 944 480 Balance 944 480 Weight 65.771 kg Intake: Oral 944 480 Other: Voiding Method Toilet Toilet # Voids 3 1 - Exam GENERAL EXAM: Alert, pleasant, 50-year-old white male, comfortable in no apparent distress. HEAD: Normocephalic/atraumatic. EYES: Normal reaction of pupils, equal size. Conjunctiva pink, sclera white. NOSE: Clear with pink turbinates. THROAT: No erythema or exudates. NECK: No masses, no JVD, no thyroid enlargement, no adenopathy. CHEST: No chest wall deformity. Symmetrical expansion. LUNGS: Equal air entry with diffuse wheezes CVS: Regular rate and rhythm, normal S1 and S2, no gallops, no murmurs, no rubs ABDOMEN: Soft, nontender. No hepatosplenomegaly, normal bowel sounds, no guarding or rigidity. EXTREMITIES: No clubbing, no edema, no cyanosis, 2+ pulses and upper and lower extremities. MUSCULOSKELETAL: Muscle strength and tone normal. SPINE: No scoliosis or deformity SKIN: No rashes CENTRAL NERVOUS SYSTEM: Alert and oriented -3. No focal deficits, tone is normal in all 4 extremities. PSYCHIATRIC: Alert and oriented -3. Appropriate affect. Intact judgment and insight. - Labs CBC & Chem 7: 10/02/19 11:16 10/02/19 11:16 Labs: Abnormal Lab Results - Last 24 Hours (Table) 10/10/19 10/10/19 10/11/19 Range/Units 17:10 20:10 07:01 POC Glucose (mg/dL) 193 H 133 H 131 H (75-99) mg/dL 10/11/19 Range/Units 11:45 POC Glucose (mg/dL) 112 H (75-99) mg/dL Microbiology - Last 24 Hours (Table) 10/06/19 15:24 Fungal Culture - Preliminary Bronchoalviolar Lavage - Right Penicillium species Assessment and Plan Plan: #1 Acute exacerbation of moderate persistent chronic bronchial asthma, complicated by purulent tracheobronchitis. #2 History of congenital heart disease, status post surgery for coarctation of aorta and patent ductus arteriosus. #3 Previous history of pulmonary embolism. #4 Hypertension. #5 Diabetes mellitus. #6 Restrictive lung disease secondary to scoliosis. Plan: Continue the IV steroids, patient has completed 9 days of Zithromax, bronchial lavage cultures are negative so far with the exception of fungal cultures with penicillium, likely contaminant. No fever or chills, still bronchospastic with slight improvement since yesterday, but no respiratory distress, vital signs are stable, he is on room air, continue current treatment. Probably not quite ready for discharge. I performed a history & physical examination of the patient and discussed their management with my nurse practitioner, Luz Maria Maria. I reviewed the nurse practitioner's note and agree with the documented findings and plan of care. Lung sounds are positive for diffuse wheezes throughout the lung melchor. The findings and the impression was discussed with the patient. I attest to the documentation by the nurse practitioner. Time with Patient: Less than 30
[2019-10-11] MEDS: LEVOFLOXACIN 500 MG TAB PO SCH (16:50)
[2019-10-11 16:53] LABS: Glucose,Whole Blood 138 mg/dL (75-99)
--- NOTE | 2019-10-11 19:32 | PN ---
PROGRESS NOTE CHIEF COMPLAINT: Pneumonitis and COPD with diffuse interstitial fibrosis. HISTORY OF PRESENT ILLNESS: This gentleman continues to be just about the same. Respirations still remain labored and he has extensive wheezing. PHYSICAL EXAMINATION: Chest reveals excessive wheezing, rales, rhonchi and a productive cough. Cardiac exam is normal. IMPRESSION: 1. Persistent bronchitis. 2. Diffuse interstitial fibrosis. PLAN: Continue with current effort until he is clear enough to go home. MMODL / IJN: [id number] /
[2019-10-11] MEDS: ESCITALOPRAM 20 MG TAB PO SCH (19:59)
[2019-10-11] MEDS: BUDESONIDE 1 MG/2 ML NEBU INHALATION SCH (20:02)
[2019-10-11 20:06] LABS: Glucose,Whole Blood 219 mg/dL (75-99)
[2019-10-12] MEDS: methylPREDNISolone SOD SUCCI 125 MG/2 ML VIAL IV SCH ×3 (05:51→21:43)
[2019-10-12 07:17] LABS: Glucose,Whole Blood 136 mg/dL (75-99)
[2019-10-12] MEDS: INSULIN ASPART (NovoLOG) 100 UNIT/ML VIAL SQ SCH ×4 (07:19→21:38)
[2019-10-12] MEDS: ACETAMINOPHEN TAB 325 MG TAB PO PRN ×2 (07:20→15:43)
[2019-10-12] MEDS: guaiFENesin 600 MG TABLET.ER PO SCH ×2 (07:20→21:38)
[2019-10-12] MEDS: BISOPROLOL-HCTZ 5-6.25 MG 1 EACH TAB PO SCH (07:21)
[2019-10-12] MEDS: FAMOTIDINE 20 MG TAB PO SCH (07:21)
[2019-10-12] MEDS: IPRATROPIUM-ALBUTEROL 3 ML NEB INHALATION SCH ×4 (08:00→20:04)
[2019-10-12] MEDS: FORMOTEROL FUMARATE 20 MCG/2 ML NEBU INHALATION SCH ×2 (08:00→20:04)
[2019-10-12] MEDS: BUDESONIDE 1 MG/2 ML NEBU INHALATION SCH ×2 (08:00→20:04)
[2019-10-12 11:58] LABS: Glucose,Whole Blood 177 mg/dL (75-99)
--- NOTE | 2019-10-12 12:09 | P.PN ---
Subjective Progress Note Date: 10/12/19 Principal diagnosis: Acute exacerbation of moderately persistent chronic bronchial asthma On 10/05/2019 patient seen in follow-up on medical surgical floor, still quite bronchospastic, and dyspneic, able to cough up much sputum, remains on 2 L of oxygen with a pulse ox of 98%, so positive for diffuse wheezes, and patient has a congested cough, afebrile, on culture showed no growth. He is on IV Solu- Medrol at 30 mg every 8 hours, Zithromax, and nebulized bronchodilators. On 10/06/2019 patient seen in follow-up on medical surgical floor. Breathing easier, a little less bronchospastic today, he is tolerating ambulation. Not coughing up much sputum, vital signs are stable, no fever chills, room air pulse ox is 96%, lung sounds are still positive for some scattered wheezes, sounding better compared to yesterday's exam, patient is status post bronchoscopy with BAL yesterday on 10/05/2019, bronchial lavage cultures are still pending, blood cultures are negative, antibiotic coverage is no form of Zithromax, IV Solu- Medrol, and nebulized bronchodilators. During the bronchoscopy patient was noted to have left main stem bronchus narrowing, and reviewing the results of the CT of the chest from all 02/18/2019, and is usualfrom the previous bronchoscopy from 03/04/2019 this left mainstem bronchus narrowing was also noted on previous CT chest and bronchoscopy, and likely congenital in nature. Please refer to the bronchoscopy procedural note done by Dr. Wilson. Otherwise clinically stable, breathing is stable, will continue with same medical treatment. On 10/07/2019 patient seen in follow-up on medical surgical floor. Still wheezy, occasional cough, not bringing up much sputum, vital signs have remained stable, room air pulse ox is 94%, afebrile, patient has been tolerating ambulation, Schuyler lavage cultures are still pending at this time, patient remai ns on Zithromax, IV Solu-Medrol, and nebulized bronchodilators. On 10/10/2019 patient seen in follow-up on medical surgical floor. He is awake and alert, still has a frequent congested cough, still wheezy and bronchospastic, denies any fever or chills, room air pulse ox is 97%, hemodynamically stable. He has been tolerating ambulation, lung sounds reveal diffuse wheezes, but good air entry noted bilaterally, occasionally patient is able to produce some greenish colored sputum, remains on Zithromax, so far bronchial lavage cultures are all negative, including the viral cultures. High- dose of steroids, he feels that he is improving slowly. On 10/11/2019 patient seen in follow-up on medical surgical floor. He sitting up in the recliner, sounding a little better on today's exam, however still bronchospastic, with some scattered rhonchi, but overall sounds a little better compared to yesterday's exam, he states at times he is able to bring up some sputum, but not bringing up much. He is on high-dose of steroids, he is status post bronchoscopy with bronchoalveolar lavage, and so far his cultures are negative except for the fungal culture which is showing Penicillium species, final fungal culture is pending. Otherwise patient has been stable, tolerating ambulation, he is on room air, and his had no fever or chills. On 10/12/2019 patient seen in follow-up on medical surgical floor. He is awake and alert, oriented 3, sitting up in the chair, he has been tolerating ambulation, on today's exam there is improvement in terms of wheezing, and congestion, patient still not bringing up much sputum, but no rhonchi auscultated. Vital signs are stable, bronchial lavage cultures are negative, will culture showed Penicillium species likely contaminant. he was switched the patient's antibiotics to Levaquin, he continues on high-dose IV steroids and nebulized bronchodilators, improvement noted in terms of bronchospasticity on today's exam Objective - Vital Signs Vital signs: Vital Signs Temp 98.0 F 10/12/19 07:00 Pulse 64 10/12/19 12:03 Resp 17 10/12/19 08:15 BP 151/77 10/12/19 07:00 Pulse Ox 97 10/12/19 01:33 Intake & Output 10/11/19 10/12/19 10/12/19 18:59 06:59 18:59 Weight 65.771 kg Other: Voiding Method Toilet Toilet # Voids 2 1 1 - Exam GENERAL EXAM: Alert, pleasant, 50-year-old white male, comfortable in no apparent distress. HEAD: Normocephalic/atraumatic. EYES: Normal reaction of pupils, equal size. Conjunctiva pink, sclera white. NOSE: Clear with pink turbinates. THROAT: No erythema or exudates. NECK: No masses, no JVD, no thyroid enlargement, no adenopathy. CHEST: No chest wall deformity. Symmetrical expansion. LUNGS: Equal air entry with CVS: Regular rate and rhythm, normal S1 and S2, no gallops, no murmurs, no rubs ABDOMEN: Soft, nontender. No hepatosplenomegaly, normal bowel sounds, no guarding or rigidity. EXTREMITIES: No clubbing, no edema, no cyanosis, 2+ pulses and upper and lower extremities. MUSCULOSKELETAL: Muscle strength and tone normal. SPINE: No scoliosis or deformity SKIN: No rashes CENTRAL NERVOUS SYSTEM: Alert and oriented -3. No focal deficits, tone is normal in all 4 extremities. PSYCHIATRIC: Alert and oriented -3. Appropriate affect. Intact judgment and insight. - Labs CBC & Chem 7: 10/02/19 11:16 10/02/19 11:16 Labs: Abnormal Lab Results - Last 24 Hours (Table) 10/11/19 10/11/19 10/12/19 Range/Units 16:52 20:03 07:15 POC Glucose (mg/dL) 138 H 219 H 136 H (75-99) mg/dL 10/12/19 Range/Units 11:55 POC Glucose (mg/dL) 177 H (75-99) mg/dL Assessment and Plan Plan: #1 Acute exacerbation of moderate persistent chronic bronchial asthma, complicated by purulent tracheobronchitis. #2 History of congenital heart disease, status post surgery for coarctation of aorta and patent ductus arteriosus. #3 Previous history of pulmonary embolism. #4 Hypertension. #5 Diabetes mellitus. #6 Restrictive lung disease secondary to scoliosis. Plan: Continue Levaquin, continue same dose IV steroids, nebulized bronchodilators, patient is less bronchospastic on today's exam, sounds improved, increase activity as tolerated, will continue with current medical treatment, bronchial wash cultures are negative thus far. Possible discharge in next 24 hours if continues to improve I performed a history & physical examination of the patient and discussed their management with my nurse practitioner, Luz Maria Maria. I reviewed the nurse practitioner's note and agree with the documented findings and plan of care. Radha ng sounds are positive for diffuse wheezes throughout the lung melchor. The findings and the impression was discussed with the patient. I attest to the documentation by the nurse practitioner. Time with Patient: Less than 30
[2019-10-12] MEDS: LEVOFLOXACIN 500 MG TAB PO SCH (15:43)
[2019-10-12 16:57] LABS: Glucose,Whole Blood 95 mg/dL (75-99)
[2019-10-12] MEDS: ESCITALOPRAM 20 MG TAB PO SCH (21:38)
[2019-10-12 21:50] LABS: Glucose,Whole Blood 211 mg/dL (75-99)
--- NOTE | 2019-10-12 22:43 | PN ---
PROGRESS NOTE CHIEF COMPLAINT: Pneumonitis, bronchitis and exacerbation of COPD. HISTORY OF PRESENT ILLNESS: This gentleman continues to improve slowly, but he is still very congested and still being followed by Pulmonology. PHYSICAL EXAMINATION: Although his chest has improved some, he still has bilateral anterior and posterior rales, rhonchi and wheezing. Cardiac exam is normal. IMPRESSION: 1. Exacerbation of chronic obstructive pulmonary disease. 2. Diffuse interstitial fibrosis. PLAN: Continue treatment and await further recommendations regarding any other treatments and discharge from Pulmonology. MMODL / IJN: [id number] /
[2019-10-13] MEDS: ACETAMINOPHEN TAB 325 MG TAB PO PRN ×3 (01:44→14:34)
[2019-10-13] MEDS: methylPREDNISolone SOD SUCCI 125 MG/2 ML VIAL IV SCH (05:41)
[2019-10-13 06:59] LABS: Glucose,Whole Blood 129 mg/dL (75-99)
[2019-10-13] MEDS: INSULIN ASPART (NovoLOG) 100 UNIT/ML VIAL SQ SCH ×4 (07:18→20:21)
[2019-10-13] MEDS: BISOPROLOL-HCTZ 5-6.25 MG 1 EACH TAB PO SCH (07:39)
[2019-10-13] MEDS: FAMOTIDINE 20 MG TAB PO SCH (07:39)
[2019-10-13] MEDS: guaiFENesin 600 MG TABLET.ER PO SCH ×2 (07:39→20:43)
[2019-10-13] MEDS: BUDESONIDE 1 MG/2 ML NEBU INHALATION SCH ×2 (07:46→20:03)
[2019-10-13] MEDS: IPRATROPIUM-ALBUTEROL 3 ML NEB INHALATION SCH ×4 (07:46→20:04)
[2019-10-13] MEDS: FORMOTEROL FUMARATE 20 MCG/2 ML NEBU INHALATION SCH ×2 (07:46→20:03)
[2019-10-13] MEDS ORDERED: IPRATROPIUM-ALBUTEROL 3 ML NEB INHALATION PRN (10:51)
--- NOTE | 2019-10-13 10:53 | P.PN ---
Subjective Progress Note Date: 10/13/19 Principal diagnosis: Acute exacerbation of moderately persistent chronic bronchial asthma On 10/05/2019 patient seen in follow-up on medical surgical floor, still quite bronchospastic, and dyspneic, able to cough up much sputum, remains on 2 L of oxygen with a pulse ox of 98%, so positive for diffuse wheezes, and patient has a congested cough, afebrile, on culture showed no growth. He is on IV Solu- Medrol at 30 mg every 8 hours, Zithromax, and nebulized bronchodilators. On 10/06/2019 patient seen in follow-up on medical surgical floor. Breathing easier, a little less bronchospastic today, he is tolerating ambulation. Not coughing up much sputum, vital signs are stable, no fever chills, room air pulse ox is 96%, lung sounds are still positive for some scattered wheezes, sounding better compared to yesterday's exam, patient is status post bronchoscopy with BAL yesterday on 10/05/2019, bronchial lavage cultures are still pending, blood cultures are negative, antibiotic coverage is no form of Zithromax, IV Solu- Medrol, and nebulized bronchodilators. During the bronchoscopy patient was noted to have left main stem bronchus narrowing, and reviewing the results of the CT of the chest from all 02/18/2019, and is usualfrom the previous bronchoscopy from 03/04/2019 this left mainstem bronchus narrowing was also noted on previous CT chest and bronchoscopy, and likely congenital in nature. Please refer to the bronchoscopy procedural note done by Dr. Wilson. Otherwise clinically stable, breathing is stable, will continue with same medical treatment. On 10/07/2019 patient seen in follow-up on medical surgical floor. Still wheezy, occasional cough, not bringing up much sputum, vital signs have remained stable, room air pulse ox is 94%, afebrile, patient has been tolerating ambulation, Schuyler lavage cultures are still pending at this time, patient remai ns on Zithromax, IV Solu-Medrol, and nebulized bronchodilators. On 10/10/2019 patient seen in follow-up on medical surgical floor. He is awake and alert, still has a frequent congested cough, still wheezy and bronchospastic, denies any fever or chills, room air pulse ox is 97%, hemodynamically stable. He has been tolerating ambulation, lung sounds reveal diffuse wheezes, but good air entry noted bilaterally, occasionally patient is able to produce some greenish colored sputum, remains on Zithromax, so far bronchial lavage cultures are all negative, including the viral cultures. High- dose of steroids, he feels that he is improving slowly. On 10/11/2019 patient seen in follow-up on medical surgical floor. He sitting up in the recliner, sounding a little better on today's exam, however still bronchospastic, with some scattered rhonchi, but overall sounds a little better compared to yesterday's exam, he states at times he is able to bring up some sputum, but not bringing up much. He is on high-dose of steroids, he is status post bronchoscopy with bronchoalveolar lavage, and so far his cultures are negative except for the fungal culture which is showing Penicillium species, final fungal culture is pending. Otherwise patient has been stable, tolerating ambulation, he is on room air, and his had no fever or chills. On 10/12/2019 patient seen in follow-up on medical surgical floor. He is awake and alert, oriented 3, sitting up in the chair, he has been tolerating ambulation, on today's exam there is improvement in terms of wheezing, and congestion, patient still not bringing up much sputum, but no rhonchi auscultated. Vital signs are stable, bronchial lavage cultures are negative, will culture showed Penicillium species likely contaminant. he was switched the patient's antibiotics to Levaquin, he continues on high-dose IV steroids and nebulized bronchodilators, improvement noted in terms of bronchospasticity on today's exam On 10/13/2019 patient seen in follow-up on medical surgical floor. Breathing easier, still has some scattered wheezes, but no significant congestion, slowly improving every day. But pressures were elevated and patient had a headache, this likely due to prolonged course of IV steroids, bronchial wash cultures have shown no growth so far, cytology was negative. No fever or chills, patient has been tolerating ambulation. Not bringing up much sputum. No other issues overnight, remains on antibiotics, IV steroids and nebulized bronchodilators Objective - Vital Signs Vital signs: Vital Signs Temp 97.5 F L 10/13/19 07:06 Pulse 98 11/14/19 08:25 Resp 19 10/13/19 08:25 BP 182/71 10/13/19 07:06 Pulse Ox 96 10/13/19 01:46 Intake & Output 10/12/19 10/13/19 10/13/19 18:59 06:59 18:59 Intake Total 650 Balance 650 Intake: Oral 650 Other: Voiding Method Toilet Toilet Toilet # Voids 3 2 2 - Exam GENERAL EXAM: Alert, pleasant, 50-year-old white male, comfortable in no apparent distress. HEAD: Normocephalic/atraumatic. EYES: Normal reaction of pupils, equal size. Conjunctiva pink, sclera white. NOSE: Clear with pink turbinates. THROAT: No erythema or exudates. NECK: No masses, no JVD, no thyroid enlargement, no adenopathy. CHEST: No chest wall deformity. Symmetrical expansion. LUNGS: Equal air entry with CVS: Regular rate and rhythm, normal S1 and S2, no gallops, no murmurs, no rubs ABDOMEN: Soft, nontender. No hepatosplenomegaly, normal bowel sounds, no guarding or rigidity. EXTREMITIES: No clubbing, no edema, no cyanosis, 2+ pulses and upper and lower extremities. MUSCULOSKELETAL: Muscle strength and tone normal. SPINE: No scoliosis or deformity SKIN: No rashes CENTRAL NERVOUS SYSTEM: Alert and oriented -3. No focal deficits, tone is normal in all 4 extremities. PSYCHIATRIC: Alert and oriented -3. Appropriate affect. Intact judgment and insight. - Labs CBC & Chem 7: 10/02/19 11:16 10/02/19 11:16 Labs: Abnormal Lab Results - Last 24 Hours (Table) 10/12/19 10/12/19 10/13/19 Range/Units 11:55 21:31 06:57 POC Glucose (mg/dL) 177 H 211 H 129 H (75-99) mg/dL Assessment and Plan Plan: #1 Acute exacerbation of moderate persistent chronic bronchial asthma, complicated by purulent tracheobronchitis. #2 History of congenital heart disease, status post surgery for coarctation of aorta and patent ductus arteriosus. #3 Previous history of pulmonary embolism. #4 Hypertension. #5 Diabetes mellitus. #6 Restrictive lung disease secondary to scoliosis. Plan: Continue current medical treatment, patient is improving, bronch lavage cultures and cytology are negative, continue empiric antibiotics, we'll decrease the IV steroids down to 40 mg every 8 hours, still some scattered wheezes, but overall improving, increase activity as tolerated, may consider discharge home today or tomorrow. I performed a history & physical examination of the patient and discussed their management with my nurse practitioner, Luz Maria Maria. I reviewed the nurse practitioner's note and agree with the documented findings and plan of care. Lung sounds are positive for diffuse wheezes throughout the lung melchor. The findings and the impression was discussed with the patient. I attest to the documentation by the nurse practitioner. Time with Patient: Less than 30
[2019-10-13 11:32] LABS: Glucose,Whole Blood 114 mg/dL (75-99)
--- NOTE | 2019-10-13 12:29 | PN ---
PROGRESS NOTE CHIEF COMPLAINT: Exacerbation of COPD and interstitial fibrosis. HISTORY OF PRESENT ILLNESS: This gentleman is slowly clearing in terms of his pulmonary signs and symptoms, but his blood pressure is elevating. PHYSICAL EXAMINATION: He still has rales, rhonchi and wheezing on both sides anterior and posteriorly. Blood pressure is also elevated with a systolic running over 160 and diastolic around 90. IMPRESSION: 1. Exacerbation of chronic obstructive pulmonary disease. 2. Interstitial fibrosis. 3. Hypertension. PLAN: [place] treatment to control hypertension and continue inpatient stay for another day or 2. MMODL / IJN: [id number] /
[2019-10-13] MEDS: methylPREDNISolone SOD SUCCI 40 MG/ML 1 ML VIAL IV SCH ×2 (14:34→20:43)
[2019-10-13] MEDS: CHLORTHALIDONE 25 MG TAB PO SCH (14:34)
[2019-10-13] MEDS: LOSARTAN 50 MG TAB PO SCH (14:34)
[2019-10-13] MEDS: LEVOFLOXACIN 500 MG TAB PO SCH (14:34)
[2019-10-13 16:49] LABS: Glucose,Whole Blood 180 mg/dL (75-99)
[2019-10-13 20:10] LABS: Glucose,Whole Blood 124 mg/dL (75-99)
[2019-10-13] MEDS: ESCITALOPRAM 20 MG TAB PO SCH (20:43)
[2019-10-14] MEDS: methylPREDNISolone SOD SUCCI 40 MG/ML 1 ML VIAL IV SCH ×2 (06:13→13:10)
[2019-10-14 07:05] LABS: Glucose,Whole Blood 121 mg/dL (75-99)
[2019-10-14] MEDS: INSULIN ASPART (NovoLOG) 100 UNIT/ML VIAL SQ SCH ×2 (07:07→11:57)
[2019-10-14] MEDS: FORMOTEROL FUMARATE 20 MCG/2 ML NEBU INHALATION SCH (08:04)
[2019-10-14] MEDS: IPRATROPIUM-ALBUTEROL 3 ML NEB INHALATION SCH ×2 (08:04→11:31)
[2019-10-14] MEDS: BUDESONIDE 1 MG/2 ML NEBU INHALATION SCH (08:04)
[2019-10-14] MEDS: FAMOTIDINE 20 MG TAB PO SCH (08:42)
[2019-10-14] MEDS: BISOPROLOL-HCTZ 5-6.25 MG 1 EACH TAB PO SCH (08:42)
[2019-10-14] MEDS: guaiFENesin 600 MG TABLET.ER PO SCH (08:42)
[2019-10-14] MEDS: CHLORTHALIDONE 25 MG TAB PO SCH (08:42)
[2019-10-14] MEDS: LOSARTAN 50 MG TAB PO SCH (08:42)
--- NOTE | 2019-10-14 11:29 | P.PN ---
Subjective Progress Note Date: 10/14/19 Principal diagnosis: Acute exacerbation of moderately persistent chronic bronchial asthma On 10/05/2019 patient seen in follow-up on medical surgical floor, still quite bronchospastic, and dyspneic, able to cough up much sputum, remains on 2 L of oxygen with a pulse ox of 98%, so positive for diffuse wheezes, and patient has a congested cough, afebrile, on culture showed no growth. He is on IV Solu- Medrol at 30 mg every 8 hours, Zithromax, and nebulized bronchodilators. On 10/06/2019 patient seen in follow-up on medical surgical floor. Breathing easier, a little less bronchospastic today, he is tolerating ambulation. Not coughing up much sputum, vital signs are stable, no fever chills, room air pulse ox is 96%, lung sounds are still positive for some scattered wheezes, sounding better compared to yesterday's exam, patient is status post bronchoscopy with BAL yesterday on 10/05/2019, bronchial lavage cultures are still pending, blood cultures are negative, antibiotic coverage is no form of Zithromax, IV Solu- Medrol, and nebulized bronchodilators. During the bronchoscopy patient was noted to have left main stem bronchus narrowing, and reviewing the results of the CT of the chest from all 02/18/2019, and is usualfrom the previous bronchoscopy from 03/04/2019 this left mainstem bronchus narrowing was also noted on previous CT chest and bronchoscopy, and likely congenital in nature. Please refer to the bronchoscopy procedural note done by Dr. Wilson. Otherwise clinically stable, breathing is stable, will continue with same medical treatment. On 10/07/2019 patient seen in follow-up on medical surgical floor. Still wheezy, occasional cough, not bringing up much sputum, vital signs have remained stable, room air pulse ox is 94%, afebrile, patient has been tolerating ambulation, Schuyler lavage cultures are still pending at this time, patient remai ns on Zithromax, IV Solu-Medrol, and nebulized bronchodilators. On 10/10/2019 patient seen in follow-up on medical surgical floor. He is awake and alert, still has a frequent congested cough, still wheezy and bronchospastic, denies any fever or chills, room air pulse ox is 97%, hemodynamically stable. He has been tolerating ambulation, lung sounds reveal diffuse wheezes, but good air entry noted bilaterally, occasionally patient is able to produce some greenish colored sputum, remains on Zithromax, so far bronchial lavage cultures are all negative, including the viral cultures. High- dose of steroids, he feels that he is improving slowly. On 10/11/2019 patient seen in follow-up on medical surgical floor. He sitting up in the recliner, sounding a little better on today's exam, however still bronchospastic, with some scattered rhonchi, but overall sounds a little better compared to yesterday's exam, he states at times he is able to bring up some sputum, but not bringing up much. He is on high-dose of steroids, he is status post bronchoscopy with bronchoalveolar lavage, and so far his cultures are negative except for the fungal culture which is showing Penicillium species, final fungal culture is pending. Otherwise patient has been stable, tolerating ambulation, he is on room air, and his had no fever or chills. On 10/12/2019 patient seen in follow-up on medical surgical floor. He is awake and alert, oriented 3, sitting up in the chair, he has been tolerating ambulation, on today's exam there is improvement in terms of wheezing, and congestion, patient still not bringing up much sputum, but no rhonchi auscultated. Vital signs are stable, bronchial lavage cultures are negative, will culture showed Penicillium species likely contaminant. he was switched the patient's antibiotics to Levaquin, he continues on high-dose IV steroids and nebulized bronchodilators, improvement noted in terms of bronchospasticity on today's exam On 10/13/2019 patient seen in follow-up on medical surgical floor. Breathing easier, still has some scattered wheezes, but no significant congestion, slowly improving every day. But pressures were elevated and patient had a headache, this likely due to prolonged course of IV steroids, bronchial wash cultures have shown no growth so far, cytology was negative. No fever or chills, patient has been tolerating ambulation. Not bringing up much sputum. No other issues overnight, remains on antibiotics, IV steroids and nebulized bronchodilators On 10/14/2019 patient seen in follow-up on medical surgical floor. He is awake and alert, sitting up in the chair, he states today is the first day where he actually feels like he is improving, less wheezy, less dyspneic, a few scattered rhonchi, but no significant congestion, room air pulse ox is 98%, he is afebrile, hemodynamically stable, bronchial lavage cultures remain negative thus far. Patient continues on Levaquin, IV steroids, and breathing treatments, bronchial are cytology was negative. He has been tolerating ambulation. Requesting to go home today Objective - Vital Signs Vital signs: Vital Signs Temp 97.3 F L 10/14/19 08:41 Pulse 78 10/14/19 08:25 Resp 18 10/14/19 08:25 BP 118/72 10/14/19 08:25 Pulse Ox 98 10/14/19 08:25 Intake & Output 10/13/19 10/14/19 10/14/19 18:59 06:59 18:59 Other: Voiding Method Toilet Toilet # Voids 1 1 - Exam GENERAL EXAM: Alert, pleasant, 50-year-old white male, comfortable in no apparent distress. HEAD: Normocephalic/atraumatic. EYES: Normal reaction of pupils, equal size. Conjunctiva pink, sclera white. NOSE: Clear with pink turbinates. THROAT: No erythema or exudates. NECK: No masses, no JVD, no thyroid enlargement, no adenopathy. CHEST: No chest wall deformity. Symmetrical expansion. LUNGS: Equal air entry with some scattered rhonchi, minimal wheezing CVS: Regular rate and rhythm, normal S1 and S2, no gallops, no murmurs, no rubs ABDOMEN: Soft, nontender. No hepatosplenomegaly, normal bowel sounds, no guarding or rigidity. EXTREMITIES: No clubbing, no edema, no cyanosis, 2+ pulses and upper and lower extremities. MUSCULOSKELETAL: Muscle strength and tone normal. SPINE: No scoliosis or deformity SKIN: No rashes CENTRAL NERVOUS SYSTEM: Alert and oriented -3. No focal deficits, tone is normal in all 4 extremities. PSYCHIATRIC: Alert and oriented -3. Appropriate affect. Intact judgment and insight. - Labs CBC & Chem 7: 10/02/19 11:16 10/02/19 11:16 Labs: Abnormal Lab Results - Last 24 Hours (Table) 10/13/19 10/13/19 10/13/19 Range/Units 11:30 16:45 20:06 POC Glucose (mg/dL) 114 H 180 H 124 H (75-99) mg/dL 10/14/19 Range/Units 07:01 POC Glucose (mg/dL) 121 H (75-99) mg/dL Assessment and Plan Plan: #1 Acute exacerbation of moderate persistent chronic bronchial asthma, complicated by purulent tracheobronchitis. #2 History of congenital heart disease, status post surgery for coarctation of aorta and patent ductus arteriosus. #3 Previous history of pulmonary embolism. #4 Hypertension. #5 Diabetes mellitus. #6 Restrictive lung disease secondary to scoliosis. 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 From pulmonary perspective patient is able for discharge home today on a prednisone taper, he can finish his course of Levaquin, and he can resume his maintenance inhalers and nebulized treatments. He will need outpatient follow-up in the office with Dr. Gallardo in one week I performed a history & physical examination of the patient and discussed their management with my nurse practitioner, Luz Maria Maria. I reviewed the nurse practitioner's note and agree with the documented findings and plan of care. Radha ng sounds are positive for diffuse wheezes throughout the lung melchor. The findings and the impression was discussed with the patient. I attest to the documentation by the nurse practitioner. Time with Patient: Less than 30
[2019-10-14 11:51] LABS: Glucose,Whole Blood 121 mg/dL (75-99)
[2019-10-14 13:43] VITALS: BP 108/70; PULSE 70; RESP 12; TEMP 98
--- NOTE | 2019-10-17 09:31 | P.DS ---
Providers Date of admission: 10/04/19 15:02 Expected date of discharge: 10/14/19 Attending physician: Enmanuel López Consults: 10/02/19 12:17 Consult Physician Routine Consulting Provider: Nigel Goldstein Reason/Comments: COPD Do you want consulting provider notified?: Yes Primary care physician: [facility] Course: Final diagnosis Exacerbation of chronic obstructive pulmonary disease Interstitial fibrosis Hypertension History of congenital heart disease, status post 2 procedures Congenital restrictive respiratory disease Discharge disposition Patient is being discharged in a stable condition with guarded prognosis to home and will follow-up with primary care provider upon discharge. Patient will also be following up with pulmonary in one week. Patient will be continued on a short course of oral steroids for the next week. Total time taken is 35 minutes. History of present illness This is a 54-year-old male who was recently admitted with exacerbation of COPD and interstitial fibrosis and was being closely monitored. This is a patient of Dr. Dong that we are covering. Patient states that he was 7 weeks premature and has always had lung disease. He's undergone to open heart procedures on 2 different occasions, one for patent ductus arteriosus and the other for coarctation of the aorta. Patient sees Dr. Goldstein are in the outpatient setting. Per the patient has approximately 36% normal pulmonary function and when he feels he has been getting short of breath and has difficulty breathing he presents to the ED. Patient was admitted and being closely monitored. During hospitalization patient underwent a bronchoalveolar lavage of the right side but was unable to pass on the left side due to a congenital tortuous left mainstem as noted previously. Currently patient's condition is stable with much improvement and is ready for discharge today. Patient denies any chest pain, shortness of breath, or palpitations at this time. Patient has been afebrile. Patient denies any nausea or vomiting and is tolerating diet. Guarded prognosis. On exam vital signs are stable. Temp is 98F, pulse is 70, respirations are 12, blood pressure is 108/70, oxygen saturation is 95% on room air. Cardio S1 and S2 are present. Respiratory system shows diminished breath sounds at the bases with some scattered rhonchi noted. Abdomen is soft, nontender. Nervous system shows no focal deficits. Please refer to medication reconciliation sheet for a list of medications. Patient Condition at Discharge: Fair Plan - Discharge Summary Discharge Rx Participant: No New Discharge Prescriptions: New Losartan [Cozaar] 100 mg PO DAILY 30 Days #30 tab Ipratropium-Albuterol Nebulize [Duoneb 0.5 mg-3 mg/3 ml Soln] 3 ml INHALATION RT-QID 30 Days #120 ampul.neb Chlorthalidone [Hygroton] 25 mg PO DAILY 30 Days #30 tab Levofloxacin [Levaquin] 500 mg PO Q24H 5 Days #5 tab guaiFENesin [Mucinex] 1,200 mg PO Q12HR #20 tablet.er Formoterol Fumarate [Perforomist] 20 mcg INHALATION RT-BID 30 Days #60 nebu predniSONE 10 mg PO DIRECTED #30 tab Continue Escitalopram [Lexapro] 20 mg PO HS Famotidine 20 mg PO DAILY Bisoprolol/Hydrochlorothiazide [Bisoprolol-Hctz 5-6.25 mg Tab] 2 tab PO DAILY Discontinued methylPREDNISolone [Medrol Dose Pack] See Taper PO DIRECTED Discharge Medication List Escitalopram [Lexapro] 20 mg PO HS 02/17/19 [History] Bisoprolol/Hydrochlorothiazide [Bisoprolol-Hctz 5-6.25 mg Tab] 2 tab PO DAILY 10/02/19 [History] Famotidine 20 mg PO DAILY 10/02/19 [History] Chlorthalidone [Hygroton] 25 mg PO DAILY 30 Days #30 tab 10/14/19 [Rx] Formoterol Fumarate [Perforomist] 20 mcg INHALATION RT-BID 30 Days #60 nebu 10/14/19 [Rx] Ipratropium-Albuterol Nebulize [Duoneb 0.5 mg-3 mg/3 ml Soln] 3 ml INHALATION RT-QID 30 Days #120 ampul.neb 10/14/19 [Rx] Levofloxacin [Levaquin] 500 mg PO Q24H 5 Days #5 tab 10/14/19 [Rx] Losartan [Cozaar] 100 mg PO DAILY 30 Days #30 tab 10/14/19 [Rx] guaiFENesin [Mucinex] 1,200 mg PO Q12HR #20 tablet.er 10/14/19 [Rx] predniSONE 10 mg PO DIRECTED #30 tab 10/14/19 [Rx] Follow up Appointment(s)/Referral(s): Nigel Goldstein MD [STAFF PHYSICIAN] - 1 Week Jim Dutta MD [Primary Care Provider] - 1-2 days Patient Instructions/Handouts: COPD (Chronic Obstructive Pulmonary Disease) (DC) Activity/Diet/Wound Care/Special Instructions: Activity Limited until follow-up Follow-up with primary care provider upon discharge Continue with antibiotics until finished Continue prednisone taper until finished Follow-up with pulmonary in one week Discharge Disposition: HOME SELF-CARE
== END 2019-10-14 15:39 | disposition home or self-care (01) | DRG 202 ==
LOC: EC 10:05 → 3NMEDONC 12:17 → OBSVTOIN 10-04 15:02 → 4SSUR 10-07 17:14
PROVIDERS: ADMIT Family Medicine; ATTEND Family Medicine
PROC: 0BC78ZZ Extirpation of Matter from Left Main Bronchus, Via Natural or Artificial Opening Endoscopic (ICD-10-PCS; principal; 2019-10-06)
PROC: 0BC38ZZ Extirpation of Matter from Right Main Bronchus, Via Natural or Artificial Opening Endoscopic (ICD-10-PCS; 2019-10-06)
PROC: 0B9D8ZX Drainage of Right Middle Lung Lobe, Via Natural or Artificial Opening Endoscopic, Diagnostic (ICD-10-PCS; 2019-10-06)
DX: J45.41 Moderate persistent asthma with (acute) exacerbation (principal); J44.1 Chronic obstructive pulmonary disease with (acute) exacerbation; Q25.0 Patent ductus arteriosus; Q25.1 Coarctation of aorta; J44.0 Chronic obstructive pulmonary disease with (acute) lower respiratory infection; J20.9 Acute bronchitis, unspecified; E11.9 Type 2 diabetes mellitus without complications; I10 Essential (primary) hypertension; M41.9 Scoliosis, unspecified; J98.4 Other disorders of lung; Z80.0 Family history of malignant neoplasm of digestive organs; Z86.711 Personal history of pulmonary embolism; Z87.19 Personal history of other diseases of the digestive system; Z95.1 Presence of aortocoronary bypass graft; I11.0 Hypertensive heart disease with heart failure; I50.9 Heart failure, unspecified; Z88.6 Allergy status to analgesic agent; Z88.8 Allergy status to other drugs, medicaments and biological substances; D71 Functional disorders of polymorphonuclear neutrophils
CPT/HCPCS: 31624; 36415; 71046; 80053; 83036; 83735; 84484; 85025; 87040; 87070; 87102; 87116; 87205; 87206; 87252; 87496; 87498; 87502; 87529; 87634; 87798; 88108; 88305; 89050; 93005; 94640; 94760; 96365; 96375; 99291

== ENCOUNTER 2020-01-02 06:22 | Inpatient (IN) | payer BC ==
[2020-01-02] MEDS ORDERED: predniSONE 20 MG TAB PO STA (06:41)
[2020-01-02] MEDS ORDERED: IPRATROPIUM-ALBUTEROL 3 ML NEB INHALATION STA ×2 (06:41→07:56)
--- NOTE | 2020-01-02 06:43 | ED ---
URI HPI - General Chief Complaint: Upper Respiratory Infection Stated Complaint: URI Time Seen by Provider: 01/02/20 06:35 Source: patient Mode of arrival: ambulatory Limitations: no limitations - History of Present Illness Initial Comments: Alex is a 54-year-old male with extensive past medical history most significant for pulmonary fibrosis for which he follows with Dr. Wilson pulmonology. Patient presents the emergency department today for evaluation of shortness of breath and wheezing. Patient reports he's been compliant with all his home medi cations but continues to wheeze feel short of breath he reports he can only recall walk a couple steps before he becomes winded. Patient states that he had symptoms like this in the past when he gets the viral upper respiratory infection and usually requires hospitalization for [id number] breathing treatments. Patient reports subjective fevers beginning on Thursday, chills and generalized malaise. - Related Data Home Medications Medication Instructions Recorded Confirmed Escitalopram [Lexapro] 20 mg PO HS 02/17/19 10/02/19 Bisoprolol/Hydrochlorothiazide 2 tab PO DAILY 10/02/19 10/02/19 [Bisoprolol/Hydrochlorothiazide 5-6.25 mg] Famotidine 20 mg PO DAILY 10/02/19 10/02/19 Previous Rx's Medication Instructions Recorded Chlorthalidone [Hygroton] 25 mg PO DAILY 30 Days #30 tab 10/14/19 Formoterol Fumarate [Perforomist] 20 mcg INHALATION RT-BID 30 Days 10/14/19 #60 nebu Ipratropium-Albuterol Nebulize 3 ml INHALATION RT-QID 30 Days 10/14/19 [Duoneb 0.5 mg-3 mg/3 ml Soln] #120 ampul.neb Losartan [Cozaar] 100 mg PO DAILY 30 Days #30 tab 10/14/19 Allergies Allergy/AdvReac Type Severity Reaction Status Date / Time meclizine [From Antivert] Allergy Unknown Unknown Verified 01/02/20 06:32 amlodipine [From Norvasc] Allergy Unknown Verified 01/02/20 06:32 lisinopril [From Zestril] Allergy Unknown Verified 01/02/20 06:32 NSAIDS (Non-Steroidal Allergy Unknown Verified 01/02/20 06:32 Anti-Inflamma omeprazole Allergy Unknown Verified 01/02/20 06:32 Review of Systems ROS Statement: Those systems with pertinent positive or pertinent negative responses have been documented in the HPI. ROS Other: All systems not noted in ROS Statement are negative. Past Medical History Past Medical History: COPD, Hypertension, Pneumonia, Pulmonary Embolus (PE), Respiratory Disorder Additional Past Medical History / Comment(s): multiple pneumothorax left lung, colon polyps , Hx 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 with patent ductus arteriosis and surgery., restrictive heart disease, Hx of PE 2018., [place] having difficulty swallowing solid foods., limited ROM neck- recent cervical fusion. may 2019 Ok to swallow as of Sep History of Any Multi-Drug Resistant Organisms: None Reported Past Surgical History: Back Surgery, Cholecystectomy, Coronary Bypass/CABG, Hernia Repair, Prostate Surgery Additional Past Surgical History / Comment(s): carpal tunnel release., open heart at age 4, inguinal hernia repair, TURP, Orchiectomy of Left testicle. Egd and colonoscopy . Past Anesthesia/Blood Transfusion Reactions: No Reported Reaction Past Psychological History: No Psychological Hx Reported Smoking Status: Never smoker Past Alcohol Use History: None Reported Past Drug Use History: None Reported - Past Family History Mother History Unknown: Yes Family Medical History: Cancer Additional Family Medical History / Comment(s): from Pancreatic cancer Father Additional Family Medical History / Comment(s): Arthritis General Exam - General Exam Comments Initial Comments: Physical Exam GENERAL: Patient is well-developed and well-nourished. Patient is nontoxic and well-hydrated and is in no distress. HENT: Normocephalic, Atraumatic. EYES: PERRL, EOMI PULMONARY: Expiratory wheezing in all lung melchor CARDIOVASCULAR: There is a regular rate and rhythm without any murmurs gallops or rubs. ABDOMEN: Soft and nontender with normal bowel sounds. SKIN: Skin is clear with no lesions or rashes and otherwise unremarkable. : Deferred NEUROLOGIC: Patient is alert and oriented x3. Moving all extremities spontaneously MUSCULOSKELETAL: Normal extremities with adequate strength and full range of motion. No lower extremity swelling or edema. No calf tenderness. PSYCHIATRIC: Normal psychiatric evaluation. Limitations: no limitations Course Vital Signs 01/02/20 01/02/20 01/02/20 06:29 06:50 06:57 Temperature 97.5 F L Pulse Rate 65 64 Respiratory 18 28 H Rate Blood Pressure 132/77 O2 Sat by Pulse 99 Oximetry 01/02/20 01/02/20 07:01 07:31 Temperature Pulse Rate 64 66 Respiratory 18 Rate Blood Pressure 133/76 O2 Sat by Pulse 98 Oximetry Medical Decision Making - Medical Decision Making Patient seen and evaluated upon arrival emergency Department, vital signs were reviewed and were unremarkable Chest x-ray, labs including influenza swab and blood cultures were obtained Workup was relatively unremarkable however patient continues to have significant wheezing and work of breathing at rest, considering his past medical history he is high risk for outpatient failure we will discuss admission with uncle medicine team and pulmonology. - Lab Data Result diagrams: 01/02/20 06:59 01/02/20 06:59 Lab Results 01/02/20 01/02/20 01/02/20 Range/Units 06:59 06:59 06:59 WBC 6.3 (3.8-10.6) k/uL RBC 5.43 (4.30-5.90) m/uL Hgb 16.3 (13.0-17.5) gm/dL Hct 51.0 (39.0-53.0) % MCV 93.9 (80.0-100.0) fL MCH 29.9 (25.0-35.0) pg MCHC 31.9 (31.0-37.0) g/dL RDW 14.2 (11.5-15.5) % Plt Count 224 (150-450) k/uL Neutrophils % 49 % Lymphocytes % 28 % Monocytes % 14 % Eosinophils % 3 % Basophils % 2 % Neutrophils # 3.1 (1.3-7.7) k/uL Lymphocytes # 1.7 (1.0-4.8) k/uL Monocytes # 0.8 (0-1.0) k/uL Eosinophils # 0.2 (0-0.7) k/uL Basophils # 0.2 (0-0.2) k/uL Sodium 141 (137-145) mmol/L Potassium 3.8 (3.5-5.1) mmol/L Chloride 102 (98-107) mmol/L Carbon Dioxide 30 (22-30) mmol/L Anion Gap 9 mmol/L BUN 19 (9-20) mg/dL Creatinine 0.71 (0.66-1.25) mg/dL Est GFR (CKD-EPI)AfAm >90 (>60 ml/min/1.73 sqM) Est GFR (CKD-EPI)NonAf >90 (>60 ml/min/1.73 sqM) Glucose 90 (74-99) mg/dL Calcium 9.5 (8.4-10.2) mg/dL Magnesium 2.0 (1.6-2.3) mg/dL Total Bilirubin 0.7 (0.2-1.3) mg/dL AST 47 (17-59) U/L ALT 47 (4-49) U/L Alkaline Phosphatase 116 (38-126) U/L Total Protein 7.6 (6.3-8.2) g/dL Albumin 4.6 (3.5-5.0) g/dL Influenza Type A RNA Not Detected (Not Detectd) Influenza Type B (PCR) Not Detected (Not Detectd) Disposition Clinical Impression: Severe persistent asthma with acute exacerbation Disposition: ADMITTED IP TO THIS HOSP Condition: Stable Is patient prescribed a controlled substance at d/c from ED?: No Referrals: Jim Dutta MD [Primary Care Provider] - 1-2 days
--- NOTE | 2020-01-02 07:12 | XR ---
EXAMINATION TYPE: XR chest 2V DATE OF EXAM: 01/02/2020 COMPARISON: 10/02/2019 HISTORY: Cough TECHNIQUE: Frontal and lateral views of the chest are obtained. FINDINGS: Chronic left posterior upper rib deformities with fusion and mild dextroscoliosis of the t horacic spine. Cervical fusion device is also seen. Stable chronic epicardial fat pad or scarring glenda ng the left heart border. No new focal consolidation, pleural effusion or pneumothorax. IMPRESSION: Chronic findings with no acute cardiopulmonary process.
[2020-01-02 07:25] LABS: ALT 47 U/L (4-49); AST 47 U/L (17-59); African American GFR (CKD) >90 (>60 ml/min/1.73 sqM); Albumin 4.6 g/dL (3.5-5.0); Alkaline Phosphatase 116 U/L (38-126); Anion Gap 9 mmol/L; Blood Urea Nitrogen 19 mg/dL (9-20); Calcium 9.5 mg/dL (8.4-10.2); Carbon Dioxide 30 mmol/L (22-30); Chloride 102 mmol/L (98-107); Glucose 90 mg/dL (74-99); Non-African American GFR(CKD) >90 (>60 ml/min/1.73 sqM); Potassium 3.8 mmol/L (3.5-5.1); Sodium 141 mmol/L (137-145); Total Bilirubin 0.7 mg/dL (0.2-1.3); Total Protein 7.6 g/dL (6.3-8.2)
[2020-01-02 07:33] LABS: Basophils # (A) 0.2 k/uL (0-0.2); Basophils % (A) 2 %; Eosinophils # (A) 0.2 k/uL (0-0.7); Eosinophils % (A) 3 %; HGB 16.3 gm/dL (13.0-17.5); Lymphocytes # (A) 1.7 k/uL (1.0-4.8); Lymphocytes % (A) 28 %; MCH 29.9 pg (25.0-35.0); MCHC 31.9 g/dL (31.0-37.0); MCV 93.9 fL (80.0-100.0); Mean Platelet Volume 7.1; Monocytes # (A) 0.8 k/uL (0-1.0); Monocytes % (A) 14 %; Neutrophils # (A) 3.1 k/uL (1.3-7.7); Neutrophils % (A) 49 %; Platelet Count 224 k/uL (150-450); RBC 5.43 m/uL (4.30-5.90); RDW 14.2 % (11.5-15.5); WBC 6.3 k/uL (3.8-10.6)
[2020-01-02] MEDS ORDERED: methylPREDNISolone SOD SUCCI 125 MG/2 ML VIAL IV STA (07:59)
--- NOTE | 2020-01-02 10:32 | P.HPIM ---
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 He had fever to 3 days ago and measured at 101.5 pack patient fever subsided Tylenol at bedtime. 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 His PCP is Dr. Dutta Labs were unremarkable including CBC, BMP, liver enzymes. Influenza is negative. Patient is hemodynamically stable with vitals at baseline. Review of Systems CONSTITUTIONAL: No fever, no malaise, no fatigue. HEENT: No recent visual problems or hearing problems. Denied any sore throat. CARDIOVASCULAR: No orthopnea, PND, no palpitations, no syncope. PULMONARY: no hemoptysis. GASTROINTESTINAL: No diarrhea, no nausea, no vomiting, no abdominal pain. Normoactive bowel sounds. NEUROLOGICAL: No headaches, no weakness, no numbness. HEMATOLOGICAL: Denies any bleeding or petechiae. GENITOURINARY: Denies any burning micturition, frequency, or urgency. MUSCULOSKELETAL/RHEUMATOLOGICAL: Denies any joint pain, swelling, or any muscle pain. ENDOCRINE: Denies any polyuria or polydipsia. Past Medical History Past Medical History: Asthma, COPD, Hypertension, Pneumonia, Pulmonary Embolus (PE), Respiratory Disorder, Syncope Additional Past Medical History / Comment(s): Born with patent ductus arteriosis with surgical repair at 4 months, 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 with surgery at age 4 yrs, pulmonary fibrosis/interstitial fibrosis, restrictive lung disease, L lung PE 2018, multiple L lung pneumothoraxs with chest tubes, reactive airway, migraines, past concussion History of Any Multi-Drug Resistant Organisms: None Reported Past Surgical History: Back Surgery, Cholecystectomy, Coronary Bypass/CABG, Hernia Repair, Prostate Surgery Additional Past Surgical History / Comment(s): Heart surgery for patent ductus arteriosis at age 4 months, heart surgery for congenital coarctation of aorta at age 4 yrs, cervical fusion, laminectomy, bilateral carpal tunnel releases with R side done twice, TURP, L orchiectomy for undescended testicle, bronchoscopies, EGD, colonoscopy/benign polypectomy. Past Anesthesia/Blood Transfusion Reactions: Postoperative Nausea & Vomiting (PONV) Smoking Status: Never smoker - Past Family History Mother History Unknown: Yes Family Medical History: Cancer Additional Family Medical History / Comment(s): from Pancreatic cancer Father Family Medical History: Osteoarthritis (OA) Additional Family Medical History / Comment(s): Arthritis Medications and Allergies Home Medications Medication Instructions Recorded Confirmed Type Escitalopram [Lexapro] 20 mg PO HS 02/17/19 01/02/20 History Bisoprolol/Hydrochlorothiazide 2 tab PO DAILY 10/02/19 01/02/20 History [Bisoprolol/Hydrochlorothiazide 5-6.25 mg] Ipratropium-Albuterol Nebulize 3 ml INHALATION RT-BID 01/02/20 01/02/20 History [Duoneb 0.5 mg-3 mg/3 ml Soln] Allergies Allergy/AdvReac Type Severity Reaction Status Date / Time meclizine [From Antivert] Allergy Unknown Unknown Verified 01/02/20 08:38 amlodipine [From Norvasc] Allergy Unknown Verified 01/02/20 08:38 lisinopril [From Zestril] Allergy Unknown Verified 01/02/20 08:38 NSAIDS (Non-Steroidal Allergy Unknown Verified 01/02/20 08:38 Anti-Inflamma omeprazole Allergy Unknown Verified 01/02/20 08:38 Physical Exam Vitals: Vital Signs Temp Pulse Pulse Resp BP BP Pulse Ox 01/02/20 10:09 97.8 F 70 17 139/81 97 01/02/20 09:00 18 01/02/20 08:27 64 01/02/20 08:09 68 01/02/20 08:00 16 01/02/20 07:31 66 18 133/76 98 01/02/20 07:01 64 01/02/20 06:57 28 H 01/02/20 06:50 64 01/02/20 06:29 97.5 F L 65 18 132/77 99 Intake and Output 01/01/20 01/02/20 01/02/20 22:59 06:59 14:59 Other: Weight 65.771 kg 65.771 kg GENERAL: The patient is alert and oriented x3, not in any acute distress. Well developed, well nourished. HEENT: Pupils are round and equally reacting to light. EOMI. No scleral icterus. No conjunctival pallor. Normocephalic, atraumatic. No pharyngeal erythema. No thyromegaly. CARDIOVASCULAR: S1 and S2 present. No murmurs, rubs, or gallops. -PULMONARY: Chest is clear to auscultation, b/l expiratory wheezing . no crackles. ABDOMEN: Soft, nontender, nondistended, normoactive bowel sounds. No palpable organomegaly. MUSCULOSKELETAL: No joint swelling or deformity. EXTREMITIES: No cyanosis, clubbing, or pedal edema. NEUROLOGICAL: Gross neurological examination did not reveal any focal deficits. SKIN: No rashes. No petechiae Results CBC & Chem 7: 01/02/20 06:59 02 06:59 Thrombosis Risk Factor Assmnt - Choose All That Apply Any of the Below Risk Factors Present?: Yes Each Factor Represents 1 point: Abnormal pulmonary function (COPD), Age 41-60 years, Obesity (BMI >25), Serious lung disease incl. 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 Continue with steroids, antibiotics, bronchodilators. Follow-up pulmonary recommendation. Labs and medication were reviewed.. Continue same treatment. Continue with symptomatic treatment. Resume home medication. Monitor lytes and vitals. DVT and GI prophylaxis. Further recommendations of the clinical course of the patient DVT prophylaxis: Subcutaneous heparin GI Prophylaxis: Pepcid
--- NOTE | 2020-01-02 12:03 | P.CNPUL ---
History of Present Illness Consult date: 01/02/20 Requesting physician: Aydin Chi Reason for consult: dyspnea, cough Chief complaint: Cough congestion shortness of breath History of present illness: This is a very pleasant 54-year-old gentleman who follows with Dr. Chun as his primary care provider. He has a history of patent ductus arteriosus when he was 4 months old with surgery for coarctation of the aorta at age 4, pulmonary emboli, congestive heart failure, frequent pneumonias, previous left-sided pneumothorax requiring chest tube placements, pulmonary fibrosis, significant obstruction in the mid to distal left mainstem bronchus suspect secondary to extrinsic nature from previous multiple heart procedures. PFTs revealed stage III COPD with an FEV1 value 1.06 L and percent of 38%. The patient does have restrictive lung disease as well. The patient had undergone a follow-up bronchoscopy in September 2019 and it was felt that the patient had a very tight lesion involving the left mainstem bronchus that would be difficult to stent. The left mainstem bronchus narrowing is very close to the descending aorta as well. Based on these findings he had recently been seen and evaluated by Dr. Huitron on 12/19/2019 at [facility]. He had ordered further testing including a VQ scan done at [facility] along with ABGs and repeat PFTs. He had some of the workup done by Dr. Goldstein in 12/22/2019. At that time he was feeling well. No pulmonary complaints. He presented here to the emergency room earlier this morning with complaints of 2-3 days of scratchy throat sore throat cough congestion chest tightness and wheezing. He also stated he had fevers and generalized weakness. Chest x-ray reveals evidence of chronic left posterior upper rib deformities with fusion and mild dextroscoliosis of the thoracic spine. Cervical fusion devices present. Stable chronic epicardial fat pads or scarring along the left heart border. No new focal consolidation, pleural effusion or pneumothorax. He is seen today in consultation on the regular medical floor. Awake and alert in no acute distress. He's maintain O2 saturation the mid 90s on room air. He is afebrile. Hemodynamically stable. White count 6.3. Hemoglobin 16.6. Creatinine 0.71. Influenza screen negative. He's been initiated on DuoNeb inhalations, IV Solu-Medrol, Augmentin. Review of Systems REVIEW OF SYSTEMS: CONSTITUTIONAL: Denies any recent significant weight loss or weight gain. EYES: Denies change in vision. EARS, NOSE, MOUTH, THROAT: Denies headaches, denies sore throat. CARDIOVASCULAR: Denies chest pain, palpitations or syncopal episodes. RESPIRATORY: Positive for shortness of breath, cough, congestion no hemoptysis. GASTROINTESTINAL: Denies change in appetite, denies abdominal pain GENITOURINARY: Denies hematuria, denies infections. MUSKULOSKELETAL: Denies pain, denies swelling. INTEGUMENTARY: Denies rash, denies eczema. NEUROLOGICAL: Denies recent memory loss, no recent seizure activity. PSYCHIATRIC: Denies anxiety, denies depression. HEMATOLOGIC/LYMPHATIC: Denies anemia, denies enlarged lymph nodes. Past Medical History Past Medical History: Asthma, COPD, Hypertension, Pneumonia, Pulmonary Embolus (PE), Respiratory Disorder, Syncope Additional Past Medical History / Comment(s): Born with patent ductus arteriosis with surgical repair at 4 months, 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 with surgery at age 4 yrs, pulmonary fibrosis/interstitial fibrosis, restrictive lung disease, L lung PE 2018, multiple L lung pneumothoraxs with chest tubes, reactive airway, significant narrowing of the left mainstem bronchus, migraines, past concussion History of Any Multi-Drug Resistant Organisms: None Reported Past Surgical History: Back Surgery, Cholecystectomy, Coronary Bypass/CABG, Hernia Repair, Prostate Surgery Additional Past Surgical History / Comment(s): Heart surgery for patent ductus arteriosis at age 4 months, heart surgery for congenital coarctation of aorta at age 4 yrs, cervical fusion, laminectomy, bilateral carpal tunnel releases with R side done twice, TURP, L orchiectomy for undescended testicle, bronchoscopies, EGD, colonoscopy/benign polypectomy. Past Anesthesia/Blood Transfusion Reactions: Postoperative Nausea & Vomiting (PONV) Smoking Status: Never smoker - Past Family History Mother History Unknown: Yes Family Medical History: Cancer Additional Family Medical History / Comment(s): from Pancreatic cancer Father Family Medical History: Osteoarthritis (OA) Additional Family Medical History / Comment(s): Arthritis Medications and Allergies Home Medications Medication Instructions Recorded Confirmed Type Escitalopram [Lexapro] 20 mg PO HS 02/17/19 01/02/20 History Bisoprolol/Hydrochlorothiazide 2 tab PO DAILY 10/02/19 01/02/20 History [Bisoprolol/Hydrochlorothiazide 5-6.25 mg] Ipratropium-Albuterol Nebulize 3 ml INHALATION RT-BID 01/02/20 01/02/20 History [Duoneb 0.5 mg-3 mg/3 ml Soln] Allergies Allergy/AdvReac Type Severity Reaction Status Date / Time meclizine [From Antivert] Allergy Unknown Unknown Verified 01/02/20 08:38 amlodipine [From Norvasc] Allergy Unknown Verified 01/02/20 08:38 lisinopril [From Zestril] Allergy Unknown Verified 01/02/20 08:38 NSAIDS (Non-Steroidal Allergy Unknown Verified 01/02/20 08:38 Anti-Inflamma omeprazole Allergy Unknown Verified 01/02/20 08:38 Physical Exam Vitals: Vital Signs Temp Pulse Pulse Resp BP BP Pulse Ox 01/02/20 10:09 97.8 F 70 17 139/81 97 01/02/20 09:00 18 01/02/20 08:27 64 01/02/20 08:09 68 01/02/20 08:00 16 01/02/20 07:31 66 18 133/76 98 01/02/20 07:01 64 01/02/20 06:57 28 H 01/02/20 06:50 64 01/02/20 06:29 97.5 F L 65 18 132/77 99 Intake and Output 01/01/20 01/02/20 01/02/20 22:59 06:59 14:59 Other: Weight 65.771 kg 65.771 kg GENERAL EXAM: Alert, active, pleasant 54-year-old gentleman, on room air, comfortable in no apparent distress. HEAD: Normocephalic. EYES: Normal reaction of pupils, equal size. NOSE: Clear with pink turbinates. THROAT: No erythema or exudates. NECK: No masses, no JVD. CHEST: No chest wall deformity. LUNGS: Equal air entry with no crackles, wheeze, rhonchi or dullness. CVS: S1 and S2 normal with no audible murmur, regular rhythm. ABDOMEN: No hepatosplenomegaly, normal bowel sounds, no guarding or rigidity. SPINE: Kyphoscoliosis SKIN: No rashes CENTRAL NERVOUS SYSTEM: No focal deficits, tone is normal in all 4 extremities. EXTREMITIES: There is no peripheral edema. No clubbing, no cyanosis. Peripheral pulses are intact. Results - Laboratory Findings CBC and BMP: 01/02/20 06:59 01/02/20 06:59 - Diagnostic Findings Chest x-ray: image reviewed (Chronic changes. No acute pulmonary process) Assessment and Plan Assessment: 1 Acute exacerbation of moderate persistent chronic bronchial asthma/COPD FEV1 value 36% of predicted, complicated by purulent tracheobronchitis. No clear evidence of pneumonia. 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 Not likely a candidate for stenting of the area related to the immediate proximity of the aorta of the left mainstem bronchus. The patient has been seen by Dr. Huitron at [facility] on 12/19/2019. Further workup is pending. 3 History of congenital heart disease with patent ductus arteriosus at 4 months, coarctation of aorta with repair at 4 years old. 4 History of pulmonary embolism, completed a course of anticoagulation with Eliquis 5 Restrictive lung disease secondary to scoliosis 6 History of previous pneumothorax of the left lung 7 Hypertension Plan: The patient was seen and evaluated by Dr. Goldstein. He is currently stable from the pulmonary standpoint. Continue with antibiotics, bronchodilators, steroids. No clear evidence of pneumonia. The patient is currently undergoing workup at [facility] with Dr. Huitron in regard to the left mainstem bronchus narrowing. He will continue to follow up there post discharge. We will continue to follow and make further recommendations based on his clinical status. I, the cosigning physician, performed a history & physical examination of the patient. Lungs sounds are clear. Maintaining good O2 saturations in the 90s on room air. I discussed the assessment and plan of care with my nurse practitioner, Ella Murphy. I attest to the above consultation as dictated by her. Time with Patient: Greater than 30
[2020-01-02 12:53] LABS: Glucose,Whole Blood 139 mg/dL (75-99)
[2020-01-02] MEDS: AMOXIC-POT CLAV 875-125MG 1 EACH TAB PO SCH ×2 (13:18→19:51)
[2020-01-02] MEDS: IPRATROPIUM-ALBUTEROL 3 ML NEB INHALATION PRN ×2 (15:11→19:48)
[2020-01-02] MEDS: methylPREDNISolone SOD SUCCI 125 MG/2 ML VIAL IV SCH ×2 (16:26→23:30)
[2020-01-02 16:46] LABS: Glucose,Whole Blood 251 mg/dL (75-99)
[2020-01-02] MEDS: INSULIN ASPART (NovoLOG) 100 UNIT/ML VIAL SQ SCH ×2 (17:50→20:20)
[2020-01-02] MEDS: BUDESONIDE 1 MG/2 ML NEBU INHALATION SCH (19:47)
[2020-01-02] MEDS: ESCITALOPRAM 20 MG TAB PO SCH (19:51)
[2020-01-02 20:20] LABS: Glucose,Whole Blood 235 mg/dL (75-99)
[2020-01-03 07:14] LABS: Glucose,Whole Blood 139 mg/dL (75-99)
[2020-01-03] MEDS: INSULIN ASPART (NovoLOG) 100 UNIT/ML VIAL SQ SCH ×4 (07:31→21:45)
[2020-01-03] MEDS: IPRATROPIUM-ALBUTEROL 3 ML NEB INHALATION PRN ×3 (07:38→19:36)
[2020-01-03] MEDS: BUDESONIDE 1 MG/2 ML NEBU INHALATION SCH ×2 (07:38→19:36)
[2020-01-03] MEDS: AMOXIC-POT CLAV 875-125MG 1 EACH TAB PO SCH ×2 (08:30→21:07)
[2020-01-03] MEDS: BISOPROLOL-HCTZ 5-6.25 MG 1 EACH TAB PO SCH (08:31)
[2020-01-03] MEDS: predniSONE 20 MG TAB PO SCH (08:38)
[2020-01-03 12:09] LABS: Glucose,Whole Blood 116 mg/dL (75-99)
--- NOTE | 2020-01-03 12:13 | P.PN ---
Subjective Progress Note Date: 01/03/20 This is a very pleasant 54-year-old gentleman who follows with Dr. Chun as his primary care provider. He has a history of patent ductus arteriosus when he was 4 months old with surgery for coarctation of the aorta at age 4, pulmonary emboli, congestive heart failure, frequent pneumonias, previous left-sided pneumothorax requiring chest tube placements, pulmonary fibrosis, significant obstruction in the mid to distal left mainstem bronchus suspect secondary to extrinsic nature from previous multiple heart procedures. PFTs revealed stage III COPD with an FEV1 value 1.06 L and percent of 38%. The patient does have restrictive lung disease as well. The patient had undergone a follow-up bronchoscopy in September 2019 and it was felt that the patient had a very tight lesion involving the left mainstem bronchus that would be difficult to stent. The left mainstem bronchus narrowing is very close to the descending aorta as well. Based on these findings he had recently been seen and evaluated by Dr. Huitron on 12/19/2019 at [facility]. He had ordered further testing including a VQ scan done at [facility] along with ABGs and repeat PFTs. He had some of the workup done by Dr. Goldstein in 12/22/2019. At that time he was feeling well. No pulmonary complaints. He presented here to the emergency room earlier this morning with complaints of 2-3 days of scratchy throat sore throat cough congestion chest tightness and wheezing. He also stated he had fevers and generalized weakness. Chest x-ray reveals evidence of chronic left posterior upper rib deformities with fusion and mild dextroscoliosis of the thoracic spine. Cervical fusion devices present. Stable chronic epicardial fat pads or scarring along the left heart border. No new focal consolidation, pleural effus ion or pneumothorax. He is seen today in consultation on the regular medical floor. Awake and alert in no acute distress. He's maintain O2 saturation the mid 90s on room air. He is afebrile. Hemodynamically stable. White count 6.3. Hemoglobin 16.6. Creatinine 0.71. Influenza screen negative. He's been initiated on DuoNeb inhalations, IV Solu-Medrol, Augmentin. The patient is seen today 01/03/2020 in follow-up on the regular medical floor. He is currently sitting up in a chair at the bedside. Awake and alert in no acute distress. Breathing a bit easier today compared to yesterday. Less congestion. Less wheezing. He is maintaining O2 saturations in the mid 90s on room air. He is afebrile. Hemodynamically stable. Glucose 139. Maintained on DuoNeb inhalations, Pulmicort inhalations, oral prednisone, oral Augmentin. Objective - Vital Signs Vital signs: Vital Signs Temp 97.4 F L 01/03/20 05:17 Pulse 84 01/03/20 07:55 Resp 18 01/03/20 08:00 BP 155/88 01/03/20 05:17 Pulse Ox 94 L 01/03/20 05:17 Intake & Output 01/02/20 01/03/20 01/03/20 18:59 06:59 18:59 Intake Total 500 Balance 500 Weight 65.771 kg Intake: Oral 500 Other: Voiding Method Toilet Toilet # Voids 1 2 - Exam GENERAL EXAM: Alert, active, pleasant 54-year-old gentleman, on room air, comfortable in no apparent distress. HEAD: Normocephalic. EYES: Normal reaction of pupils, equal size. NOSE: Clear with pink turbinates. THROAT: No erythema or exudates. NECK: No masses, no JVD. CHEST: No chest wall deformity. LUNGS: Equal air entry with faint end expiratory wheeze. CVS: S1 and S2 normal with no audible murmur, regular rhythm. ABDOMEN: No hepatosplenomegaly, normal bowel sounds, no guarding or rigidity. SPINE: Kyphoscoliosis SKIN: No rashes CENTRAL NERVOUS SYSTEM: No focal deficits, tone is normal in all 4 extremities. EXTREMITIES: There is no peripheral edema. No clubbing, no cyanosis. Peripheral pulses are intact. - Labs CBC & Chem 7: 01/02/20 06:59 01/02/20 06:59 Labs: Abnormal Lab Results - Last 24 Hours (Table) 01/02/20 01/02/20 01/02/20 Range/Units 12:51 16:45 20:13 POC Glucose (mg/dL) 139 H 251 H 235 H (75-99) mg/dL 01/03/20 Range/Units 07:10 POC Glucose (mg/dL) 139 H (75-99) mg/dL Microbiology - Last 24 Hours (Table) 01/02/20 06:59 Blood Culture - Preliminary Blood No Growth after 24 hours Assessment and Plan Assessment: 1 Acute exacerbation of moderate persistent chronic bronchial asthma/COPD FEV1 value 36% of predicted, complicated by purulent tracheobronchitis. No clear evidence of pneumonia. 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 Not likely a candidate for stenting of the area related to the immediate proximity of the aorta of the left mainstem bronchus. The patient has been seen by Dr. Huitron at [facility] on 12/19/2019. Further workup is pending. 3 History of congenital heart disease with patent ductus arteriosus at 4 months, coarctation of aorta with repair at 4 years old. 4 History of pulmonary embolism, completed a course of anticoagulation with Eliquis 5 Restrictive lung disease secondary to scoliosis 6 History of previous pneumothorax of the left lung 7 Hypertension Plan: The patient was seen and evaluated by Dr. Goldstein. He is currently stable from the pulmonary standpoint. Continue the current treatment plan. Increase his activity as tolerated. Probable discharge in the a.m. I, the cosigning physician, performed a history & physical examination of the patient. Lungs sounds with faint end expiratory wheeze. Maintaining good O2 saturations in the 90s on room air. I discussed the assessment and plan of care with my nurse practitioner, Ella Murphy. I attest to the above consultation as dictated by her.
[2020-01-03] MEDS ORDERED: predniSONE 20 MG TAB PO STA (14:49)
--- NOTE | 2020-01-03 14:49 | P.PN ---
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 He had fever to 3 days ago and measured at 101.5 pack patient fever subsided Tylenol at bedtime. 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 His PCP is Dr. Dutta Labs were unremarkable including CBC, BMP, liver enzymes. Influenza is negative. Patient is hemodynamically stable with vitals at baseline. 01/03/2020 Patient is still have some dyspnea and wheezing on examination. He is hemodynamically stable. Sugar controlled. Today his steroids and has changed from Solu-Medrol to prednisone 60 mg. Discussed the case with pulmonary team, we'll keep monitoring and possible discharge in 24-48 hours Objective - Vital Signs Vital signs: Vital Signs Temp 97.9 F 01/03/20 14:40 Pulse 68 01/03/20 14:40 Resp 16 01/03/20 14:40 BP 107/69 01/03/20 14:40 Pulse Ox 97 01/03/20 14:40 Intake & Output 01/02/20 01/03/20 01/03/20 18:59 06:59 18:59 Intake Total 500 Balance 500 Weight 65.771 kg Intake: Oral 500 Other: Voiding Method Toilet Toilet # Voids 1 2 3 - Exam GENERAL: The patient is alert and oriented x3, not in any acute distress. Well developed, well nourished. HEENT: Pupils are round and equally reacting to light. EOMI. No scleral icterus. No conjunctival pallor. Normocephalic, atraumatic. No pharyngeal erythema. No thyromegaly. CARDIOVASCULAR: S1 and S2 present. No murmurs, rubs, or gallops. -PULMONARY: Chest is clear to auscultation, b/l expiratory wheezing . no crackles. ABDOMEN: Soft, nontender, nondistended, normoactive bowel sounds. No palpable organomegaly. MUSCULOSKELETAL: No joint swelling or deformity. EXTREMITIES: No cyanosis, clubbing, or pedal edema. NEUROLOGICAL: Gross neurological examination did not reveal any focal deficits. SKIN: No rashes. 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 Continue with steroids, antibiotics, bronchodilators. Follow-up pulmonary recommendation. Labs and medication were reviewed.. Continue same treatment. Continue with symptomatic treatment. Resume home medication. Monitor lytes and vitals. DVT and GI prophylaxis. Further recommendations of the clinical course of the patient DVT prophylaxis: Subcutaneous heparin GI Prophylaxis: Pepcid
[2020-01-03 17:31] LABS: Glucose,Whole Blood 213 mg/dL (75-99)
[2020-01-03 21:06] LABS: Glucose,Whole Blood 142 mg/dL (75-99)
[2020-01-03] MEDS: ESCITALOPRAM 20 MG TAB PO SCH (21:07)
[2020-01-04 05:59] VITALS: BP 146/76; RESP 20; TEMP 97.4
[2020-01-04 07:08] LABS: Glucose,Whole Blood 118 mg/dL (75-99)
[2020-01-04] MEDS: INSULIN ASPART (NovoLOG) 100 UNIT/ML VIAL SQ SCH ×2 (07:10→12:38)
[2020-01-04] MEDS ORDERED: predniSONE 20 MG TAB PO STA (07:30)
--- NOTE | 2020-01-04 07:31 | P.PN ---
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 He had fever to 3 days ago and measured at 101.5 pack patient fever subsided Tylenol at bedtime. 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 His PCP is Dr. Dutta Labs were unremarkable including CBC, BMP, liver enzymes. Influenza is negative. Patient is hemodynamically stable with vitals at baseline. 01/03/2020 Patient is still have some dyspnea and wheezing on examination. He is hemodynamically stable. Sugar controlled. Today his steroids and has changed from Solu-Medrol to prednisone 60 mg. Discussed the case with pulmonary team, we'll keep monitoring and possible discharge in 24-48 hours 01/04/2020 Patient presents with respiratory symptoms, he still wheezing although he states that's is a little better today. She still have some, with no phlegm. No chest pain. He is saturating high 90s on room air like 96%. Sugar controlled. He remains on prednisone and Augmentin and pulmonary team are following him closely Objective - Vital Signs Vital signs: Vital Signs Temp 97.4 F L 01/04/20 05:58 Pulse 67 01/04/20 05:58 Resp 20 01/04/20 05:58 BP 146/76 01/04/20 05:58 Pulse Ox 96 01/04/20 05:58 Intake & Output 01/03/20 01/04/20 01/04/20 18:59 06:59 18:59 Other: Voiding Method Toilet Toilet # Voids 3 2 - Exam GENERAL: The patient is alert and oriented x3, not in any acute distress. Well developed, well nourished. HEENT: Pupils are round and equally reacting to light. EOMI. No scleral icterus. No conjunctival pallor. Normocephalic, atraumatic. No pharyngeal erythema. No thyromegaly. CARDIOVASCULAR: S1 and S2 present. No murmurs, rubs, or gallops. -PULMONARY: Chest is clear to auscultation, b/l expiratory wheezing . no crackles. ABDOMEN: Soft, nontender, nondistended, normoactive bowel sounds. No palpable organomegaly. MUSCULOSKELETAL: No joint swelling or deformity. EXTREMITIES: No cyanosis, clubbing, or pedal edema. NEUROLOGICAL: Gross neurological examination did not reveal any focal deficits. SKIN: No rashes. 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 Continue with steroids, antibiotics, bronchodilators. Follow-up pulmonary recommendation. Labs and medication were reviewed.. Continue same treatment. Continue with symptomatic treatment. Resume home medication. Monitor lytes and vitals. DVT and GI prophylaxis. Further recommendations of the clinical course of the patient DVT prophylaxis: Subcutaneous heparin GI Prophylaxis: Pepcid
[2020-01-04] MEDS: AMOXIC-POT CLAV 875-125MG 1 EACH TAB PO SCH (07:44)
[2020-01-04] MEDS: BISOPROLOL-HCTZ 5-6.25 MG 1 EACH TAB PO SCH (07:45)
[2020-01-04] MEDS: predniSONE 20 MG TAB PO SCH (07:45)
[2020-01-04] MEDS: IPRATROPIUM-ALBUTEROL 3 ML NEB INHALATION PRN ×2 (08:23→11:37)
[2020-01-04] MEDS: BUDESONIDE 1 MG/2 ML NEBU INHALATION SCH (08:23)
[2020-01-04 08:26] VITALS: PULSE 72
--- NOTE | 2020-01-04 11:07 | P.DS ---
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 patent ductus arteriosus status post surgical correction at age 4 pulmonary fibrosis with restrictive lung disease secondary to scoliosis History of multiple pneumothoraces needing chest tubes, migraine Hospital course: This is a pleasant 54 years old male with past medical history of asthma/COPD, hypertension, pneumonia, pulmonary embolism, syncope, 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 He had fever to 3 days ago and measured at 101.5 pack patient fever subsided Tylenol at bedtime. He follows with Dr. 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 His PCP is Dr. Dutta. Patient was admitted with acute asthma exacerbation, with some elements of tracheobronchitis rather than pneumonia. Patient was treated with steroids, antibiotics and breathing treatments. Patient showed interval improvement and he was cleared for discharge by pulmonary service. On the day of discharge he was saturating 94% on room air and was breathing at a rate of 18-20/m. No fever. No other complaints like no chest pain, no abdominal pain or nausea vomiting. Patient thinks he can go home today. Patient was cleared for discharge by pulmonary service. Patient will be discharged on tapering steroids and short course of antibiotics Problems and management plan were discussed with the patient and he verbalized understanding and acceptance Patient was found stable and can be discharged home however he needs follow-up as an outpatient. Patient was instructed to follow up with PCP within one week and patient agrees. Patient also instructed to follow up with Dr. Gallardo in 1-2 weeks and he agreed. Patient also follows with her report mine supervisor, as per patient and they called him and they are going to call him later for an appointment for follow-up and he agrees Gen: patient is a AAOx3, no distress CVS: S1-S2, RRR, no murmur Lungs: B/L CTA, no wheezing Abdomen: soft, no distention, no tenderness, positive bowel sounds Extremity: no leg edema or induration Time spent more than 35 minutes Patient Condition at Discharge: Stable Plan - Discharge Summary Discharge Rx Participant: No New Discharge Prescriptions: New RX: Amoxic-Pot Clav 875-125Mg [Augmentin 875-125] 1 each PO Q12HR 3 Days #6 tab RX: predniSONE 10 mg PO DIRECTED #26 tab Continue RX: Escitalopram [Lexapro] 20 mg PO HS RX: Bisoprolol/Hydrochlorothiazide [Bisoprolol/Hydrochlorothiazide 5-6.25 mg] 2 tab PO DAILY RX: Ipratropium-Albuterol Nebulize [Duoneb 0.5 mg-3 mg/3 ml Soln] 3 ml INHALATION RT-BID Discharge Medication List RX: Escitalopram [Lexapro] 20 mg PO HS 02/17/19 [History] RX: Bisoprolol/Hydrochlorothiazide [Bisoprolol/Hydrochlorothiazide 5-6.25 mg] 2 tab PO DAILY 10/02/19 [History] RX: Ipratropium-Albuterol Nebulize [Duoneb 0.5 mg-3 mg/3 ml Soln] 3 ml INHALATION RT-BID 01/02/20 [History] RX: Amoxic-Pot Clav 875-125Mg [Augmentin 875-125] 1 each PO Q12HR 3 Days #6 tab 01/03/20 [Rx] RX: predniSONE 10 mg PO DIRECTED #26 tab 01/03/20 [Rx] Follow up Appointment(s)/Referral(s): Nigel Goldstein MD [STAFF PHYSICIAN] - 2 Weeks Jim Dutta MD [Primary Care Provider] - 1-2 days Patient Instructions/Handouts: Asthma (DC) Activity/Diet/Wound Care/Special Instructions: Low carbohydrate, diabetic diet Activity is limited till you see your doctor please follow up with at [facility] in 1-2 weeks Discharge Disposition: HOME SELF-CARE
[2020-01-04 11:49] LABS: Glucose,Whole Blood 154 mg/dL (75-99)
--- NOTE | 2020-01-04 13:04 | P.PN ---
Subjective Progress Note Date: 01/04/20 Principal diagnosis: Acute exacerbation of moderate persistent asthma This is a very pleasant 54-year-old gentleman who follows with Dr. Chun as his primary care provider. He has a history of patent ductus arteriosus when he was 4 months old with surgery for coarctation of the aorta at age 4, pulmonary emboli, congestive heart failure, frequent pneumonias, previous left-sided pneumothorax requiring chest tube placements, pulmonary fibrosis, significant obstruction in the mid to distal left mainstem bronchus suspect secondary to extrinsic nature from previous multiple heart procedures. PFTs revealed stage III COPD with an FEV1 value 1.06 L and percent of 38%. The patient does have restrictive lung disease as well. The patient had undergone a follow-up bronchoscopy in September 2019 and it was felt that the patient had a very tight lesion involving the left mainstem bronchus that would be difficult to stent. The left mainstem bronchus narrowing is very close to the descending aorta as well. Based on these findings he had recently been seen and evaluated by Dr. Huitron on 12/19/2019 at [facility]. He had ordered further testing including a VQ scan done at [facility] along with ABGs and repeat PFTs. He had some of the workup done by Dr. Goldstein in 12/22/2019. At that time he was feeling well. No pulmonary complaints. He presented here to the emergency room earlier this morning with complaints of 2-3 days of scratchy throat sore throat cough congestion chest tightness and wheezing. He also stated he had fevers and generalized weakness. Chest x-ray reveals evidence of chronic left posterior upper rib deformities with fusion and mild dextroscoliosis of the thoracic spine. Cervical fusion devices present. Stable chronic epicardial fat pads or scarring along the left heart border. No new focal consolidation, pleural effusion or pneumothorax. He is seen today in consultation on the regular medical floor. Awake and alert in no acute distress. He's maintain O2 saturation the mid 90s on room air. He is afebrile. Hemodynamically stable. White count 6.3. Hemoglobin 16.6. Creatinine 0.71. Influenza screen negative. He's been initiated on DuoNeb inhalations, IV Solu-Medrol, Augmentin. The patient is seen today 01/03/2020 in follow-up on the regular medical floor. He is currently sitting up in a chair at the bedside. Awake and alert in no acute distress. Breathing a bit easier today compared to yesterday. Less congestion. Less wheezing. He is maintaining O2 saturations in the mid 90s on room air. He is afebrile. Hemodynamically stable. Glucose 139. Maintained on DuoNeb inhalations, Pulmicort inhalations, oral prednisone, oral Augmentin. Reevaluated today on 01/04/2020, patient is feeling better, less cough and less wheezing less shortness of breath. Not back to his baseline, but significant improvement noted over the last 2 days. Objective - Vital Signs Vital signs: Vital Signs Temp 97.4 F L 01/04/20 05:58 Pulse 72 01/04/20 11:49 Resp 20 01/04/20 08:00 BP 146/76 01/04/20 05:58 Pulse Ox 96 01/04/20 05:58 Intake & Output 01/03/20 01/04/20 01/04/20 18:59 06:59 18:59 Intake Total 480 Balance 480 Intake: Oral 480 Other: Voiding Method Toilet Toilet Toilet # Voids 3 2 - Exam Physical Exam: Revealed 54-year-old white male in no distress. HEENT:[Neck is supple.] [No neck masses.] [No thyromegaly.] [No JVD.] Chest: [Minimal wheezing on forced expiratory maneuver. Normal breath sounds when breathing quietly. Cardiac Exam: [Normal S1 and S2, no S3 gallop, no murmur.] Abdomen: [Soft, nontender, no megaly, no rebound, no guarding, normal bowel sounds.] Extremities: [No clubbing, no edema, no cyanosis.] Neurological Exam: [No focal neurologic deficit.] Alert and oriented 3. Psychiatric: Normal mood, affect and normal mental status examination. Skin: No rashes. 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 Seen on previous bronchoscopy. History of pulmonary embolism Restrictive lung disease with severe scoliosis Benign essential hypertension Recommendation: Continue present meds Placed on prednisone burst and taper over the next 2 weeks. Switched to oral antibiotics at home for the next one week. Follow-up in the office in one week. Cleared for discharge home today. Advised to make arrangements to follow-up with [facility] regarding his left mainstem bronchus stenosis. Time with Patient: Less than 30
== END 2020-01-04 13:41 | disposition home or self-care (01) | DRG 202 ==
LOC: EC 06:22 → 6NMEDSUR 09:00 → OBSVTOIN 01-04 08:57
PROVIDERS: ADMIT Hospitalist; ATTEND Hospitalist
DX: J45.40 Moderate persistent asthma, uncomplicated (principal); J44.0 Chronic obstructive pulmonary disease with (acute) lower respiratory infection; J98.4 Other disorders of lung; J98.09 Other diseases of bronchus, not elsewhere classified; I11.0 Hypertensive heart disease with heart failure; J84.10 Pulmonary fibrosis, unspecified; J20.9 Acute bronchitis, unspecified; M41.9 Scoliosis, unspecified; G43.909 Migraine, unspecified, not intractable, without status migrainosus; Z87.820 Personal history of traumatic brain injury; Z86.711 Personal history of pulmonary embolism; Z95.1 Presence of aortocoronary bypass graft; Z79.899 Other long term (current) drug therapy; Z88.6 Allergy status to analgesic agent; Z88.8 Allergy status to other drugs, medicaments and biological substances; Z87.01 Personal history of pneumonia (recurrent); Z90.49 Acquired absence of other specified parts of digestive tract; Z98.1 Arthrodesis status; Z90.79 Acquired absence of other genital organ(s); Z86.010 Personal history of colon polyps; Z80.0 Family history of malignant neoplasm of digestive organs; Z82.61 Family history of arthritis
CPT/HCPCS: 36415; 71046; 80053; 83735; 85025; 87040; 87502; 94640; 94760; 96374; 99285

== ENCOUNTER 2020-08-21 09:11 | Day surgery (SDC) | payer BC ==
[2020-08-16 15:25] VITALS: BMI 27.3
[2020-08-21] MEDS ORDERED: SODIUM CHLORIDE 0.9% 500 ML 500 ML IV ONE (09:36)
[2020-08-21 09:38] VITALS: RESP 16; TEMP 98.7
[2020-08-21] MEDS ORDERED: fentaNYL (PF) 50 MCG/ML 2 ML AMP ONE (09:54)
[2020-08-21] MEDS: BENZOCAINE SPRAY 1 CAN MUCOUS MEM ONE ×2 (10:02→10:10)
[2020-08-21] MEDS ORDERED: fentaNYL (PF) 50 MCG/ML 2 ML AMP IVP ONE (10:10)
[2020-08-21] MEDS ORDERED: MIDAZOLAM 2 MG/2 ML VIAL IVP ONE (10:10)
[2020-08-21] MEDS: MIDAZOLAM 2 MG/2 ML VIAL IVP ONE ×2 (10:12→10:14)
[2020-08-21] MEDS ORDERED: PROPOFOL 10 MG/ML 20 ML VIAL IV ONE (10:20)
--- NOTE | 2020-08-21 11:13 | ECHOT ---
TRANSESOPHAGEAL ECHOCARDIOGRAM TRANSESOPHAGEAL ECHOCARDIOGRAM: DATE OF SERVICE: 08/21/2020 PERFORMING PHYSICIAN: Ilir Gonzalez MD. PROCEDURE PERFORMED: Transesophageal echocardiogram. INDICATION: Mitral stenosis. COMPLICATION: None. LEVEL OF SEDATION: The procedure was performed using propofol with BUSINESS TECHNOLOGY PROFESSOR in the room. PROCEDURE DESCRIPTION: After obtaining an informed consent, the patient was brought to the to the transesophageal echocardiogram suite. A pulse oximetry and heart rate monitors were attached the patient. Subsequently, the patient was turned into left lateral position. We attempted doing the procedure with conscious sedation, but that was unsuccessful and because of that, Anesthesia was called. Subsequently, the transesophageal echocardiogram probe was advanced to the mid esophageal where a 2D echocardiogram images as well as color Doppler images of various cardiac structures were obtained. Particular attention was made to the mitral valve apparatus. The procedure was completed without any complication. Please note that the procedure was performed using a 2D echocardiogram images, color with Doppler images, continuous-wave Doppler images, as well as pulse-wave Doppler images. FINDINGS: The left ventricular dimension and systolic function appeared to be within normal limits. The ejection fraction appeared to be in the range of 50% to 55%. Right ventricle appeared to be of normal size and function. The right atrium appeared to be within normal limits for dimension, but the left atrium appeared to be dilated. The aortic valve appeared to be trileaflet valve and seems to be mildly thickened. The mitral valve appeared to be thickened with of the anterior and posterior mitral leaflet and evidence of moderate mitral stenosis by gradient. The tricuspid valve and pulmonic valve appeared to be within normal limits. CONCLUSION: 1. Normal left ventricular dimension and systolic function. 2. Normal right ventricular dimension and systolic function. 3. Normal right atrium dimension and dilated left atrium. 4. Trileaflet aortic valve without stenosis or regurgitation. 5. Thickened anterior and posterior mitral leaflet with evidence of of both leaflets with evidence of moderate mitral stenosis. The mitral valve appeared to be rheumatic. 6. Normal tricuspid valve and pulmonic valve. 7. No evidence of pericardial effusion. MMODL / IJN: [id number] /
[2020-08-21 12:38] VITALS: BP 125/65; PULSE 76
== END 2020-08-21 13:05 | disposition home or self-care (01) ==
LOC: CATHCVL 09:11
PROVIDERS: ATTEND Internal Medicine Interventional Cardiology
DX: I05.0 Rheumatic mitral stenosis (principal); Z88.8 Allergy status to other drugs, medicaments and biological substances; Z88.6 Allergy status to analgesic agent; I10 Essential (primary) hypertension; E78.5 Hyperlipidemia, unspecified; J44.9 Chronic obstructive pulmonary disease, unspecified; Z86.711 Personal history of pulmonary embolism; K21.9 Gastro-esophageal reflux disease without esophagitis; Z79.899 Other long term (current) drug therapy; Z98.1 Arthrodesis status; Z98.890 Other specified postprocedural states; Q25.1 Coarctation of aorta; Z90.49 Acquired absence of other specified parts of digestive tract
CPT/HCPCS: 93312; 93320; 93325; J2250; J3010; J2704

== ENCOUNTER 2021-01-28 08:44 | Day surgery (SDC) | payer BC ==
[2021-01-23 14:55] VITALS: BMI 27.6
[~2021-01-28 08:44] MED LIST changes: +ALPRAZolam 0.25 MG TAB PO PRN; +ALPRAZolam 0.5 MG TAB PO PRN; +ASPIRIN 325 MG TAB PO STA; +ATORVASTATIN 80 MG TAB PO STA; -BACITRACIN 50,000 UNIT, POLYMYXIN B 500,000 UNIT in SODIUM CHLORIDE 0.9% IRRIGATIO 1,00... IRRIGATION ONE; -DEXAMETHASONE SOD PHOSPHATE 10 MG/ML 1 ML VIAL IV ONE; -HYDROmorphone 0.5 MG/0.5 ML SYRINGE IVP PRN; -LIDOCAINE 1% 20 ML VIAL (10MG/ML) FOR IV START INTRADERMA PRN; +NITROGLYCERIN SL TABS 0.4 MG TAB SUBLINGUAL PRN; -ONDANSETRON 4 MG/2 ML VIAL IVP ONE; -ONDANSETRON 4 MG/2 ML VIAL IVP PRN; +SODIUM CHLORIDE 0.9% 1,000 ML in EMPTY BAG 1 BAG IV ONE
[2021-01-28 09:20] VITALS: RESP 18; TEMP 98.1
[2021-01-28] MEDS ORDERED: MIDAZOLAM 2 MG/2 ML VIAL IV ONE ×2 (09:37→10:16)
[2021-01-28] MEDS ORDERED: LIDOCAINE 1% INJ 10MG/ML (20 ML MDV) SQ ONE (09:38)
[2021-01-28 10:16] LABS: O2 Sat Blood Gas 76.7 %
[2021-01-28] MEDS ORDERED: IOPAMIDOL-370 125ML BTL INJ ONE (10:16)
[2021-01-28] MEDS ORDERED: RX INFO: IV CONTRAST WAS GIVEN 1 EACH MISC MISCELLANE PRN (10:16)
[2021-01-28 10:18] LABS: O2 Sat Blood Gas 99.3 %
[2021-01-28 10:20] LABS: O2 Sat Blood Gas 79.6 %
[2021-01-28 10:21] LABS: O2 Sat Blood Gas 78.5 %
[2021-01-28 10:23] LABS: O2 Sat Blood Gas 88.8 %
[2021-01-28] MEDS ORDERED: SODIUM CHLORIDE 0.9% 1,000 ML IV SCH (10:30)
--- NOTE | 2021-01-28 11:21 | CC ---
CARDIAC CATHETERIZATION REPORT DATE OF SERVICE: January 28, 2021 PERFORMING PHYSICIAN: Ilir Gonzalez MD. PROCEDURE PERFORMED: 1. Right heart catheterization. 2. Left heart catheterization. 3. Selective right and left coronary angiogram. INDICATION: This is a very pleasant 55-year-old gentleman who is known to have rheumatic mitral stenosis, appeared to be in the moderate range based on cardiac MRI, who continues to be symptomatic in spite of lowering the heart rate using beta haider. Because of that, a heart catheterization was advised to assess his pulmonary pressure and also to assess for severe underlying coronary artery disease. APPROACH: Right common femoral artery and right common femoral vein. COMPLICATION: None. LEVEL OF SEDATION: Moderate with sedation length of 36 minutes. PROCEDURE DESCRIPTION: After obtaining an informed consent, the patient was brought to the cardiac field laboratory operator. The right common femoral vein and right common femoral artery were cannulated using micropuncture technique, the micropuncture wire passed easily then I placed a 6-Slovak sheath in the artery and 8-Slovak sheath in the vein. After that I did right heart catheterization using 6-Slovak Dragoon catheter. Left heart catheterization was performed using 5-Slovak pigtail catheter. Selective right and left coronary angiogram performed using 5-Slovak JR3.5 and JL3.5 catheters. The procedure was completed without any complication. HEMODYNAMICS: 1. Pulmonary capillary wedge pressure was 14 mmHg. 2. PA pressures were as follows: Systolic 57, diastolic 33 and mean of 45 mmHg. 3. RV pressures were as follows: Systolic 47 and end-diastolic of 15 mmHg. 4. RA pressure was 7 mmHg. 5. The LVEDP was almost 20 mmHg. SATURATIONS: 1. Pulmonary capillary wedge saturation was 99.3%. 2. PA saturation was 78.5%. 3. RV saturation was 76.3%. 4. RA saturation was 79.6%. CARDIAC OUTPUT: The cardiac output was 5.8 L/minute with a cardiac index of 3.55 L/meter square. SELECTIVE CORONARY ANGIOGRAM: 1. Right coronary artery is a large caliber vessel. It is a dominant vessel with mild disease in the midportion. 2. The left main is angiographically normal. It bifurcates into LCX and LAD. 3. The LCX is a large caliber vessel. It is a nondominant vessel and appeared to have mild disease only. It gives rise into a large OM branch, which appeared to be angiographically normal. 4. The LAD appeared to be angiographically normal. It gives rise into a large diagonal branch which seems to be angiographically normal. CONCLUSION: 1. Severe pulmonary hypertension. The pulmonary artery systolic pressure was almost 60 mmHg with a mean of 45 mmHg. 2. Elevated left ventricular end-diastolic pressure as well. 3. Normal cardiac output. 4. Mild nonobstructive coronary artery disease. POSTPROCEDURE MANAGEMENT: Given the presents of severe pulmonary hypertension, which is secondary to mitral stenosis. The patient might benefit from balloon valvuloplasty giving his mitral valve is rheumatic and not calcific or thickened. MMODL / IJN: [id number] /
[2021-01-28] MEDS ORDERED: ACETAMINOPHEN TAB 325 MG TAB ONE (14:36)
[2021-01-28] MEDS ORDERED: ACETAMINOPHEN TAB 325 MG TAB PO STA (14:37)
[2021-01-28 14:53] VITALS: BP 117/56; PULSE 74
== END 2021-01-28 15:30 | disposition home or self-care (01) ==
LOC: CATHCVL 08:44
PROVIDERS: ATTEND Internal Medicine Interventional Cardiology
DX: I25.10 Atherosclerotic heart disease of native coronary artery without angina pectoris (principal); I05.0 Rheumatic mitral stenosis; I27.20 Pulmonary hypertension, unspecified; Z79.899 Other long term (current) drug therapy; Z88.6 Allergy status to analgesic agent; Z88.8 Allergy status to other drugs, medicaments and biological substances
CPT/HCPCS: 93460; 85018; 82810; C1760; C1894 ×2; C1769 ×2; J2250; J2001; Q9967

== ENCOUNTER → 2021-06-28 | Outpatient (CLI) | payer BC ==
--- NOTE | 2021-06-28 12:33 | CT ---
EXAMINATION TYPE: CT angio chest DATE OF EXAM: 06/28/2021 COMPARISON: 02/18/2019 HISTORY: 56 year-old male shortness of breath, Trouble breathing TECHNIQUE: Contiguous axial scanning of the chest performed with IV Contrast, patient injected with 1 00, 28 wasted mL of Isovue 370. Delayed images through the kidneys were obtained. Coronal/sagittal re constructions performed. CT DLP: 493 mGycm Automated exposure control for dose reduction was used. FINDINGS: Heart borderline enlarged with a small basilar pericardial effusion. No flattening of the interventri cular septum reflux of contrast into the hepatic veins. Aorta normal caliber with conventional arch vessel branching anatomy. Very early takeoff of the left vertebral artery from the proximal left subclavian artery. No thoracic lymph adenopathy by CT size criteria. Satisfactory opacification of the pulmonary arterial system without evidence for pulmonary embolus. Stable 9 mm left upper lobe pulmonary nodule from 2019 suggesting a benign etiology. Smaller caliber to the left main pulmonary artery is unchanged from 2019. There is some left mainstem bronchial narrowing also unchanged from 2019. Areas of strandy scarring o r atelectasis in the left lung. No consolidation or pleural effusion. Subtle mosaic attenuation and m ild bronchial wall thickening suggests small airways disease. Small hiatal hernia. Mild circumferential wall thickening of the mid to lower esophagus. Incidental s plenic cyst measuring 2.3 cm only partially visualized previously. Hilar splenule. Cholecystectomy cl ips. Bones: There appear to be either some congenital left-sided rib synostoses between the fourth, fifth, and sixth ribs. Dextroconvex scoliosis centered at the midthoracic spine. IMPRESSION: 1. NO EVIDENCE FOR PULMONARY EMBOLUS. 2. BORDERLINE CARDIOMEGALY. 3. 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 THERE IS ALSO ASYMMETRIC NARROWING OF THE LEFT MAINSTEM BRONCHUS THAT COULD BE CONGENI LEVAR WELL OR COULD REFLECT BRONCHOMALACIA, ALSO UNCHANGED FROM 2019. 4. MILD DIFFUSE BRONCHIAL WALL THICKENING AND SCATTERED MOSAIC ATTENUATION. FINDINGS SUGGEST SMALL AI RWAYS DISEASE. 5. STABLE, BENIGN 9 MM LEFT UPPER LOBE PULMONARY NODULE. 6. SMALL HIATAL HERNIA. THERE IS MILD CIRCUMFERENTIAL WALL THICKENING OF THE MID AND LOWER ESOPHAGUS. CORRELATE FOR SYMPTOMS OF A POSSIBLE MILD ESOPHAGITIS. 7. CONGENITAL SYNOSTOSIS BETWEEN THE LEFT FOURTH, FIFTH, AND SIXTH RIBS. MIDTHORACIC DEXTROCONVEX SCO LIOSIS.
== END | disposition home or self-care (01) ==
LOC: RADCTMAIN 11:46
PROVIDERS: ATTEND Internal Medicine
DX: J98.09 Other diseases of bronchus, not elsewhere classified (principal); R91.1 Solitary pulmonary nodule; K44.9 Diaphragmatic hernia without obstruction or gangrene; K22.8 Other specified diseases of esophagus; Q76.6 Other congenital malformations of ribs
CPT/HCPCS: 71275; Q9967

== ENCOUNTER 2024-03-02 17:18 | Observation (INO) | payer MEDICARE ==
--- NOTE | 2024-03-02 17:30 | ED ---
Syncope HPI <Cyril Obrien - Last Filed: 03/02/24 17:30> - General Source: patient, RN notes reviewed, old records reviewed <Cyril Infante - Last Filed: 03/02/24 19:56> - General Stated Complaint: blacking out Time Seen by Provider: 03/02/24 17:28 - History of Present Illness Initial Comments: This is a 58-year-old male who had a balloon procedure on the mitral valve in 2020. Patient states for the last 2 weeks 3-4 times every single day he almost passes out. Patient went to see his slip tender today for follow-up and it occurred in the office and the slip tender wanted him to come to the hospital be admitted. Patient denies any chest pain palpitation difficulty breathing shortness of breath. Patient has any recent fever chills or cough. Patient states he is never actually passed out because he normally sits down and goes away. Patient denies any abdominal pain patient has any nausea vomiting or diarrhea. (Cyril Infante) - Related Data Home Medications Medication Instructions Recorded Confirmed Albuterol Inhaler [Ventolin Hfa 1 puff INHALATION DAILY PRN 08/16/20 01/28/21 Inhaler] Metoprolol Succinate (ER) [Toprol 25 mg PO DAILY 01/23/21 01/28/21 XL] Allergies Allergy/AdvReac Type Severity Reaction Status Date / Time meclizine [From Antivert] Allergy Unknown Unknown Verified 01/28/21 08:52 amlodipine [From Norvasc] Allergy Unknown Verified 01/28/21 08:52 lisinopril [From Zestril] Allergy Unknown Verified 01/28/21 08:52 NSAIDS (Non-Steroidal Allergy Unknown Verified 01/28/21 08:52 Anti-Inflamma omeprazole Allergy Unknown Verified 01/28/21 08:52 Review of Systems ROS Other: All systems not noted in ROS Statement are negative. <Cyril Obrien - Last Filed: 03/02/24 17:30> ROS Other: All systems not noted in ROS Statement are negative. <Cyril Infante - Last Filed: 03/02/24 19:56> ROS Statement: Those systems with pertinent positive or pertinent negative responses have been documented in the HPI. 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 with surgery at age 4 yrs, pulmonary fibrosis/interstitial fibrosis, restrictive lung disease, L lung PE 2018, multiple L lung pneumothoraxs with chest tubes, reactive airway, significant narrowing of the left mainstem bronchus, migraines, past concussion History of Any Multi-Drug Resistant Organisms: None Reported Past Surgical History: Back Surgery, Cholecystectomy, Coronary Bypass/CABG, Hernia Repair, Orthopedic Surgery, Prostate Surgery Additional Past Surgical History / Comment(s): Heart surgery for patent ductus arteriosis at age 4 months, heart surgery for congenital coarctation of aorta at age 4 yrs, cervical fusion, laminectomy, bilateral carpal tunnel releases with R side done twice, TURP, L orchiectomy for undescended testicle, bronchoscopies, EGD, colonoscopy/benign polypectomy Past Anesthesia/Blood Transfusion Reactions: Postoperative Nausea & Vomiting (PONV) Smoking Status: Never smoker - Past Family History Mother History Unknown: Yes Family Medical History: Cancer Additional Family Medical History / Comment(s): from Pancreatic cancer Father Family Medical History: Osteoarthritis (OA) Additional Family Medical History / Comment(s): Arthritis <Cyril Obrien - Last Filed: 03/02/24 17:30> General Exam <Cyril Infante - Last Filed: 03/02/24 19:56> - General Exam Comments Initial Comments: GENERAL: Patient is well-developed and well-nourished. Patient is nontoxic and well- hydrated and is in no acute distress. ENT: Neck is soft and supple. No significant lymphadenopathy is noted. Oropharynx is clear. Moist mucous membranes. Neck has full range of motion without eliciting any pain. EYES: The sclera were anicteric and conjunctiva were pink and moist. Extraocular movements were intact and pupils were equal round and reactive to light. Eyelids were unremarkable. PULMONARY: Unlabored respirations. Good breath sounds bilaterally. No audible rales rhonchi or wheezing was noted. CARDIOVASCULAR: There is a regular rate and rhythm without any murmurs gallops or rubs. ABDOMEN: Soft and nontender with normal bowel sounds. SKIN: Skin is clear with no lesions or rashes and otherwise unremarkable. NEUROLOGIC: Patient is alert and oriented x3. Cranial nerves II through XII are grossly intact. Motor and sensory are also intact. Normal speech, volume and content. Symmetrical smile. MUSCULOSKELETAL: Normal extremities with adequate strength and full range of motion. LYMPHATICS: No significant lymphadenopathy is noted PSYCHIATRIC: Normal psychiatric evaluation. (Cyril Infante) Course Vital Signs 03/02/24 03/02/24 17:30 18:14 Temperature 97.8 F Pulse Rate 60 Respiratory 16 Rate Blood Pressure 179/49 Blood Pressure 159/68 [Left Arm Sitting] Blood Pressure 162/71 [Left Arm Standing] Blood Pressure 162/68 [Left Arm Supine] O2 Sat by Pulse 97 Oximetry Medical Decision Making - Lab Data Result diagrams: 03/02/24 17:30 03/02/24 17:30 <Cyril Infante - Last Filed: 03/02/24 19:56> - Medical Decision Making EKG is interpreted by myself. EKG shows sinus rhythm at 61 bpm parables 239 QRS is 131 QT interval is 419 QTc is 423. Patient EKG shows no ST segment ovation or depression. Was pt. sent in by a medical professional or institution (, PA, RATTLING MACHINE TENDER, urgent care, hospital, or penitentiary...) When possible be specific @ -Dr. Gonzalez sent the patient into the emergency department Did you speak to anyone other than the patient for history (EMS, parent, family, police, friend...)? What history was obtained from this source @ -No Did you review nursing and triage notes (agree or disagree)? Why? @ -I reviewed and agree with nursing and triage notes Were old charts reviewed (outside hosp., previous admission, EMS record, old EKG, old radiological studies, urgent care reports/EKG's, penitentiary records)? Report findings @ -No old charts were reviewed Differential Diagnosis (chest pain, altered mental status, abdominal pain women, abdominal pain men, vaginal bleeding, weakness, fever, dyspnea, syncope, headache, dizziness, GI bleed, back pain, seizure, CVA, palpatations, mental health, musculoskeletal)? @ -Differential Syncope: Valvular disease, hypertrophic cardiomyopathy, pulmonary embolism, tamponade, tachycardia, bradycardia, [place], hypovolemia, hemorrhage, dissection, anemia, intracranial hemorrhage, seizure, hypoglycemia, carbon monoxide poisoning, this is not meant to be an all-inclusive list. EKG interpreted by me (3pts min.). @ -As above X-rays interpreted by me (1pt min.). @ -None done CT interpreted by me (1pt min.). @ -None done U/S interpreted by me (1pt. min.). @ -None done What testing was considered but not performed or refused? (CT, X-rays, U/S, labs)? Why? @ -None What meds were considered but not given or refused? Why? @ -None Did you discuss the management of the patient with other professionals (professionals i.e. DrAlvino, PA, RATTLING MACHINE TENDER, lab, RT, psych nurse, hospice social worker, aircraft structural fitter, teacher, navigating officer, binder caser)? Give summary @ -I spoke with I spoke with sound physicians and they agreed to admit the patient Was smoking cessation discussed for >3mins.? @ -No Was critical care preformed (if so, how long)? @ -No Were there social determinants of health that impacted care today? How? (Homelessness, low income, unemployed, alcoholism, drug addiction, transp ortation, low edu. Level, literacy, decrease access to med. care, senior living, rehab)? @ -No Was there de-escalation of care discussed even if they declined (Discuss DNR or withdrawal of care, Hospice)? DNR status @ -No What co-morbidities impacted this encounter? (DM, HTN, Smoking, COPD, CAD, Cancer, CVA, ARF, Chemo, Hep., AIDS, mental health diagnosis, sleep apnea, morbid obesity)? @ -None Was patient admitted / discharged? Hospital course, mention meds given and route, prescriptions, significant lab abnormalities, going to OR and other pertinent info. @ -Patient had orthostatics done and they were normal lab work was essentially normal. Patient was asymptomatic throughout his ED stay. I spoke with [facility] physicians they agreed admit the patient admit the patient I wrote admitting orders and consult cardiology Undiagnosed new problem with uncertain prognosis? @ -No Drug Therapy requiring intensive monitoring for toxicity (Heparin, Nitro, Insulin, Cardizem)? @ -No Were any procedures done? @ -No Diagnosis/symptom? @ -Near syncope Acute, or Chronic, or Acute on Chronic? @ -Acute Uncomplicated (without systemic symptoms) or Complicated (systemic symptoms)? @ -Complicated Side effects of treatment? @ -No Exacerbation, Progression, or Severe Exacerbation? @ -No Poses a threat to life or bodily function? How? (Chest pain, [place], [place], pneumonia, PE, COPD, DKA, ARF, appy, cholecystitis, CVA, Diverticulitis, Homicidal, Suicidal, threat to staff... and all critical care pts) @ -Yes this could be secondary to an arrhythmia and cause morbidity or mortality (Cyril Infante) - Lab Data Lab Results 03/02/24 03/02/24 03/02/24 Range/Units 17:30 17:30 17:30 WBC 9.4 (3.8-10.6) k/uL RBC 5.30 (4.30-5.90) m/uL Hgb 16.9 (13.0-17.5) gm/dL Hct 51.2 (39.0-53.0) % MCV 96.5 (80.0-100.0) fL MCH 31.8 (25.0-35.0) pg MCHC 32.9 (31.0-37.0) g/dL RDW 13.2 (11.5-15.5) % Plt Count 245 (150-450) k/uL MPV 7.6 Neutrophils % 68 % Lymphocytes % 22 % Monocytes % 7 % Eosinophils % 2 % Basophils % 1 % Neutrophils # 6.4 (1.3-7.7) k/uL Lymphocytes # 2.0 (1.0-4.8) k/uL Monocytes # 0.6 (0-1.0) k/uL Eosinophils # 0.2 (0-0.7) k/uL Basophils # 0.1 (0-0.2) k/uL PT 10.6 (10.0-12.5) sec INR 1.0 (<1.2) APTT 24.5 (22.0-30.0) sec D-Dimer 0.20 (<0.60) mg/L FEU Sodium 141 (137-145) mmol/L Potassium 4.5 (3.5-5.1) mmol/L Chloride 103 (98-107) mmol/L Carbon Dioxide 29 (22-30) mmol/L Anion Gap 9 mmol/L BUN 23 H (9-20) mg/dL Creatinine 1.00 (0.66-1.25) mg/dL Est GFR (CKD-EPI)AfAm >90 (>60 ml/min/1.73 sqM) Est GFR (CKD-EPI)NonAf 83 (>60 ml/min/1.73 sqM) Glucose 122 H (74-99) mg/dL Calcium 9.7 (8.4-10.2) mg/dL Phosphorus 3.8 (2.5-4.5) mg/dL Magnesium 1.9 (1.6-2.3) mg/dL Total Bilirubin 0.7 (0.2-1.3) mg/dL AST 47 (17-59) U/L ALT 56 H (4-49) U/L Alkaline Phosphatase 87 (38-126) U/L Troponin I (0.000-0.034) ng/mL NT-Pro-B Natriuret Pep 56 pg/mL Total Protein 7.3 (6.3-8.2) g/dL Albumin 4.4 (3.5-5.0) g/dL 03/02/24 Range/Units 17:30 WBC (3.8-10.6) k/uL RBC (4.30-5.90) m/uL Hgb (13.0-17.5) gm/dL Hct (39.0-53.0) % MCV (80.0-100.0) fL MCH (25.0-35.0) pg MCHC (31.0-37.0) g/dL RDW (11.5-15.5) % Plt Count (150-450) k/uL MPV Neutrophils % % Lymphocytes % % Monocytes % % Eosinophils % % Basophils % % Neutrophils # (1.3-7.7) k/uL Lymphocytes # (1.0-4.8) k/uL Monocytes # (0-1.0) k/uL Eosinophils # (0-0.7) k/uL Basophils # (0-0.2) k/uL PT (10.0-12.5) sec INR (<1.2) APTT (22.0-30.0) sec D-Dimer (<0.60) mg/L FEU Sodium (137-145) mmol/L Potassium (3.5-5.1) mmol/L Chloride (98-107) mmol/L Carbon Dioxide (22-30) mmol/L Anion Gap mmol/L BUN (9-20) mg/dL Creatinine (0.66-1.25) mg/dL Est GFR (CKD-EPI)AfAm (>60 ml/min/1.73 sqM) Est GFR (CKD-EPI)NonAf (>60 ml/min/1.73 sqM) Glucose (74-99) mg/dL Calcium (8.4-10.2) mg/dL Phosphorus (2.5-4.5) mg/dL Magnesium (1.6-2.3) mg/dL Total Bilirubin (0.2-1.3) mg/dL AST (17-59) U/L ALT (4-49) U/L Alkaline Phosphatase (38-126) U/L Troponin I <0.012 (0.000-0.034) ng/mL NT-Pro-B Natriuret Pep pg/mL Total Protein (6.3-8.2) g/dL Albumin (3.5-5.0) g/dL Disposition <Cyril Obrien - Last Filed: 03/02/24 17:30> Time of Disposition: 19:56 <Cyril Infante - Last Filed: 03/02/24 19:56> Clinical Impression: Near syncope Disposition: ADMITTED IP TO THIS HOSP Referrals: Jim Dutta MD [Primary Care Provider] - 1-2 days
[2024-03-02 17:51] LABS: Basophils # (A) 0.1 k/uL (0-0.2); Basophils % (A) 1 %; Eosinophils # (A) 0.2 k/uL (0-0.7); Eosinophils % (A) 2 %; HCT 51.2 % (39.0-53.0); HGB 16.9 gm/dL (13.0-17.5); Lymphocytes % (A) 22 %; MCH 31.8 pg (25.0-35.0); MCHC 32.9 g/dL (31.0-37.0); MCV 96.5 fL (80.0-100.0); Mean Platelet Volume 7.6; Monocytes # (A) 0.6 k/uL (0-1.0); Monocytes % (A) 7 %; Neutrophils # (A) 6.4 k/uL (1.3-7.7); Neutrophils % (A) 68 %; Platelet Count 245 k/uL (150-450); RDW 13.2 % (11.5-15.5); WBC 9.4 k/uL (3.8-10.6)
[2024-03-02 18:05] LABS: Partial Thromboplastin Time 24.5 sec (22.0-30.0); Prothrombin Time 10.6 sec (10.0-12.5)
[2024-03-02 18:25] LABS: ALT 56 U/L (4-49); African American GFR (CKD) >90 (>60 ml/min/1.73 sqM); Albumin 4.4 g/dL (3.5-5.0); Anion Gap 9 mmol/L; Blood Urea Nitrogen 23 mg/dL (9-20); Calcium 9.7 mg/dL (8.4-10.2); Carbon Dioxide 29 mmol/L (22-30); Chloride 103 mmol/L (98-107); Glucose 122 mg/dL (74-99); Non-African American GFR(CKD) 83 (>60 ml/min/1.73 sqM); Sodium 141 mmol/L (137-145); Total Bilirubin 0.7 mg/dL (0.2-1.3); Total Protein 7.3 g/dL (6.3-8.2)
[2024-03-02 18:30] LABS: AST 47 U/L (17-59); Alkaline Phosphatase 87 U/L (38-126); Potassium 4.5 mmol/L (3.5-5.1)
[2024-03-02 18:31] LABS: Magnesium 1.9 mg/dL (1.6-2.3); Phosphorus 3.8 mg/dL (2.5-4.5)
[2024-03-02 18:33] LABS: NT-Pro-B-Type Natriuretic Pept 56 pg/mL
[2024-03-02] MEDS: SODIUM CHLORIDE 0.9% 1,000 ML IV STA (18:37)
[2024-03-02] MEDS ORDERED: NITROGLYCERIN SL TABS 0.4 MG TAB SUBLINGUAL PRN (19:56)
--- NOTE | 2024-03-03 05:53 | P.HPIM ---
History of Present Illness H&P Date: 03/02/24 Chief Complaint: Near syncope 58-year-old male with hypertension, congenital heart disease status postsurgical repair Patient coming in for 2-week history of recurrent near syncopal episodes today he was at his cardiology office when he had 1 of these episodes for which his shipping and receiving specialist sent him to the hospital for evaluation. He describes situations where he starts feeling warmth and his eyes started shutting down briefly and then he regains consciousness he denies any falls denies any associated chest pain trouble breathing palpitations nausea vomiting. Patient seems to have poor insight about his overall health as he claims to be very healthy with no medical issues however looking into his chart he has a significant past medical history including congenital heart disease status post surgical repairs and pulmonary embolism in 2018. Currently patient feeling fine denies any fevers chills denies any dizziness lightheadedness denies any abdominal pain denies any changes in bowel or urinary habits. He denies that this has ever happened It has been going on for the past couple weeks and he was waiting for her cardiology appointment to discuss that with him. Patient denies any recent hospital stay or traveling Patient denies any tobacco or illicit drugs or heavy alcohol review of systems Pertinent positives as noted in HPI. All other systems were reviewed and are negative on exam Constitutional: No acute distress, conversant, pleasant Eyes: Anicteric sclerae, moist conjunctiva, Pupils equal round reactive to light ENMT: NC/AT Oropharynx clear, no erythema, or exudates Neck: Supple, no masses, or JVD No carotid bruits No thyromegaly Lungs: Clear to auscultation Clear to percussion Normal respiratory effort, no accessory muscle use Cardiovascular: Heart regular in rate and rhythm, No murmurs, gallops, or rubs No peripheral edema Abdominal: Soft Nontender, no guarding, rebound or rigidity Abdomen moving with respiration Normoactive bowel sounds Extremities: No digital cyanosis No clubbing Pedal pulses intact and symmetrical Radial pulses intact and symmetrical No calf tenderness Psychiatric: Alert and oriented to person, place and time Appropriate affect fair judgement Neuro Muscles Strength 5/5 in all 4 extremities Sensation to light touch grossly present throughout Cranial nerves II-XII grossly intact 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 with surgery at age 4 yrs, pulmonary fibrosis/interstitial fibrosis, restrictive lung disease, L lung PE 2018, multiple L lung pneumothoraxs with chest tubes, reactive airway, significant narrowing of the left mainstem bronchus, migraines, past concussion History of Any Multi-Drug Resistant Organisms: None Reported Past Surgical History: Back Surgery, Cholecystectomy, Coronary Bypass/CABG, Hernia Repair, Orthopedic Surgery, Prostate Surgery Additional Past Surgical History / Comment(s): Heart surgery for patent ductus arteriosis at age 4 months, heart surgery for congenital coarctation of aorta at age 4 yrs, cervical fusion, laminectomy, bilateral carpal tunnel releases with R side done twice, TURP, L orchiectomy for undescended testicle, bronchoscopies, EGD, colonoscopy/benign polypectomy Past Anesthesia/Blood Transfusion Reactions: Postoperative Nausea & Vomiting (PONV) Smoking Status: Never smoker - Past Family History Mother History Unknown: Yes Family Medical History: Cancer Additional Family Medical History / Comment(s): from Pancreatic cancer Father Family Medical History: Osteoarthritis (OA) Additional Family Medical History / Comment(s): Arthritis Medications and Allergies Home Medications Medication Instructions Recorded Confirmed Type Aspirin EC [Ecotrin Low Dose] 81 mg PO DAILY 03/02/24 03/02/24 History Metoprolol Succinate (ER) [Toprol 75 mg PO DAILY 03/02/24 03/02/24 History Xl] Rosuvastatin Calcium 5 mg PO HS 03/02/24 03/02/24 History Triamcinolone 0.5% Cream [Kenalog 1 applic TOPICAL BID PRN 03/02/24 03/02/24 History 0.5% Cream] Allergies Allergy/AdvReac Type Severity Reaction Status Date / Time meclizine [From Antivert] Allergy Unknown Unknown Verified 03/02/24 20:58 amlodipine [From Norvasc] Allergy headache/migraine, Verified 03/02/24 20:58 upset stomach lisinopril [From Zestril] Allergy headache/migraine, Verified 03/02/24 20:58 upset stomach NSAIDS (Non-Steroidal Allergy headache/migraine, Verified 03/02/24 20:58 Anti-Inflamma upset stomach omeprazole Allergy headache/migraine, Verified 03/02/24 20:58 upset stomach Physical Exam Vitals: Vital Signs Temp Pulse Resp BP BP BP BP 03/02/24 18:14 159/68 162/71 162/68 03/02/24 17:30 97.8 F 60 16 179/49 Pulse Ox 03/02/24 18:14 03/02/24 17:30 97 Intake and Output 03/02/24 03/02/24 03/02/24 06:59 14:59 22:59 Other: Weight 68.039 kg Results CBC & Chem 7: 03/02/24 17:30 03/02/24 17:30 Labs: Abnormal Lab Results - Last 24 Hours (Table) 03/02/24 Range/Units 17:30 BUN 23 H (9-20) mg/dL Glucose 122 H (74-99) mg/dL ALT 56 H (4-49) U/L Assessment and Plan Assessment: 58-year-old male with congenital heart disease status postsurgical repair coming into the hospital for evaluation of near syncope upon his shipping and receiving specialist recommendation I discussed the case with ED doctor and accepted the admission for near syncope for further cardiology evaluation with anticipated length of stay less than 2 midnights Near syncope rule out cardiac causes Cardiology consult Cardiac monitoring EKG overall unchanged compared to old EKG from a few years ago Patient denies any chest pain or trouble breathing Resume home medications aspirin 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
[2024-03-03] MEDS: METOPROLOL SUCCINATE (ER) 25 MG TAB.ER.24H PO SCH (08:53)
[2024-03-03] MEDS: HEPARIN SODIUM,PORCINE 5,000 UNIT/ML 1 ML VIAL SQ SCH (08:54)
[2024-03-03] MEDS: ASPIRIN 325 MG TAB PO SCH (08:54)
[2024-03-03 09:24] LABS: Chol/HDL Ratio 3.35 Ratio; LDL Cholesterol,Calculated 55.5 mg/dL (0.0-131.0)
--- NOTE | 2024-03-03 13:06 | P.CRDCN ---
History of Present Illness Consult date: 03/03/24 Consult reason: sycope History of present illness: History of present illness: This is a 58-year-old male patient of Dr. Gonzalez with past medical history of patent ductus arteriosus that was repaired at 3 months of age, coarctation of the aorta that was repaired at age 4 years, history of mitral stenosis status post balloon valvuloplasty at [facility] in 2020, history of rheumatic fever, hyperlipidemia. Patient gives history that he was seen in the office with Dr. Gonzalez yesterday. For the past couple weeks, he has had episodes where he starts to blackout lasting about 20 seconds each and occurring 3-4 times per day. The episodes start with his eyes seeming to shut and a very short episode of blackout but does not have any fall to the floor. He does not have any other symptoms like palpitations she wanted us to know about. He states that usually happens when he is walking but not with any exertion. Orthostatics have been negative. Right blood pressure 160/84 and 177/70 and left blood pressure 160/84. 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 He denies loss of consciousness. He was advised to go to the hospital for further evaluation at that time. Patient did have a mild episode at around 4 AM today when he was ambulating to the bathroom. EKG sinus rhythm CBC, INR, D-dimer electrolytes are all within normal limits. BUN 23 and creatinine 1. Blood sugar 122. Lactic acid was 1.2. Troponin negative x 3. Magnesium 1.9. Triglycerides 291, cholesterol 162, LDL 55 and HDL 48. Home cardiac medications: Aspirin 81 mg daily, Toprol-XL 75 mg daily, Crestor 5 mg at bedtime Cardiac catheterization performed 01/28/2021 revealed minimal coronary artery disease. Echocardiogram performed in the office on 06/12/2023 reveals EF 55%. Sinus venosus ASD. Mild aortic regurgitation. Moderate mitral regurgitation. The mitral valve is rheumatically deformed status post mitral valve balloon v alvuloplasty. Mild mitral annular calcification. Mitral valve calcified. Trace tricuspid regurgitation. Physiologic pulmonic regurgitation. Review Of Systems: At the time of my exam: CONSTITUTIONAL: Denies fever or chills. HEENT: Denies blurred vision, vision changes, or eye pain. Denies hemoptysis CARDIOVASCULAR: Denies chest pain. Denies orthopnea. Denies PND. Denies palpitations RESPIRATORY: Denies shortness of breath. GASTROINTESTINAL: Denies abdominal pain. Denies nausea or vomiting. HEMATOLOGIC: Denies bleeding disorders. GENITOURINARY: Denies any blood in urine. SKIN: Denies pruitis. Denies rash. Physical examination: Gen: This is a 58-year-old male in no acute distress VS: reviewed blood pressure 144/80, heart rate 57, pulse ox 90% on room air, afebrile. HEENT: Head is atraumatic, normocephalic. Pupils equal, round. Sclerae is anicteric. NECK: Supple. No JVD. LUNGS: Clear to auscultation. No wheezes or rhonchi. No intercostal retractions. HEART: Regular rate and rhythm. No murmur. ABDOMEN: Soft No tenderness. EXTREMITIES: No pedal edema. No calf tenderness. NEUROLOGICAL: Patient is awake, alert and oriented x3. Assessment: Near syncopal episodes rule out arrhythmia History of PDA repaired at 3 months of age History of coarctation of the aorta repaired at 4 years of age History of mitral stenosis status post balloon valvuloplasty in 2020 History of rheumatic heart disease Hyperlipidemia Plan: Resume patient's home cardiac medications Monitor telemetry and blood pressure closely Obtain 2-D echocardiogram and Doppler study to assess cardiac structure and function Patient has 3-week event monitor placed at [facility] on 03/02 Further recommendations to follow based upon clinical course Thank you kindly for this consultation. Nurse practitioner note has been reviewed, I agree with documented findings and plan of care. Patient was seen and examined. 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 with surgery at age 4 yrs, pulmonary fibrosis/interstitial fibrosis, restrictive lung disease, L lung PE 2018, multiple L lung pneumothoraxs with chest tubes, reactive airway, significant narrowing of the left mainstem bronchus, migraines, past concussion History of Any Multi-Drug Resistant Organisms: None Reported Past Surgical History: Back Surgery, Cholecystectomy, Coronary Bypass/CABG, Hernia Repair, Orthopedic Surgery, Prostate Surgery Additional Past Surgical History / Comment(s): Heart surgery for patent ductus arteriosis at age 4 months, heart surgery for congenital coarctation of aorta at age 4 yrs, cervical fusion, laminectomy, bilateral carpal tunnel releases with R side done twice, TURP, L orchiectomy for undescended testicle, bronchoscopies, EGD, colonoscopy/benign polypectomy Past Anesthesia/Blood Transfusion Reactions: Postoperative Nausea & Vomiting (PONV) Smoking Status: Never smoker - Past Family History Mother History Unknown: Yes Family Medical History: Cancer Additional Family Medical History / Comment(s): from Pancreatic cancer Father Family Medical History: Osteoarthritis (OA) Additional Family Medical History / Comment(s): Arthritis Medications and Allergies Home Medications Medication Instructions Recorded Confirmed Type Aspirin EC [Ecotrin Low Dose] 81 mg PO DAILY 03/02/24 03/02/24 History Metoprolol Succinate (ER) [Toprol 75 mg PO DAILY 03/02/24 03/02/24 History Xl] Rosuvastatin Calcium 5 mg PO HS 03/02/24 03/02/24 History Triamcinolone 0.5% Cream [Kenalog 1 applic TOPICAL BID PRN 03/02/24 03/02/24 History 0.5% Cream] Allergies Allergy/AdvReac Type Severity Reaction Status Date / Time meclizine [From Antivert] Allergy Unknown Unknown Verified 03/02/24 20:58 amlodipine [From Norvasc] Allergy headache/migraine, Verified 03/02/24 20:58 upset stomach lisinopril [From Zestril] Allergy headache/migraine, Verified 03/02/24 20:58 upset stomach NSAIDS (Non-Steroidal Allergy headache/migraine, Verified 03/02/24 20:58 Anti-Inflamma upset stomach omeprazole Allergy headache/migraine, Verified 03/02/24 20:58 upset stomach Physical Exam Vitals: Vital Signs Temp Pulse Pulse Resp BP BP BP 03/03/24 07:00 97.6 F 57 L 16 03/03/24 02:51 98.2 F 53 L 15 03/03/24 02:35 60 16 03/02/24 23:06 97.5 F L 60 16 157/70 03/02/24 22:00 61 16 162/71 03/02/24 18:14 159/68 162/71 03/02/24 18:00 62 16 154/77 03/02/24 17:30 97.8 F 60 16 179/49 BP BP Pulse Ox 03/03/24 07:00 144/80 98 03/03/24 02:51 132/74 98 03/03/24 02:35 03/02/24 23:06 97 03/02/24 22:00 98 03/02/24 18:14 162/68 03/02/24 18:00 98 03/02/24 17:30 97 Intake and Output 03/02/24 03/03/24 03/03/24 22:59 06:59 14:59 Other: Voiding Method Toilet # Voids 1 1 Weight 68.039 kg 68.039 kg Results 03/02/24 17:30 03/02/24 17:30 Cardiac Enzymes 03/02/24 03/02/24 03/02/24 Range/Units 17:30 17:30 20:36 AST 47 (17-59) U/L Troponin I <0.012 <0.012 (0.000-0.034) ng/mL 03/03/24 Range/Units 00:11 AST (17-59) U/L Troponin I <0.012 (0.000-0.034) ng/mL Coagulation 03/02/24 Range/Units 17:30 PT 10.6 (10.0-12.5) sec APTT 24.5 (22.0-30.0) sec Lipids 03/02/24 Range/Units 17:30 Triglycerides 291.00 H (0.00-149.00) mg/dL Cholesterol 162.00 (0.00-200.00) mg/dL HDL Cholesterol 48.30 (40.00-60.00) mg/dL Cholesterol/HDL Ratio 3.35 Ratio CBC 03/02/24 Range/Units 17:30 WBC 9.4 (3.8-10.6) k/uL RBC 5.30 (4.30-5.90) m/uL Hgb 16.9 (13.0-17.5) gm/dL Hct 51.2 (39.0-53.0) % Plt Count 245 (150-450) k/uL Comprehensive Metabolic Panel 03/02/24 Range/Units 17:30 Sodium 141 (137-145) mmol/L Potassium 4.5 (3.5-5.1) mmol/L Chloride 103 (98-107) mmol/L Carbon Dioxide 29 (22-30) mmol/L BUN 23 H (9-20) mg/dL Creatinine 1.00 (0.66-1.25) mg/dL Glucose 122 H (74-99) mg/dL Calcium 9.7 (8.4-10.2) mg/dL AST 47 (17-59) U/L ALT 56 H (4-49) U/L Alkaline Phosphatase 87 (38-126) U/L Total Protein 7.3 (6.3-8.2) g/dL Albumin 4.4 (3.5-5.0) g/dL Current Medications Generic Name Dose Route Start Last Admin Trade Name Freq PRN Reason Stop Dose Admin Aspirin 325 mg 03/03/24 09:00 03/03/24 08:54 Aspirin 325 Mg Tab PO 325 mg DAILY ANAYA Administration Atorvastatin Calcium 10 mg 03/03/24 21:00 Atorvastatin 10 Mg Tab PO HS [facility] Heparin Sodium (Porcine) 5,000 unit 03/03/24 08:00 03/03/24 08:54 Heparin Sodium,Porcine 5,000 Unit/Ml 1 Ml Vial SQ 5,000 unit Q8HR ANAYA Administration Metoprolol Succinate 75 mg 03/03/24 09:00 03/03/24 08:53 Metoprolol Succinate (Er) 25 Mg Tab.Er.24h PO 75 mg DAILY ANAYA Administration Nitroglycerin 0.4 mg 03/02/24 19:56 Nitroglycerin Sl Tabs 0.4 Mg Tab SUBLINGUAL Q5M PRN Chest Pain Intake and Output 03/02/24 03/03/24 03/03/24 22:59 06:59 14:59 Other: Voiding Method Toilet # Voids 1 1 Weight 68.039 kg 68.039 kg 03/02/24 17:30 03/02/24 17:30
--- NOTE | 2024-03-03 13:48 | CA ---
Transthoracic Echo Report Name: Alex Cadena Age: 58 Gender: M : 1965 Exam Date: 03/03/2024 11:46 Exam Location: [place] Echo Ht (in): 60 Wt (lb): 150 Ordering Physician: Amber Baumann Attending/Referring Phys: [id number], Pastor Computer Systems Engineer Colleen Freedman RDCS Procedure CPT: Indications: LVF Cardiac Hx: Technical Quality: Very technically difficult study Contrast 1: Total Dose (mL): Contrast 2: Total Dose (mL): MEASUREMENTS (Male / Female) Normal Values 2D ECHO LV Diastolic Diameter PLAX 3.6 cm 4.2 - 5.9 / 3.9 - 5.3 cm LV Systolic Diameter PLAX 2.5 cm IVS Diastolic Thickness 0.8 cm 0.6 - 1.0 / 0.6 - 0.9 cm LVPW Diastolic Thickness 1.1 cm 0.6 - 1.0 / 0.6 - 0.9 cm LV Relative Wall Thickness 0.5 DOPPLER MV Area PHT 4.6 cm??? Mitral E Point Velocity 100.0 cm/s Mitral A Point Velocity 108.6 cm/s Mitral E to A Ratio 0.9 MV Deceleration Time 166.6 ms TR Peak Velocity 277.0 cm/s TR Peak Gradient 30.7 mmHg PV Peak Velocity 64.6 cm/s PV Peak Gradient 1.7 mmHg FINDINGS Left Ventricle Left ventricular ejection fraction is estimated at 55%. Mild concentric left ventricular hypertrophy. Right Ventricle Right Atrium Left Atrium Mitral Valve Aortic Valve Tricuspid Valve Pulmonic Valve Pericardium No pericardial effusion. Aorta CONCLUSIONS Technically difficult study Left ventricular EF 55% Mild to moderate right ventricular hypertrophy Normal mitral valve with no mitral regurgitation, no mitral stenosis. Prominent descending aorta in the left atrium however does not appear to be obstructing flow. Previewed by: Dr. Truman Galicia DO (Electronically Signed) Final Date: 03 March 2024 13:47
--- NOTE | 2024-03-03 15:24 | P.PN ---
Subjective Progress Note Date: 03/03/24 Hospital Course: 58-year-old male with history of congenital heart disease status post repair, mitral stenosis status post repair, hypertension presenting with presyncope. Vital signs have been within normal limits. Has been hypertensive, orthostatic Vitals negative. Laboratory workup unremarkable. Triglyceride elevated 291, total cholesterol 162, LDL 55, troponin negative x 3. Allergy consulted. EKG shows first-degree AV block. Echocardiogram shows LVEF 55%, no mitral regurgitation or mitral stenosis, prominent descending aorta however does not appear to be obstructing flow. Subjective: Patient seen and examined at bedside. No acute events overnight. Still occasionally has presyncopal episodes. Pertinent positives and negatives as discussed above, a complete review of s ystems was performed and all other systems are negative. Vitals Signs Reviewed. General: Nontoxic, no distress, appears at stated age Derm: Warm, dry Head: Atraumatic, normocephalic, symmetric Eyes: EOMI, no lid lag, anicteric sclera Mouth: No lip lesion, mucus membranes moist Cardiovascular: S1S2 reg, no murmur Lungs: CTA bilateral, no rhonchi, no rales, no accessory muscle use Abdominal: Soft, nontender to palpation, no guarding, no appreciable organomegaly Ext: No gross muscle atrophy, no edema, no contractures Neuro: CN II-XI grossly intact, no focal neuro deficits Psych: Alert, oriented, appropriate affect Data Reviewed Today: Pertinent Labs: Troponin negative x 3 Imaging: Echocardiogram shows LVEF 55%, no mitral regurgitation or stenosis Assessment and Plan: Active: Presyncope First-degree AV block Sinus bradycardia History of rheumatic heart disease History of mitral stenosis status post valvuloplasty History of congenital heart disease Dyslipidemia Hypertension - Discussed management with cardiology, metoprolol decreased to 25 daily, likely discharge home tomorrow - Already has an event monitor in place - Continue atorvastatin 10 - TSH pending - Continue telemetry monitoring DVT ppx: Subcu heparin Code status: Full code Anticipated discharge place: Pending clinical course Anticipated discharge time: Pending clinical course Objective - Vital Signs Vital signs: Vital Signs Temp 98 F 03/03/24 14:21 Pulse 57 L 03/03/24 14:21 Resp 16 03/03/24 14:21 BP 146/69 03/03/24 14:21 Pulse Ox 96 03/03/24 14:21 FiO2 Intake & Output 03/02/24 03/03/24 03/03/24 18:59 06:59 18:59 Weight 68.039 kg 68.039 kg Other: Voiding Method Toilet Toilet # Voids 1 1 - Labs CBC & Chem 7: 03/02/24 17:30 03/02/24 17:30 Labs: Abnormal Lab Results - Last 24 Hours (Table) 03/02/24 03/02/24 Range/Units 17:30 17:30 BUN 23 H (9-20) mg/dL Glucose 122 H (74-99) mg/dL ALT 56 H (4-49) U/L Triglycerides 291.00 H (0.00-149.00) mg/dL VLDL Cholesterol, Calc 58.20 H (5.00-40.00) mg/dL
[2024-03-03] MEDS: ATORVASTATIN 10 MG TAB PO SCH (20:35)
[2024-03-04 07:55] VITALS: BP 123/76; PULSE 58; RESP 18; TEMP 97.4
[2024-03-04] MEDS: METOPROLOL SUCCINATE (ER) 25 MG TAB.ER.24H PO SCH (08:50)
[2024-03-04] MEDS: ACETAMINOPHEN TAB 325 MG TAB PO PRN (08:50)
[2024-03-04] MEDS ORDERED: ASPIRIN 81 MG PO SCH (09:00)
--- NOTE | 2024-03-04 13:23 | P.PN ---
Subjective Progress Note Date: 03/04/24 Consult reason: sycope History of present illness: History of present illness: This is a 58-year-old male patient of Dr. Gonzalez with past medical history of patent ductus arteriosus that was repaired at 3 months of age, coarctation of the aorta that was repaired at age 4 years, history of mitral stenosis status post balloon valvuloplasty at [facility] in 2020, history of rheumatic fever, hyperlipidemia. Patient gives history that he was seen in the office with Dr. Gonzalez yesterday. For the past couple weeks, he has had episodes where he starts to blackout lasting about 20 seconds each and occurring 3-4 times per day. The episodes start with his eyes seeming to shut and a very short episode of blackout but does not have any fall to the floor. He does not have any other symptoms like palpitations she wanted us to know about. He states that usually happens when he is walking but not with any exertion. Orthostatics have been negative. Right blood pressure 160/84 and 177/70 and left blood pressure 160/84. 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 He denies loss of consciousness. He was advised to go to the hospital for further evaluation at that time. Patient did have a mild episode at around 4 AM today when he was ambulating to the bathroom. EKG sinus rhythm CBC, INR, D-dimer electrolytes are all within normal limits. BUN 23 and creatinine 1. Blood sugar 122. Lactic acid was 1.2. Troponin negative x 3. Magnesium 1.9. Triglycerides 291, cholesterol 162, LDL 55 and HDL 48. Home cardiac medications: Aspirin 81 mg daily, Toprol-XL 75 mg daily, Crestor 5 mg at bedtime Cardiac catheterization performed 01/28/2021 revealed minimal coronary artery disease. Echocardiogram performed in the office on 06/12/2023 reveals EF 55%. Sinus venosus ASD. Mild aortic regurgitation. Moderate mitral regurgitation. The mitral valve is rheumatically deformed status post mitral valve balloon valvuloplasty. Mild mitral annular calcification. Mitral valve calcified. Trace tricuspid regurgitation. Physiologic pulmonic regurgitation. Echocardiogram reveals EF of 55%. Normal mitral valve with no mitral regurgitation. No mitral stenosis. Prominent descending aorta and the left atrium however does not appear to be obstructing flow. Technically difficult study. Mild to moderate right ventricular hypertrophy. Results of echocardiogram reviewed with the patient and his father at the bedside. No worsening of MS noted to account for patient's symptoms. Patient's near syncopal symptoms possibly due to bradycardia due to beta-haider which we will decrease to 25 mg daily. Repeat blood pressure is 144/69. Patient states that his blood pressure runs normal at home. Plan to monitor patient overnight and expect that he will be able to be discharged home tomorrow. 03/04 Patient states that he had a mild episode of near syncope this morning. He denies having any chest pain or palpitations. Yesterday we decreased Toprol-XL from 75 mg to 25 mg. Heart rate this morning is 58, blood pressure 123/76, pulse ox 97% on room air. Physical examination: Gen: This is a 58-year-old male in no acute distress VS: reviewed HEENT: Head is atraumatic, normocephalic. Pupils equal, round. Sclerae is anicteric. LUNGS: Clear to auscultation. No wheezes or rhonchi. No intercostal retractions. HEART: Regular rate and rhythm. No murmur. EXTREMITIES: No pedal edema. No calf tenderness. NEUROLOGICAL: Patient is awake, alert and oriented x3. Assessment: Near syncopal episodes rule out arrhythmia History of PDA repaired at 3 months of age History of coarctation of the aorta repaired at 4 years of age History of mitral stenosis status post balloon valvuloplasty in 2020 History of rheumatic heart disease Hyperlipidemia Plan: Continue patient's home cardiac medications with decrease beta-haider dose Patient is cleared for discharge and may follow-up with Dr. Gonzalez in 4 weeks Nurse practitioner note has been reviewed, I agree with documented findings and plan of care. Patient was seen and examined. Objective - Vital Signs Vital signs: Vital Signs Temp 97.4 F L 03/04/24 07:00 Pulse 58 L 03/04/24 07:00 Resp 18 03/04/24 07:00 BP 123/76 03/04/24 07:00 Pulse Ox 97 03/04/24 07:00 FiO2 Intake & Output 03/03/24 03/04/24 03/04/24 18:59 06:59 18:59 Intake Total 236 Balance 236 Intake: Oral 236 Other: Voiding Method Toilet Toilet # Voids 1 3 - Labs CBC & Chem 7: 03/02/24 17:30 03/02/24 17:30
--- NOTE | 2024-03-04 15:32 | P.DS ---
Providers Date of admission: 03/02/24 19:59 Expected date of discharge: 03/04/24 Attending physician: Vargas Vaz MD Consults: 03/02/24 19:57 Consult Physician Urgent Consulting Provider: [facility] Consult Reason/Comments: Near syncope Do you want consulting provider notified?: Yes Primary care physician: Jim Grimes [facility] Course: Discharge Diagnosis: Presyncope First-degree AV block Sinus bradycardia History of rheumatic heart disease History of mitral stenosis status post valvuloplasty History of congenital heart disease Dyslipidemia Hypertension Hospital Course: 58-year-old male with history of congenital heart disease status post repair, mitral stenosis status post repair, hypertension presenting with presyncope. Vital signs have been within normal limits. Has been hypertensive, orthostatic Vitals negative. Laboratory workup unremarkable. Triglyceride elevated 291, total cholesterol 162, LDL 55, troponin negative x 3. Allergy consulted. EKG shows first-degree AV block. Echocardiogram shows LVEF 55%, no mitral regurgitation or mitral stenosis, prominent descending aorta however does not appear to be obstructing flow. Cardiology consulted. Metoprolol decreased. Patient to follow-up outpatient with cardiology. Event monitor in place. Patient seen and examined at bedside. Vital signs reviewed and stable. General: Nontoxic, no distress, appears at stated age Derm: Warm, dry Head: Atraumatic, normocephalic, symmetric Eyes: EOMI, no lid lag, anicteric sclera Mouth: No lip lesion, mucus membranes moist Cardiovascular: S1S2 reg, no murmur Lungs: CTA bilateral, no rhonchi, no rales, no accessory muscle use Abdominal: Soft, nontender to palpation, no guarding, no appreciable organomegaly Ext: No gross muscle atrophy, no edema, no contractures Neuro: CN II-XI grossly intact, no focal neuro deficits Psych: Alert, oriented, appropriate affect A total of 33 minutes of time were spent preparing this complex discharge summary. Patient was discharged on 03/04/2024 at 1211. Patient Condition at Discharge: Stable Plan - Discharge Summary Discharge Rx Participant: No New Discharge Prescriptions: New Metoprolol Succinate [Metoprolol Succinate ER] 25 mg PO DAILY #60 tab Continue Triamcinolone 0.5% Cream [Kenalog 0.5% Cream] 1 applic TOPICAL BID PRN PRN Reason: rash on hands Rosuvastatin Calcium 5 mg PO HS Aspirin EC [Ecotrin Low Dose] 81 mg PO DAILY Discontinued Metoprolol Succinate (ER) [Toprol Xl] 75 mg PO DAILY Discharge Medication List Aspirin EC [Ecotrin Low Dose] 81 mg PO DAILY 03/02/24 [History] Rosuvastatin Calcium 5 mg PO HS 03/02/24 [History] Triamcinolone 0.5% Cream [Kenalog 0.5% Cream] 1 applic TOPICAL BID PRN 03/02/24 [History] Metoprolol Succinate [Metoprolol Succinate ER] 25 mg PO DAILY #60 tab 03/04/24 [Rx] Follow up Appointment(s)/Referral(s): Ilir Gonzalez MD [STAFF PHYSICIAN] - 4 Weeks (Office will call with appointment time and date) Jim Dutta MD [Primary Care Provider] - 1-2 days Patient Instructions/Handouts: Bradycardia (DC), Near Syncope (DC) Activity/Diet/Wound Care/Special Instructions: Please see your sheet manager. Discharge Disposition: HOME SELF-CARE
== END 2024-03-04 13:25 | disposition home or self-care (01) ==
LOC: EC 17:18 → 6NMEDSUR 19:59
PROVIDERS: ADMIT Internal Medicine; ATTEND Internal Medicine
DX: R55 Syncope and collapse (principal); I44.0 Atrioventricular block, first degree; R00.1 Bradycardia, unspecified; M06.9 Rheumatoid arthritis, unspecified; Z95.2 Presence of prosthetic heart valve; Z87.74 Personal history of (corrected) congenital malformations of heart and circulatory system; E78.5 Hyperlipidemia, unspecified; I10 Essential (primary) hypertension; J44.9 Chronic obstructive pulmonary disease, unspecified; Z87.01 Personal history of pneumonia (recurrent); Z86.711 Personal history of pulmonary embolism; Z95.1 Presence of aortocoronary bypass graft; Z79.82 Long term (current) use of aspirin; Z79.899 Other long term (current) drug therapy; I25.10 Atherosclerotic heart disease of native coronary artery without angina pectoris
CPT/HCPCS: 96360; 96361 ×2; 96372 ×2; 99285; 36415; 93005; 93306; 85379; 83880; 80061; 80053; 84443; 83605; 83735; 84100; 84484 ×2; 85025; 85610; 85730; G0378 ×3; J1644 ×2

== ENCOUNTER 2024-05-26 10:03 | Day surgery (SDC) | payer MEDICARE ==
[2024-05-24 15:34] VITALS: BMI 27.3
[~2024-05-26 10:03] MED LIST changes: -ALPRAZolam 0.25 MG TAB PO PRN; -ALPRAZolam 0.5 MG TAB PO PRN; -ASPIRIN 325 MG TAB PO STA; -ATORVASTATIN 80 MG TAB PO STA; -NITROGLYCERIN SL TABS 0.4 MG TAB SUBLINGUAL PRN; +SODIUM CHLORIDE 0.9% 1,000 ML IV SCH; -SODIUM CHLORIDE 0.9% 1,000 ML in EMPTY BAG 1 BAG IV ONE
[2024-05-26] MEDS ORDERED: LIDOCAINE 1% INJ 10MG/ML (20 ML MDV) ONE ×3 (10:16→13:22)
[2024-05-26 11:15] LABS: Basophils % (A) 0 %; Eosinophils # (A) 0.2 k/uL (0-0.7); Eosinophils % (A) 2 %; HCT 51.7 % (39.0-53.0); Lymphocytes # (A) 1.7 k/uL (1.0-4.8); Lymphocytes % (A) 18 %; MCH 30.9 pg (25.0-35.0); MCHC 30.9 g/dL (31.0-37.0); MCV 99.9 fL (80.0-100.0); Monocytes # (A) 0.7 k/uL (0-1.0); Monocytes % (A) 8 %; Neutrophils # (A) 6.5 k/uL (1.3-7.7); Neutrophils % (A) 70 %; Platelet Count 266 k/uL (150-450); RBC 5.18 m/uL (4.30-5.90); RDW 12.5 % (11.5-15.5); WBC 9.2 k/uL (3.8-10.6)
[2024-05-26 11:35] LABS: African American GFR (CKD) >90 (>60 ml/min/1.73 sqM); Anion Gap 7 mmol/L; Blood Urea Nitrogen 16 mg/dL (9-20); Calcium 9.8 mg/dL (8.4-10.2); Carbon Dioxide 29 mmol/L (22-30); Chloride 101 mmol/L (98-107); Glucose 103 mg/dL (74-99); Non-African American GFR(CKD) >90 (>60 ml/min/1.73 sqM); Potassium 3.9 mmol/L (3.5-5.1); Sodium 137 mmol/L (137-145)
[2024-05-26] MEDS ORDERED: diphenhydrAMINE 50 MG/ML 1 ML VIAL ONE (12:06)
[2024-05-26] MEDS: IV FLUID CONTINUATION 500 ML IV ONE (12:06)
[2024-05-26] MEDS ORDERED: MIDAZOLAM 2 MG/2 ML VIAL ONE (12:06)
[2024-05-26] MEDS ORDERED: fentaNYL (PF) 50 MCG/ML 2 ML AMP ONE (12:06)
[2024-05-26] MEDS ORDERED: PROPOFOL 10 MG/ML 20 ML VIAL IV ONE (12:06)
[2024-05-26] MEDS: ceFAZolin 1 GM in SODIUM CHLORIDE 0.9% IRRIG BTL 250 ML IRRIGATION PRN (12:07)
[2024-05-26] MEDS: IOPAMIDOL-370 100ML BTL INJ ONE (12:30)
[2024-05-26] MEDS: SODIUM CHLORIDE 0.9% 500 ML 500 ML IV ONE (12:55)
[2024-05-26] MEDS: LIDOCAINE 1% INJ 10MG/ML (20 ML MDV) SQ ONE ×2 (13:11→13:23)
[2024-05-26] MEDS: ROPIVACAINE 5 MG/ML 30 ML VIAL MISCELLANE ONE ×2 (13:12→18:31)
[2024-05-26] MEDS ORDERED: SYMBICORT 80-4.5 MCG INHALER INHALATION PRN (15:10)
[2024-05-26] MEDS ORDERED: ACETAMINOPHEN TAB 325 MG TAB PO PRN (15:16)
--- NOTE | 2024-05-26 15:25 | P.EPPROC ---
- EP Procedure Note Electrophysiology Procedure Note: Diagnosis Symptomatic bradycardia, unprovoked, no triggering factors Sick sinus syndrome and AV node disease Mitral valve disease Procedure Dual-chamber pacemaker implantation with conduction system pacing (left bundle pacing) Left upper extremity venogram Details Patient was brought to the EP lab in a fasting state. Written informed consent was obtained prior to the procedure. Conscious sedation provided by PBX REPAIRER. IV antibiotics administered. Local anesthesia administered. A 4 cm incision made in the pectoral area. Subfascial pocket made. Venous accesses obtained Venous sheaths placed. Leads placed in the right heart. 2 sets of pacing cables were used; one for backup temporary pacing and the other for assessment of current of injury and signal analysis. A 52 cm atrial pacing lead was first positioned in the RV apex for temporary pacing during mapping and conduction system pacing Thresholds were interrogated and backup high output pacing was provided This atrial lead was then removed from the right ventricle and later positioned in the right atrial appendage and the permanent lead A deflected sheath was prepped. A coronary sinus decapolar catheter was placed within this sheath. The catheter along with the sheath was then passed into the right heart, the catheter was prolapsed across the tricuspid valve, into the right ventricle and then further into the right ventricular outflow tract across the pulmonic valve into the pulmonary artery. This sheath was slid over this decapolar catheter into the RVOT. Thereafter the catheter last sheath assembly was withdrawn from the RVOT along the septum to the mid septal area. The sheath was appropriately to to map the right ventricular aspect of the septum. The decapolar catheter was withdrawn, the sheath flushed again and the screw-in pacing lead placed within the sheath. Further detailed unipolar pace-mapping of the septum was performed and once the appropriate based morphology was obtained on lead V1, the lead was screwed into the septum. The lead was screwed in 4-5 returns at a time while monitoring the current of injury, the pacing impedance changes and the paced QRS morphology. The stimulus to peak of V6 QRS was measured at each step. Once a QR or rSR pattern of paced QRS in lead V1 was obtained, a left bundle signal was sought. Impedance was measured and thresholds were measured. An impedance drop of 100-200 ohms but above 550 ohms was targeted along with an unchanged vector of the current of injury signal. The final positioning was based on the QRS morphology in lead V1 and a short stimulus to peak of the V6 QRS of less than 90 ms. The sheath was withdrawn, stability of the pacing lead deep in the septum was confirmed on ROMERO and JORGITO views and the sheath was slipped and an adequate heel was provided for the lead. Unipolar and bipolar electrogram morphology obtained Atrial lead positioned in the right atrial appendage. 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
--- NOTE | 2024-05-26 17:34 | P.EPPROC ---
- EP Procedure Note Electrophysiology Procedure Note: Dual-chamber pacemaker conduction system pacing Patient has sick sinus syndrome and AV block He also had fairly significant scoliosis resulting in cardiac rotation It took a considerable amount of time understanding the cardiac rotation before successful implantation of the left bundle lead The atrial lead was used as backup temporary pacing while the left bundle leads were successfully placed The patient's heart is severely clockwise rotated and the KYRGYZ view in 15 degrees looks like an ROMERO view However once I understood the cardiac rotation, implantation of the left bundle lead is was expeditious and successful The paced QRS in lead V1 had a typical right bundle morphology Stimulus-peak of V6 was 63 ms
--- NOTE | 2024-05-26 17:38 | P.PRLE ---
RE: Alex Cadena Dear Dr. Chun Patient underwent successful implantation of a dual-chamber pacemaker with conduction system pacing, left bundle pacing for management of sick sinus syndrome and AV node disease He will resume beta-blockers once again follow-up with you and Dr. Simons as before Thank you for entrusting me with the care of the patient Warm regards Sincerely Victorino Macedo
[2024-05-26] MEDS: METOPROLOL SUCCINATE (ER) 50 MG TAB.ER.24H PO SCH (18:21)
[2024-05-26] MEDS: ACETAMINOPHEN IV (For NPO) 1,000 MG in EMPTY BAG 1 BAG IVPB ONE (18:32)
[2024-05-26] MEDS ORDERED: METOPROLOL SUCCINATE (ER) 50 MG TAB.ER.24H PO ONE (18:50)
[2024-05-26 19:04] VITALS: RESP 17
--- NOTE | 2024-05-26 19:22 | XR ---
EXAM: XR chest 1V portable CLINICAL INDICATION:Male, 58 years old with history of dual ppm; [facility] COMPARISON: 12/16/2023 TECHNIQUE: Chest single view. FINDINGS: Left chest dual-lead pacemaker with lead tips overlying the RA and RV. CM silhouette is stable. Heart is mildly enlarged. No significant congestion or edema. No focal lung consolidation, pleural effusion, or pneumothorax. Degenerative changes of the spine and shoulders with apex right thoracic scoliosis again noted along with chronic left rib deformities. No clearly acute bony abnormality. IMPRESSION: 1. Left chest dual-lead permanent pacemaker in place. 2. No pneumothorax. 3. Stable mild cardiomegaly, without evidence of failure or focal airspace disease.
[2024-05-26] MEDS ORDERED: LOSARTAN 50 MG TAB PO SCH (21:00)
[2024-05-26] MEDS ORDERED: ATORVASTATIN 10 MG TAB PO SCH (21:00)
[2024-05-27 04:55] VITALS: BP 136/75; PULSE 75; TEMP 98.1
[2024-05-27] MEDS ORDERED: hydroCHLOROthiazide 25 MG TAB PO SCH (09:00)
[2024-05-27] MEDS ORDERED: ASPIRIN 81 MG PO SCH (09:00)
== END 2024-05-26 20:12 | disposition home or self-care (01) ==
LOC: CATHEP 10:03 → 6NMEDSUR 14:54 → CATHEP 05-27 04:54
PROVIDERS: ATTEND Internal Medicine Clinical Cardiac Electrophysiology
DX: I49.5 Sick sinus syndrome (principal); I05.0 Rheumatic mitral stenosis; I10 Essential (primary) hypertension; E78.5 Hyperlipidemia, unspecified; I27.20 Pulmonary hypertension, unspecified; Z79.82 Long term (current) use of aspirin; Z79.899 Other long term (current) drug therapy
CPT/HCPCS: 99152; 33208; 80048; 84443; 85025; 71045; C1769 ×3; C1730; C1887; C1892; C1898; C1785; J2250; J1200; J0690; J2001; J3010; J2795; J2704; Q9967